=== PATIENT | female | born 1930 | race African-American/Black ===

== ENCOUNTER 2017-01-31 07:54 | Emergency (ER) | payer MEDICARE, MEDICAID ==
--- NOTE | 2017-01-31 08:01 | ER Document Report ---
ED General - General Stated Complaint: FALL,ARM PAIN Mode of Arrival: Medic Information source: Patient Notes: 86-year-old female presents with complaints of right elbow pain after mechanical fall yesterday. Patient notes she tripped over her wheelchair tried to catch herself. She refused EMS transport yesterday however pain continued today and now presents for evaluation - HPI Onset: Yesterday Onset/Duration: Sudden Quality of pain: Achy Severity: Moderate Pain Level: 2 Associated symptoms: Other Exacerbated by: Movement Relieved by: Denies Similar symptoms previously: No Recently seen / treated by doctor: No - Related Data Allergies/Adverse Reactions: lisinopril [Lisinopril] Allergy (Verified 09/14/12 17:51) oxcarbazepine [Oxcarbazepine] Allergy (Verified 09/14/12 17:51) Past Medical History - Social History Smoking Status: Never Smoker Cigarette use (# per day): No Chew tobacco use (# tins/day): No Smoking Education Provided: No Family History: Reviewed & Not Pertinent - Past Medical History Cardiac Medical History: Reports: Hx Atrial Fibrillation, Hx Congestive Heart Failure, Hx Coronary Artery Disease, Hx Hypertension Denies: Hx Heart Attack, Hx Hypercholesterolemia, Hx Peripheral Vascular Disease, Hx Pulmonary Embolism, Hx Heart Murmur Pulmonary Medical History: Reports: Hx Asthma, Hx COPD, Hx Pneumonia Denies: Hx Bronchitis, Hx Respiratory Failure, Hx Sleep Apnea, Hx Tuberculosis Neurological Medical History: Reports: Hx Cerebrovascular Accident. Denies: Hx Seizures Endocrine Medical History: Denies: Hx Graves' Disease, Hx Hyperthyroidism, Hx Hypothyroidism Renal/ Medical History: Denies: Hx End Stage Renal Disease, Hx Kidney Stones, Hx Ovarian Cysts, Hx Peritoneal Dialysis, Hx Pelvic Inflammatory Disease Malignancy Medical History: Denies: Hx Breast Cancer, Hx Cervical Cancer, Hx Leukemia, Hx Lung Cancer, Hx Ovarian Cancer GI Medical History: Denies: Hx Crohn's Disease, Hx Gastroesophageal Reflux Disease, Hx Hiatal Hernia, Hx Irritable Bowel, Hx Liver Failure, Hx Ulcer Musculoskeltal Medical History: Reports Hx Arthritis, Denies Hx Fibromyalgia, Denies Hx Multiple Sclerosis, Denies Hx Muscular Dystrophy Psychiatric Medical History: Reports: Hx Bipolar Disorder, Hx Dementia, Hx Depression, Hx Schizophrenia Traumatic Medical History: Denies: Hx Fractures Infectious Medical History: Denies: Hx HIV Past Surgical History: Reports: Hx Hysterectomy. Denies: Hx Appendectomy, Hx Bowel Surgery, Hx Section, Hx Cholecystectomy, Hx Colostomy, Hx Coronary Artery Bypass Graft, Hx Gastric Bypass Surgery, Hx Herniorrhaphy, Hx Mastectomy, Hx Pacemaker, Hx Tonsillectomy, Hx Tubal Ligation - Immunizations Hx Diphtheria, Pertussis, Tetanus Vaccination: Yes Hx Pneumococcal Vaccination: 11/30/09 Review of Systems - Review of Systems Notes: REVIEW OF SYSTEMS: CONSTITUTIONAL : Denies fever, chills, or sweats. Denies recent illness. EENT: Denies eye, ear, throat, or mouth pain or symptoms. Denies nasal or sinus congestion or discharge. Denies throat, tongue, or mouth swelling or difficulty swallowing. CARDIOVASCULAR: Denies chest pain. Denies palpitations or racing or irregular heart beat. Denies ankle edema. RESPIRATORY: Denies cough, cold, or chest congestion. Denies shortness of breath, difficulty breathing, or wheezing. GASTROINTESTINAL: Denies abdominal pain or distention. Denies nausea, vomiting , or diarrhea. Denies blood in vomitus, stools, or per rectum. Denies black, tarry stools. Denies constipation. GENITOURINARY: Denies difficulty urinating, painful urination, burning, frequency, blood in urine, or discharge. FEMALE GENITOURINARY: Denies vaginal bleeding, heavy or abnormal periods, irregular periods. Denies vaginal discharge or odor. MUSCULOSKELETAL: Right elbow pain SKIN: Denies rash, lesions or sores. HEMATOLOGIC : Denies easy bruising or bleeding. LYMPHATIC: Denies swollen, enlarged glands. NEUROLOGICAL: Denies confusion or altered mental status. Denies passing out or loss of consciousness. Denies dizziness or lightheadedness. Denies headache. Denies weakness or paralysis or loss of use of either side. Denies problems with gait or speech. Denies sensory loss, numbness, or tingling. Denies seizures. PSYCHIATRIC: Denies anxiety or stress. Denies depression, suicidal ideation, or homicidal ideation. ALL OTHER SYSTEMS REVIEWED AND NEGATIVE. Dictation was performed using [employer] recognition software PHYSICAL EXAMINATION: GENERAL: Well-appearing, well-nourished and in no acute distress. HEAD: Atraumatic, normocephalic. EYES: Pupils equal round and reactive to light, extraocular movements intact, conjunctiva are normal. ENT: Nares patent, oropharynx clear without exudates. Moist mucous membranes. NECK: Normal range of motion, supple without lymphadenopathy LUNGS: Breath sounds clear to auscultation bilaterally and equal. No wheezes rales or rhonchi. HEART: Regular rate and rhythm without murmurs ABDOMEN: Soft, nontender, nondistended abdomen. No guarding, no rebound. No masses appreciated. Female : deferred Musculoskeletal: Limited range of motion in antecubital region secondary to pain. Patient is able to grasp has good sensation otherwise. She has no tenderness in the shoulder NEUROLOGICAL: Cranial nerves grossly intact. Normal speech, normal gait. Normal sensory, motor exams PSYCH: Normal mood, normal affect. SKIN: Warm, Dry, normal turgor, no rashes or lesions noted. Physical Exam - Vital signs Vitals: Temp Pulse Resp BP Pulse Ox 98.4 F 52 L 18 108/95 H 96 01/31/17 08:06 01/31/17 08:06 01/31/17 08:06 01/31/17 08:06 01/31/17 08:06 Course - Re-evaluation Re-evalutation: 01/31/17 08:00 X-ray of the elbow is pending at this time, patient has no other injuries or complaints. Patient is on 2 L nasal cannula at baseline 01/31/17 08:57 X-ray noted no significant abnormality, patient will be discharged back home at this time After performing a Medical Screening Examination, I estimate there is LOW risk for INTRACRANIAL HEMORRHAGE, UNSTABLE SPINE FRACTURE, CENTRAL CORD SYNDROME, CAUDA EQUINA, THORACIC AORTIC DISSECTION, PNEUMOTHORAX, PERFORATED BOWEL, RUPTURED ABDOMINAL AORTIC ANEURYSM, ACUTE TENDON RUPTURE, COMPARTMENT SYNDROME, or OPEN FRACTURE, thus I consider the discharge disposition reasonable. Also, there is no evidence or peritonitis, sepsis, or toxicity. The patient and I have discussed the diagnosis and risks, and we agree with discharging home to follow-up with their primary doctor with the understanding that symptoms and presentations can change. We also discussed returning to the Emergency Department immediately if new or worsening symptoms occur. We have discussed the symptoms which are most concerning (e.g., bloody stool, fever, changing or worsening pain, vomiting) that necessitate immediate return. - Vital Signs Vital signs: Temp Pulse Resp BP Pulse Ox 98.4 F 52 L 18 108/95 H 96 01/31/17 08:06 01/31/17 08:06 01/31/17 08:06 01/31/17 08:06 01/31/17 08:06 - Diagnostic Test Radiology reviewed: Image reviewed, Reports reviewed Discharge - Discharge Clinical Impression: Elbow injury Qualifiers: Encounter type: initial encounter Laterality: right Qualified Code(s): S59.901A - Unspecified injury of right elbow, initial encounter Elbow pain Qualifiers: Laterality: right Qualified Code(s): M25.521 - Pain in right elbow Condition: Stable Disposition: HOME, SELF-CARE Instructions: Contusion (OM) Referrals: LILI MCRAE MD [Primary Care Provider] - Follow up as needed JEAN PAUL HERNANDEZ DO [ACTIVE STAFF] - Follow up in 3-5 days
[2017-01-31] MEDS ORDERED: IBUPROFEN 600 MG TABLET PO ONE (08:21)
[2017-01-31 10:51] VITALS: BP 143/66
== END 2017-01-31 10:57 | disposition home or self-care (01) ==
LOC: ER 07:54
DX: S59.901A Unspecified injury of right elbow, initial encounter (principal); M25.521 Pain in right elbow; W01.0XXA Fall on same level from slipping, tripping and stumbling without subsequent striking against object, initial encounter; I25.10 Atherosclerotic heart disease of native coronary artery without angina pectoris; I10 Essential (primary) hypertension; J44.9 Chronic obstructive pulmonary disease, unspecified; J45.909 Unspecified asthma, uncomplicated; Z86.73 Personal history of transient ischemic attack (TIA), and cerebral infarction without residual deficits; Z88.8 Allergy status to other drugs, medicaments and biological substances
CPT/HCPCS: 99284; 73070; A9270

== ENCOUNTER 2017-09-08 15:50 | Emergency (ER) | payer MEDICARE, MEDICAID ==
[2017-09-08] MEDS ORDERED: IPRATROPIUM/ALBUTEROL 0.5-2.5 MG/3 ML AMPUL NEB ONE (16:40)
[2017-09-08] MEDS ORDERED: PREDNISONE 20 MG TABLET PO ONE (16:40)
--- NOTE | 2017-09-08 16:56 | ER Document Report ---
ED Respiratory Problem - General Chief Complaint: Cough Stated Complaint: WEAKNESS Time Seen by Provider: 09/08/17 16:15 Notes: The patient is an 86-year-old female, past medical history COPD, presents with cough and congestion for the past 3 days. She was seen by Dr. Crawford a few days ago and started on an unknown antibiotic, but the patient said that she is feeling a little worse. She has had wheezing and was given two albuterol nebs by EMS prior to arrival. Patient is only having chest pain when she coughs, but denies fevers, hemoptysis, nausea, vomiting, leg swelling, sputum, headache , back pain, abdominal pain or recent travel. Patient does not want to be in the emergency room and says she was forced to come by her family members who called 911. She says she feels fine. Pt is AAOx4 and is competent to make her own decisions. - Related Data Allergies/Adverse Reactions: lisinopril [Lisinopril] Allergy (Verified 09/14/12 17:51) oxcarbazepine [Oxcarbazepine] Allergy (Verified 09/14/12 17:51) Past Medical History - General Information source: Patient - Social History Smoking Status: Former Smoker Chew tobacco use (# tins/day): No Frequency of alcohol use: None Drug Abuse: None Family History: Reviewed & Not Pertinent - Past Medical History Cardiac Medical History: Reports: Hx Atrial Fibrillation, Hx Congestive Heart Failure, Hx Coronary Artery Disease, Hx Hypertension Denies: Hx Heart Attack, Hx Hypercholesterolemia, Hx Peripheral Vascular Disease, Hx Pulmonary Embolism, Hx Heart Murmur Pulmonary Medical History: Reports: Hx Asthma, Hx COPD, Hx Pneumonia Denies: Hx Bronchitis, Hx Respiratory Failure, Hx Sleep Apnea, Hx Tuberculosis Neurological Medical History: Reports: Hx Cerebrovascular Accident. Denies: Hx Seizures Endocrine Medical History: Denies: Hx Graves' Disease, Hx Hyperthyroidism, Hx Hypothyroidism Renal/ Medical History: Denies: Hx End Stage Renal Disease, Hx Kidney Stones, Hx Ovarian Cysts, Hx Peritoneal Dialysis, Hx Pelvic Inflammatory Disease Malignancy Medical History: Denies: Hx Breast Cancer, Hx Cervical Cancer, Hx Leukemia, Hx Lung Cancer, Hx Ovarian Cancer GI Medical History: Denies: Hx Crohn's Disease, Hx Gastroesophageal Reflux Disease, Hx Hiatal Hernia, Hx Irritable Bowel, Hx Liver Failure, Hx Ulcer Musculoskeltal Medical History: Reports Hx Arthritis, Denies Hx Fibromyalgia, Denies Hx Multiple Sclerosis, Denies Hx Muscular Dystrophy Psychiatric Medical History: Reports: Hx Bipolar Disorder, Hx Dementia, Hx Depression, Hx Schizophrenia Traumatic Medical History: Denies: Hx Fractures Infectious Medical History: Denies: Hx HIV Past Surgical History: Reports: Hx Hysterectomy. Denies: Hx Appendectomy, Hx Bowel Surgery, Hx Section, Hx Cholecystectomy, Hx Colostomy, Hx Coronary Artery Bypass Graft, Hx Gastric Bypass Surgery, Hx Herniorrhaphy, Hx Mastectomy, Hx Pacemaker, Hx Tonsillectomy, Hx Tubal Ligation - Immunizations Hx Diphtheria, Pertussis, Tetanus Vaccination: Yes Hx Pneumococcal Vaccination: 11/30/09 Review of Systems - Review of Systems Notes: REVIEW OF SYSTEMS: CONSTITUTIONAL: -fevers, -chills EENT: -eye pain, -difficulty swallowing, -nasal congestion CARDIOVASCULAR: -chest pain, -syncope. RESPIRATORY: +cough, -SOB GASTROINTESTINAL: -abdominal pain, - nausea, -vomiting, -diarrhea GENITOURINARY: -dysuria, -hematuria MUSCULOSKELETAL: -back pain, -neck pain SKIN: -rash or skin lesions. HEMATOLOGIC: -easy bruising or bleeding. LYMPHATIC: -swollen, enlarged glands. NEUROLOGICAL: -altered mental status or loss of consciousness, -headache, - neurologic symptoms PSYCHIATRIC: -anxiety, -depression. ALL OTHER SYSTEMS REVIEWED AND NEGATIVE. Physical Exam - Vital signs Vitals: Temp Pulse Resp BP Pulse Ox 99.0 F 64 20 124/55 L 94 09/08/17 16:05 09/08/17 16:05 09/08/17 16:05 09/08/17 16:05 09/08/17 16:05 - Notes Notes: PHYSICAL EXAMINATION: GENERAL: Well-appearing, well-nourished and in no acute distress. HEAD: Atraumatic, normocephalic. EYES: Pupils equal round and reactive to light, extraocular movements intact, sclera anicteric, conjunctiva are normal. ENT: nares patent, oropharynx clear without exudates. Moist mucous membranes. NECK: Normal range of motion, supple without lymphadenopathy LUNGS: Breath sounds clear to auscultation bilaterally and equal. No wheezes rales or rhonchi. HEART: Regular rate and rhythm without murmurs ABDOMEN: Soft, nontender, normoactive bowel sounds. No guarding, no rebound. No masses appreciated. EXTREMITIES: Normal range of motion, no pitting or edema. No cyanosis. NEUROLOGICAL: Cranial nerves grossly intact. Normal speech, normal gait. Normal sensory and motor exams. PSYCH: Normal mood, normal affect. SKIN: Warm, Dry, normal turgor, no rashes or lesions noted. Course - Re-evaluation Re-evalutation: Patient is in no respiratory distress. Her chest x-ray shows chronic lung changes and a possible left lower lobe pneumonia. She is already on her antibiotics. After steroids and duonebs, she feels much better. She is adamant that she does not want any blood work because she feels fine and wants to go home. She is only here because her family called 911. Patient is of sound mind, AAO 4 and appears competent to make her own decisions. Will discharge patient home with albuterol and steroids with instructions to continue her antibiotics. She will follow-up with Dr. Crawford this week. Given strict return precautions and she understands. - Vital Signs Vital signs: Temp Pulse Resp BP Pulse Ox 99.0 F 64 20 124/55 L 94 09/08/17 16:05 09/08/17 16:05 09/08/17 16:05 09/08/17 16:05 09/08/17 16:05 - Diagnostic Test Radiology reviewed: Image reviewed, Reports reviewed Radiology results interpreted by me: CXR: chronic lung changes, cannot exclude left lower lung infiltrate - EKG Interpretation by Me EKG shows normal: Sinus rhythm, [place], Intervals, QRS Complexes Additional EKG results interpreted by me: No STEMI. Discharge - Discharge Clinical Impression: Cough, Bronchitis Condition: Good Disposition: HOME, SELF-CARE Additional Instructions: BRONCHITIS WITH BRONCHOSPASM (WHEEZING): You have bronchitis with bronchospasm (wheezing). Sometimes people develop wheezing with a chest cold. This occurs either because of an underlying tendency toward asthma or because the virus itself irritates the bronchial tubes. This irritation causes cough, shortness of breath, and wheezing. Emergency treatment of bronchospasm may include adrenaline shots or bronchodilator aerosol. You may feel lightheaded and have a rapid pulse for an hour or two. Rest and get plenty of fluids. At home, we'll treat you with a bronchodilator inhaler. Corticosteroids may be required for some patients. Until you recover, avoid chemical fumes, dusts, pollens, and exercising in very cold or dry air. If you smoke, stop now! Most cases of bronchitis get better without antibiotics. We prescribe antibiotics when we believe bacteria are damaging your airways, or if there's high risk the bronchitis will worsen into pneumonia. Increase your fluid intake. A cool mist humidifier may make your lungs more comfortable. An expectorant (cough medicine that loosens phlegm) can help. Repeated episodes of bronchitis and bronchospasm may result in lung damage -- for example, chronic bronchitis, recurrent pneumonias, or emphysema. If you develop a fever, increased wheezing, chest pain, or severe shortness of breath, you should contact the doctor immediately. INHALED BRONCHODILATORS: You have received a treatment of and/or prescription for an inhaled bronchodilator -- a medication which stimulates the airways in the lung to dilate. This improves the flow of air in asthma, bronchitis, and emphysema. These medicines have some similarity to adrenaline, and can cause similar side effects: shakiness, racing heart, and a sense of nervousness. These side effects decrease with time. Contact your doctor if these side effects are severe. Do not over-use the medicine. Too-frequent use of the inhaler may make it ineffective. Call your doctor if the inhaler is not controlling your symptoms at the prescribed doses. STEROID MEDICATION: You have been given an injection of or oral medicine of the cortisone/ steroid class. This medication is used to control inflammation or allergy. Joseph t is usually only given for a short period of time, until the acute process subsides. There are usually no side effects from short-term use of cortisone-like medications. Some persons feel an increased sense of well-being and are not sleepy at bedtime. Long-term use of cortisone medications is best avoided, unless required for a severe condition. If your condition does not remit, or relapses after the course of corticosteroid medication, you should consult your physician. USE OF ACETAMINOPHEN (Tylenol): Acetaminophen may be taken for pain relief or fever control. It's much safer than aspirin, offering a wider range of "safe" dosages. It is safe during . Some brand names are Tylenol, Panadol, Datril, Anacin 3, Tempra, and Liquiprin. Acetaminophen can be repeated every four hours. The following are maximum recommended dosages: >89 pounds or adults 650 mg to 900 mg Acetaminophen can be repeated every four hours. Maximum dose not to exceed 4000 mg a day. SMOKING: If you smoke, you should stop smoking. The tar and chemicals in cigarette smoke are harmful. Smoking has been shown to cause: emphysema chronic bronchitis lung cancer mouth and throat cancer stomach and pancreas cancer premature aging defects In addition, smoking increases ear and lung infections in children of smokers. FOLLOW-UP CARE: If you have been referred to a physician for follow-up care, call the physician s office for an appointment as you were instructed or within the next two days. If you experience worsening or a significant change in your symptoms, notify the physician immediately or return to the Emergency Department at any time for re-evaluation. Prescriptions: Albuterol Sulfate [Proair HFA Inhalation Aerosol 8.5 gm MDI] 2 puff IH Q4H PRN # 1 mdi PRN Reason: Doxycycline Hyclate 100 mg PO BID #14 capsule Prednisone [Deltasone 20 mg Tablet] 3 tab PO DAILY 4 Days tablet
--- NOTE | 2017-09-08 17:08 | RADIOLOGY REPORT (SQ) ---
EXAM DESCRIPTION: CHEST PA/LAT COMPLETED DATE/TIME: 09/08/2017 4:59 pm REASON FOR STUDY: cough COMPARISON: 09/27/2012 EXAM PARAMETERS: NUMBER OF VIEWS: two views TECHNIQUE: Digital Frontal and Lateral radiographic views of the chest acquired. RADIATION DOSE: NA LIMITATIONS: none FINDINGS: LUNGS AND PLEURA: Chronic interstitial changes are present. Ill-defined opacification in the left lower lung field. On the lateral view there is increased opacification posteriorly. MEDIASTINUM AND HILAR STRUCTURES: No masses or contour abnormalities. HEART AND VASCULAR STRUCTURES: Heart normal size. No evidence for failure. BONES: No acute findings. HARDWARE: None in the chest. OTHER: No other significant finding. IMPRESSION: Chronic lung changes. Cannot exclude a left lower lobe pneumonia. TECHNICAL DOCUMENTATION: JOB ID: [id number]- All Rights Reserved
--- NOTE | 2017-09-08 18:15 | EKG REPORT ---
SEVERITY:- ABNORMAL ECG - SINUS RHYTHM NONSPECIFIC T ABNORMALITIES, LATERAL LEADS : Confirmed by: Salbador Bill MD 08-Sep-2017 18:13:38
[2017-09-08 21:51] VITALS: BP 133/53
== END 2017-09-08 21:51 | disposition home or self-care (01) ==
LOC: ER 15:50
DX: J40 Bronchitis, not specified as acute or chronic (principal); R05 Cough; R53.1 Weakness; J44.9 Chronic obstructive pulmonary disease, unspecified; R09.81 Nasal congestion; Z87.891 Personal history of nicotine dependence
CPT/HCPCS: 93005; 94640; 99283; 71020; 93010; A9270 ×2; J7512; J7620

== ENCOUNTER 2017-11-16 10:32 | Inpatient (IN) | payer MEDICARE, MEDICAID ==
[2017-11-16] MEDS ORDERED: IPRATROPIUM/ALBUTEROL 0.5-2.5 MG/3 ML AMPUL NEB ONE (11:09)
[2017-11-16] MEDS ORDERED: ALBUTEROL SULFATE 0.083% NEB 2.5 MG/3 ML AMPUL NEB ONE (11:09)
--- NOTE | 2017-11-16 11:10 | RADIOLOGY REPORT (SQ) ---
EXAM DESCRIPTION: CHEST SINGLE VIEW COMPLETED DATE/TIME: 11/16/2017 11:01 am REASON FOR STUDY: sob COMPARISON: None. EXAM PARAMETERS: NUMBER OF VIEWS: One view. TECHNIQUE: Single frontal radiographic view of the chest acquired. RADIATION DOSE: NA LIMITATIONS: None. FINDINGS: LUNGS AND PLEURA: There is opacification in each lung base, left more than right. There i s a small left pleural effusion. MEDIASTINUM AND HILAR STRUCTURES: No masses. Contour normal. HEART AND VASCULAR STRUCTURES: Heart normal in size. Normal vasculature. BONES: No acute findings. HARDWARE: None in the chest. OTHER: No other significant finding. IMPRESSION: Cannot exclude multicentric pneumonia. Small left pleural effusion. TECHNICAL DOCUMENTATION: JOB ID: [id number] [employer]- All Rights Reserved
[2017-11-16] MEDS ORDERED: LEVOFLOXACIN 500 MG/D5W RTU 500 MG/100 ML RTUPB IV ONE (11:41)
[2017-11-16 11:58] LABS: ABSOLUTE MONOCYTES (AUTO) 0.8 10^3/uL (0.1-1.4); ABSOLUTE NEUT (AUTO) 5.3 10^3/uL (1.7-8.2); BASOPHILS % (AUTO) 0.5 % (0-2); EOSINOPHILS % (AUTO) 0.3 % (0-6); HEMATOCRIT 36.3 % (36.0-47.0); HEMOGLOBIN 12.4 g/dL (12.0-15.5); HGB HCT DIFFERENCE 0.9; LYMPHOCYTES % (AUTO) 32.8 % (13-45); MEAN CORPUSCULAR HEMOGLOBIN 28.9 pg (27.0-33.4); MEAN CORPUSCULAR HGB CONC 34.3 g/dL (32.0-36.0); MEAN CORPUSCULAR VOLUME 84 fl (80-97); MONOCYTES % (AUTO) 8.4 % (3-13); RED BLOOD COUNT 4.31 10^6/uL (3.72-5.28); RED CELL DISTRIBUTION WIDTH 15.6 % (11.5-14.0); WHITE BLOOD COUNT 9.1 10^3/uL (4.0-10.5)
--- NOTE | 2017-11-16 12:57 | EKG REPORT ---
SEVERITY:- ABNORMAL ECG - SINUS RHYTHM NONSPECIFIC T ABNORMALITIES, LATERAL LEADS : Confirmed by: Salbador Bill MD 16-Nov-2017 12:56:48
[2017-11-16 13:19] LABS: APPEARANCE,URINE CLEAR; BILIRUBIN,URINE NEGATIVE (NEGATIVE); GLUCOSE, URINE NEGATIVE (NEGATIVE); KETONES,URINE NEGATIVE (NEGATIVE); LEUKOCYTE ESTERASE,URINE NEGATIVE (NEGATIVE); NITRITE,URINE NEGATIVE (NEGATIVE); PROTEIN,URINE >=500 mg/dL (NEGATIVE); URINE SPECIFIC GRAVITY 1.011
[2017-11-16 14:12] LABS: VENOUS BLOOD BASE EXCESS -4.6 mmol/L; VENOUS BLOOD HCO3 21.5 mmol/L (20-32); VENOUS BLOOD PCO2 43.5 mmHg (35-63); VENOUS BLOOD PH 7.31 (7.30-7.42)
[2017-11-16 14:29] LABS: ALANINE AMINOTRANSFERASE 26 U/L (9-52); ALKALINE PHOSPHATASE 83 U/L (38-126); ANION GAP 15 (5-19); ASPARTATE AMINO TRANSFERASE 20 U/L (14-36); BILIRUBIN,DIRECT 0.8 mg/dL (0.0-0.4); BILIRUBIN,TOTAL 2.1 mg/dL (0.2-1.3); BLOOD UREA NITROGEN 15 mg/dL (7-20); CALCIUM 8.8 mg/dL (8.4-10.2); CARBON DIOXIDE 22 mmol/L (22-30); CHLORIDE 111 mmol/L (98-107); CREATININE RESULT 1.39 mg/dL (0.52-1.25); GLUCOSE 137 mg/dL (75-110); POTASSIUM 3.1 mmol/L (3.6-5.0); SODIUM 147.9 mmol/L (137-145); TOTAL PROTEIN 8.2 g/dL (6.3-8.2)
[2017-11-16] MEDS ORDERED: NORMAL SALINE 1000 ML 1,000 ML IV ONE (14:43)
[2017-11-16 14:44] LABS: TROPONIN I 0.043 ng/mL
--- NOTE | 2017-11-16 14:56 | ER Document Report ---
ED General - General Chief Complaint: Breathing Difficulty Stated Complaint: DIFFICULTY BREATHING Time Seen by Provider: 11/16/17 10:43 - HPI Patient complains to provider of: Difficulty breathing Notes: Patient coming in for local [place] [facility] for difficulty breathing. Patient has a history of dementia. Apparently patient has had difficulty breathing cough over the last few days patient was sent to the ER for further evaluation. Patient has severe dementia and is unable to participate in the HPI. Patient normally is on room air patient requiring oxygen and was hypoxic upon arrival without oxygen. - Related Data Allergies/Adverse Reactions: lisinopril [Lisinopril] Allergy (Verified 09/14/12 17:51) oxcarbazepine [Oxcarbazepine] Allergy (Verified 09/14/12 17:51) Past Medical History - Social History Smoking Status: Unknown if Ever Smoked Chew tobacco use (# tins/day): No Frequency of alcohol use: None Drug Abuse: None Family History: Reviewed & Not Pertinent Patient has suicidal ideation: No Patient has homicidal ideation: No - Past Medical History Cardiac Medical History: Reports: Hx Atrial Fibrillation, Hx Congestive Heart Failure, Hx Coronary Artery Disease, Hx Hypertension Denies: Hx Heart Attack, Hx Hypercholesterolemia, Hx Peripheral Vascular Disease, Hx Pulmonary Embolism, Hx Heart Murmur Pulmonary Medical History: Reports: Hx Asthma, Hx COPD, Hx Pneumonia Denies: Hx Bronchitis, Hx Respiratory Failure, Hx Sleep Apnea, Hx Tuberculosis Neurological Medical History: Reports: Hx Cerebrovascular Accident. Denies: Hx Seizures Endocrine Medical History: Denies: Hx Graves' Disease, Hx Hyperthyroidism, Hx Hypothyroidism Renal/ Medical History: Denies: Hx End Stage Renal Disease, Hx Kidney Stones, Hx Ovarian Cysts, Hx Peritoneal Dialysis, Hx Pelvic Inflammatory Disease Malignancy Medical History: Denies: Hx Breast Cancer, Hx Cervical Cancer, Hx Leukemia, Hx Lung Cancer, Hx Ovarian Cancer GI Medical History: Denies: Hx Crohn's Disease, Hx Gastroesophageal Reflux Disease, Hx Hiatal Hernia, Hx Irritable Bowel, Hx Liver Failure, Hx Pancreatitis , Hx Ulcer Musculoskeltal Medical History: Reports Hx Arthritis, Denies Hx Fibromyalgia, Denies Hx Multiple Sclerosis, Denies Hx Muscular Dystrophy Psychiatric Medical History: Reports: Hx Bipolar Disorder, Hx Dementia, Hx Depression, Hx Schizophrenia Traumatic Medical History: Denies: Hx Fractures Infectious Medical History: Denies: Hx HIV Past Surgical History: Reports: Hx Hysterectomy. Denies: Hx Appendectomy, Hx Bowel Surgery, Hx Section, Hx Cholecystectomy, Hx Colostomy, Hx Coronary Artery Bypass Graft, Hx Gastric Bypass Surgery, Hx Herniorrhaphy, Hx Mastectomy, Hx Pacemaker, Hx Tonsillectomy, Hx Tubal Ligation - Immunizations Hx Diphtheria, Pertussis, Tetanus Vaccination: Yes Hx Pneumococcal Vaccination: 11/30/09 Review of Systems - Review of Systems Notes: Dementia Physical Exam - Vital signs Vitals: Pulse Ox 94 11/16/17 10:41 Interpretation: Normal - HEENT Head: Normocephalic, Atraumatic Eyes: Normal Pupils: PERRL - Respiratory Respiratory status: Other - Hypoxia Chest status: Nontender Breath sounds: Rhonchi, Wheezing Chest palpation: Normal - Cardiovascular Rhythm: Regular Heart sounds: Normal auscultation Murmur: No - Abdominal Inspection: Normal Distension: No distension Bowel sounds: Normal Tenderness: Nontender Organomegaly: No organomegaly - Extremities General upper extremity: Normal inspection, Nontender, Normal color, Normal temperature General lower extremity: Normal inspection, Nontender, Normal color, Normal temperature - Neurological Neuro grossly intact: Yes Cognition: Confused Motor strength normal: LUE, RUE, LLE, RLE - Skin Skin Temperature: Warm Skin Moisture: Dry Skin Color: Normal Course - Re-evaluation Re-evalutation: 11/16/17 15:00 Chest x-ray shows pneumonia. Will start patient on antibiotics discussed with PCP will admit to the IMCU. - Vital Signs Vital signs: Temp Pulse Resp BP Pulse Ox 98.7 F 18 124/53 L 92 11/16/17 10:45 11/16/17 14:01 11/16/17 14:00 11/16/17 14:01 - Laboratory Result Diagrams: 11/16/17 11:31 11/16/17 13:56 Laboratory results interpreted by me: 11/16/17 11/16/17 11/16/17 11:31 11:31 12:25 RDW 15.6 H Sodium Potassium Chloride Creatinine Est GFR ( Amer) Est GFR (Non-Af Amer) Glucose Lactic Acid 2.8 H Total Bilirubin Direct Bilirubin NT-Pro-B Natriuret Pep Urine Protein >=500 H Urine Urobilinogen 2.0 H 11/16/17 11/16/17 13:56 13:56 RDW Sodium 147.9 H Potassium 3.1 L Chloride 111 H Creatinine 1.39 H Est GFR ( Amer) 44 L Est GFR (Non-Af Amer) 36 L Glucose 137 H Lactic Acid Total Bilirubin 2.1 H Direct Bilirubin 0.8 H NT-Pro-B Natriuret Pep 5930 H Urine Protein Urine Urobilinogen Discharge - Discharge Clinical Impression: Respiratory distress, Hypoxia PNA (pneumonia) Qualifiers: Pneumonia type: due to unspecified organism Laterality: bilateral Lung location : unspecified part of lung Qualified Code(s): J18.9 - Pneumonia, unspecified organism Condition: Good Disposition: ADMITTED INPATIENT Admitting Provider: Ty Unit Admitted: IMCU Referrals: LILI MCRAE MD [Primary Care Provider] - Follow up as needed
[2017-11-16] MEDS: POTASSI CL 20 MEQ/50 ML RIDER 20 MEQ/50 ML RTUPB IV SCH ×2 (15:17→17:13)
[2017-11-16] MEDS ORDERED: NORMAL SALINE 1000 ML 1,000 ML IV PRN (20:41)
--- NOTE | 2017-11-16 20:47 | PDOC H&P ---
History of Present Illness Admission Date/PCP: 11/16/17 15:34 LILI MCRAE MD History of Present Illness: LORI MANZANARES is a 86 year old female, She was history of dementia at baseline , chronic obstructive pulmonary disease, nicotine dependence and abuse, resident of assisted living facility she came to the emergency room for evaluation of respiratory distress, today,she was found to have opacities in lower lobes of both lungs. The arterial blood gas on FiO2 of 4 L, pH 7.34, PO2 52.9 PCO2 [address] chest without contrast showed small right pleural effusion diffuse interstitial edema with thickened interlobular septa and patchy groundglass opacities from alveolar edema. There is dense consolidation throughout the right lower lobe and the media left lower lobe worrisome for pneumonia Past Medical History Cardiac Medical History: Reports: Atrial Fibrillation, Congestive Heart Failure , Coronary Artery Disease, Hypertension Pulmonary Medical History: Reports: Asthma, Chronic Obstructive Pulmonary Disease (COPD), Pneumonia Musculoskeltal Medical History: Reports: Arthritis Psychiatric Medical History: Reports: Bipolar Disorder, Dementia, Depression Hematology: Reports: Anemia Past Surgical History Past Surgical History: Reports: Hysterectomy Social History Smoking Status: Current Every Day Smoker Frequency of Alcohol Use: None Hx Recreational Drug Use: No Drugs: None Hx Prescription Drug Abuse: No Family History Family History: Reviewed & Not Pertinent Parental Family History Reviewed: Yes Children Family History Reviewed: Yes Sibling(s) Family History Reviewed.: Yes Medication/Allergy Home Medications: Acetaminophen [Tylenol 325 mg Tablet] 650 mg PO Q4HP PRN 11/16/17 Albuterol Sulfate [Proair HFA] 2 puff IH Q4HP PRN 11/16/17 Amlodipine Besylate [Norvasc 5 mg Tablet] 5 mg PO DAILY 11/16/17 Aspirin [Aspirin 325 mg Tablet] 325 mg PO DAILY 11/16/17 Benztropine Mesylate 1 mg PO QHS 11/16/17 Calcium Carbonate [Tums Chewable 500 mg Tab.chew] 1,000 mg PO DAILYP PRN Clonidine HCl [Catapres 0.1 mg Tablet] 0.1 mg PO Q12 11/16/17 Cyproheptadine HCl [Periactin 4 Mg Tablet] 4 mg PO DAILY 11/16/17 Donepezil HCl [Aricept 5 mg Tablet] 5 mg PO QHS 11/16/17 Escitalopram Oxalate [Lexapro 10 mg Tablet] 10 mg PO DAILY 11/16/17 Guaifenesin [Robitussin Syrup 200 mg/10 ml Ud Cup] 10 ml PO Q4HP PRN 11/16/17 Loperamide HCl [Imodium A-D] 2 mg PO Q6HP PRN 11/16/17 Lorazepam [Ativan 0.5 mg Tablet] 0.5 mg PO Q6HP PRN 11/16/17 Losartan Potassium [Cozaar 100 mg Tablet] 100 mg PO DAILY 11/16/17 Metoprolol Succinate [Toprol Xl 50 mg Tab.sr] 50 mg PO DAILY 11/16/17 Omeprazole 40 mg PO DAILY 11/16/17 Risperidone [Risperdal 1 mg Tablet] 1 mg PO Q12 11/16/17 Roflumilast [Daliresp 500 mcg Tablet] 500 mcg PO DAILY 11/16/17 Tramadol HCl [Ultram 50 mg Tablet] 50 mg PO Q6HP PRN 11/16/17 Allergies/Adverse Reactions: lisinopril [Lisinopril] Allergy (Verified 09/14/12 17:51) oxcarbazepine [Oxcarbazepine] Allergy (Verified 09/14/12 17:51) Review of Systems Constitutional: PRESENT: anorexia Eyes: ABSENT: visual disturbances Ears: ABSENT: hearing changes Cardiovascular: ABSENT: chest pain, dyspnea on exertion, edema, orthropnea, palpitations Respiratory: PRESENT: cough, dyspnea, sputum Gastrointestinal: ABSENT: abdominal pain, constipation, diarrhea, hematemesis, hematochezia, nausea, vomiting Genitourinary: ABSENT: dysuria, hematuria Musculoskeletal: ABSENT: joint swelling Integumentary: ABSENT: rash, wounds Neurological: ABSENT: abnormal gait, abnormal speech, confusion, dizziness, focal weakness, syncope Psychiatric: ABSENT: anxiety, depression, homidical ideation, suicidal ideation Endocrine: ABSENT: cold intolerance, heat intolerance, menstrual abnormalities, polydipsia, polyuria Hematologic/Lymphatic: ABSENT: easy bleeding, easy bruising, lymphadenopathy Physical Exam Vital Signs: Temp Pulse Resp BP Pulse Ox 98.2 F 64 20 104/66 97 11/16/17 19:22 11/16/17 19:22 11/16/17 19:22 11/16/17 19:22 12/18/17 19:22 Intake & Output 11/15/17 11/16/17 11/17/17 06:59 06:59 06:59 Weight 74.7 kg General appearance: PRESENT: mild distress Head exam: PRESENT: atraumatic, normocephalic Eye exam: PRESENT: conjunctiva pink, EOMI, PERRLA Ear exam: PRESENT: normal external ear exam Mouth exam: PRESENT: moist, tongue midline Neck exam: PRESENT: full ROM Respiratory exam: PRESENT: crackles Cardiovascular exam: PRESENT: RRR, +S1, +S2 Pulses: PRESENT: normal dorsalis pedis pul, +2 pedal pulses bilateral Vascular exam: PRESENT: normal capillary refill GI/Abdominal exam: PRESENT: normal bowel sounds, soft Rectal exam: PRESENT: deferred Neurological exam: PRESENT: alert Skin exam: PRESENT: dry, intact, warm Results Impressions: Chest X-Ray 11/16/17 10:44 IMPRESSION: Cannot exclude multicentric pneumonia. Small left pleural effusion. Assessment & Plan - Diagnosis (1) Acute hypoxemic respiratory failure Is this a current diagnosis for this admission?: Yes Plan: Patient is presently not requiring noninvasive positive pressure ventilation with BiPAP, she is able to maintain adequate oxygen saturation on nasal cannula , she has tandby positive pressure ventilation available if needed to be used because she is very hypoxemic (2) Pneumonia Qualifiers: Pneumonia type: due to unspecified organism Laterality: unspecified laterality Lung location: unspecified part of lung Qualified Code(s): J18.9 - Pneumonia, unspecified organism Is this a current diagnosis for this admission?: Yes (3) Chronic obstructive pulmonary disease with (acute) exacerbation Is this a current diagnosis for this admission?: Yes Plan: She has COPD but she is presently not requiring Solu-Medrol (4) Acute diastolic heart failure Is this a current diagnosis for this admission?: Yes Plan: The BNP is elevated, 2D echo ordered
[2017-11-16] MEDS ORDERED: ALBUTEROL SULFATE HFA (90 MCG/PUFF) 8 GM MDI (1 MDI/ER DISP) IH PRN (20:48)
[2017-11-16] MEDS ORDERED: ACETAMINOPHEN 325 MG TABLET PO PRN (20:48)
[2017-11-16] MEDS ORDERED: (PENDING PHARMACY ID) (Loperamide Hcl [Imodium A-D] 2 MG) PO PRN (20:48)
[2017-11-16] MEDS ORDERED: GUAIFENESIN SYRP 200 MG/10 ML UDC PO PRN (20:48)
[2017-11-16] MEDS ORDERED: CALCIUM CARBONATE 500 MG TAB.CHEW PO PRN (20:48)
[2017-11-16] MEDS ORDERED: (PENDING PHARMACY ID) (Roflumilast [Daliresp 500 Mcg Tablet] 500 MCG) PO SCH (21:00)
[2017-11-16] MEDS ORDERED: LOPERAMIDE HCL 2 MG CAPSULE PO PRN (21:23)
[2017-11-16 21:50] LABS: ARTERIAL BLOOD BASE EXCESS -4.3 mmol/L; ARTERIAL BLOOD O2 SATURATION 85.6 % (94-98)
[2017-11-16] MEDS ORDERED: ENOXAPARIN SODIUM INJ 40 MG/0.4 ML DISP.SYRIN SUBCUT ONE (22:00)
[2017-11-16] MEDS: DONEPEZIL HCL 5 MG TABLET PO SCH (22:12)
[2017-11-16] MEDS: CLONIDINE HCL 0.1 MG TABLET PO SCH (22:13)
[2017-11-16] MEDS: RISPERIDONE 1 MG TABLET PO SCH (22:13)
[2017-11-16] MEDS: BENZTROPINE MESYLATE 1 MG TABLET PO SCH (22:13)
[2017-11-16 22:45] LABS: CREATINE KINASE MB 0.61 ng/mL (<4.55); TROPONIN I 0.029 ng/mL
[2017-11-16] MEDS: CEFEPIME 2 GM/D5W RTU 2 GM/50 ML RTUPB IV SCH (23:10)
[2017-11-17 04:22] LABS: ABSOLUTE EOSINOPHILS # (AUTO) 0.1 10^3/uL (0.0-0.6); ABSOLUTE MONOCYTES (AUTO) 0.8 10^3/uL (0.1-1.4); BASOPHILS % (AUTO) 0.4 % (0-2); EOSINOPHILS % (AUTO) 1.5 % (0-6); HEMATOCRIT 36.5 % (36.0-47.0); HEMOGLOBIN 12.1 g/dL (12.0-15.5); HGB HCT DIFFERENCE -0.2; LYMPHOCYTES % (AUTO) 42.9 % (13-45); MEAN CORPUSCULAR HEMOGLOBIN 28.1 pg (27.0-33.4); MEAN CORPUSCULAR HGB CONC 33.2 g/dL (32.0-36.0); MEAN CORPUSCULAR VOLUME 85 fl (80-97); MONOCYTES % (AUTO) 11.7 % (3-13); RED BLOOD COUNT 4.31 10^6/uL (3.72-5.28); SEGMENTED NEUTROPHILS % (AUTO) 43.5 % (42-78)
[2017-11-17 04:43] LABS: ALANINE AMINOTRANSFERASE 20 U/L (9-52); ALBUMIN 3.7 g/dL (3.5-5.0); ALKALINE PHOSPHATASE 80 U/L (38-126); ANION GAP 11 (5-19); ASPARTATE AMINO TRANSFERASE 20 U/L (14-36); BILIRUBIN,DIRECT 0.6 mg/dL (0.0-0.4); BILIRUBIN,TOTAL 1.8 mg/dL (0.2-1.3); BLOOD UREA NITROGEN 17 mg/dL (7-20); CALCIUM 8.9 mg/dL (8.4-10.2); CARBON DIOXIDE 22 mmol/L (22-30); CHLORIDE 117 mmol/L (98-107); CREATININE RESULT 1.35 mg/dL (0.52-1.25); GLUCOSE 106 mg/dL (75-110); POTASSIUM 3.3 mmol/L (3.6-5.0); SODIUM 149.9 mmol/L (137-145); TOTAL PROTEIN 7.6 g/dL (6.3-8.2)
[2017-11-17] MEDS: LANSOPRAZOLE 30 MG TAB.RAP.DR PO SCH (05:36)
[2017-11-17] MEDS: INFLUENZA ADLT QUAD (36MOS+) 2017-18 VAC 0.5 ML SYR IM PRN (06:41)
--- NOTE | 2017-11-17 08:47 | RADIOLOGY REPORT (SQ) ---
EXAM DESCRIPTION: CT CHEST WITHOUT COMPLETED DATE/TIME: 11/17/2017 7:39 am REASON FOR STUDY: PNEUMONIA COMPARISON: CT chest 09/12/2012 Chest films 11/16/2017, 09/08/2017, 09/27/2012 TECHNIQUE: CT scan performed of the chest without intravenous contrast. Images reviewed with lung, soft tissue and bone windows. Reconstructed coronal and sagittal MPR images reviewed. All images st ored on PACS. All CT scanners at this facility use dose modulation, iterative reconstruction, and/or weight based d osing when appropriate to reduce radiation dose to as low as reasonably achievable (ALARA). [facility]: Dose Right [facility]: CareDose [facility]: Dose Right [facility]: Teradose 4D [facility]: [email or web address] RADIATION DOSE: CT Rad equipment meets quality standard of care and radiation dose reduction techniq ues were employed. CTDIvol: 14.9 mGy. DLP: 551 mGy-cm. mGy. LIMITATIONS: No technical limitations. FINDINGS: LUNGS AND PLEURA: Small right, trace left pleural effusion. Lungs exhibit diffuse interstitial edema with thickened interlobular septa, and patchy ground-glass o pacities from alveolar edema. There is dense consolidation throughout the right lower lobe, and in the medial left lower lobe worri some for pneumonia. No pneumothorax. HILAR AND MEDIASTINAL STRUCTURES: 2.2 x 1.6 cm precarinal lymph node, likely reactive. HEART AND VASCULAR STRUCTURES: No aneurysm. No pericardial effusion. Calcified coronary arteries UPPER ABDOMEN: No significant findings. Limited exam. THYROID AND OTHER SOFT TISSUES: No masses. No adenopathy. BONES: No significant finding. HARDWARE: None in the chest. OTHER: No other significant findings. IMPRESSION: Fluid overload or congestive failure Right lower lobe pneumonia with reactive mediastinal adenopathy TECHNICAL DOCUMENTATION: JOB ID: [id number] Quality ID # [id number]: Final reports with documentation of one or more dose reduction techniques (e.g., Au tomated exposure control, adjustment of the mA and/or kV according to patient size, use of iterative reconstruction technique) 2010 [employer]- All Rights Reserved
[2017-11-17] MEDS ORDERED: ENOXAPARIN SODIUM INJ 40 MG/0.4 ML DISP.SYRIN SUBCUT SCH (10:00)
[2017-11-17] MEDS: CLONIDINE HCL 0.1 MG TABLET PO SCH ×2 (11:17→22:56)
[2017-11-17] MEDS: ASPIRIN 325 MG TABLET PO SCH (11:17)
[2017-11-17] MEDS: AMLODIPINE BESYLATE 5 MG TABLET PO SCH (11:17)
[2017-11-17] MEDS: ESCITALOPRAM OXALATE 10 MG TABLET PO SCH (11:18)
[2017-11-17] MEDS: RISPERIDONE 1 MG TABLET PO SCH ×2 (11:18→22:56)
[2017-11-17] MEDS: METOPROLOL SUCCINATE 50 MG TAB.SR.24H PO SCH (11:18)
[2017-11-17] MEDS: LOSARTAN POTASSIUM 50 MG TABLET PO SCH (11:18)
[2017-11-17] MEDS: ENOXAPARIN SODIUM INJ 40 MG/0.4 ML DISP.SYRIN SUBCUT SCH (11:19)
[2017-11-17] MEDS: ROFLUMILAST 500 MCG TABLET PO SCH (11:19)
[2017-11-17] MEDS ORDERED: POTASSIUM CHLORIDE 10 MEQ TABLET.SA PO ONE (18:30)
[2017-11-17] MEDS ORDERED: FUROSEMIDE INJ/PF 40 MG/4 ML SDV IV ONE (19:30)
--- NOTE | 2017-11-17 20:10 | PDOC PROGRESS REPORT ---
Subjective Progress Note for:: 11/17/17 Subjective:: Patient was admitted yesterday for the management of acute hypoxemic respiratory failure due to pneumonia, 2D echo was done today, it showed preserved ejection fraction of left ventricle, diastolic dysfunction of left ventricle Reason For Visit: PNEUMONIA Physical Exam Vital Signs: Temp Pulse Resp BP Pulse Ox 98.9 F 66 20 134/46 H 93 11/17/17 15:54 11/17/17 15:54 11/17/17 15:54 11/17/17 15:54 11/17/17 15:54 Intake & Output 11/16/17 11/17/17 11/18/17 06:59 06:59 06:59 Intake Total 360 874 Output Total 300 100 Balance 60 774 Weight 76.8 kg General appearance: PRESENT: mild distress Head exam: PRESENT: atraumatic, normocephalic Eye exam: PRESENT: conjunctiva pink, EOMI, PERRLA Ear exam: PRESENT: normal external ear exam Mouth exam: PRESENT: moist, tongue midline Respiratory exam: PRESENT: crackles Cardiovascular exam: PRESENT: RRR, +S1, +S2 Vascular exam: PRESENT: normal capillary refill GI/Abdominal exam: PRESENT: normal bowel sounds, soft Rectal exam: PRESENT: deferred Neurological exam: PRESENT: alert Psychiatric exam: PRESENT: appropriate affect, normal mood Skin exam: PRESENT: dry, intact, warm Results Laboratory Results: 11/17/17 04:01 11/17/17 04:01 11/16/17 11/17/17 11/17/17 21:20 04:01 04:01 WBC 7.0 RBC 4.31 Hgb 12.1 Hct 36.5 MCV 85 MCH 28.1 MCHC 33.2 RDW 16.0 H Plt Count 132 L Seg Neutrophils % 43.5 Lymphocytes % 42.9 Monocytes % 11.7 Eosinophils % 1.5 Basophils % 0.4 Absolute Neutrophils 3.0 Absolute Lymphocytes 3.0 Absolute Monocytes 0.8 Absolute Eosinophils 0.1 Absolute Basophils 0.0 Carbonic Acid 1.20 HCO3/H2CO3 Ratio 17:1 ABG pH 7.34 L ABG pCO2 40.0 ABG pO2 52.9 L ABG HCO3 21.1 ABG O2 Saturation 85.6 L ABG Base Excess -4.3 FiO2 4L Sodium 149.9 H Potassium 3.3 L Chloride 117 H Carbon Dioxide 22 Anion Gap 11 BUN 17 Creatinine 1.35 H Est GFR ( Amer) 45 L Est GFR (Non-Af Amer) 37 L Glucose 106 Calcium 8.9 Total Bilirubin 1.8 H AST 20 ALT 20 Alkaline Phosphatase 80 Total Protein 7.6 Albumin 3.7 11/16/17 11/16/17 11/17/17 22:07 22:07 04:01 Creatine Kinase 54 CK-MB (CK-2) 0.61 Troponin I 0.029 NT-Pro-B Natriuret Pep 4240 H Impressions: Chest CT 11/16/17 00:00 IMPRESSION: Fluid overload or congestive failure Right lower lobe pneumonia with reactive mediastinal adenopathy Chest X-Ray 11/16/17 10:44 IMPRESSION: Cannot exclude multicentric pneumonia. Small left pleural effusion. Assessment & Plan - Diagnosis (1) Acute hypoxemic respiratory failure Is this a current diagnosis for this admission?: Yes (2) Pneumonia Qualifiers: Pneumonia type: due to unspecified organism Laterality: unspecified laterality Lung location: unspecified part of lung Qualified Code(s): J18.9 - Pneumonia, unspecified organism Is this a current diagnosis for this admission?: Yes Plan: Continue IV antibiotic (3) Chronic obstructive pulmonary disease with (acute) exacerbation Is this a current diagnosis for this admission?: Yes (4) Acute diastolic heart failure Is this a current diagnosis for this admission?: Yes Plan: The IV fluid discontinued, a dose of Lasix is given
[2017-11-17] MEDS: IPRATROPIUM/ALBUTEROL 0.5-2.5 MG/3 ML AMPUL NEB SCH ×2 (20:32→23:47)
--- NOTE | 2017-11-17 20:36 | XCELERA REPORT ---
[address] [address] Transthoracic Echocardiogram Report Name: LORI MANZANARES Age: 86 yrs Gender: Female : 1930 Patient Status: Inpatient Patient Location: [facility]^A Study Date: 11/17/2017 02:09 PM Height: 66 in Weight: 169 lb BSA: 1.9 m2 Reason For Study: CHF Ordering Physician: LILI MCRAE Performed By: Brenna Ramsay Interpretation Summary small post pericardial effusion. Mild AV sclerosis with calcified ao root. No , mild AR with no LV enlargement. Mild MAC, with no MS and no MVP and mild MR with boderline LA enlargement No LVH, NOrmal LVEF 65-70 % with no LV diastolic dysfunction. Basal inferior and basal posterior wall hypokinesis. RH poorly seen, mild TR with mild SC and RA enlargement. RVSP is 36 assuming RAP 8 with IVC <50% collapse. MMode/2D Measurements & Calculations RVDd: 2.2 cm LVIDd: 4.3 cm FS: 33.6 % Ao root diam: 2.8 cm IVSd: 0.96 cm LVIDs: 2.9 cm EDV(Teich): 85.1 ml LVPWd: 1.0 cm ESV(Teich): 31.8 ml Ao root area: 6.1 cm2 EF(Teich): 62.6 % LA dimension: 4.1 cm LVOT diam: 2.0 cm LVOT area: 3.2 cm2 Doppler Measurements & Calculations MV E max judith: MV P1/2t max judith: Ao V2 max: AI max judith: 129.4 cm/sec 128.9 cm/sec 162.9 cm/sec 331.2 cm/sec MV A max judith: MV P1/2t: 63.2 msec Ao max PG: AI max P.5 cm/sec MVA(P1/2t): 3.5 cm2 10.6 mmHg 43.9 mmHg MV E/A: 2.8 MV dec slope: TRENT(V,D): 1.9 cm2 AI dec slope: 597.4 cm/sec2 97.1 cm/sec2 AI P1/2t: 998.9 msec LV V1 max PG: PA V2 max: TR max judith: 3.6 mmHg 81.4 cm/sec 263.0 cm/sec LV V1 max: PA max P.7 mmHg TR max P.4 cm/sec 27.7 mmHg Left Ventricle The left ventricle is normal in size, thickness and function. There is normal left ventricular wall thickness. The left ventricular ejection fraction is normal. The Ejection Fraction estimate is 65-70%. Doppler measurements suggest normal left ventricular diastolic function. There is basal posterior wall mild hypokinesis. There is basal inferior wall mild hypokinesis. There is no thrombus. Right Ventricle The right ventricle is not well visualized secondary to technical limitations. Atria The right atrium is mildly dilated. The left atrium is borderline dilated. The interatrial septum is intact with no evidence for an atrial septal defect. Mitral Valve The mitral valve leaflets are sclerotic and show some degree of functional abnormality. There is mild mitral annular calcification. There is no evidence of mitral valve prolapse. There is no mitral valve stenosis. There is a mild amount of mitral regurgitation. Aortic Valve The aortic valve opens well. The aortic valve is sclerotic and shows some degree of functional abnormality. The aortic valve is trileaflet. There is no aortic valvular vegetation. There is no aortic valve stenosis. There is a mild amount of aortic regurgitation. Tricuspid Valve The tricuspid valve is not well visualized secondary to technical limitations. There is a mild to moderate amount of tricuspid regurgitation. Pulmonic Valve There is a mild amount of pulmonic regurgitation. Great Vessels The aortic root is normal size. There is aortic root sclerosis/calcification. Effusions Small pericardial effusion. I WMSI = 1.13 % Normal = 88 Segments Size X - Cannot 2 - 4 - 1-2 small Interpret 1 - Normal Hypokinetic 3 - AkineticDyskinetic 3-5 moderate 5 - 6-14 large Aneurysmal 15-16 diffuse : LILI MCRAE > Salbador Bill
[2017-11-17] MEDS: BENZTROPINE MESYLATE 1 MG TABLET PO SCH (22:56)
[2017-11-17] MEDS: DONEPEZIL HCL 5 MG TABLET PO SCH (22:59)
[2017-11-17] MEDS: CEFEPIME 2 GM/D5W RTU 2 GM/50 ML RTUPB IV SCH (22:59)
[2017-11-18] MEDS: IPRATROPIUM/ALBUTEROL 0.5-2.5 MG/3 ML AMPUL NEB SCH ×5 (02:55→14:14)
[2017-11-18 04:54] LABS: ABSOLUTE BASOPHILS # (AUTO) 0.1 10^3/uL (0.0-0.2); ABSOLUTE EOSINOPHILS # (AUTO) 0.1 10^3/uL (0.0-0.6); ABSOLUTE LYMPHOCYTES (AUTO) 2.2 10^3/uL (0.5-4.7); ABSOLUTE MONOCYTES (AUTO) 0.9 10^3/uL (0.1-1.4); ABSOLUTE NEUT (AUTO) 3.8 10^3/uL (1.7-8.2); EOSINOPHILS % (AUTO) 1.9 % (0-6); HEMATOCRIT 36.1 % (36.0-47.0); HEMOGLOBIN 12.1 g/dL (12.0-15.5); HGB HCT DIFFERENCE 0.2; LYMPHOCYTES % (AUTO) 30.9 % (13-45); MEAN CORPUSCULAR HEMOGLOBIN 28.2 pg (27.0-33.4); MEAN CORPUSCULAR HGB CONC 33.5 g/dL (32.0-36.0); MEAN CORPUSCULAR VOLUME 84 fl (80-97); MONOCYTES % (AUTO) 12.4 % (3-13); RED BLOOD COUNT 4.28 10^6/uL (3.72-5.28); SEGMENTED NEUTROPHILS % (AUTO) 53.8 % (42-78)
[2017-11-18 05:16] LABS: ALANINE AMINOTRANSFERASE 21 U/L (9-52); ALBUMIN 3.9 g/dL (3.5-5.0); ALKALINE PHOSPHATASE 86 U/L (38-126); ANION GAP 12 (5-19); ASPARTATE AMINO TRANSFERASE 22 U/L (14-36); BILIRUBIN,DIRECT 0.6 mg/dL (0.0-0.4); BILIRUBIN,TOTAL 1.8 mg/dL (0.2-1.3); BLOOD UREA NITROGEN 17 mg/dL (7-20); CALCIUM 9.1 mg/dL (8.4-10.2); CARBON DIOXIDE 25 mmol/L (22-30); CHLORIDE 114 mmol/L (98-107); CREATININE RESULT 1.38 mg/dL (0.52-1.25); GLUCOSE 112 mg/dL (75-110); MAGNESIUM 1.8 mg/dL (1.6-2.3); POTASSIUM 3.5 mmol/L (3.6-5.0); SODIUM 151.1 mmol/L (137-145); TOTAL PROTEIN 8.1 g/dL (6.3-8.2)
[2017-11-18] MEDS: LANSOPRAZOLE 30 MG TAB.RAP.DR PO SCH (05:28)
[2017-11-18] MEDS ORDERED: LEVOFLOXACIN 750 MG/D5W RTU 750 MG/150 ML RTUPB IV SCH (10:00)
[2017-11-18] MEDS: ENOXAPARIN SODIUM INJ 40 MG/0.4 ML DISP.SYRIN SUBCUT SCH (11:11)
[2017-11-18] MEDS: ASPIRIN 325 MG TABLET PO SCH (11:12)
[2017-11-18] MEDS: ESCITALOPRAM OXALATE 10 MG TABLET PO SCH (11:13)
[2017-11-18] MEDS: RISPERIDONE 1 MG TABLET PO SCH ×2 (11:13→22:07)
[2017-11-18] MEDS: ROFLUMILAST 500 MCG TABLET PO SCH (11:13)
[2017-11-18] MEDS: AMLODIPINE BESYLATE 5 MG TABLET PO SCH (11:18)
[2017-11-18] MEDS: LOSARTAN POTASSIUM 50 MG TABLET PO SCH (11:19)
[2017-11-18] MEDS: CLONIDINE HCL 0.1 MG TABLET PO SCH ×2 (11:19→22:07)
[2017-11-18] MEDS: METOPROLOL SUCCINATE 50 MG TAB.SR.24H PO SCH (11:19)
[2017-11-18] MEDS ORDERED: POTASSIUM CHLORIDE 20 MEQ/15 ML UDCUP PO ONE (12:27)
--- NOTE | 2017-11-18 13:09 | EKG REPORT ---
SEVERITY:- ABNORMAL ECG - ATRIAL FLUTTER, A-RATE 263 : Confirmed by: Salbador Bill MD 18-Nov-2017 13:08:41
--- NOTE | 2017-11-18 14:08 | PDOC PROGRESS REPORT ---
Subjective Progress Note for:: 11/18/17 Subjective:: She was seen by the bedside, she developed acute narrow complex tachycardia, looks like A. fib, nonsustained, paroxysmal Reason For Visit: PNEUMONIA Physical Exam Vital Signs: Temp Pulse Resp BP Pulse Ox 98.4 F 71 24 H 150/50 H 91 L 11/18/17 10:33 11/18/17 11:04 11/18/17 11:04 11/18/17 10:33 11/18/17 11:04 Intake & Output 11/17/17 11/18/17 11/19/17 06:59 06:59 06:59 Intake Total 360 1481 236 Output Total 300 1850 Balance 60 -369 236 Weight 76.8 kg 73.7 kg General appearance: PRESENT: no acute distress Eye exam: PRESENT: PERRLA Respiratory exam: PRESENT: crackles Cardiovascular exam: PRESENT: +S1, +S2 GI/Abdominal exam: PRESENT: soft Neurological exam: PRESENT: alert Results Laboratory Results: 11/18/17 04:08 11/18/17 04:08 11/18/17 11/18/17 04:08 04:08 WBC 7.0 RBC 4.28 Hgb 12.1 Hct 36.1 MCV 84 MCH 28.2 MCHC 33.5 RDW 16.0 H Plt Count 129 L Seg Neutrophils % 53.8 Lymphocytes % 30.9 Monocytes % 12.4 Eosinophils % 1.9 Basophils % 1.0 Absolute Neutrophils 3.8 Absolute Lymphocytes 2.2 Absolute Monocytes 0.9 Absolute Eosinophils 0.1 Absolute Basophils 0.1 Sodium 151.1 H Potassium 3.5 L Chloride 114 H Carbon Dioxide 25 Anion Gap 12 BUN 17 Creatinine 1.38 H Est GFR ( Amer) 44 L Est GFR (Non-Af Amer) 36 L Glucose 112 H Calcium 9.1 Magnesium 1.8 Total Bilirubin 1.8 H AST 22 ALT 21 Alkaline Phosphatase 86 Total Protein 8.1 Albumin 3.9 11/16/17 11/16/17 11/17/17 22:07 22:07 04:01 Creatine Kinase 54 CK-MB (CK-2) 0.61 Troponin I 0.029 NT-Pro-B Natriuret Pep 4240 H Impressions: Chest CT 11/16/17 00:00 IMPRESSION: Fluid overload or congestive failure Right lower lobe pneumonia with reactive mediastinal adenopathy Chest X-Ray 11/16/17 10:44 IMPRESSION: Cannot exclude multicentric pneumonia. Small left pleural effusion. Assessment & Plan - Diagnosis (1) Acute hypoxemic respiratory failure Is this a current diagnosis for this admission?: Yes (2) Pneumonia Qualifiers: Pneumonia type: due to unspecified organism Laterality: unspecified laterality Lung location: unspecified part of lung Qualified Code(s): J18.9 - Pneumonia, unspecified organism Is this a current diagnosis for this admission?: Yes (3) Chronic obstructive pulmonary disease with (acute) exacerbation Is this a current diagnosis for this admission?: Yes (4) Acute diastolic heart failure Is this a current diagnosis for this admission?: Yes - Plan Summary Plan Summary: Continue treatment, order chest x-ray, replace potassium
[2017-11-18] MEDS ORDERED: IPRATROPIUM/ALBUTEROL 0.5-2.5 MG/3 ML AMPUL NEB PRN (15:11)
--- NOTE | 2017-11-18 15:14 | RADIOLOGY REPORT (SQ) ---
EXAM DESCRIPTION: CHEST SINGLE VIEW COMPLETED DATE/TIME: 11/18/2017 3:01 pm REASON FOR STUDY: pneumonia COMPARISON: CT chest 09/12/2012, 11/17/2017 Chest films 09/08/2017, 11/16/2017 EXAM PARAMETERS: NUMBER OF VIEWS: One view. TECHNIQUE: Single frontal radiographic view of the chest acquired. RADIATION DOSE: NA LIMITATIONS: None. FINDINGS: LUNGS AND PLEURA: Partial clearing of the bibasilar airspace disease compared to CT chest 11/17/2017. There is still minimal airspace disease atelectasis versus pneumonia. Partial tearing of the fluid overload pattern, with decrease in prominence of interstitial edema. Th ere is still trace pleural fluid in the right lateral costophrenic sulcus. No pneumothorax. MEDIASTINUM AND HILAR STRUCTURES: Mediastinal adenopathy seen on CT yesterday is difficult to appreci ate by plain film HEART AND VASCULAR STRUCTURES: No cardiomegaly. Decrease in pulmonary vascular congestion compared t o CT 11/17/2017 and plain films 11/16/2017 BONES: No acute findings. HARDWARE: None in the chest. OTHER: No other significant finding. IMPRESSION: Partial clearing of the congestive failure or fluid overload pattern. Persistent mild bibasilar airspace disease atelectasis versus pneumonia. Trace right pleural effusio n TECHNICAL DOCUMENTATION: JOB ID: [id number] [employer]- All Rights Reserved
[2017-11-18] MEDS: BENZTROPINE MESYLATE 1 MG TABLET PO SCH (22:06)
[2017-11-18] MEDS: CEFEPIME 2 GM/D5W RTU 2 GM/50 ML RTUPB IV SCH (22:07)
[2017-11-18] MEDS: DONEPEZIL HCL 5 MG TABLET PO SCH (22:07)
[2017-11-18] MEDS: TRAMADOL HCL 50 MG TABLET PO PRN (22:19)
[2017-11-18] MEDS: LORAZEPAM 0.5 MG TABLET PO PRN (22:19)
[2017-11-18] MEDS ORDERED: LORAZEPAM INJ 2 MG/1 ML VIAL IV ONE (23:45)
[2017-11-19] MEDS: TRAMADOL HCL 50 MG TABLET PO PRN ×2 (05:00→22:39)
[2017-11-19] MEDS: LORAZEPAM 0.5 MG TABLET PO PRN ×2 (05:00→21:24)
[2017-11-19] MEDS: LANSOPRAZOLE 30 MG TAB.RAP.DR PO SCH (05:00)
[2017-11-19 05:05] LABS: ABSOLUTE BASOPHILS # (AUTO) 0.1 10^3/uL (0.0-0.2); ABSOLUTE EOSINOPHILS # (AUTO) 0.1 10^3/uL (0.0-0.6); ABSOLUTE LYMPHOCYTES (AUTO) 2.1 10^3/uL (0.5-4.7); ABSOLUTE MONOCYTES (AUTO) 0.8 10^3/uL (0.1-1.4); ABSOLUTE NEUT (AUTO) 2.6 10^3/uL (1.7-8.2); BASOPHILS % (AUTO) 1.1 % (0-2); EOSINOPHILS % (AUTO) 2.1 % (0-6); HEMATOCRIT 37.6 % (36.0-47.0); HEMOGLOBIN 12.6 g/dL (12.0-15.5); HGB HCT DIFFERENCE 0.2; LYMPHOCYTES % (AUTO) 37.2 % (13-45); MEAN CORPUSCULAR HEMOGLOBIN 28.3 pg (27.0-33.4); MEAN CORPUSCULAR HGB CONC 33.6 g/dL (32.0-36.0); MEAN CORPUSCULAR VOLUME 84 fl (80-97); MONOCYTES % (AUTO) 14.5 % (3-13); RED BLOOD COUNT 4.46 10^6/uL (3.72-5.28); RED CELL DISTRIBUTION WIDTH 15.8 % (11.5-14.0); SEGMENTED NEUTROPHILS % (AUTO) 45.1 % (42-78); WHITE BLOOD COUNT 5.7 10^3/uL (4.0-10.5)
[2017-11-19 05:28] LABS: ALANINE AMINOTRANSFERASE 17 U/L (9-52); ALBUMIN 4.2 g/dL (3.5-5.0); ALKALINE PHOSPHATASE 87 U/L (38-126); ANION GAP 13 (5-19); ASPARTATE AMINO TRANSFERASE 27 U/L (14-36); BILIRUBIN,DIRECT 0.6 mg/dL (0.0-0.4); BILIRUBIN,TOTAL 1.6 mg/dL (0.2-1.3); BLOOD UREA NITROGEN 15 mg/dL (7-20); CARBON DIOXIDE 23 mmol/L (22-30); CHLORIDE 114 mmol/L (98-107); CREATININE RESULT 1.18 mg/dL (0.52-1.25); GLUCOSE 120 mg/dL (75-110); POTASSIUM 3.8 mmol/L (3.6-5.0); TOTAL PROTEIN 8.6 g/dL (6.3-8.2)
[2017-11-19] MEDS: ENOXAPARIN SODIUM INJ 40 MG/0.4 ML DISP.SYRIN SUBCUT SCH (08:19)
[2017-11-19] MEDS: METOPROLOL SUCCINATE 50 MG TAB.SR.24H PO SCH (11:23)
[2017-11-19] MEDS: ASPIRIN 325 MG TABLET PO SCH (11:23)
[2017-11-19] MEDS: ROFLUMILAST 500 MCG TABLET PO SCH (11:23)
[2017-11-19] MEDS: RISPERIDONE 1 MG TABLET PO SCH ×2 (11:24→21:25)
[2017-11-19] MEDS: ESCITALOPRAM OXALATE 10 MG TABLET PO SCH (11:24)
[2017-11-19] MEDS: AMLODIPINE BESYLATE 5 MG TABLET PO SCH (11:24)
[2017-11-19] MEDS: CLONIDINE HCL 0.1 MG TABLET PO SCH ×2 (11:24→21:24)
[2017-11-19] MEDS: LOSARTAN POTASSIUM 50 MG TABLET PO SCH (11:24)
[2017-11-19] MEDS ORDERED: ALBUTEROL SULFATE HFA (90 MCG/PUFF) 200 PUFF/8.5 GM MDI IH PRN (13:55)
[2017-11-19] MEDS ORDERED: FUROSEMIDE 40 MG TABLET PO ONE (21:04)
--- NOTE | 2017-11-19 21:08 | PDOC PROGRESS REPORT ---
Subjective Progress Note for:: 11/19/17 Subjective:: Patient was seen by the bedside, she pulled the IV access, she was on IV antibiotic. The chest x-ray that was done yesterday suggests interval clearing of the fluid in the lung after she was given a dose of furosemide suggesting a component of fluid in the lung Reason For Visit: PNEUMONIA Physical Exam Vital Signs: Temp Pulse Resp BP Pulse Ox 97.9 F 81 18 144/79 H 92 11/19/17 16:32 11/19/17 16:32 11/19/17 16:32 11/19/17 16:32 11/19/17 16:32 Intake & Output 11/18/17 11/19/17 11/20/17 06:59 06:59 06:59 Intake Total 1481 906 100 Output Total 1850 Balance -369 906 100 Weight 73.7 kg 73.7 kg General appearance: PRESENT: thin Head exam: PRESENT: atraumatic, normocephalic Eye exam: PRESENT: PERRLA. ABSENT: scleral icterus Ear exam: PRESENT: normal external ear exam Mouth exam: PRESENT: moist, tongue midline Neck exam: PRESENT: full ROM Respiratory exam: PRESENT: rhonchi Cardiovascular exam: PRESENT: RRR, +S1, +S2 Vascular exam: PRESENT: normal capillary refill GI/Abdominal exam: PRESENT: normal bowel sounds, soft Rectal exam: PRESENT: deferred Neurological exam: PRESENT: alert Psychiatric exam: PRESENT: appropriate affect, normal mood. ABSENT: homicidal ideation, suicidal ideation Skin exam: PRESENT: dry, intact, warm. ABSENT: cyanosis, rash Results Laboratory Results: 11/19/17 04:20 11/19/17 04:20 11/19/17 11/19/17 04:20 04:20 WBC 5.7 RBC 4.46 Hgb 12.6 Hct 37.6 MCV 84 MCH 28.3 MCHC 33.6 RDW 15.8 H Plt Count 139 L Seg Neutrophils % 45.1 Lymphocytes % 37.2 Monocytes % 14.5 H Eosinophils % 2.1 Basophils % 1.1 Absolute Neutrophils 2.6 Absolute Lymphocytes 2.1 Absolute Monocytes 0.8 Absolute Eosinophils 0.1 Absolute Basophils 0.1 Sodium 150.0 H Potassium 3.8 Chloride 114 H Carbon Dioxide 23 Anion Gap 13 BUN 15 Creatinine 1.18 Est GFR ( Amer) 53 L Est GFR (Non-Af Amer) 44 L Glucose 120 H Calcium 10.0 Total Bilirubin 1.6 H AST 27 ALT 17 Alkaline Phosphatase 87 Total Protein 8.6 H Albumin 4.2 11/16/17 11/16/17 11/17/17 22:07 22:07 04:01 Creatine Kinase 54 CK-MB (CK-2) 0.61 Troponin I 0.029 NT-Pro-B Natriuret Pep 4240 H Impressions: Chest CT 11/16/17 00:00 IMPRESSION: Fluid overload or congestive failure Right lower lobe pneumonia with reactive mediastinal adenopathy Chest X-Ray 11/18/17 00:00 IMPRESSION: Partial clearing of the congestive failure or fluid overload pattern. Persistent mild bibasilar airspace disease atelectasis versus pneumonia. Trace right pleural effusion Assessment & Plan - Diagnosis (1) Acute hypoxemic respiratory failure Is this a current diagnosis for this admission?: Yes (2) Pneumonia Qualifiers: Pneumonia type: due to unspecified organism Laterality: unspecified laterality Lung location: unspecified part of lung Qualified Code(s): J18.9 - Pneumonia, unspecified organism Is this a current diagnosis for this admission?: Yes (3) Chronic obstructive pulmonary disease with (acute) exacerbation Is this a current diagnosis for this admission?: Yes (4) Acute diastolic heart failure Is this a current diagnosis for this admission?: Yes - Plan Summary Plan Summary: Continue present treatment
[2017-11-19] MEDS: BENZTROPINE MESYLATE 1 MG TABLET PO SCH (21:24)
[2017-11-19] MEDS: DONEPEZIL HCL 5 MG TABLET PO SCH (21:25)
[2017-11-20] MEDS: LANSOPRAZOLE 30 MG TAB.RAP.DR PO SCH (06:42)
[2017-11-20] MEDS: ENOXAPARIN SODIUM INJ 40 MG/0.4 ML DISP.SYRIN SUBCUT SCH (07:59)
[2017-11-20] MEDS ORDERED: DEXTROSE 5%-WATER 1000 ML 1,000 ML IV PRN (08:43)
[2017-11-20] MEDS: RISPERIDONE 1 MG TABLET PO SCH ×2 (09:38→21:29)
[2017-11-20] MEDS: ASPIRIN 325 MG TABLET PO SCH (09:38)
[2017-11-20] MEDS: METOPROLOL SUCCINATE 50 MG TAB.SR.24H PO SCH (09:39)
[2017-11-20] MEDS: LOSARTAN POTASSIUM 50 MG TABLET PO SCH (09:39)
[2017-11-20] MEDS: LORAZEPAM 0.5 MG TABLET PO PRN (09:39)
[2017-11-20] MEDS: ESCITALOPRAM OXALATE 10 MG TABLET PO SCH (09:39)
[2017-11-20] MEDS: CLONIDINE HCL 0.1 MG TABLET PO SCH ×2 (09:40→21:28)
[2017-11-20] MEDS: AMLODIPINE BESYLATE 5 MG TABLET PO SCH (09:40)
[2017-11-20] MEDS: ROFLUMILAST 500 MCG TABLET PO SCH (09:41)
[2017-11-20] MEDS ORDERED: LEVOFLOXACIN 750 MG TABLET PO SCH (10:00)
--- NOTE | 2017-11-20 20:17 | PDOC PROGRESS REPORT ---
Subjective Progress Note for:: 11/20/17 Subjective:: Patient continues to refuse IV access, the blood sodium is 150 she needs 5% dextrose but she refused IV access she has baseline dementia and she does not have intact thirst mechanism to compensate for the hypernatremia, this is a bad prognostic sign. Reason For Visit: PNEUMONIA Physical Exam Vital Signs: Temp Pulse Resp BP Pulse Ox 98.4 F 66 18 120/53 L 97 11/20/17 15:05 11/20/17 15:05 11/20/17 15:05 11/20/17 15:05 11/20/17 15:05 Intake & Output 11/19/17 11/20/17 11/21/17 06:59 06:59 06:59 Intake Total 906 100 525 Balance 906 100 525 Weight 73.7 kg General appearance: PRESENT: no acute distress Eye exam: PRESENT: PERRLA Respiratory exam: PRESENT: rales Cardiovascular exam: PRESENT: +S1, +S2 GI/Abdominal exam: PRESENT: soft Neurological exam: PRESENT: alert, CN II-XII grossly intact Results Laboratory Results: 11/19/17 04:20 11/19/17 04:20 11/16/17 11/16/17 11/17/17 22:07 22:07 04:01 Creatine Kinase 54 CK-MB (CK-2) 0.61 Troponin I 0.029 NT-Pro-B Natriuret Pep 4240 H Impressions: Chest CT 11/16/17 00:00 IMPRESSION: Fluid overload or congestive failure Right lower lobe pneumonia with reactive mediastinal adenopathy Chest X-Ray 11/18/17 00:00 IMPRESSION: Partial clearing of the congestive failure or fluid overload pattern. Persistent mild bibasilar airspace disease atelectasis versus pneumonia. Trace right pleural effusion Assessment & Plan - Diagnosis (1) Acute hypoxemic respiratory failure Is this a current diagnosis for this admission?: Yes (2) Pneumonia Qualifiers: Pneumonia type: due to unspecified organism Laterality: unspecified laterality Lung location: unspecified part of lung Qualified Code(s): J18.9 - Pneumonia, unspecified organism Is this a current diagnosis for this admission?: Yes (3) Chronic obstructive pulmonary disease with (acute) exacerbation Is this a current diagnosis for this admission?: Yes (4) Acute diastolic heart failure Is this a current diagnosis for this admission?: Yes - Plan Summary Plan Summary: She will continue present p.o. antibiotic probably discharge to the assisted living facility tomorrow
[2017-11-20] MEDS: DONEPEZIL HCL 5 MG TABLET PO SCH (21:29)
[2017-11-20] MEDS: BENZTROPINE MESYLATE 1 MG TABLET PO SCH (21:29)
[2017-11-21] MEDS: LANSOPRAZOLE 30 MG TAB.RAP.DR PO SCH (05:33)
[2017-11-21] MEDS: ENOXAPARIN SODIUM INJ 40 MG/0.4 ML DISP.SYRIN SUBCUT SCH (10:40)
[2017-11-21] MEDS: ASPIRIN 325 MG TABLET PO SCH (12:20)
[2017-11-21] MEDS: LOSARTAN POTASSIUM 50 MG TABLET PO SCH (12:21)
[2017-11-21] MEDS: CLONIDINE HCL 0.1 MG TABLET PO SCH (12:24)
[2017-11-21] MEDS: METOPROLOL SUCCINATE 50 MG TAB.SR.24H PO SCH (12:24)
[2017-11-21] MEDS: ESCITALOPRAM OXALATE 10 MG TABLET PO SCH (12:25)
[2017-11-21] MEDS: RISPERIDONE 1 MG TABLET PO SCH (12:25)
[2017-11-21] MEDS: AMLODIPINE BESYLATE 5 MG TABLET PO SCH (12:25)
[2017-11-21] MEDS: ROFLUMILAST 500 MCG TABLET PO SCH (12:26)
[2017-11-21 12:46] VITALS: BP 151/58
[2017-11-21] MEDS: INFLUENZA ADLT QUAD (36MOS+) 2017-18 VAC 0.5 ML SYR IM PRN (14:01)
--- NOTE | 2017-11-21 14:22 | PDOC TRANSFER SUMMARY ---
General - Admit/Disc Date/PCP Admission Date/Primary Care Provider: 11/16/17 15:34 LILI MCRAE MD Discharge Date: 11/21/17 - Discharge Diagnosis (1) Acute hypoxemic respiratory failure Is this a current diagnosis for this admission?: Yes (2) Pneumonia Is this a current diagnosis for this admission?: Yes (3) Chronic obstructive pulmonary disease with (acute) exacerbation Is this a current diagnosis for this admission?: Yes (4) Acute diastolic heart failure Is this a current diagnosis for this admission?: Yes (5) Hypernatremia Is this a current diagnosis for this admission?: Yes (6) Metabolic encephalopathy Is this a current diagnosis for this admission?: Yes (7) Dementia Is this a current diagnosis for this admission?: Yes - Additional Information Discharge Diet: As Tolerated Discharge Activity: Activity As Tolerated, Balance Activity w/Rest, Weigh Daily Prescriptions: Levofloxacin [Levaquin 750 mg Tablet] 750 mg PO Q2DAYS #14 tablet Umeclidinium Brm/Vilanterol Tr [Anoro Ellipta 62.5-25 Mcg INH] 1 each IH DAILY # 300 blst.w.dev Home Medications: Acetaminophen [Tylenol 325 mg Tablet] 650 mg PO Q4HP PRN 11/16/17 Albuterol Sulfate [Proair HFA] 2 puff IH Q4HP PRN 11/16/17 Amlodipine Besylate [Norvasc 5 mg Tablet] 5 mg PO DAILY 11/16/17 Aspirin [Aspirin 325 mg Tablet] 325 mg PO DAILY 11/16/17 Benztropine Mesylate 1 mg PO QHS 11/16/17 Calcium Carbonate [Tums Chewable 500 mg Tab.chew] 1,000 mg PO DAILYP PRN Clonidine HCl [Catapres 0.1 mg Tablet] 0.1 mg PO Q12 11/16/17 Donepezil HCl [Aricept 5 mg Tablet] 5 mg PO QHS 11/16/17 Escitalopram Oxalate [Lexapro 10 mg Tablet] 10 mg PO DAILY 11/16/17 Guaifenesin [Robitussin Syrup 200 mg/10 ml Ud Cup] 10 ml PO Q4HP PRN 11/16/17 Loperamide HCl [Imodium A-D] 2 mg PO Q6HP PRN 11/16/17 Losartan Potassium [Cozaar 100 mg Tablet] 100 mg PO DAILY 11/16/17 Metoprolol Succinate [Toprol Xl 50 mg Tab.sr] 50 mg PO DAILY 11/16/17 Omeprazole 40 mg PO DAILY 11/16/17 Roflumilast [Daliresp 500 mcg Tablet] 500 mcg PO DAILY 11/16/17 Levofloxacin [Levaquin 750 mg Tablet] 750 mg PO Q2DAYS #14 tablet 11/21/17 Lorazepam [Ativan 0.5 mg Tablet] 0.5 mg PO Q8HP PRN tablet 11/21/17 Risperidone [Risperdal 1 mg Tablet] 1 mg PO Q12 tablet 11/21/17 Umeclidinium Brm/Vilanterol Tr [Anoro Ellipta 62.5-25 Mcg INH] 1 each IH DAILY # 300 blst.w.dev 11/21/17 History of Present Illness Admission Date/PCP: 11/16/17 15:34 LILI MCRAE MD History of Present Illness: LORI MANZANARES is a 86 year old female, She was history of dementia at baseline , chronic obstructive pulmonary disease, nicotine dependence and abuse, resident of assisted living facility she came to the emergency room for evaluation of respiratory distress, today,she was found to have opacities in lower lobes of both lungs. The arterial blood gas on FiO2 of 4 L, pH 7.34, PO2 52.9 PCO2 [address] chest without contrast showed small right pleural effusion diffuse interstitial edema with thickened interlobular septa and patchy groundglass opacities from alveolar edema. There is dense consolidation throughout the right lower lobe and the media left lower lobe worrisome for pneumonia Hospital Course Hospital Course: Patient was admitted for the management of acute hypoxemic respiratory failure partly due to combination of pneumonia and acute diastolic heart failure. On admission CT chest without contrast was done, it showed diffuse interstitial edema with thickened interlobular septa and patchy ground glass opacities also found was a dense consolidation throughout the right lower lobe and in the media left lower lobe worrisome for pneumonia. She was treated with IV antibiotic, intravenous Levaquin and cefepime, patient have a baseline dementia and she was very disruptive very uncooperative with the nursing staff, she pulled the IV access multiple times and ultimately she was left without any IV access. A 2D echo was done it showed preserved ejection fraction of left ventricle the estimated ejection fraction was 70% the Doppler study did not suggest any diastolic dysfunction. The CT chest that was done showed a combination of pneumonia process and also edema the edema responded quite well to IV furosemide, subsequent chest x-ray was done does suggest improvement in the interstitial edema that was present on the chest x-ray because of these findings diastolic dysfunction of left ventricle was suspected Physical Exam Vital Signs: Temp Pulse Resp BP Pulse Ox 98.0 F 63 17 151/58 H 95 11/21/17 12:18 11/21/17 14:00 11/21/17 12:18 11/21/17 12:18 11/21/17 12:18 Intake & Output 11/20/17 11/21/17 11/22/17 06:59 06:59 06:59 Intake Total 100 1062 0 Balance 100 1062 0 Weight 73.7 kg 67.2 kg General appearance: PRESENT: no acute distress, well-developed, well-nourished Head exam: PRESENT: atraumatic, normocephalic Eye exam: PRESENT: conjunctiva pink, EOMI, PERRLA Ear exam: PRESENT: normal external ear exam Mouth exam: PRESENT: moist, tongue midline Respiratory exam: PRESENT: clear to auscultation lauren Cardiovascular exam: PRESENT: RRR Vascular exam: PRESENT: normal capillary refill GI/Abdominal exam: PRESENT: normal bowel sounds, soft Rectal exam: PRESENT: deferred Extremities exam: PRESENT: full ROM Neurological exam: PRESENT: alert Psychiatric exam: ABSENT: homicidal ideation, suicidal ideation Skin exam: PRESENT: dry, intact, warm. ABSENT: cyanosis, rash Results Laboratory Results: 11/19/17 04:20 11/19/17 04:20 11/16/17 11/16/17 11/17/17 22:07 22:07 04:01 Creatine Kinase 54 CK-MB (CK-2) 0.61 Troponin I 0.029 NT-Pro-B Natriuret Pep 4240 H Impressions: Chest CT 11/16/17 00:00 IMPRESSION: Fluid overload or congestive failure Right lower lobe pneumonia with reactive mediastinal adenopathy Chest X-Ray 11/18/17 00:00 IMPRESSION: Partial clearing of the congestive failure or fluid overload pattern. Persistent mild bibasilar airspace disease atelectasis versus pneumonia. Trace right pleural effusion
[2017-11-21 16:00] LABS: ABSOLUTE EOSINOPHILS # (AUTO) 0.2 10^3/uL (0.0-0.6); ABSOLUTE LYMPHOCYTES (AUTO) 2.4 10^3/uL (0.5-4.7); ABSOLUTE MONOCYTES (AUTO) 0.7 10^3/uL (0.1-1.4); ABSOLUTE NEUT (AUTO) 2.7 10^3/uL (1.7-8.2); BASOPHILS % (AUTO) 0.6 % (0-2); EOSINOPHILS % (AUTO) 2.7 % (0-6); HEMOGLOBIN 11.8 g/dL (12.0-15.5); HGB HCT DIFFERENCE -0.6; LYMPHOCYTES % (AUTO) 40.2 % (13-45); MEAN CORPUSCULAR HEMOGLOBIN 27.8 pg (27.0-33.4); MEAN CORPUSCULAR HGB CONC 32.7 g/dL (32.0-36.0); MEAN CORPUSCULAR VOLUME 85 fl (80-97); MONOCYTES % (AUTO) 11.8 % (3-13); RED BLOOD COUNT 4.24 10^6/uL (3.72-5.28); RED CELL DISTRIBUTION WIDTH 15.6 % (11.5-14.0); SEGMENTED NEUTROPHILS % (AUTO) 44.7 % (42-78); WHITE BLOOD COUNT 6.1 10^3/uL (4.0-10.5)
[2017-11-21 16:23] LABS: ALANINE AMINOTRANSFERASE 21 U/L (9-52); ALBUMIN 3.7 g/dL (3.5-5.0); ALKALINE PHOSPHATASE 79 U/L (38-126); ANION GAP 12 (5-19); ASPARTATE AMINO TRANSFERASE 25 U/L (14-36); BILIRUBIN,DIRECT 0.5 mg/dL (0.0-0.4); BILIRUBIN,TOTAL 0.7 mg/dL (0.2-1.3); BLOOD UREA NITROGEN 19 mg/dL (7-20); CALCIUM 9.1 mg/dL (8.4-10.2); CARBON DIOXIDE 23 mmol/L (22-30); CHLORIDE 113 mmol/L (98-107); CREATININE RESULT 0.95 mg/dL (0.52-1.25); GLUCOSE 109 mg/dL (75-110); POTASSIUM 3.7 mmol/L (3.6-5.0); SODIUM 147.7 mmol/L (137-145); TOTAL PROTEIN 7.2 g/dL (6.3-8.2)
== END 2017-11-21 17:10 | DRG 189 ==
LOC: ER 10:32 → EH 15:34 → 3N 18:06
PROVIDERS: ADMIT Internal Medicine; ATTEND Internal Medicine
DX: J96.01 Acute respiratory failure with hypoxia (principal); J18.9 Pneumonia, unspecified organism; G93.41 Metabolic encephalopathy; I50.31 Acute diastolic (congestive) heart failure; J44.0 Chronic obstructive pulmonary disease with (acute) lower respiratory infection; J44.1 Chronic obstructive pulmonary disease with (acute) exacerbation; E87.0 Hyperosmolality and hypernatremia; F03.90 Unspecified dementia, unspecified severity, without behavioral disturbance, psychotic disturbance, mood disturbance, and anxiety; I11.0 Hypertensive heart disease with heart failure; M19.90 Unspecified osteoarthritis, unspecified site; F31.9 Bipolar disorder, unspecified; Z90.710 Acquired absence of both cervix and uterus; Z79.82 Long term (current) use of aspirin; Z79.899 Other long term (current) drug therapy; F17.200 Nicotine dependence, unspecified, uncomplicated; Z88.8 Allergy status to other drugs, medicaments and biological substances
CPT/HCPCS: 36415; 36600; 51701; 71010; 71250; 80053; 81001; 82550; 82553; 82803; 83036; 83605; 83735; 83880; 84484; 85025; 85610; 87040; 87086; 93005; 93010; 93306; 94640; 96365; 99285; J0692; J1650; J1940; J1956; J3480; J3490; J7030; J7620

== ENCOUNTER 2017-12-29 13:09 | Inpatient (IN) | payer MEDICARE, MEDICAID ==
[2017-12-29 14:46] VITALS: BP 109/47
--- NOTE | 2017-12-29 19:28 | PDOC H&P ---
History of Present Illness Admission Date/PCP: 12/29/17 13:09 LILI MCRAE MD History of Present Illness: LORI MANZANARES is a 87 year old female, she is a resident of assisted living facility, she came to the office for evaluation of altered mental status , confusion she has background dementia, she was sent to the office from the [employer] office, she was supposed to go for eye exams today but she could not stay awake enough to have the exams done she was then referred to my office for evaluation. She was admitted directly from the office into the hospital for evaluation. The nurses stated that she refused blood drawn, she refused any kind of test to be done on and she left AMA. This is not the first time she would behave this way, she was in the office couple of days ago she was supposed to have blood drawn but she refused so basically no evaluation could be done in the hospital because patient left AMA Past Medical History Cardiac Medical History: Reports: Atrial Fibrillation, Congestive Heart Failure , Coronary Artery Disease, Hypertension Pulmonary Medical History: Reports: Asthma, Chronic Obstructive Pulmonary Disease (COPD), Pneumonia Musculoskeltal Medical History: Reports: Arthritis Psychiatric Medical History: Reports: Bipolar Disorder, Dementia, Depression Hematology: Reports: Anemia Past Surgical History Past Surgical History: Reports: Hysterectomy Social History Information Source: Patient Lives with: Group Home Smoking Status: Current Every Day Smoker Frequency of Alcohol Use: None Hx Recreational Drug Use: No Drugs: None Hx Prescription Drug Abuse: No Family History Family History: Reviewed & Not Pertinent Parental Family History Reviewed: Yes Children Family History Reviewed: Yes Sibling(s) Family History Reviewed.: Yes Medication/Allergy Home Medications: Acetaminophen [Tylenol 325 mg Tablet] 650 mg PO Q4HP PRN 11/16/17 Albuterol Sulfate [Proair HFA] 2 puff IH Q4HP PRN 11/16/17 Amlodipine Besylate [Norvasc 5 mg Tablet] 5 mg PO DAILY 11/16/17 Aspirin [Aspirin 325 mg Tablet] 325 mg PO DAILY 11/16/17 Benztropine Mesylate 1 mg PO QHS 11/16/17 Calcium Carbonate [Tums Chewable 500 mg Tab.chew] 1,000 mg PO DAILYP PRN Clonidine HCl [Catapres 0.1 mg Tablet] 0.1 mg PO Q12 11/16/17 Donepezil HCl [Aricept 5 mg Tablet] 5 mg PO QHS 11/16/17 Escitalopram Oxalate [Lexapro 10 mg Tablet] 10 mg PO DAILY 11/16/17 Guaifenesin [Robitussin Syrup 200 mg/10 ml Ud Cup] 10 ml PO Q4HP PRN 11/16/17 Loperamide HCl [Imodium A-D] 2 mg PO Q6HP PRN 11/16/17 Losartan Potassium [Cozaar 100 mg Tablet] 100 mg PO DAILY 11/16/17 Metoprolol Succinate [Toprol Xl 50 mg Tab.sr] 50 mg PO DAILY 11/16/17 Omeprazole 40 mg PO DAILY 11/16/17 Roflumilast [Daliresp 500 mcg Tablet] 500 mcg PO DAILY 11/16/17 Levofloxacin [Levaquin 750 mg Tablet] 750 mg PO Q2DAYS #14 tablet 11/21/17 Lorazepam [Ativan 0.5 mg Tablet] 0.5 mg PO Q8HP PRN tablet 11/21/17 Risperidone [Risperdal 1 mg Tablet] 1 mg PO Q12 tablet 11/21/17 Umeclidinium Brm/Vilanterol Tr [Anoro Ellipta 62.5-25 Mcg INH] 1 each IH DAILY # 300 blst.w.dev 11/21/17 Allergies/Adverse Reactions: lisinopril [Lisinopril] Allergy (Verified 09/14/12 17:51) oxcarbazepine [Oxcarbazepine] Allergy (Verified 09/14/12 17:51) Review of Systems ROS unobtainable: Due to mental status, Other - She said she is fine Physical Exam Vital Signs: Temp Pulse Resp BP Pulse Ox 97.2 F 53 L 16 109/47 L 100 12/29/17 14:45 12/29/17 14:45 12/29/17 14:45 12/29/17 14:45 12/29/17 14:45 General appearance: PRESENT: no acute distress Eye exam: PRESENT: PERRLA Mouth exam: PRESENT: dry mucosa Respiratory exam: PRESENT: clear to auscultation lauren Cardiovascular exam: PRESENT: +S1, +S2 GI/Abdominal exam: PRESENT: soft Neurological exam: PRESENT: alert Assessment & Plan - Diagnosis (1) Confusion Is this a current diagnosis for this admission?: Yes - Plan Summary Plan Summary: Patient could not be evaluated because she left A
== END 2017-12-29 15:00 | disposition left against medical advice (07) | DRG 948 ==
LOC: 4N 13:09
PROVIDERS: ADMIT Internal Medicine; ATTEND Internal Medicine
DX: R41.0 Disorientation, unspecified (principal); Z53.21 Procedure and treatment not carried out due to patient leaving prior to being seen by health care provider; F03.90 Unspecified dementia, unspecified severity, without behavioral disturbance, psychotic disturbance, mood disturbance, and anxiety; I48.91 Unspecified atrial fibrillation; I50.9 Heart failure, unspecified; I11.0 Hypertensive heart disease with heart failure; I25.10 Atherosclerotic heart disease of native coronary artery without angina pectoris; F31.9 Bipolar disorder, unspecified; D64.9 Anemia, unspecified; F17.210 Nicotine dependence, cigarettes, uncomplicated; Z79.82 Long term (current) use of aspirin; Z79.51 Long term (current) use of inhaled steroids; Z79.899 Other long term (current) drug therapy

== ENCOUNTER 2018-04-08 10:48 | Day surgery (SDC) | payer MEDICARE, MEDICAID ==
[~2018-04-08 10:48] MED LIST: CHONDR SU A NA/HYALUR INTRAOC KIT (SURGICARE) ONE; EPINEPHRINE INJ/PF 1 MG/1 ML AMPULE ONE; KETOROLAC TROMETHAMINE 0.45% 4 DROP/0.4 ML DROPERETTE OD PRN; LIDOCAINE 1% INJ-PF (10 MG/ML) 30 ML SDV ONE
[2018-04-08] MEDS: TETRACAINE HCL 0.5% OPH SOLN 2 ML OD PRN ×3 (11:14→11:51)
[2018-04-08] MEDS: BESIFLOXACIN HCL 0.6% OPH SUSP 5 ML BOTTLE OD PRN ×4 (11:14→12:14)
[2018-04-08] MEDS: TROPICAMIDE 1% OPH SOLN 3 ML OD PRN ×3 (11:14→11:34)
[2018-04-08] MEDS: CYCLOPENTOLATE 0.2%/PHENYLEPHRINE 1% OPH SOLN 2 ML OD PRN ×3 (11:14→11:34)
[2018-04-08] MEDS ORDERED: MIDAZOLAM 2 MG/2 ML INJ ONE (11:20)
[2018-04-08] MEDS ORDERED: LIDOCAINE 1%/PHENYLEPHRINE 1.5% 1 ML VIAL ONE ×2 (11:33→12:03)
[2018-04-08] MEDS ORDERED: MIDAZOLAM HCL SYRUP 10 MG/5 ML UDC ONE (11:45)
--- NOTE | 2018-04-08 15:05 | [facility] OPERATIVE REPORT E ---
[facility] Operative Report NAME: LORI MANZANARES AGE: 87Y DATE OF SURGERY: 04/08/2018 ROOM: PREOPERATIVE DIAGNOSIS: CATARACT, RIGHT EYE. POSTOPERATIVE DIAGNOSIS: CATARACT, RIGHT EYE. OPERATION: Cataract extraction with intraocular lens implant of the right eye. SURGEON: SANDY DELGADILLO M.D. ANESTHESIA: Topical. TISSUE REMOVED OR ALTERED: PROCEDURE: After obtaining appropriate consent, the patient's right eye was prepped and draped in sterile fashion as well as the surgeon in a sterile manner and cataract surgery was started. First a paracentesis blade was used to make a small side-port incision. Viscoelastic was used to inflate the anterior chamber. Next a 2.4 mm incision was made with the paracentesis blade. A continuous capsulorrhexis incision was made using a cystotome and Utrata forceps. Following this hydrodissection was carried out to make the lens fully loose and mobile and it was rotated 90 degrees. Following this, a [id number] technique was used to phacoemulsify the lens with a CDE of 14.55. The remaining cortex was removed with irrigation/aspiration. Provisc was instilled into the capsular bag to inflate the bag. A SN60WF, 21.0 diopter lens was placed. The remaining viscoelastic material was removed with irrigation/aspiration. Following this, the incision and it was found to be watertight. Vigamox was instilled in the eye and a protective shield was placed over the eye. The patient returned to the postoperative recovery in stable condition. DICTATING PHYSICIAN: SANDY DELGADILLO M.D. [id number] PHY#: [id number] ID: [id number] JOB#: [id number] ACCT: [id number] cc:SANDY DELGADILLO M.D. > MTDBridget
--- NOTE | 2018-04-08 15:10 | [facility] DISCHARGE SUMMARY E ---
[facility] Discharge Summary NAME: LORI MANZANARES AGE: 87Y ADMITTED: 04/08/2018 DISCHARGED: 04/08/2018 FINAL DIAGNOSIS: Cataract, right eye. HOSPITAL COURSE: This is an 87-year-old female who underwent cataract extraction of the right eye. She underwent surgery because she was having trouble seeing the words on the television. She should be on a regular diet. No bending at her waist, no heavy lifting. She should use her Besivance, Ilevro and Durezol at 3:00 p.m. and 8:00 p.m. Sleep with a rigid shield. I will see her for a 1-day postoperative tomorrow. DICTATING PHYSICIAN: SANDY DELGADILLO M.D. [id number] PHY#: [id number] ID: [id number] JOB#: [id number] ACCT: [id number] cc:SANDY DELGADILLO M.D. >
== END 2018-04-08 14:18 | disposition other institution (70) ==
LOC: SC 10:48
PROVIDERS: ATTEND Internal Medicine
DX: H25.811 Combined forms of age-related cataract, right eye (principal); H57.03 Miosis; Z96.1 Presence of intraocular lens; J44.9 Chronic obstructive pulmonary disease, unspecified; F17.210 Nicotine dependence, cigarettes, uncomplicated; K21.9 Gastro-esophageal reflux disease without esophagitis; Z79.899 Other long term (current) drug therapy; Z79.82 Long term (current) use of aspirin; Z79.51 Long term (current) use of inhaled steroids; Z88.8 Allergy status to other drugs, medicaments and biological substances
CPT/HCPCS: 66984; 82962; V2632; J3490; A9270 ×2; J0171; J2370; 142; J2250

== ENCOUNTER 2018-04-08 14:27 | Emergency (ER) | payer MEDICARE, MEDICAID ==
--- NOTE | 2018-04-08 14:47 | ER Document Report ---
ED General - General Stated Complaint: UNRESPONSIVE Time Seen by Provider: 04/08/18 14:35 TRAVEL OUTSIDE OF THE [place] IN LAST 30 DAYS: No - HPI Patient complains to provider of: Decreased responsiveness after surgery. Notes: Patient coming in for evaluation of decreased responsiveness. Patient was at surgery Center having cataract surgery patient was given p.o. Versed prior to that she was also given Ativan apparently after facility patient was monitored at surgery Center for approximately 2 hours however had decreased response to follow responsible to painful stimuli therefore EMS was called the surgery center had a difficult time establishing an IV cannot give Romazicon for the patient was brought to the ER for further evaluation. Upon my evaluation patient is on the monitor patient opens her eyes to voice and is able to follow commands give me a thumbs up. Patient does quickly back to sleep however she does stay awake long enough to explain the room is cold. Patient looks to be no obvious distress. senior living note surgery Center notes were reviewed. - Related Data Allergies/Adverse Reactions: lisinopril [Lisinopril] Allergy (Verified 04/08/18 11:23) oxcarbazepine [Oxcarbazepine] Allergy (Verified 04/08/18 11:23) Past Medical History - Social History Smoking Status: Former Smoker Family History: Reviewed & Not Pertinent - Past Medical History Cardiac Medical History: Reports: Hx Atrial Fibrillation, Hx Congestive Heart Failure, Hx Coronary Artery Disease, Hx Hypertension Denies: Hx Heart Attack Pulmonary Medical History: Reports: Hx Asthma - ON INHALERS, Hx COPD, Hx Pneumonia Neurological Medical History: Denies: Hx Cerebrovascular Accident, Hx Seizures Endocrine Medical History: Denies: Hx Graves' Disease Renal/ Medical History: Denies: Hx Kidney Stones, Hx Ovarian Cysts, Hx Peritoneal Dialysis, Hx Pelvic Inflammatory Disease GI Medical History: Reports: Hx Hepatitis - HX OF HEP C. Denies: Hx Hiatal Hernia, Hx Irritable Bowel, Hx Liver Failure, Hx Pancreatitis, Hx Ulcer Musculoskeltal Medical History: Reports Hx Arthritis, Denies Hx Multiple Sclerosis, Denies Hx Muscular Dystrophy Psychiatric Medical History: Reports: Hx Bipolar Disorder, Hx Dementia, Hx Depression, Hx Schizophrenia Traumatic Medical History: Denies: Hx Fractures Infectious Medical History: Reports: Hx Hepatitis - HX OF HEP C Past Surgical History: Reports: Hx Hysterectomy. Denies: Hx Bowel Surgery, Hx Mastectomy, Hx Open Heart Surgery, Hx Pacemaker - Immunizations Hx Diphtheria, Pertussis, Tetanus Vaccination: Yes Hx Pneumococcal Vaccination: 11/30/09 Review of Systems - Review of Systems -: Yes ROS unobtainable due to patient's medical condition - History of dementia Physical Exam - Vital signs Vitals: Resp 18 04/08/18 14:34 Interpretation: Normal - General General appearance: Appears well, Alert - HEENT Head: Normocephalic, Atraumatic Eyes: Other - Patient is right eye has a shield on it from surgery - Respiratory Respiratory status: No respiratory distress Chest status: Nontender Breath sounds: Normal Chest palpation: Normal - Cardiovascular Rhythm: Regular Heart sounds: Normal auscultation Murmur: No - Abdominal Inspection: Normal Distension: No distension Bowel sounds: Normal Tenderness: Nontender Organomegaly: No organomegaly - Back Back: Normal, Nontender - Extremities General upper extremity: Normal inspection, Nontender, Normal color, Normal ROM , Normal temperature General lower extremity: Normal inspection, Nontender, Normal color, Normal ROM , Normal temperature, Normal weight bearing. No: Keith's sign - Neurological Neuro grossly intact: Yes Brandie Coma Scale Eye Opening: Spontaneous Brandie Coma Scale Verbal: Confused Brandie Coma Scale Motor: Obeys Commands [place] Coma Scale Total: 14 Speech: Normal Motor strength normal: LUE, RUE, LLE, RLE Sensory: Normal - Psychological Associated symptoms: Normal affect, Normal mood - Skin Skin Temperature: Warm Skin Moisture: Dry Skin Color: Normal Course - Re-evaluation Re-evalutation: 04/08/18 14:46 Patient GCS wax and wane between 13 and 14. Patient is opening her eyes and spontaneously. Patient has stable vital signs on the monitor his able to speak most like she is maintaining her airway. At this time do not see need for IV establishment or need for reversal of Romazicon. We will continue to monitor the patient as long as her airway remains patent more likely patient will be discharged from the ER to her nursing care facility. 04/08/18 22:28 Primary discharge reevaluate patient. I did uncover the patient upon uncovering patient workup looked at me and did recover to herself with a blanket. No signs of any other stress safe for discharge home - Vital Signs Vital signs: Temp Pulse Resp BP Pulse Ox 21 H 161/76 H 90 L 04/08/18 16:23 04/08/18 16:23 04/08/18 16:23 Discharge - Discharge Clinical Impression: History of conscious sedation, Drowsiness due to conscious sedation Condition: Good Disposition: HOME, SELF-CARE Additional Instructions: Patient was seen in the ER due to difficulty in arousal after undergoing conscious sedation at her surgery center. Patient has been monitored here in the ER for over an hour with no signs of hypoxia patient is waking up to voice and able to cover herself back up with a blanket stating that she is cold. Patient otherwise looks safe to be discharged back to her nursing care facility. Would recommend patient follow-up with surgery center and the surgeon has recommended follow-up PCP 1 week. Patient should continue all medications as directed by the surgery center physician. Referrals: LILI MCRAE MD [Primary Care Provider] - Follow up in 1 week
[2018-04-08 17:15] VITALS: BP 161/76
== END 2018-04-08 16:15 | disposition home or self-care (01) ==
LOC: ER 14:27
DX: R40.0 Somnolence (principal); I48.91 Unspecified atrial fibrillation; Z98.890 Other specified postprocedural states; I50.9 Heart failure, unspecified; I25.10 Atherosclerotic heart disease of native coronary artery without angina pectoris; I11.0 Hypertensive heart disease with heart failure; Z90.710 Acquired absence of both cervix and uterus
CPT/HCPCS: 99285

== ENCOUNTER 2018-05-31 16:07 | Inpatient (IN) | payer MEDICARE, MEDICAID ==
[2018-05-31] MEDS ORDERED: ALBUTEROL SULFATE 0.083% NEB 2.5 MG/3 ML AMPUL NEB ONE (16:50)
[2018-05-31] MEDS ORDERED: IPRATROPIUM BROMIDE 0.02% NEB 0.5 MG/2.5 ML AMPUL NEB ONE (16:51)
[2018-05-31] MEDS ORDERED: PREDNISONE 20 MG TABLET PO ONE (17:06)
[2018-05-31] MEDS ORDERED: LEVOFLOXACIN 750 MG TABLET PO ONE (17:06)
--- NOTE | 2018-05-31 18:07 | RADIOLOGY REPORT (SQ) ---
EXAM DESCRIPTION: CHEST SINGLE VIEW COMPLETED DATE/TIME: 05/31/2018 5:04 pm REASON FOR STUDY: wheezing COMPARISON: 11/18/2017 EXAM PARAMETERS: NUMBER OF VIEWS: One view. TECHNIQUE: Single frontal radiographic view of the chest acquired. RADIATION DOSE: NA LIMITATIONS: None. FINDINGS: LUNGS AND PLEURA: Extensive opacity at the right lung base. Left lung is clear. MEDIASTINUM AND HILAR STRUCTURES: No masses. Contour normal. HEART AND VASCULAR STRUCTURES: Heart slightly enlarged. Mild vascular congestion. BONES: No acute findings. HARDWARE: None in the chest. OTHER: No other significant finding. IMPRESSION: Right basilar pneumonia. Vascular congestion. TECHNICAL DOCUMENTATION: JOB ID: [id number] [employer]- All Rights Reserved Reading location - IP/workstation name: [email or web address]
[2018-05-31] MEDS ORDERED: LIDOCAINE 4%/TETRACAINE 0.5%/EPI 0.18% 5 ML TOPICAL SOLN TOP ONE (18:30)
--- NOTE | 2018-05-31 18:30 | ER Document Report ---
ED Respiratory Problem - General Mode of Arrival: Ambulatory Information source: Patient TRAVEL OUTSIDE OF THE [place] IN LAST 30 DAYS: No <KELLEE KELLEY - Last Filed: 05/31/18 19:32> <JENNIFER FUNG - Last Filed: 06/02/18 19:14> - General Chief Complaint: Breathing Difficulty Stated Complaint: DIFFICULTY BREATHING Time Seen by Provider: 05/31/18 16:28 Notes: 87-year-old female presents today with complaints of chest pain, shortness of breath, cough, and nasal congestion. Patient was sent in by her assisted living facility for evaluation. According to the patient, she is not on oxygen there at the facility. Patient is somewhat of a poor historian so history is limited. (KELLEE KELLEY) - Related Data Allergies/Adverse Reactions: lisinopril [Lisinopril] Allergy (Verified 04/08/18 11:23) oxcarbazepine [Oxcarbazepine] Allergy (Verified 04/08/18 11:23) Past Medical History - General Information source: Patient - Social History Smoking Status: Former Smoker Frequency of alcohol use: None Drug Abuse: None Lives with: Family Family History: Reviewed & Not Pertinent Patient has suicidal ideation: No Patient has homicidal ideation: No - Past Medical History Cardiac Medical History: Reports: Hx Atrial Fibrillation, Hx Congestive Heart Failure, Hx Coronary Artery Disease, Hx Hypertension Pulmonary Medical History: Reports: Hx Asthma - ON INHALERS, Hx COPD, Hx Pneumonia GI Medical History: Reports: Hx Hepatitis - HX OF HEP C Musculoskeltal Medical History: Reports Hx Arthritis Psychiatric Medical History: Reports: Hx Bipolar Disorder, Hx Dementia, Hx Depression, Hx Schizophrenia Infectious Medical History: Reports: Hx Hepatitis - HX OF HEP C Past Surgical History: Reports: Hx Hysterectomy - Immunizations Hx Diphtheria, Pertussis, Tetanus Vaccination: Yes Hx Pneumococcal Vaccination: 11/30/09 <KELLEE KELLEY - Last Filed: 05/31/18 19:32> Review of Systems - Review of Systems Constitutional: No symptoms reported EENT: See HPI, Nose congestion Cardiovascular: See HPI, Chest pain Respiratory: See HPI, Cough, Short of breath Gastrointestinal: No symptoms reported Genitourinary: No symptoms reported Female Genitourinary: No symptoms reported Musculoskeletal: No symptoms reported Skin: No symptoms reported Hematologic/Lymphatic: No symptoms reported Neurological/Psychological: No symptoms reported -: Yes All other systems reviewed and negative <KELLEE KELLEY - Last Filed: 05/31/18 19:32> Physical Exam <ALLIEKELLEE - Last Filed: 05/31/18 19:32> <JENNIFER FUNG - Last Filed: 06/02/18 19:14> - Vital signs Vitals: BP 136/61 H 05/31/18 16:28 - Notes Notes: Physical Exam: General: Alert, appears age appropriate. HEENT: Normocephalic. Atraumatic. PERRL. Extraocular movements intact. Oropharynx clear. Neck: Supple. Non-tender. Respiratory: Drops down to 85% when on room air but does not use oxygen at home. Wheezing throughout bilaterally, crackles in the right lower lobe. Cardiovascular: Regular rate and rhythm. Abdominal: Normal Inspection. Non-tender. No distension. Normal Bowel Sounds. Back: Non-tender. No deformity or step off. Extremities: Moves all four extremities. Upper extremities: Normal inspection. Normal ROM. Lower extremities: Normal inspection. No edema. Normal ROM. Neurological: Normal cognition. AAOx4. Normal speech. Psychological: Normal affect. Normal Mood. Skin: Warm. Dry. Normal color. (KELLEE KELLEY) Course <KELLEE KELLEY - Last Filed: 05/31/18 19:32> - Laboratory Result Diagrams: 06/02/18 06:16 06/02/18 06:16 <JENNIFER FUNG - Last Filed: 06/02/18 19:14> - Re-evaluation Re-evalutation: 05/31/18 21:34 Should not have right lower lobe pneumonia patient will be admitted [facility] provide emergency department patient resting comfortably. Of note, patient was given to milligrams per kilogram of IM ketamine due to agitation and not allowing us to put in peripheral IV lines. I felt patient did not have capacity to make decision on not having lines placed. She cannot really verbalize the risks of not having these lines. She tolerated procedure without any complications. (JENNIFER FUNG) - Vital Signs Vital signs: Temp Pulse Resp BP Pulse Ox 98.2 F 52 L 18 105/40 L 96 06/02/18 15:40 06/02/18 15:40 06/02/18 15:40 06/02/18 15:40 06/02/18 15:40 - Laboratory Laboratory results interpreted by me: 05/31/18 05/31/18 05/31/18 20:40 20:40 21:20 RDW 15.8 H Plt Count 101 L Seg Neutrophils % 84.5 H Lymphocytes % 10.4 L Sodium 148.8 H Chloride 119 H Carbon Dioxide 16 L BUN 25 H Creatinine 1.81 H Est GFR ( Amer) 32 L Est GFR (Non-Af Amer) 27 L Glucose 121 H Direct Bilirubin 1.2 H NT-Pro-B Natriuret Pep 2980 H Discharge <KELLEE KELLEY - Last Filed: 05/31/18 19:32> - Discharge Admitting Provider: [facility] Unit Admitted: Telemetry <JENNIFER FUNG - Last Filed: 06/02/18 19:14> - Discharge Clinical Impression: Pneumonia Qualifiers: Pneumonia type: due to unspecified organism Laterality: left Lung location: lower lobe of lung Qualified Code(s): J18.1 - Lobar pneumonia, unspecified organism Condition: Fair Disposition: ADMITTED INPATIENT Scribe Attestation: 06/02/18 19:14 I personally performed the services described documentation, reviewed and edited the documentation which was dictated to describe my presence, and it accurately records my words and actions. (JENNIFER FUNG) Scribe Documentation - Scribe Written by Scribe:: Eloisa Sibley, 05/31/2018 1937 acting as scribe for :: Ike <KELLEE KELLEY - Last Filed: 05/31/18 19:32>
[2018-05-31] MEDS ORDERED: KETAMINE HCL INJ 500 MG/10 ML VIAL ONE (20:07)
[2018-05-31] MEDS ORDERED: KETAMINE HCL INJ 500 MG/10 ML VIAL IM ONE (20:10)
[2018-05-31 20:51] LABS: ABSOLUTE BASOPHILS # (AUTO) 0.1 10^3/uL (0.0-0.2); ABSOLUTE LYMPHOCYTES (AUTO) 0.6 10^3/uL (0.5-4.7); ABSOLUTE MONOCYTES (AUTO) 0.2 10^3/uL (0.1-1.4); ABSOLUTE NEUT (AUTO) 4.5 10^3/uL (1.7-8.2); BASOPHILS % (AUTO) 1.2 % (0-2); EOSINOPHILS % (AUTO) 0.2 % (0-6); HEMATOCRIT 37.7 % (36.0-47.0); HEMOGLOBIN 12.2 g/dL (12.0-15.5); LYMPHOCYTES % (AUTO) 10.4 % (13-45); MEAN CORPUSCULAR HEMOGLOBIN 29.5 pg (27.0-33.4); MEAN CORPUSCULAR HGB CONC 32.4 g/dL (32.0-36.0); MEAN CORPUSCULAR VOLUME 91 fl (80-97); MONOCYTES % (AUTO) 3.7 % (3-13); PLATELET COUNT 101 10^3/uL (150-450); RED BLOOD COUNT 4.14 10^6/uL (3.72-5.28); RED CELL DISTRIBUTION WIDTH 15.8 % (11.5-14.0); SEGMENTED NEUTROPHILS % (AUTO) 84.5 % (42-78); TOTAL CELLS COUNTED % (AUTO) 100 %; WHITE BLOOD COUNT 5.3 10^3/uL (4.0-10.5)
[2018-05-31 21:06] LABS: ALANINE AMINOTRANSFERASE 20 U/L (9-52); ALBUMIN 3.6 g/dL (3.5-5.0); ALKALINE PHOSPHATASE 75 U/L (38-126); ANION GAP 14 (5-19); ASPARTATE AMINO TRANSFERASE 26 U/L (14-36); BILIRUBIN,DIRECT 1.2 mg/dL (0.0-0.4); BILIRUBIN,TOTAL 1.3 mg/dL (0.2-1.3); BLOOD UREA NITROGEN 25 mg/dL (7-20); CALCIUM 8.9 mg/dL (8.4-10.2); CARBON DIOXIDE 16 mmol/L (22-30); CHLORIDE 119 mmol/L (98-107); GLUCOSE 121 mg/dL (75-110); POTASSIUM 3.7 mmol/L (3.6-5.0); SODIUM 148.8 mmol/L (137-145); TOTAL PROTEIN 7.6 g/dL (6.3-8.2)
[2018-05-31 22:08] LABS: TROPONIN I 0.016 ng/mL
[2018-06-01] MEDS ORDERED: IPRATROPIUM/ALBUTEROL 0.5-2.5 MG/3 ML AMPUL NEB PRN (02:09)
[2018-06-01 04:10] LABS: CREATINE KINASE MB 0.67 ng/mL (<4.55); TROPONIN I 0.015 ng/mL
[2018-06-01 04:16] LABS: ARTERIAL BLOOD H2CO3 1.17 mmol/L (1.05-1.35); ARTERIAL BLOOD HCO3 18.8 mmol/L (20-26); ARTERIAL BLOOD O2 SATURATION 93.4 % (94-98); ARTERIAL BLOOD PO2 73.5 mmHg (80-100)
[2018-06-01 04:17] LABS: ARTERIAL BLOOD FIO2 3L
[2018-06-01] MEDS ORDERED: CEFTRIAXONE INJ 1000 MG VIAL ONE (05:43)
[2018-06-01] MEDS ORDERED: CEFTRIAXONE 1 GM/D5W RTU 1 GM/50 ML RTUPB IV SCH (06:00)
--- NOTE | 2018-06-01 06:10 | EKG REPORT ---
SEVERITY:- ABNORMAL ECG - SINUS RHYTHM NONSPECIFIC T ABNORMALITIES, DIFFUSE LEADS : Confirmed by: Salbador Bill MD 01-Jun-2018 06:09:31
[2018-06-01] MEDS: HEPARIN SOD (PORCINE) 5,000 UNIT/ML 1 ML SYRINGE SUBCUT SCH ×3 (06:19→21:35)
[2018-06-01] MEDS ORDERED: LORAZEPAM 0.5 MG TABLET PO PRN (17:19)
[2018-06-01] MEDS ORDERED: (PENDING PHARMACY ID) (Umeclidinium Brm/Vilanterol Tr [Anoro Ellipta 62.5-25 Mcg Inh] 1 PU IH SCH (17:30)
[2018-06-01] MEDS ORDERED: (PENDING PHARMACY ID) (Roflumilast [Daliresp 500 Mcg Tablet] 500 MCG) PO SCH (17:30)
[2018-06-01] MEDS ORDERED: LEVOFLOXACIN 750 MG/D5W RTU 750 MG/150 ML RTUPB IV SCH (18:00)
[2018-06-01] MEDS ORDERED: NICOTINE 21 MG/24 HR PATCH.TD24 TD ONE (18:30)
--- NOTE | 2018-06-01 19:26 | PDOC H&P ---
History of Present Illness Admission Date/PCP: 05/31/18 22:02 LILI MCRAE MD History of Present Illness: LORI MANZANARES is a 87 year old female she has baseline dementia, chronic obstructive pulmonary disease, resident of assisted living facility at [facility] she was transferred from the facility to the emergency room for evaluation of shortness of breath, fever and chest pain. Patient is a poor historian, she was seen in the emergency room evaluated, a chest x-ray was done, showed extensive opacity at the right lung base, the left lung was clear consistent with right basilar pneumonia. ABG on FiO2 3 L was done, pH 7.3, PO2 73 bicarbonate 18.8 consistent with metabolic acidosis with hypoxemia. Patient is a recalcitrant smoker, she continued to smoke cigarettes despite established COPD history taking is a challenge in this patient Past Medical History Cardiac Medical History: Reports: Atrial Fibrillation Pulmonary Medical History: Reports: Asthma - ON INHALERS, Chronic Obstructive Pulmonary Disease (COPD), Pneumonia GI Medical History: Reports: Hepatitis - HX OF HEP C Musculoskeltal Medical History: Reports: Arthritis Psychiatric Medical History: Reports: Bipolar Disorder, Dementia, Depression Past Surgical History Past Surgical History: Reports: Hysterectomy Social History Lives with: Family Smoking Status: Current Every Day Smoker Frequency of Alcohol Use: None Hx Recreational Drug Use: No Drugs: None Hx Prescription Drug Abuse: No Family History Family History: Reviewed & Not Pertinent Parental Family History Reviewed: Yes Children Family History Reviewed: Yes Sibling(s) Family History Reviewed.: Yes Medication/Allergy Home Medications: Amlodipine Besylate [Norvasc 5 mg Tablet] 5 mg PO DAILY 06/01/18 Clonidine HCl [Catapres 0.1 mg Tablet] 0.1 mg PO Q12 06/01/18 Donepezil HCl [Aricept 5 mg Tablet] 5 mg PO DAILY 06/01/18 Escitalopram Oxalate [Lexapro 10 mg Tablet] 10 mg PO DAILY 06/01/18 Lorazepam [Ativan 0.5 mg Tablet] 0.5 mg PO Q8HP PRN 06/01/18 Losartan Potassium [Cozaar 100 mg Tablet] 100 mg PO DAILY 06/01/18 Metoprolol Succinate [Toprol Xl 50 mg Tab.sr] 50 mg PO DAILY 06/01/18 Omeprazole 40 mg PO DAILY 06/01/18 Risperidone [Risperdal 1 mg Tablet] 1 mg PO BID 06/01/18 Roflumilast [Daliresp 500 mcg Tablet] 500 mcg PO DAILY 06/01/18 Umeclidinium Brm/Vilanterol Tr [Anoro Ellipta 62.5-25 Mcg INH] 1 puff IH DAILY 06/01/18 Allergies/Adverse Reactions: lisinopril [Lisinopril] Allergy (Verified 04/08/18 11:23) oxcarbazepine [Oxcarbazepine] Allergy (Verified 04/08/18 11:23) Review of Systems Constitutional: PRESENT: chills, weakness Eyes: ABSENT: visual disturbances Ears: ABSENT: hearing changes Cardiovascular: ABSENT: chest pain, dyspnea on exertion, edema, orthropnea, palpitations Respiratory: PRESENT: cough, dyspnea Gastrointestinal: ABSENT: abdominal pain, constipation, diarrhea, hematemesis, hematochezia, nausea, vomiting Genitourinary: ABSENT: dysuria, hematuria Musculoskeletal: ABSENT: joint swelling Integumentary: ABSENT: rash, wounds Neurological: ABSENT: abnormal gait, abnormal speech, confusion, dizziness, focal weakness, syncope Psychiatric: ABSENT: anxiety, depression, homidical ideation, suicidal ideation Endocrine: ABSENT: cold intolerance, heat intolerance, menstrual abnormalities, polydipsia, polyuria Hematologic/Lymphatic: ABSENT: easy bleeding, easy bruising, lymphadenopathy Physical Exam Vital Signs: Temp Pulse Resp BP Pulse Ox 98.0 F 62 18 131/44 H 94 06/01/18 14:54 06/01/18 14:54 06/01/18 14:54 06/01/18 14:54 06/01/18 14:54 Intake & Output 05/31/18 06/01/18 06/02/18 06:59 06:59 06:59 Intake Total 70 885 Output Total 400 Balance 70 485 Weight 59 kg General appearance: PRESENT: mild distress Head exam: PRESENT: atraumatic, normocephalic Eye exam: PRESENT: PERRLA Neck exam: PRESENT: full ROM Respiratory exam: PRESENT: rhonchi Cardiovascular exam: PRESENT: irregular rhythm, RRR, +S1, +S2 Vascular exam: PRESENT: normal capillary refill GI/Abdominal exam: PRESENT: normal bowel sounds, soft Rectal exam: PRESENT: deferred Neurological exam: PRESENT: alert, CN II-XII grossly intact Psychiatric exam: PRESENT: appropriate affect, normal mood Skin exam: PRESENT: dry, intact, warm Results Laboratory Results: 06/01/18 04:00 Carbonic Acid 1.17 HCO3/H2CO3 Ratio 16:1 ABG pH 7.30 L ABG pCO2 39.0 ABG pO2 73.5 L ABG HCO3 18.8 L ABG O2 Saturation 93.4 L ABG Base Excess -7.0 FiO2 3L 06/01/18 06/01/18 03:33 03:33 Creatine Kinase 56 CK-MB (CK-2) 0.67 Troponin I 0.015 NT-Pro-B Natriuret Pep 3270 H Impressions: Chest X-Ray 05/31/18 16:49 IMPRESSION: Right basilar pneumonia. Vascular congestion. Assessment & Plan - Diagnosis (1) Right lower lobe pneumonia Qualifiers: Pneumonia type: due to unspecified organism Qualified Code(s): J18.1 - Lobar pneumonia, unspecified organism Is this a current diagnosis for this admission?: Yes Plan: She has right lower lobe pneumonia, she will empirically be treated with antibiotic to cover community-acquired pneumonia, though she is from assisted living facility with potential for MRSA and gram-negative bacteria (2) Septicemia due to Staphylococcus Is this a current diagnosis for this admission?: Yes Plan: The blood culture preliminary result is growing gram-positive cocci in clusters suggesting staph species, start vancomycin empirically (3) Acute respiratory failure with hypoxemia Is this a current diagnosis for this admission?: Yes Plan: She has hypoxemia start supplemental oxygen via nasal cannula (4) Metabolic acidosis Is this a current diagnosis for this admission?: Yes Plan: Metabolic acidosis most likely from sepsis, start vigorous hydration with fluid
[2018-06-01] MEDS: RISPERIDONE 1 MG TABLET PO SCH (19:39)
[2018-06-01] MEDS: CLONIDINE HCL 0.1 MG TABLET PO SCH (19:39)
[2018-06-01] MEDS ORDERED: LANSOPRAZOLE 30 MG TAB.RAP.DR PO ONE (20:00)
[2018-06-01] MEDS ORDERED: DONEPEZIL HCL 5 MG TABLET PO ONE (20:00)
[2018-06-01] MEDS ORDERED: ROFLUMILAST 500 MCG TABLET PO ONE (20:00)
[2018-06-01] MEDS ORDERED: AMLODIPINE BESYLATE 5 MG TABLET PO ONE (20:00)
[2018-06-01] MEDS ORDERED: METOPROLOL SUCCINATE 50 MG TAB.SR.24H PO SCH (20:00)
[2018-06-01] MEDS ORDERED: LOSARTAN POTASSIUM 50 MG TABLET PO ONE (20:00)
[2018-06-01] MEDS ORDERED: ESCITALOPRAM OXALATE 10 MG TABLET PO ONE (20:00)
[2018-06-02] MEDS: CEFTRIAXONE SODIUM 1,000 MG in DEXTROSE 5%-WATER 50 ML IV SCH (05:49)
[2018-06-02] MEDS: LANSOPRAZOLE 30 MG TAB.RAP.DR PO SCH (05:50)
[2018-06-02] MEDS: HEPARIN SOD (PORCINE) 5,000 UNIT/ML 1 ML SYRINGE SUBCUT SCH ×3 (05:50→21:04)
[2018-06-02 06:34] LABS: ABSOLUTE LYMPHOCYTES (AUTO) 1.9 10^3/uL (0.5-4.7); ABSOLUTE MONOCYTES (AUTO) 0.8 10^3/uL (0.1-1.4); ABSOLUTE NEUT (AUTO) 3.1 10^3/uL (1.7-8.2); BASOPHILS % (AUTO) 0.8 % (0-2); EOSINOPHILS % (AUTO) 0.5 % (0-6); HEMATOCRIT 35.7 % (36.0-47.0); HEMOGLOBIN 11.7 g/dL (12.0-15.5); LYMPHOCYTES % (AUTO) 32.4 % (13-45); MEAN CORPUSCULAR HEMOGLOBIN 29.5 pg (27.0-33.4); MEAN CORPUSCULAR HGB CONC 32.6 g/dL (32.0-36.0); MEAN CORPUSCULAR VOLUME 91 fl (80-97); MONOCYTES % (AUTO) 14.1 % (3-13); PLATELET COUNT 105 10^3/uL (150-450); RED BLOOD COUNT 3.95 10^6/uL (3.72-5.28); RED CELL DISTRIBUTION WIDTH 15.7 % (11.5-14.0); SEGMENTED NEUTROPHILS % (AUTO) 52.2 % (42-78); TOTAL CELLS COUNTED % (AUTO) 100 %; WHITE BLOOD COUNT 5.8 10^3/uL (4.0-10.5)
[2018-06-02 06:54] LABS: ALANINE AMINOTRANSFERASE 19 U/L (9-52); ALBUMIN 3.4 g/dL (3.5-5.0); ALKALINE PHOSPHATASE 68 U/L (38-126); ANION GAP 12 (5-19); ASPARTATE AMINO TRANSFERASE 30 U/L (14-36); BILIRUBIN,DIRECT 0.8 mg/dL (0.0-0.4); BILIRUBIN,TOTAL 0.8 mg/dL (0.2-1.3); BLOOD UREA NITROGEN 29 mg/dL (7-20); CALCIUM 8.7 mg/dL (8.4-10.2); CARBON DIOXIDE 18 mmol/L (22-30); CHLORIDE 120 mmol/L (98-107); GLUCOSE 138 mg/dL (75-110); POTASSIUM 3.6 mmol/L (3.6-5.0); TOTAL PROTEIN 7.3 g/dL (6.3-8.2)
[2018-06-02] MEDS ORDERED: VANCOMYCIN HCL 0 MG in DEXTROSE 5%-WATER 250 ML IV NR (09:30)
[2018-06-02] MEDS: LOSARTAN POTASSIUM 50 MG TABLET PO SCH (09:43)
[2018-06-02] MEDS: CLONIDINE HCL 0.1 MG TABLET PO SCH ×2 (09:44→20:18)
[2018-06-02] MEDS: DONEPEZIL HCL 5 MG TABLET PO SCH (09:44)
[2018-06-02] MEDS: METOPROLOL SUCCINATE 50 MG TAB.SR.24H PO SCH (09:44)
[2018-06-02] MEDS: ROFLUMILAST 500 MCG TABLET PO SCH (09:44)
[2018-06-02] MEDS: RISPERIDONE 1 MG TABLET PO SCH ×2 (09:45→20:18)
[2018-06-02] MEDS: AMLODIPINE BESYLATE 5 MG TABLET PO SCH (09:45)
[2018-06-02] MEDS: ESCITALOPRAM OXALATE 10 MG TABLET PO SCH (09:45)
[2018-06-02] MEDS: NICOTINE 21 MG/24 HR PATCH.TD24 TD SCH (09:48)
--- NOTE | 2018-06-02 11:07 | PDOC PROGRESS REPORT ---
Subjective Progress Note for:: 06/02/18 Subjective:: Patient is seen by the bedside, she has hypernatremia. EKG showed A. fib with episode of sinus pause suggesting sick sinus, she also on beta-leobardo metoprolol, she has baseline dementia Reason For Visit: PNEUMONIA,COPD, DEMENTIA Physical Exam Vital Signs: Temp Pulse Resp BP Pulse Ox 98.3 F 95 14 119/46 L 96 06/02/18 07:39 06/02/18 09:38 06/02/18 09:38 06/02/18 07:39 06/02/18 09:38 Intake & Output 06/01/18 06/02/18 06/03/18 06:59 06:59 06:59 Intake Total 70 1366 Output Total 400 Balance 70 966 Weight 59 kg 70.5 kg General appearance: PRESENT: no acute distress Eye exam: PRESENT: PERRLA Respiratory exam: PRESENT: rhonchi Cardiovascular exam: PRESENT: +S1, +S2 GI/Abdominal exam: PRESENT: soft Neurological exam: PRESENT: alert Results Laboratory Results: 06/02/18 06:16 06/02/18 06:16 06/02/18 06/02/18 06:16 06:16 WBC 5.8 RBC 3.95 Hgb 11.7 L Hct 35.7 L MCV 91 MCH 29.5 MCHC 32.6 RDW 15.7 H Plt Count 105 L Seg Neutrophils % 52.2 Lymphocytes % 32.4 Monocytes % 14.1 H Eosinophils % 0.5 Basophils % 0.8 Absolute Neutrophils 3.1 Absolute Lymphocytes 1.9 Absolute Monocytes 0.8 Absolute Eosinophils 0.0 Absolute Basophils 0.0 Sodium 150.0 H Potassium 3.6 Chloride 120 H Carbon Dioxide 18 L Anion Gap 12 BUN 29 H Creatinine 1.72 H Est GFR ( Amer) 34 L Est GFR (Non-Af Amer) 28 L Glucose 138 H Calcium 8.7 Total Bilirubin 0.8 AST 30 ALT 19 Alkaline Phosphatase 68 Total Protein 7.3 Albumin 3.4 L 06/01/18 06/01/18 03:33 03:33 Creatine Kinase 56 CK-MB (CK-2) 0.67 Troponin I 0.015 NT-Pro-B Natriuret Pep 3270 H Impressions: Chest X-Ray 05/31/18 16:49 IMPRESSION: Right basilar pneumonia. Vascular congestion. Assessment & Plan - Diagnosis (1) Right lower lobe pneumonia Qualifiers: Pneumonia type: due to unspecified organism Qualified Code(s): J18.1 - Lobar pneumonia, unspecified organism Is this a current diagnosis for this admission?: Yes Plan: Continue IV antibiotic empirically (2) Septicemia due to Staphylococcus Is this a current diagnosis for this admission?: Yes (3) Acute respiratory failure with hypoxemia Is this a current diagnosis for this admission?: Yes (4) Metabolic acidosis Is this a current diagnosis for this admission?: Yes (5) Hypernatremia Is this a current diagnosis for this admission?: Yes Plan: DC normal saline start 5% dextrose
[2018-06-02 11:52] LABS: FREE T4 (FREE THYROXINE) 1.55 ng/dL (0.78-2.19)
[2018-06-02 12:06] LABS: THYROID STIMULATING HORMONE 3.61 uIU/mL (0.47-4.68)
[2018-06-02] MEDS: VANCOMYCIN HCL 750 MG in DEXTROSE 5%-WATER 250 ML IV SCH (12:21)
[2018-06-02] MEDS: DEXTROSE 5%-WATER 1000 ML 1,000 ML IV PRN (15:21)
[2018-06-03] MEDS: DEXTROSE 5%-WATER 1000 ML 1,000 ML IV PRN ×2 (02:10→18:10)
[2018-06-03] MEDS: HEPARIN SOD (PORCINE) 5,000 UNIT/ML 1 ML SYRINGE SUBCUT SCH ×3 (05:18→21:17)
[2018-06-03] MEDS: CEFTRIAXONE SODIUM 1,000 MG in DEXTROSE 5%-WATER 50 ML IV SCH (05:40)
[2018-06-03] MEDS: LANSOPRAZOLE 30 MG TAB.RAP.DR PO SCH (05:40)
[2018-06-03] MEDS: ESCITALOPRAM OXALATE 10 MG TABLET PO SCH (10:51)
[2018-06-03] MEDS: RISPERIDONE 1 MG TABLET PO SCH ×2 (10:51→20:04)
[2018-06-03] MEDS: CLONIDINE HCL 0.1 MG TABLET PO SCH ×2 (10:51→20:04)
[2018-06-03] MEDS: AMLODIPINE BESYLATE 5 MG TABLET PO SCH (10:52)
[2018-06-03] MEDS: LOSARTAN POTASSIUM 50 MG TABLET PO SCH (10:52)
[2018-06-03] MEDS: DONEPEZIL HCL 5 MG TABLET PO SCH (10:52)
[2018-06-03] MEDS: ROFLUMILAST 500 MCG TABLET PO SCH (10:52)
[2018-06-03] MEDS: METOPROLOL SUCCINATE 50 MG TAB.SR.24H PO SCH (11:11)
[2018-06-03] MEDS: NICOTINE 21 MG/24 HR PATCH.TD24 TD SCH (11:11)
[2018-06-03] MEDS: VANCOMYCIN HCL 750 MG in DEXTROSE 5%-WATER 250 ML IV SCH (12:53)
[2018-06-03] MEDS ORDERED: LEVOFLOXACIN 750 MG/D5W RTU 750 MG/150 ML RTUPB IV SCH (18:00)
[2018-06-03 19:15] LABS: ABSOLUTE EOSINOPHILS # (AUTO) 0.1 10^3/uL (0.0-0.6); ABSOLUTE LYMPHOCYTES (AUTO) 1.9 10^3/uL (0.5-4.7); ABSOLUTE MONOCYTES (AUTO) 0.7 10^3/uL (0.1-1.4); ABSOLUTE NEUT (AUTO) 2.2 10^3/uL (1.7-8.2); BASOPHILS % (AUTO) 0.8 % (0-2); EOSINOPHILS % (AUTO) 1.3 % (0-6); HEMATOCRIT 34.7 % (36.0-47.0); HEMOGLOBIN 11.6 g/dL (12.0-15.5); LYMPHOCYTES % (AUTO) 38.8 % (13-45); MEAN CORPUSCULAR HEMOGLOBIN 29.9 pg (27.0-33.4); MEAN CORPUSCULAR HGB CONC 33.3 g/dL (32.0-36.0); MEAN CORPUSCULAR VOLUME 90 fl (80-97); MONOCYTES % (AUTO) 14.8 % (3-13); RED BLOOD COUNT 3.87 10^6/uL (3.72-5.28); RED CELL DISTRIBUTION WIDTH 15.2 % (11.5-14.0); SEGMENTED NEUTROPHILS % (AUTO) 44.3 % (42-78); TOTAL CELLS COUNTED % (AUTO) 100 %; WHITE BLOOD COUNT 4.9 10^3/uL (4.0-10.5)
[2018-06-03 19:29] LABS: ALANINE AMINOTRANSFERASE 23 U/L (9-52); ALBUMIN 3.3 g/dL (3.5-5.0); ALKALINE PHOSPHATASE 68 U/L (38-126); ANION GAP 10 (5-19); ASPARTATE AMINO TRANSFERASE 25 U/L (14-36); BILIRUBIN,DIRECT 0.7 mg/dL (0.0-0.4); BILIRUBIN,TOTAL 0.7 mg/dL (0.2-1.3); BLOOD UREA NITROGEN 22 mg/dL (7-20); CALCIUM 8.5 mg/dL (8.4-10.2); CARBON DIOXIDE 22 mmol/L (22-30); CHLORIDE 115 mmol/L (98-107); GLUCOSE 103 mg/dL (75-110); POTASSIUM 3.5 mmol/L (3.6-5.0); SODIUM 147.2 mmol/L (137-145); TOTAL PROTEIN 7.1 g/dL (6.3-8.2)
[2018-06-03 19:35] LABS: PLATELET COUNT 96 10^3/uL (150-450)
--- NOTE | 2018-06-03 20:31 | PDOC PROGRESS REPORT ---
Subjective Progress Note for:: 06/03/18 Subjective:: Patient is seen by the bedside, She has no new complaints, she seems to be responding to treatment Reason For Visit: PNEUMONIA,COPD, DEMENTIA Physical Exam Vital Signs: Temp Pulse Resp BP Pulse Ox 98.6 F 63 24 H 138/51 H 96 06/03/18 19:25 06/03/18 19:25 06/03/18 19:25 06/03/18 19:25 06/03/18 19:25 Intake & Output 06/02/18 06/03/18 06/04/18 06:59 06:59 06:59 Intake Total 1366 2647 1238 Output Total 400 1400 1100 Balance 966 1247 138 Weight 70.5 kg 75 kg General appearance: PRESENT: no acute distress Eye exam: PRESENT: PERRLA Respiratory exam: PRESENT: clear to auscultation lauren Cardiovascular exam: PRESENT: +S1, +S2 GI/Abdominal exam: PRESENT: soft Neurological exam: PRESENT: alert Results Laboratory Results: 06/03/18 19:00 06/03/18 19:00 06/03/18 06/03/18 19:00 19:00 WBC 4.9 RBC 3.87 Hgb 11.6 L Hct 34.7 L MCV 90 MCH 29.9 MCHC 33.3 RDW 15.2 H Plt Count 96 L Seg Neutrophils % 44.3 Lymphocytes % 38.8 Monocytes % 14.8 H Eosinophils % 1.3 Basophils % 0.8 Absolute Neutrophils 2.2 Absolute Lymphocytes 1.9 Absolute Monocytes 0.7 Absolute Eosinophils 0.1 Absolute Basophils 0.0 Sodium 147.2 H Potassium 3.5 L Chloride 115 H Carbon Dioxide 22 Anion Gap 10 BUN 22 H Creatinine 1.53 H Est GFR ( Amer) 39 L Est GFR (Non-Af Amer) 32 L Glucose 103 Calcium 8.5 Total Bilirubin 0.7 AST 25 ALT 23 Alkaline Phosphatase 68 Total Protein 7.1 Albumin 3.3 L 06/01/18 06/01/18 03:33 03:33 Creatine Kinase 56 CK-MB (CK-2) 0.67 Troponin I 0.015 NT-Pro-B Natriuret Pep 3270 H Impressions: Chest X-Ray 05/31/18 16:49 IMPRESSION: Right basilar pneumonia. Vascular congestion. Assessment & Plan - Diagnosis (1) Right lower lobe pneumonia Qualifiers: Pneumonia type: due to unspecified organism Qualified Code(s): J18.1 - Lobar pneumonia, unspecified organism Is this a current diagnosis for this admission?: Yes (2) Septicemia due to Staphylococcus Is this a current diagnosis for this admission?: Yes (3) Acute respiratory failure with hypoxemia Is this a current diagnosis for this admission?: Yes (4) Metabolic acidosis Is this a current diagnosis for this admission?: Yes (5) Hypernatremia Is this a current diagnosis for this admission?: Yes - Plan Summary Plan Summary: She will continue IV antibiotic and other treatment
[2018-06-04] MEDS: HEPARIN SOD (PORCINE) 5,000 UNIT/ML 1 ML SYRINGE SUBCUT SCH ×3 (05:06→21:23)
[2018-06-04] MEDS: CEFTRIAXONE SODIUM 1,000 MG in DEXTROSE 5%-WATER 50 ML IV SCH (05:09)
[2018-06-04] MEDS: LANSOPRAZOLE 30 MG TAB.RAP.DR PO SCH (05:10)
[2018-06-04 05:11] LABS: ABSOLUTE EOSINOPHILS # (AUTO) 0.1 10^3/uL (0.0-0.6); ABSOLUTE LYMPHOCYTES (AUTO) 1.9 10^3/uL (0.5-4.7); ABSOLUTE MONOCYTES (AUTO) 0.7 10^3/uL (0.1-1.4); BASOPHILS % (AUTO) 0.5 % (0-2); EOSINOPHILS % (AUTO) 1.6 % (0-6); HEMATOCRIT 36.7 % (36.0-47.0); HEMOGLOBIN 12.2 g/dL (12.0-15.5); LYMPHOCYTES % (AUTO) 40.1 % (13-45); MEAN CORPUSCULAR HEMOGLOBIN 29.6 pg (27.0-33.4); MEAN CORPUSCULAR HGB CONC 33.1 g/dL (32.0-36.0); MEAN CORPUSCULAR VOLUME 89 fl (80-97); MONOCYTES % (AUTO) 15.2 % (3-13); RED BLOOD COUNT 4.11 10^6/uL (3.72-5.28); RED CELL DISTRIBUTION WIDTH 15.4 % (11.5-14.0); SEGMENTED NEUTROPHILS % (AUTO) 42.6 % (42-78); TOTAL CELLS COUNTED % (AUTO) 100 %; WHITE BLOOD COUNT 4.7 10^3/uL (4.0-10.5)
[2018-06-04] MEDS: DEXTROSE 5%-WATER 1000 ML 1,000 ML IV PRN ×2 (05:12→17:56)
[2018-06-04 05:31] LABS: ALANINE AMINOTRANSFERASE 19 U/L (9-52); ALBUMIN 3.3 g/dL (3.5-5.0); ALKALINE PHOSPHATASE 64 U/L (38-126); ANION GAP 12 (5-19); ASPARTATE AMINO TRANSFERASE 26 U/L (14-36); BILIRUBIN,DIRECT 0.8 mg/dL (0.0-0.4); BLOOD UREA NITROGEN 21 mg/dL (7-20); CALCIUM 8.7 mg/dL (8.4-10.2); CARBON DIOXIDE 19 mmol/L (22-30); CHLORIDE 117 mmol/L (98-107); GLUCOSE 118 mg/dL (75-110); POTASSIUM 3.6 mmol/L (3.6-5.0); SODIUM 148.2 mmol/L (137-145); TOTAL PROTEIN 7.3 g/dL (6.3-8.2)
[2018-06-04 05:41] LABS: PLATELET COUNT 94 10^3/uL (150-450)
[2018-06-04] MEDS: RISPERIDONE 1 MG TABLET PO SCH ×2 (07:50→19:54)
[2018-06-04] MEDS: CLONIDINE HCL 0.1 MG TABLET PO SCH ×2 (07:51→19:53)
[2018-06-04] MEDS: ROFLUMILAST 500 MCG TABLET PO SCH (10:47)
[2018-06-04] MEDS: METOPROLOL SUCCINATE 50 MG TAB.SR.24H PO SCH (10:47)
[2018-06-04] MEDS: DONEPEZIL HCL 5 MG TABLET PO SCH (10:47)
[2018-06-04] MEDS: ESCITALOPRAM OXALATE 10 MG TABLET PO SCH (10:47)
[2018-06-04] MEDS: AMLODIPINE BESYLATE 5 MG TABLET PO SCH (10:48)
[2018-06-04] MEDS: LOSARTAN POTASSIUM 50 MG TABLET PO SCH (10:48)
[2018-06-04] MEDS: NICOTINE 21 MG/24 HR PATCH.TD24 TD SCH (10:51)
[2018-06-04] MEDS: VANCOMYCIN HCL 750 MG in DEXTROSE 5%-WATER 250 ML IV SCH (12:38)
[2018-06-04] MEDS ORDERED: LEVOFLOXACIN 750 MG TABLET PO SCH (18:00)
--- NOTE | 2018-06-04 18:29 | PDOC TRANSFER SUMMARY ---
General - Admit/Disc Date/PCP Admission Date/Primary Care Provider: 05/31/18 22:02 LILI MCRAE MD Discharge Date: 06/05/18 - Discharge Diagnosis (1) Right lower lobe pneumonia Is this a current diagnosis for this admission?: Yes (2) Acute respiratory failure with hypoxemia Is this a current diagnosis for this admission?: Yes (3) Metabolic acidosis Is this a current diagnosis for this admission?: Yes (4) Hypernatremia Is this a current diagnosis for this admission?: Yes (5) Chronic obstructive pulmonary disease Is this a current diagnosis for this admission?: Yes - Additional Information Prescriptions: Levofloxacin [Levaquin 750 mg Tablet] 750 mg PO DAILY #10 tab Home Medications: Amlodipine Besylate [Norvasc 5 mg Tablet] 5 mg PO DAILY 06/01/18 Clonidine HCl [Catapres 0.1 mg Tablet] 0.1 mg PO Q12 06/01/18 Donepezil HCl [Aricept 5 mg Tablet] 5 mg PO DAILY 06/01/18 Escitalopram Oxalate [Lexapro 10 mg Tablet] 10 mg PO DAILY 06/01/18 Lorazepam [Ativan 0.5 mg Tablet] 0.5 mg PO Q8HP PRN 06/01/18 Losartan Potassium [Cozaar 100 mg Tablet] 100 mg PO DAILY 06/01/18 Omeprazole 40 mg PO DAILY 06/01/18 Risperidone [Risperdal 1 mg Tablet] 1 mg PO BID 06/01/18 Umeclidinium Brm/Vilanterol Tr [Anoro Ellipta 62.5-25 Mcg INH] 1 puff IH DAILY 06/01/18 Heparin Sodium,Porcine [Heparin Inj 5,000 Units/ml 1 ml Syringe] 5,000 unit SUBCUT Q8 syringe 06/04/18 Ipratropium/Albuterol Sulfate [Duoneb 3 ml Ampul] 3 ml NEB RTQ3HP PRN vial.neb 06/04/18 Levofloxacin [Levaquin 750 mg Tablet] 750 mg PO DAILY #10 tab 06/04/18 Metoprolol Succinate [Toprol Xl 50 mg Tab.sr] 50 mg PO DAILY tab.sr.24h Roflumilast [Daliresp 500 Mcg Tablet] 500 mcg PO DAILY tablet 06/04/18 History of Present Illness Admission Date/PCP: 05/31/18 22:02 LILI MCRAE MD History of Present Illness: LORI MANZANARES is a 87 year old female she has baseline dementia, chronic obstructive pulmonary disease, resident of assisted living facility [facility] she was transferred from the facility to the emergency room for evaluation of shortness of breath, fever and chest pain. Patient is a poor historian, she was seen in the emergency room evaluated, a chest x-ray was done, showed extensive opacity at the right lung base, the left lung was clear consistent with right basilar pneumonia. ABG on FiO2 3 L was done, pH 7.3, PO2 73 bicarbonate 18.8 consistent with metabolic acidosis with hypoxemia. Patient is a recalcitrant smoker, she continued to smoke cigarettes despite established COPD history taking is a challenge in this patient Hospital Course Hospital Course: Patient was admitted for the management of pneumonia with associated hypoxemia, she was treated empirically with IV antibiotic, cefepime and Levaquin, the initial blood culture grew cocci in clusters consistent with staph, she was empirically treated with vancomycin,, the final blood culture was staph epidermidis suggestive of contamination. Patient improved with treatment regimen, she is a resident of assisted living facility, she wants to be transferred back to the facility today Physical Exam Vital Signs: Temp Pulse Resp BP Pulse Ox 97.7 F 86 18 116/53 L 97 06/04/18 15:45 06/04/18 15:45 06/04/18 15:45 06/04/18 15:45 06/04/18 15:45 Intake & Output 06/03/18 06/04/18 06/05/18 06:59 06:59 06:59 Intake Total 2647 2418 200 Output Total 1400 1400 Balance 1247 1018 200 Weight 75 kg 77.5 kg General appearance: PRESENT: no acute distress Head exam: PRESENT: atraumatic, normocephalic Eye exam: PRESENT: conjunctiva pink, EOMI, PERRLA Ear exam: PRESENT: normal external ear exam Mouth exam: PRESENT: moist, tongue midline Respiratory exam: PRESENT: clear to auscultation lauren Cardiovascular exam: PRESENT: RRR, +S1, +S2 Pulses: PRESENT: normal dorsalis pedis pul Vascular exam: PRESENT: normal capillary refill GI/Abdominal exam: PRESENT: normal bowel sounds, soft Rectal exam: PRESENT: deferred Extremities exam: PRESENT: full ROM Neurological exam: PRESENT: alert Psychiatric exam: PRESENT: appropriate affect, normal mood Skin exam: PRESENT: dry, intact, warm Results Laboratory Results: 06/04/18 04:43 06/04/18 04:43 06/03/18 06/03/18 06/04/18 19:00 19:00 04:43 WBC 4.9 4.7 RBC 3.87 4.11 Hgb 11.6 L 12.2 Hct 34.7 L 36.7 MCV 90 89 MCH 29.9 29.6 MCHC 33.3 33.1 RDW 15.2 H 15.4 H Plt Count 96 L 94 L Seg Neutrophils % 44.3 42.6 Lymphocytes % 38.8 40.1 Monocytes % 14.8 H 15.2 H Eosinophils % 1.3 1.6 Basophils % 0.8 0.5 Absolute Neutrophils 2.2 2.0 Absolute Lymphocytes 1.9 1.9 Absolute Monocytes 0.7 0.7 Absolute Eosinophils 0.1 0.1 Absolute Basophils 0.0 0.0 Sodium 147.2 H Potassium 3.5 L Chloride 115 H Carbon Dioxide 22 Anion Gap 10 BUN 22 H Creatinine 1.53 H Est GFR ( Amer) 39 L Est GFR (Non-Af Amer) 32 L Glucose 103 Calcium 8.5 Total Bilirubin 0.7 AST 25 ALT 23 Alkaline Phosphatase 68 Total Protein 7.1 Albumin 3.3 L 06/04/18 04:43 WBC RBC Hgb Hct MCV MCH MCHC RDW Plt Count Seg Neutrophils % Lymphocytes % Monocytes % Eosinophils % Basophils % Absolute Neutrophils Absolute Lymphocytes Absolute Monocytes Absolute Eosinophils Absolute Basophils Sodium 148.2 H Potassium 3.6 Chloride 117 H Carbon Dioxide 19 L Anion Gap 12 BUN 21 H Creatinine 1.44 H Est GFR ( Amer) 42 L Est GFR (Non-Af Amer) 35 L Glucose 118 H Calcium 8.7 Total Bilirubin 1.0 AST 26 ALT 19 Alkaline Phosphatase 64 Total Protein 7.3 Albumin 3.3 L 06/01/18 05:59 Blood Blood Culture - Final Staphylococcus Epidermidis 06/01/18 06/01/18 03:33 03:33 Creatine Kinase 56 CK-MB (CK-2) 0.67 Troponin I 0.015 NT-Pro-B Natriuret Pep 3270 H Impressions: Chest X-Ray 05/31/18 16:49 IMPRESSION: Right basilar pneumonia. Vascular congestion. Qualifiers - * PATIENT BEING DISCHARGED WITH ANY OF THE FOLLOWING DIAGNOSIS: No
--- NOTE | 2018-06-04 19:40 | XCELERA REPORT ---
[address] [address] Transthoracic Echocardiogram Report Name: LORI MANZANARES Age: 87 yrs Gender: Female : 1930 Patient Status: Inpatient Patient Location: [address] [place], [place] [id number] Study Date: 06/03/2018 09:14 AM Procedure: A two-dimensional transthoracic echocardiogram with color flow and Doppler was performed. Study Quality: Fair. Reason For Study: CHF History: CHF. Ordering Physician: LILI MCRAE Performed By: Libby Tsai Interpretation Summary The left ventricle is normal in size. There is normal left ventricular wall thickness. LV EF is 60% Left ventricular systolic function is normal. Doppler measurements suggest normal left ventricular diastolic function The left ventricular wall motion is normal. There is no thrombus. The right ventricle is moderately dilated. There is mild right ventricular hypertrophy. The right ventricular systolic function is mildly reduced. The right atrium is mild to moderately dilated. The left atrial size is normal. There is no evidence of mitral valve prolapse. There is no mitral valve stenosis. There is a mild amount of mitral regurgitation There is no aortic valve stenosis There is no LVOT obstruction. There is a mild amount of aortic regurgitation There is no tricuspid stenosis. There is a severe amount of tricuspid regurgitation There is servere pulmonary hypertension by echo RVSP is 72 to 77 mm of Hg , with RA mean of 15 to 20. The inferior vena cava appeared dilated and decreased < 50% with respiration (RAP 15-20 mmHg) There is no pericardial effusion. MMode/2D Measurements & Calculations RVDd: 3.2 cm LVIDd: 5.2 cm FS: 27.6 % Ao root diam: 2.7 cm IVSd: 0.90 cm LVIDs: 3.8 cm EDV(Teich): 131.9 mlAo root area: 5.8 cm2 LVPWd: 0.90 cmESV(Teich): 61.7 ml EF(Teich): 53.2 % LVOT diam: 1.5 cm LVOT area: 1.7 cm2 Doppler Measurements & Calculations MV E max judith: MV dec slope: Ao V2 max: AI max judith: 146.7 cm/sec 154.4 cm/sec 235.9 cm/sec MV A max judith: 710.1 cm/sec2 Ao max P.5 mmHgAI max P.4 cm/sec MV dec time: 22.3 mmHg MV E/A: 4.7 0.21 sec TRENT(V,D): 1.4 cm2 AI dec slope: 100.0 cm/sec2 AI P1/2t: 690.7 msec LV V1 max PG: PA V2 max: PI max judith: TR max judith: 6.7 mmHg 86.9 cm/sec 151.3 cm/sec 378.1 cm/sec LV V1 max: PA max P.0 mmHgPI max P.2 mmHgTR max P.9 cm/sec PI dec slope: 57.2 mmHg 136.5 cm/sec2 Left Ventricle The left ventricle is normal in size. There is normal left ventricular wall thickness. LV EF is 60%. Left ventricular systolic function is normal. Doppler measurements suggest normal left ventricular diastolic function. The left ventricular wall motion is normal. There is no thrombus. Right Ventricle The right ventricle is moderately dilated. There is mild right ventricular hypertrophy. The right ventricular systolic function is mildly reduced. Atria The right atrium is mild to moderately dilated. The left atrial size is normal. Mitral Valve There is mild mitral annular calcification. There is no evidence of mitral valve prolapse. There is no vegetation seen on the mitral valve. There is no mitral valve stenosis. There is a mild amount of mitral regurgitation. Aortic Valve The aortic valve is trileaflet. The aortic valve opens well. There is no aortic valvular vegetation. There is no aortic valve stenosis. There is no LVOT obstruction. There is a mild amount of aortic regurgitation. Tricuspid Valve There is no tricuspid stenosis. There is a severe amount of tricuspid regurgitation. There is servere pulmonary hypertension by echo. RVSP is 72 to 77 mm of Hg , with RA mean of 15 to 20. Pulmonic Valve There is no pulmonic valvular stenosis. There is a trace amount of pulmonic regurgitation. Great Vessels The aortic root is normal size. The inferior vena cava appeared dilated and decreased < 50% with respiration (RAP 15-20 mmHg). Effusions There is no pericardial effusion. : LILI MCRAE > Mecca Humphreys
[2018-06-05] MEDS: LANSOPRAZOLE 30 MG TAB.RAP.DR PO SCH (05:14)
[2018-06-05] MEDS: CEFTRIAXONE SODIUM 1,000 MG in DEXTROSE 5%-WATER 50 ML IV SCH (05:15)
[2018-06-05] MEDS: HEPARIN SOD (PORCINE) 5,000 UNIT/ML 1 ML SYRINGE SUBCUT SCH (05:15)
[2018-06-05] MEDS: CLONIDINE HCL 0.1 MG TABLET PO SCH (08:03)
[2018-06-05] MEDS: RISPERIDONE 1 MG TABLET PO SCH (08:03)
[2018-06-05] MEDS: LOSARTAN POTASSIUM 50 MG TABLET PO SCH (09:54)
[2018-06-05] MEDS: ROFLUMILAST 500 MCG TABLET PO SCH (09:54)
[2018-06-05] MEDS: AMLODIPINE BESYLATE 5 MG TABLET PO SCH (09:54)
[2018-06-05] MEDS: ESCITALOPRAM OXALATE 10 MG TABLET PO SCH (09:54)
[2018-06-05] MEDS: DONEPEZIL HCL 5 MG TABLET PO SCH (09:54)
[2018-06-05] MEDS: METOPROLOL SUCCINATE 50 MG TAB.SR.24H PO SCH (09:54)
[2018-06-05] MEDS: NICOTINE 21 MG/24 HR PATCH.TD24 TD SCH (09:55)
[2018-06-05 13:27] VITALS: BP 138/65
== END 2018-06-05 13:41 | DRG 193 ==
LOC: ER 16:07 → EH 22:02 → 3W 06-01 03:23
PROVIDERS: ADMIT Internal Medicine; ATTEND Internal Medicine
DX: J18.1 Lobar pneumonia, unspecified organism (principal); J96.01 Acute respiratory failure with hypoxia; E87.2 Acidosis; E87.0 Hyperosmolality and hypernatremia; I48.91 Unspecified atrial fibrillation; I50.9 Heart failure, unspecified; J44.9 Chronic obstructive pulmonary disease, unspecified; I11.0 Hypertensive heart disease with heart failure; I25.10 Atherosclerotic heart disease of native coronary artery without angina pectoris; B19.20 Unspecified viral hepatitis C without hepatic coma; F31.9 Bipolar disorder, unspecified; F20.9 Schizophrenia, unspecified; F17.210 Nicotine dependence, cigarettes, uncomplicated
CPT/HCPCS: 36415; 36600; 71045; 80053; 82550; 82553; 82803; 83036; 83735; 83880; 84439; 84443; 84484; 85025; 87040; 87077; 87186; 93005; 93010; 93306; 94640; 96372; 99285; J0696; J1956; J3370; J3490; J7060; J7512

== ENCOUNTER → 2018-07-16 | Outpatient (CLI) | payer MEDICARE, MEDICAID ==
[2018-07-16 16:05] LABS: APPEARANCE,URINE CLEAR; BILIRUBIN,URINE NEGATIVE (NEGATIVE); COLOR,URINE YELLOW; GLUCOSE, URINE NEGATIVE (NEGATIVE); KETONES,URINE NEGATIVE (NEGATIVE); LEUKOCYTE ESTERASE,URINE NEGATIVE (NEGATIVE); NITRITE,URINE NEGATIVE (NEGATIVE); PROTEIN,URINE 30 mg/dL (NEGATIVE); URINE SPECIFIC GRAVITY 1.009; UROBILINOGEN,URINE NEGATIVE mg/dL (<2.0)
[2018-07-16 18:58] LABS: UR PRO/CREAT RATIO RESULT 0.6 mg/mg (0.0-0.2); URINE CREATININE 58.4 mg/dL (15-278); URINE PROTEIN 36.9 mg/dL (<12)
== END ==
LOC: OD 13:45
PROVIDERS: ATTEND Internal Medicine
DX: R60.1 Generalized edema (principal)
CPT/HCPCS: 81001; 82570; 84156

== ENCOUNTER 2018-08-08 16:06 | Inpatient (IN) | payer MEDICARE, MEDICAID ==
[2018-08-08] MEDS ORDERED: IPRATROPIUM/ALBUTEROL 0.5-2.5 MG/3 ML AMPUL NEB ONE ×2 (16:22→20:15)
[2018-08-08] MEDS ORDERED: MAGNESIUM SULFATE/D5W 1 GM/100 ML RTUPB IV ONE ×3 (16:38→18:12)
--- NOTE | 2018-08-08 16:40 | ER Document Report ---
ED General - General Chief Complaint: dyspnea Stated Complaint: DIFFICULTY BREATHING Time Seen by Provider: 08/08/18 16:36 TRAVEL OUTSIDE OF THE [place] IN LAST 30 DAYS: No - HPI Notes: Patient is an 87-year-old female with a history of COPD, CKD, hypertension, dementia, A. fib, CAD who presents to the ED from her retirement via EMS complaining of feeling short of breath, wheezing, and cough over the last 3 days. Patient states that she has been eating and drinking without any difficulties otherwise. She is still urinating and having normal bowel movements. Patient states that the last time she had pneumonia. Patient is otherwise a poor historian. Denies any headache, fever, sore throat, chest pain , palpitations, syncope, abdominal pain, nausea/vomiting/diarrhea, urinary retention, dysuria, hematuria, or rash. - Related Data Allergies/Adverse Reactions: lisinopril [Lisinopril] Allergy (Verified 04/08/18 11:23) oxcarbazepine [Oxcarbazepine] Allergy (Verified 04/08/18 11:23) Past Medical History - Social History Smoking Status: Current Every Day Smoker Family History: Reviewed & Not Pertinent - Past Medical History Cardiac Medical History: Reports: Hx Atrial Fibrillation, Hx Congestive Heart Failure, Hx Coronary Artery Disease, Hx Hypertension Denies: Hx Heart Attack Pulmonary Medical History: Reports: Hx Asthma - ON INHALERS, Hx COPD, Hx Pneumonia Neurological Medical History: Denies: Hx Cerebrovascular Accident, Hx Seizures Endocrine Medical History: Denies: Hx Graves' Disease Renal/ Medical History: Denies: Hx Kidney Stones, Hx Ovarian Cysts, Hx Peritoneal Dialysis, Hx Pelvic Inflammatory Disease GI Medical History: Reports: Hx Hepatitis - HX OF HEP C. Denies: Hx Hiatal Hernia, Hx Irritable Bowel, Hx Liver Failure, Hx Pancreatitis, Hx Ulcer Musculoskeletal Medical History: Reports Hx Arthritis, Denies Hx Multiple Sclerosis, Denies Hx Muscular Dystrophy Psychiatric Medical History: Reports: Hx Bipolar Disorder, Hx Dementia, Hx Depression, Hx Schizophrenia Traumatic Medical History: Denies: Hx Fractures Infectious Medical History: Reports: Hx Hepatitis - HX OF HEP C Past Surgical History: Reports: Hx Hysterectomy. Denies: Hx Bowel Surgery, Hx Mastectomy, Hx Open Heart Surgery, Hx Pacemaker - Immunizations Hx Diphtheria, Pertussis, Tetanus Vaccination: Yes Hx Pneumococcal Vaccination: 11/30/09 Review of Systems - Review of Systems -: Yes All other systems reviewed and negative - limited with the dementia, MH disorders. Physical Exam - Vital signs Vitals: Resp Pulse Ox 22 H 94 08/08/18 16:19 08/08/18 16:19 - Notes Notes: PHYSICAL EXAMINATION: GENERAL: appears in mild resp distress until O2 placed. HEAD: Atraumatic, normocephalic. EYES: Pupils equal round and reactive to light, extraocular movements intact, sclera anicteric, conjunctiva are normal. ENT: Nares patent and without discharge. oropharynx clear without exudates. No tonsilar hypertrophy or erythema. Moist mucous membranes. NECK: Normal range of motion, supple without lymphadenopathy LUNGS: diminished b/l and throughout. HEART: Regular rate and rhythm without murmurs, rubs, gallops. ABDOMEN: Soft, nontender, nondistended abdomen. No guarding, no rebound. No masses appreciated. Normal bowel sounds present. Extremities: 1-2+ pitting edema b/l LE's. Peripheral pulses 2+. Capillary refill less than 3 seconds. PSYCH: flat SKIN: Warm, Dry, normal turgor, no rashes or lesions noted. Course - Re-evaluation Re-evalutation: 08/08/18 18:57 Patient is an afebrile, well-hydrated, 87-year-old female who presents to the ED with acute exacerbation of her CHF and acute on chronic respiratory failure with hypoxemia. Patient has been mildly tachypneic and came in hypoxic in the 70s-80s% on room air. Patient was given a breathing treatment and placed on 4 L nasal cannula which improved her O2 to 94%. CBC and CMP were acceptable at this time. Blood gas showed pH of 7.19. Cardiac enzymes negative. BNP was greater than 8000 which is well above her normal. Chest x-ray shows cardiomegaly with vascular congestion and pleural effusion. I did consult with Dr. Reza who is in agreement with admission/plan. Patient was given IV Lasix, Gilliam placed, and BiPAP ordered. I did review this with Dr. Mcrae accepted to [facility]. - Vital Signs Vital signs: Temp Pulse Resp BP Pulse Ox 97.8 F 93 16 163/65 H 94 08/08/18 16:40 08/08/18 17:05 08/08/18 18:00 08/08/18 17:05 08/08/18 18:00 - Laboratory Result Diagrams: 08/08/18 17:00 08/08/18 17:00 Laboratory results interpreted by me: 08/08/18 08/08/18 08/08/18 17:00 17:00 17:00 Hgb 11.4 L MCH 25.5 L MCHC 31.0 L RDW 17.1 H Plt Count 85 L Monocytes % 16.1 H VBG pH 7.19 L* Sodium 147.0 H Chloride 117 H Carbon Dioxide 19 L Creatinine 2.04 H Est GFR ( Amer) 28 L Est GFR (Non-Af Amer) 23 L Glucose 139 H Direct Bilirubin 0.9 H NT-Pro-B Natriuret Pep Total Protein 8.5 H 08/08/18 17:00 Hgb MCH MCHC RDW Plt Count Monocytes % VBG pH Sodium Chloride Carbon Dioxide Creatinine Est GFR ( Amer) Est GFR (Non-Af Amer) Glucose Direct Bilirubin NT-Pro-B Natriuret Pep 8610 H Total Protein Discharge - Discharge Clinical Impression: Respiratory distress, Acute respiratory failure with hypoxemia Acute congestive heart failure Qualifiers: Heart failure type: unspecified Qualified Code(s): I50.9 - Heart failure, unspecified Condition: Fair Disposition: ADMITTED INPATIENT Admitting Provider: Ty Unit Admitted: IMCU Referrals: LILI MCRAE MD [Primary Care Provider] - Follow up as needed
[2018-08-08 17:25] LABS: VENOUS BLOOD BASE EXCESS -7.8 mmol/L; VENOUS BLOOD HCO3 20.6 mmol/L (20-32); VENOUS BLOOD PCO2 54.9 mmHg (35-63)
[2018-08-08 17:27] LABS: VENOUS BLOOD PH 7.19 (7.30-7.42)
[2018-08-08 17:33] LABS: INTERNATIONAL RATION (INR) 1.14; PROTHROMBIN TIME 15.2 SEC (11.4-15.4)
[2018-08-08 17:34] LABS: PARTIAL THROMBOPLASTIN TIME 32.9 SEC (23.5-35.8)
[2018-08-08 17:38] LABS: ABSOLUTE BASOPHILS # (AUTO) 0.1 10^3/uL (0.0-0.2); ABSOLUTE LYMPHOCYTES (AUTO) 1.5 10^3/uL (0.5-4.7); ABSOLUTE NEUT (AUTO) 3.7 10^3/uL (1.7-8.2); EOSINOPHILS % (AUTO) 0.6 % (0-6); HEMATOCRIT 36.8 % (36.0-47.0); HEMOGLOBIN 11.4 g/dL (12.0-15.5); LYMPHOCYTES % (AUTO) 23.5 % (13-45); MEAN CORPUSCULAR HEMOGLOBIN 25.5 pg (27.0-33.4); MEAN CORPUSCULAR VOLUME 82 fl (80-97); MONOCYTES % (AUTO) 16.1 % (3-13); RED BLOOD COUNT 4.47 10^6/uL (3.72-5.28); RED CELL DISTRIBUTION WIDTH 17.1 % (11.5-14.0); SEGMENTED NEUTROPHILS % (AUTO) 58.8 % (42-78); TOTAL CELLS COUNTED % (AUTO) 100 %; WHITE BLOOD COUNT 6.3 10^3/uL (4.0-10.5)
[2018-08-08 17:45] LABS: ALANINE AMINOTRANSFERASE 16 U/L (9-52); ALKALINE PHOSPHATASE 64 U/L (38-126); ANION GAP 11 (5-19); ASPARTATE AMINO TRANSFERASE 27 U/L (14-36); BILIRUBIN,DIRECT 0.9 mg/dL (0.0-0.4); BILIRUBIN,TOTAL 1.1 mg/dL (0.2-1.3); BLOOD UREA NITROGEN 19 mg/dL (7-20); CALCIUM 9.2 mg/dL (8.4-10.2); CARBON DIOXIDE 19 mmol/L (22-30); CHLORIDE 117 mmol/L (98-107); GLUCOSE 139 mg/dL (75-110); POTASSIUM 4.1 mmol/L (3.6-5.0); TOTAL PROTEIN 8.5 g/dL (6.3-8.2)
[2018-08-08 17:55] LABS: TROPONIN I 0.022 ng/mL
[2018-08-08 18:04] LABS: PLATELET COUNT 85 10^3/uL (150-450)
[2018-08-08] MEDS ORDERED: FUROSEMIDE INJ/PF 20 MG/2 ML SDV IV ONE (18:14)
--- NOTE | 2018-08-08 18:24 | RADIOLOGY REPORT (SQ) ---
EXAM DESCRIPTION: CHEST SINGLE VIEW COMPLETED DATE/TIME: 08/08/2018 6:04 pm REASON FOR STUDY: dyspnea COMPARISON: 05/31/2018. NUMBER OF VIEWS: One view. TECHNIQUE: Single frontal radiographic view of the chest acquired. LIMITATIONS: None. FINDINGS: LUNGS AND PLEURA: No opacities, masses or pneumothorax. Possible small right pleural effu rodri. MEDIASTINUM AND HILAR STRUCTURES: No masses or contour abnormality. HEART AND VASCULATURE: Cardiac enlargement. Vascular congestion. BONES: No acute findings. HARDWARE: None in the chest. OTHER: No other significant finding. IMPRESSION: CARDIAC ENLARGEMENT. VASCULAR CONGESTION. POSSIBLE SMALL RIGHT PLEURAL EFFUSION. TECHNICAL DOCUMENTATION: JOB ID: [id number] [employer] [facility]- All Rights Reserved Reading location - IP/workstation name: [email or web address]
[2018-08-08 19:31] LABS: APPEARANCE,URINE CLEAR; BILIRUBIN,URINE NEGATIVE (NEGATIVE); COLOR,URINE YELLOW; GLUCOSE, URINE NEGATIVE (NEGATIVE); KETONES,URINE NEGATIVE (NEGATIVE); LEUKOCYTE ESTERASE,URINE NEGATIVE (NEGATIVE); NITRITE,URINE NEGATIVE (NEGATIVE); PROTEIN,URINE 100 mg/dL (NEGATIVE); URINE SPECIFIC GRAVITY 1.013
[2018-08-08 20:41] LABS: LIPASE 248.7 U/L (23-300); PHOSPHORUS 4.2 mg/dL (2.5-4.5)
[2018-08-08 21:02] LABS: FREE T4 (FREE THYROXINE) 1.38 ng/dL (0.78-2.19)
[2018-08-08 21:16] LABS: THYROID STIMULATING HORMONE 4.36 uIU/mL (0.47-4.68)
[2018-08-08 22:08] LABS: INTERNATIONAL RATION (INR) 1.15; PROTHROMBIN TIME 15.3 SEC (11.4-15.4)
[2018-08-08] MEDS: LEVOFLOXACIN 750 MG/D5W RTU 750 MG/150 ML RTUPB IV SCH (22:25)
[2018-08-08] MEDS: METHYLPREDNISOLONE INJ 125 MG/2 ML SDV IV SCH (22:25)
[2018-08-08] MEDS: IPRATROPIUM/ALBUTEROL 0.5-2.5 MG/3 ML AMPUL NEB SCH (22:32)
[2018-08-08 22:45] LABS: CREATINE KINASE MB 1.43 ng/mL (<4.55)
[2018-08-08 22:48] LABS: TROPONIN I 0.028 ng/mL
--- NOTE | 2018-08-08 22:50 | EKG REPORT ---
SEVERITY:- BORDERLINE ECG - SINUS RHYTHM ATRIAL PREMATURE COMPLEX BORDERLINE T WAVE ABNORMALITIES : Confirmed by: Salbador Bill MD 08-Aug-2018 22:48:43
[2018-08-08] MEDS ORDERED: ACETAMINOPHEN 325 MG TABLET PO PRN (23:56)
[2018-08-08] MEDS ORDERED: CALCIUM CARBONATE 500 MG TAB.CHEW PO PRN (23:56)
[2018-08-08] MEDS ORDERED: LORAZEPAM 0.5 MG TABLET PO PRN (23:56)
[2018-08-09] MEDS: RINGERS SOLUTION,LACTATED 1,000 ML IV PRN ×2 (00:15→10:03)
[2018-08-09] MEDS ORDERED: GUAIFENESIN/D-METHORPHAN (200-20 MG) SYRUP 10 ML PO PRN (00:15)
[2018-08-09] MEDS: IPRATROPIUM/ALBUTEROL 0.5-2.5 MG/3 ML AMPUL NEB SCH ×8 (01:08→23:01)
[2018-08-09 02:00] LABS: URINE AMPHETAMINES SCREEN NEGATIVE; URINE BARBITURATES SCREEN NEGATIVE; URINE BENZODIAZEPINES SCREEN NEGATIVE; URINE MARIJUANA (THC) SCREEN NEGATIVE; URINE METHADONE SCREEN NEGATIVE; URINE PHENCYCLIDINE SCREEN NEGATIVE
[2018-08-09 02:04] LABS: URINE COCAINE SCREEN UNCONFIRMED POSITIVE
[2018-08-09] MEDS: LANSOPRAZOLE 30 MG TAB.RAP.DR PO SCH (05:13)
[2018-08-09] MEDS: METHYLPREDNISOLONE INJ 125 MG/2 ML SDV IV SCH ×3 (05:13→21:56)
[2018-08-09 06:00] LABS: ALANINE AMINOTRANSFERASE 15 U/L (9-52); ALBUMIN 3.7 g/dL (3.5-5.0); ALKALINE PHOSPHATASE 58 U/L (38-126); ANION GAP 8 (5-19); ASPARTATE AMINO TRANSFERASE 27 U/L (14-36); BILIRUBIN,TOTAL 1.2 mg/dL (0.2-1.3); BLOOD UREA NITROGEN 19 mg/dL (7-20); CALCIUM 8.9 mg/dL (8.4-10.2); CARBON DIOXIDE 21 mmol/L (22-30); CHLORIDE 117 mmol/L (98-107); CHOLESTEROL 113.24 mg/dL (0-200); GLUCOSE 146 mg/dL (75-110); POTASSIUM 4.1 mmol/L (3.6-5.0); SODIUM 146.2 mmol/L (137-145); TOTAL PROTEIN 7.9 g/dL (6.3-8.2); TRIGLYCERIDES 69 mg/dL (<150)
[2018-08-09 06:11] LABS: CREATINE KINASE MB 1.52 ng/mL (<4.55); TROPONIN I 0.025 ng/mL
[2018-08-09 06:12] LABS: DIRECT LDL 54 mg/dL (<100)
[2018-08-09] MEDS ORDERED: OXYCODONE-ACETAMINOPHEN 5-325 MG TABLET PO PRN (08:14)
[2018-08-09] MEDS ORDERED: IBUPROFEN 800 MG TABLET PO PRN (08:14)
[2018-08-09] MEDS ORDERED: (PENDING PHARMACY ID) (Umeclidinium Brm/Vilanterol Tr [Anoro Ellipta 62.5-25 Mcg Inh] 1 EA IH SCH (10:00)
[2018-08-09] MEDS ORDERED: ENOXAPARIN SODIUM INJ 40 MG/0.4 ML DISP.SYRIN SUBCUT SCH (10:00)
[2018-08-09] MEDS ORDERED: CEFTRIAXONE SODIUM 2,000 MG in NORMAL SALINE 100 ML IV SCH (10:00)
[2018-08-09] MEDS: CEFTRIAXONE SODIUM 2,000 MG in NORMAL SALINE 100 ML IV SCH (10:03)
[2018-08-09] MEDS: CLONIDINE HCL 0.1 MG TABLET PO SCH ×3 (10:20→21:56)
[2018-08-09] MEDS: FUROSEMIDE 40 MG TABLET PO SCH ×2 (10:20→15:32)
[2018-08-09] MEDS: ASPIRIN 325 MG TABLET PO SCH ×2 (10:20→15:34)
[2018-08-09] MEDS: LOSARTAN POTASSIUM 50 MG TABLET PO SCH ×2 (10:20→15:32)
[2018-08-09] MEDS: CYPROHEPTADINE HCL 4 MG TABLET PO SCH ×2 (10:21→15:33)
[2018-08-09] MEDS: AMLODIPINE BESYLATE 5 MG TABLET PO SCH ×2 (10:21→15:33)
[2018-08-09] MEDS: ESCITALOPRAM OXALATE 10 MG TABLET PO SCH ×2 (10:21→15:33)
[2018-08-09] MEDS: POTASSIUM CHLORIDE 10 MEQ CAPSULE.ER PO SCH ×2 (10:21→15:40)
[2018-08-09] MEDS: ROFLUMILAST 500 MCG TABLET PO SCH ×2 (10:21→15:33)
[2018-08-09] MEDS: RISPERIDONE 1 MG TABLET PO SCH ×2 (10:21→15:32)
[2018-08-09] MEDS: METOPROLOL SUCCINATE 50 MG TAB.SR.24H PO SCH ×2 (10:22→15:20)
[2018-08-09 12:19] LABS: CREATINE KINASE MB 1.51 ng/mL (<4.55); TROPONIN I 0.02 ng/mL
[2018-08-09 13:13] LABS: HEMATOCRIT 36.3 % (36.0-47.0); HEMOGLOBIN 11.4 g/dL (12.0-15.5); MEAN CORPUSCULAR HEMOGLOBIN 25.4 pg (27.0-33.4); MEAN CORPUSCULAR HGB CONC 31.3 g/dL (32.0-36.0); MEAN CORPUSCULAR VOLUME 81 fl (80-97); RED BLOOD COUNT 4.48 10^6/uL (3.72-5.28); WHITE BLOOD COUNT 4.2 10^3/uL (4.0-10.5)
[2018-08-09 14:03] LABS: ABSOLUTE LYMPHOCYTES# (MANUAL) 0.3 10^3/uL (0.5-4.7); ABSOLUTE MONOCYTES # (MANUAL) 0.1 10^3/uL (0.1-1.4); ABSOLUTE NEUTROPHILS# (MANUAL) 3.8 10^3/uL (1.7-8.2); BASOPHILS % (MANUAL) 0 % (0-2); EOSINOPHILS % (MANUAL) 0 % (0-6); LYMPHOCYTES % (MANUAL) 8 % (13-45); MONOCYTES % (MANUAL) 2 % (3-13); SEGMENTED NEUTROPHILS % (MAN) 90 % (42-78); TOTAL CELLS COUNTED 100
[2018-08-09 14:05] LABS: ROULEAUX SLIGHT
[2018-08-09 14:07] LABS: PLATELET COMMENT DECREASED; PLATELET LARGE PRESENT; POIKILOCYTOSIS SLIGHT; POLYCHROMASIA SLIGHT; TARGET CELLS SLIGHT
[2018-08-09 14:22] LABS: PLATELET COUNT 85 10^3/uL (150-450)
[2018-08-09] MEDS: DILTIAZEM HCL/D5W 125 MG/125 ML RTUINJ IV PRN ×2 (16:15→23:28)
--- NOTE | 2018-08-09 20:36 | PDOC H&P ---
History of Present Illness Admission Date/PCP: 08/08/18 19:11 LILI MCRAE MD History of Present Illness: LORI MANZANARES is a 87 year old female, She has history of chronic obstructive pulmonary disease, paroxysmal atrial fibrillation, resident of the [facility] at [facility] , she was transferred to the emergency room for evaluation of respiratory distress. In the emergency room she was evaluated, if venous blood gas was done, it demonstrated pH 7.19 PCO2 54.9 does suggest hypercapnic respiratory acidosis/respiratory failure the breathing was supported with a noninvasive positive pressure ventilation BiPAP subsequently admission was advised.The chest x-ray that was done demonstrated no focal infiltrates, small right pleural effusion, cardiomegaly with pulmonary vascular congestion, CT chest is ordered yet to be done. She has a history of polysubstance abuse the urine drug screen came back positive for cocaine, She is a very poor historian difficult to obtain any reasonable history from the patient Past Medical History Cardiac Medical History: Reports: Atrial Fibrillation, Congestive Heart Failure , Coronary Artery Disease, Hypertension Pulmonary Medical History: Reports: Asthma - ON INHALERS, Chronic Obstructive Pulmonary Disease (COPD), Pneumonia GI Medical History: Reports: Hepatitis - HX OF HEP C Musculoskeltal Medical History: Reports: Arthritis Psychiatric Medical History: Reports: Bipolar Disorder, Dementia, Depression Hematology: Denies: Anemia, Sickle Cell Disease Past Surgical History Past Surgical History: Reports: Hysterectomy Social History Smoking Status: Current Every Day Smoker Frequency of Alcohol Use: None Hx Recreational Drug Use: No Drugs: Cocaine Hx Prescription Drug Abuse: No Family History Family History: Reviewed & Not Pertinent Parental Family History Reviewed: Yes Children Family History Reviewed: Yes Sibling(s) Family History Reviewed.: Yes Medication/Allergy Home Medications: Amlodipine Besylate [Norvasc 5 mg Tablet] 5 mg PO DAILY 06/01/18 Clonidine HCl [Catapres 0.1 mg Tablet] 0.1 mg PO Q12 06/01/18 Donepezil HCl [Aricept 5 mg Tablet] 5 mg PO QHS 06/01/18 Escitalopram Oxalate [Lexapro 10 mg Tablet] 10 mg PO DAILY 06/01/18 Lorazepam [Ativan 0.5 mg Tablet] 0.5 mg PO Q8HP PRN 06/01/18 Losartan Potassium [Cozaar 100 mg Tablet] 100 mg PO DAILY 06/01/18 Omeprazole 40 mg PO DAILY 06/01/18 Risperidone [Risperdal 1 mg Tablet] 1 mg PO BID 06/01/18 Metoprolol Succinate [Toprol Xl 50 mg Tab.sr] 50 mg PO DAILY tab.sr.24h Roflumilast [Daliresp 500 Mcg Tablet] 500 mcg PO DAILY tablet 06/04/18 Acetaminophen 650 mg PO Q4HP PRN MDD 4 08/08/18 Aspirin [Aspirin 325 mg Tablet] 325 mg PO DAILY 08/08/18 Benztropine Mesylate [Cogentin 1 mg Tablet] 1 mg PO QHS 08/08/18 Calcium Carbonate [Tums] 200 mg PO Q1 PRN MDD 15 tabs in 24 hour period Cyproheptadine HCl [Periactin 4 Mg Tablet] 4 mg PO DAILY 08/08/18 Furosemide [Lasix 40 mg Tablet] 40 mg PO QAM 08/08/18 Guaifenesin/D-Methorphan Hb [Robitussin Cough-Alo Syrup] 5 ml PO Q4 PRN Potassium Chloride 40 meq PO DAILY 08/08/18 Umeclidinium Brm/Vilanterol Tr [Anoro Ellipta 62.5-25 Mcg INH] 1 each IH DAILY 08/08/18 Allergies/Adverse Reactions: lisinopril [Lisinopril] Allergy (Verified 04/08/18 11:23) oxcarbazepine [Oxcarbazepine] Allergy (Verified 04/08/18 11:23) Review of Systems ROS unobtainable: Other - She has underlying dementia Physical Exam Vital Signs: Temp Pulse Resp BP Pulse Ox 99.0 F 110 H 22 H 141/70 H 97 08/09/18 19:41 08/09/18 20:10 08/09/18 20:10 08/09/18 19:41 08/09/18 20:10 Intake & Output 08/08/18 08/09/18 08/10/18 06:59 06:59 06:59 Intake Total 150 1743 Output Total 750 400 Balance -600 1343 Weight 82.7 kg General appearance: PRESENT: severe distress Eye exam: PRESENT: PERRLA Respiratory exam: PRESENT: wheezes Cardiovascular exam: PRESENT: +S1, +S2 GI/Abdominal exam: PRESENT: soft Neurological exam: PRESENT: alert Results Laboratory Results: 08/09/18 11:42 08/09/18 04:58 08/08/18 08/09/18 08/09/18 21:55 04:58 04:58 WBC Cancelled RBC Cancelled Hgb Cancelled Hct Cancelled MCV Cancelled MCH Cancelled MCHC Cancelled RDW Cancelled Plt Count Cancelled Seg Neutrophils % Cancelled Lymphocytes % Cancelled Monocytes % Cancelled Eosinophils % Cancelled Basophils % Cancelled Absolute Neutrophils Cancelled Absolute Lymphocytes Cancelled Absolute Monocytes Cancelled Absolute Eosinophils Cancelled Absolute Basophils Cancelled Sodium 146.2 H Potassium 4.1 Chloride 117 H Carbon Dioxide 21 L Anion Gap 8 BUN 19 Creatinine 1.78 H Est GFR ( Amer) 33 L Est GFR (Non-Af Amer) 27 L Glucose 146 H Calcium 8.9 Total Bilirubin 1.2 AST 27 ALT 15 Alkaline Phosphatase 58 Ammonia < 8.7 L Total Protein 7.9 Albumin 3.7 Triglycerides 69 Cholesterol 113.24 LDL Cholesterol Direct 54 VLDL Cholesterol 14.0 HDL Cholesterol 25 L 08/09/18 11:42 WBC 4.2 RBC 4.48 Hgb 11.4 L Hct 36.3 MCV 81 MCH 25.4 L MCHC 31.3 L RDW 17.0 H Plt Count 85 L Seg Neutrophils % Not Reportable Lymphocytes % Not Reportable Monocytes % Not Reportable Eosinophils % Not Reportable Basophils % Not Reportable Absolute Neutrophils Not Reportable Absolute Lymphocytes Not Reportable Absolute Monocytes Not Reportable Absolute Eosinophils Not Reportable Absolute Basophils Not Reportable Sodium Potassium Chloride Carbon Dioxide Anion Gap BUN Creatinine Est GFR ( Amer) Est GFR (Non-Af Amer) Glucose Calcium Total Bilirubin AST ALT Alkaline Phosphatase Ammonia Total Protein Albumin Triglycerides Cholesterol LDL Cholesterol Direct VLDL Cholesterol HDL Cholesterol 08/08/18 08/08/18 08/08/18 21:55 21:55 21:55 Creatine Kinase 84 CK-MB (CK-2) 1.43 Troponin I 0.028 NT-Pro-B Natriuret Pep 8600 H 08/09/18 08/09/18 08/09/18 04:58 04:58 11:42 Creatine Kinase 69 81 CK-MB (CK-2) 1.52 Troponin I 0.025 NT-Pro-B Natriuret Pep 08/09/18 11:42 Creatine Kinase CK-MB (CK-2) 1.51 Troponin I 0.020 NT-Pro-B Natriuret Pep Impressions: Chest X-Ray 08/08/18 00:00 IMPRESSION: CARDIAC ENLARGEMENT. VASCULAR CONGESTION. POSSIBLE SMALL RIGHT PLEURAL EFFUSION. Assessment & Plan - Diagnosis (1) Acute hypercapnic respiratory failure Is this a current diagnosis for this admission?: Yes Plan: Continue noninvasive positive pressure ventilation with BiPAP (2) COPD exacerbation Is this a current diagnosis for this admission?: Yes Plan: Start Solu-Medrol, bronchodilators, antibiotic (3) Atrial fibrillation with rapid ventricular response Is this a current diagnosis for this admission?: Yes Plan: Start Cardizem drip (4) Polysubstance abuse Is this a current diagnosis for this admission?: Yes (5) Dementia Qualifiers: Dementia type: Alzheimer's disease Alzheimer's disease onset: late-onset Dementia behavioral disturbance: with behavioral disturbance Qualified Code(s) : G30.1 - Alzheimer's disease with late onset; F02.81 - Dementia in other diseases classified elsewhere with behavioral disturbance; F02.81 - Dementia in other diseases classified elsewhere with behavioral disturbance; F02.81 - Dementia in other diseases classified elsewhere with behavioral disturbance Is this a current diagnosis for this admission?: Yes (6) Acute kidney injury Is this a current diagnosis for this admission?: Yes Plan: This could be prerenal, intrinsic kidney disease or post renal, obtain kidney ultrasound urinalysis
--- NOTE | 2018-08-09 20:41 | PDOC PROGRESS REPORT ---
Subjective Progress Note for:: 08/09/18 Subjective:: Patient was seen by the bedside, she was admitted yesterday, she was admitted for the management of acute COPD, she is somewhat difficult she does not seem to cooperate with care Reason For Visit: ACUTE HYPERCAPNIC RESPIRATORY FAILURE, COPD, Physical Exam Vital Signs: Temp Pulse Resp BP Pulse Ox 99.0 F 110 H 22 H 141/70 H 97 08/09/18 19:41 08/09/18 20:10 08/09/18 20:10 08/09/18 19:41 08/09/18 20:10 Intake & Output 08/08/18 08/09/18 08/10/18 06:59 06:59 06:59 Intake Total 150 1743 Output Total 750 400 Balance -600 1343 Weight 82.7 kg General appearance: PRESENT: no acute distress Eye exam: PRESENT: PERRLA Respiratory exam: PRESENT: rhonchi Cardiovascular exam: PRESENT: +S1, +S2 Neurological exam: PRESENT: alert Results Laboratory Results: 08/09/18 11:42 08/09/18 04:58 08/08/18 08/09/18 08/09/18 21:55 04:58 04:58 WBC Cancelled RBC Cancelled Hgb Cancelled Hct Cancelled MCV Cancelled MCH Cancelled MCHC Cancelled RDW Cancelled Plt Count Cancelled Seg Neutrophils % Cancelled Lymphocytes % Cancelled Monocytes % Cancelled Eosinophils % Cancelled Basophils % Cancelled Absolute Neutrophils Cancelled Absolute Lymphocytes Cancelled Absolute Monocytes Cancelled Absolute Eosinophils Cancelled Absolute Basophils Cancelled Sodium 146.2 H Potassium 4.1 Chloride 117 H Carbon Dioxide 21 L Anion Gap 8 BUN 19 Creatinine 1.78 H Est GFR ( Amer) 33 L Est GFR (Non-Af Amer) 27 L Glucose 146 H Calcium 8.9 Total Bilirubin 1.2 AST 27 ALT 15 Alkaline Phosphatase 58 Ammonia < 8.7 L Total Protein 7.9 Albumin 3.7 Triglycerides 69 Cholesterol 113.24 LDL Cholesterol Direct 54 VLDL Cholesterol 14.0 HDL Cholesterol 25 L 08/09/18 11:42 WBC 4.2 RBC 4.48 Hgb 11.4 L Hct 36.3 MCV 81 MCH 25.4 L MCHC 31.3 L RDW 17.0 H Plt Count 85 L Seg Neutrophils % Not Reportable Lymphocytes % Not Reportable Monocytes % Not Reportable Eosinophils % Not Reportable Basophils % Not Reportable Absolute Neutrophils Not Reportable Absolute Lymphocytes Not Reportable Absolute Monocytes Not Reportable Absolute Eosinophils Not Reportable Absolute Basophils Not Reportable Sodium Potassium Chloride Carbon Dioxide Anion Gap BUN Creatinine Est GFR ( Amer) Est GFR (Non-Af Amer) Glucose Calcium Total Bilirubin AST ALT Alkaline Phosphatase Ammonia Total Protein Albumin Triglycerides Cholesterol LDL Cholesterol Direct VLDL Cholesterol HDL Cholesterol 08/08/18 08/08/18 08/08/18 21:55 21:55 21:55 Creatine Kinase 84 CK-MB (CK-2) 1.43 Troponin I 0.028 NT-Pro-B Natriuret Pep 8600 H 08/09/18 08/09/18 08/09/18 04:58 04:58 11:42 Creatine Kinase 69 81 CK-MB (CK-2) 1.52 Troponin I 0.025 NT-Pro-B Natriuret Pep 08/09/18 11:42 Creatine Kinase CK-MB (CK-2) 1.51 Troponin I 0.020 NT-Pro-B Natriuret Pep Impressions: Chest X-Ray 08/08/18 00:00 IMPRESSION: CARDIAC ENLARGEMENT. VASCULAR CONGESTION. POSSIBLE SMALL RIGHT PLEURAL EFFUSION. Assessment & Plan - Diagnosis (1) Acute hypercapnic respiratory failure Is this a current diagnosis for this admission?: Yes (2) COPD exacerbation Is this a current diagnosis for this admission?: Yes (3) Atrial fibrillation with rapid ventricular response Is this a current diagnosis for this admission?: Yes (4) Polysubstance abuse Is this a current diagnosis for this admission?: Yes (5) Dementia Qualifiers: Dementia type: Alzheimer's disease Alzheimer's disease onset: late-onset Dementia behavioral disturbance: with behavioral disturbance Qualified Code(s) : G30.1 - Alzheimer's disease with late onset; F02.81 - Dementia in other diseases classified elsewhere with behavioral disturbance; F02.81 - Dementia in other diseases classified elsewhere with behavioral disturbance; F02.81 - Dementia in other diseases classified elsewhere with behavioral disturbance Is this a current diagnosis for this admission?: Yes (6) Acute kidney injury Is this a current diagnosis for this admission?: Yes
[2018-08-09] MEDS ORDERED: CEFTRIAXONE 2 GM/D5W RTU 2 GM/50 ML RTUPB IV SCH (21:00)
[2018-08-09] MEDS: LEVOFLOXACIN 750 MG/D5W RTU 750 MG/150 ML RTUPB IV SCH (21:55)
[2018-08-09] MEDS: BENZTROPINE MESYLATE 1 MG TABLET PO SCH (21:56)
[2018-08-09] MEDS: DONEPEZIL HCL 5 MG TABLET PO SCH (21:57)
--- NOTE | 2018-08-09 22:58 | EKG REPORT ---
SEVERITY:- ABNORMAL ECG - ATRIAL FIBRILLATION WITH RAPID V-RATE NONSPECIFIC T ABNORMALITIES, LATERAL LEADS : Confirmed by: Stephanie Watt 09-Aug-2018 22:57:02
[2018-08-10] MEDS: IPRATROPIUM/ALBUTEROL 0.5-2.5 MG/3 ML AMPUL NEB SCH ×8 (02:30→23:31)
[2018-08-10 03:29] LABS: APPEARANCE,URINE SLIGHTLY-CLOUDY; BILIRUBIN,URINE NEGATIVE (NEGATIVE); COLOR,URINE AMBER; GLUCOSE, URINE NEGATIVE (NEGATIVE); KETONES,URINE NEGATIVE (NEGATIVE); LEUKOCYTE ESTERASE,URINE TRACE (NEGATIVE); NITRITE,URINE NEGATIVE (NEGATIVE); PROTEIN,URINE 100 mg/dL (NEGATIVE); URINE SPECIFIC GRAVITY 1.016
[2018-08-10 04:09] LABS: UR PRO/CREAT RATIO RESULT 0.7 mg/mg (0.0-0.2); URINE CREATININE 222.7 mg/dL (15-278); URINE PROTEIN 162.1 mg/dL (<12)
[2018-08-10] MEDS: RISPERIDONE 1 MG TABLET PO SCH ×2 (05:25→17:27)
[2018-08-10] MEDS: LANSOPRAZOLE 30 MG TAB.RAP.DR PO SCH (05:25)
[2018-08-10] MEDS: METHYLPREDNISOLONE INJ 125 MG/2 ML SDV IV SCH ×2 (05:25→13:49)
[2018-08-10] MEDS ORDERED: DILTIAZEM HCL 30 MG TABLET PO ONE (06:10)
[2018-08-10 06:35] LABS: ABSOLUTE LYMPHOCYTES (AUTO) 0.4 10^3/uL (0.5-4.7); ABSOLUTE MONOCYTES (AUTO) 0.3 10^3/uL (0.1-1.4); BASOPHILS % (AUTO) 0.2 % (0-2); HEMATOCRIT 34.4 % (36.0-47.0); HEMOGLOBIN 10.8 g/dL (12.0-15.5); LYMPHOCYTES % (AUTO) 11.7 % (13-45); MEAN CORPUSCULAR HEMOGLOBIN 25.5 pg (27.0-33.4); MEAN CORPUSCULAR HGB CONC 31.3 g/dL (32.0-36.0); MEAN CORPUSCULAR VOLUME 82 fl (80-97); MONOCYTES % (AUTO) 7.7 % (3-13); RED BLOOD COUNT 4.22 10^6/uL (3.72-5.28); RED CELL DISTRIBUTION WIDTH 17.3 % (11.5-14.0); SEGMENTED NEUTROPHILS % (AUTO) 80.4 % (42-78); TOTAL CELLS COUNTED % (AUTO) 100 %; WHITE BLOOD COUNT 3.8 10^3/uL (4.0-10.5)
[2018-08-10 06:41] LABS: ALANINE AMINOTRANSFERASE 18 U/L (9-52); ALBUMIN 3.3 g/dL (3.5-5.0); ALKALINE PHOSPHATASE 52 U/L (38-126); ANION GAP 8 (5-19); ASPARTATE AMINO TRANSFERASE 25 U/L (14-36); BILIRUBIN,DIRECT 0.8 mg/dL (0.0-0.4); BILIRUBIN,TOTAL 0.9 mg/dL (0.2-1.3); BLOOD UREA NITROGEN 23 mg/dL (7-20); CALCIUM 8.9 mg/dL (8.4-10.2); CARBON DIOXIDE 19 mmol/L (22-30); CHLORIDE 116 mmol/L (98-107); GLUCOSE 181 mg/dL (75-110); POTASSIUM 4.1 mmol/L (3.6-5.0); SODIUM 143.1 mmol/L (137-145); TOTAL PROTEIN 7.3 g/dL (6.3-8.2)
[2018-08-10 06:49] LABS: PLATELET COUNT 72 10^3/uL (150-450)
--- NOTE | 2018-08-10 06:52 | RADIOLOGY REPORT (SQ) ---
EXAM DESCRIPTION: US RETROPERITONEUM COMPLETED DATE/TME: 08/10/2018 00:00 CLINICAL HISTORY: 87 years Female, acute kidney injury Comparison: None. LIMITATIONS: None. FINDINGS: 10-cm right kidney, 10-cm left kidney, Gilliam catheter, and decompressed urinary bladder with demonstrated bilateral ureteral jet flow appear otherwise of normal size, shape, echotexture, and vascularity. IMPRESSION: Normal renal sonogram.
[2018-08-10] MEDS: CLONIDINE HCL 0.1 MG TABLET PO SCH ×2 (09:15→21:11)
[2018-08-10] MEDS: CEFTRIAXONE SODIUM 2,000 MG in NORMAL SALINE 100 ML IV SCH (09:15)
[2018-08-10] MEDS: ASPIRIN 325 MG TABLET PO SCH (09:16)
[2018-08-10] MEDS: LOSARTAN POTASSIUM 50 MG TABLET PO SCH (09:16)
[2018-08-10] MEDS: FUROSEMIDE 40 MG TABLET PO SCH (09:16)
[2018-08-10] MEDS: ESCITALOPRAM OXALATE 10 MG TABLET PO SCH (09:16)
[2018-08-10] MEDS: METOPROLOL SUCCINATE 50 MG TAB.SR.24H PO SCH (09:16)
[2018-08-10] MEDS: AMLODIPINE BESYLATE 5 MG TABLET PO SCH (09:16)
[2018-08-10] MEDS: CYPROHEPTADINE HCL 4 MG TABLET PO SCH (09:18)
[2018-08-10] MEDS: ROFLUMILAST 500 MCG TABLET PO SCH (09:18)
--- NOTE | 2018-08-10 09:42 | XCELERA REPORT ---
[address] [address] Transthoracic Echocardiogram Report Name: LORI MANZANARES Age: 87 yrs Gender: Female : 1930 Patient Status: Inpatient Patient Location: [address] [place], [place] [address] Study Date: 08/09/2018 09:18 PM Height: 66 in Weight: 182 lb BSA: 1.9 m2 Procedure: A complete two-dimensional transthoracic echocardiogram was performed (2D, M-mode, spectral and color flow Doppler). The study was technically adequate with some images being suboptimal in quality. Reason For Study: CHF Ordering Physician: LILI MCRAE Performed By: Irina Gonzalez Interpretation Summary The left ventricular ejection fraction is normal. There is mild concentric left ventricular hypertrophy. The left ventricle is grossly normal size. Doppler measurements suggest pseudonormalized left ventricular relaxation, which is associated with grade II/IV or mild to moderate diastolic dysfunction Wall motion cannot be accurately commented on, but no definite regional wall motion abnormalities noted. The right ventricle is mild to moderately dilated. The right ventricle appears to be hypertrophied The right atrium is mildly dilated. The left atrium is mildly dilated. There is a trace to mild amount of mitral regurgitation There is no mitral valve stenosis. There is a trace to mild amount of aortic regurgitation There is no aortic valve stenosis There is a moderate amount of tricuspid regurgitation Right ventricular systolic pressure is estimated to be elevated at 40-50mmHg. There is mild to moderate pulmonary hypertension by echo The aortic root is not well visualized. The inferior vena cava appeared normal and decreased < 50% with respiration (RAP 10-15 mmHg) Minimal pericardial effusion. MMode/2D Measurements & Calculations RVDd: 2.5 cm LVIDd: 4.1 cm FS: 27.1 % Ao root diam: 2.4 cm IVSd: 1.1 cm LVIDs: 3.0 cm EDV(Teich): 75.6 ml Ao root area: 4.5 cm2 LVPWd: 1.0 cm ESV(Teich): 35.4 ml LA dimension: 3.7 cm EF(Teich): 53.2 % Doppler Measurements & Calculations MV E max judith: MV P1/2t max judith: Ao V2 max: AI max judith: 128.3 cm/sec 161.4 cm/sec 176.5 cm/sec 204.1 cm/sec MV P1/2t: 50.4 msec Ao max PG: AI max PG: MVA(P1/2t): 4.4 cm2 12.5 mmHg 16.7 mmHg MV dec slope: AI dec slope: 132.0 cm/sec2 938.7 cm/sec2 AI P1/2t: MV dec time: 0.19 sec 452.8 msec LV V1 max PG: PA V2 max: PI end-d judith: TR max judith: 5.7 mmHg 107.1 cm/sec 57.3 cm/sec 307.7 cm/sec LV V1 max: PA max P.6 mmHg TR max P.0 cm/sec 37.9 mmHg AV P1/2t-pr_phl: MV P1/2t-pr_phl: 466.5 msec 50.4 msec Left Ventricle The left ventricle is grossly normal size. There is mild concentric left ventricular hypertrophy. The left ventricular ejection fraction is normal. Doppler measurements suggest pseudonormalized left ventricular relaxation, which is associated with grade II/IV or mild to moderate diastolic dysfunction. Wall motion cannot be accurately commented on, but no definite regional wall motion abnormalities noted. Right Ventricle The right ventricle is mild to moderately dilated. The right ventricle appears to be hypertrophied. The right ventricular systolic function is normal. Atria The right atrium is mildly dilated. The left atrium is mildly dilated. Interarterial septum not well visualized and not well dopplered. Cannot comment on ASD/PFO presence. Mitral Valve There is mild to moderate mitral annular calcification. The mitral valve leaflets are sclerotic, but show no functional abnormalities. There is no mitral valve stenosis. There is a trace to mild amount of mitral regurgitation. Aortic Valve The aortic valve is mildly calcified. There is no aortic valve stenosis. There is a trace to mild amount of aortic regurgitation. Tricuspid Valve The tricuspid valve is not well visualized, but is grossly normal. There is no tricuspid stenosis. There is a moderate amount of tricuspid regurgitation. Right ventricular systolic pressure is estimated to be elevated at 40-50mmHg. There is mild to moderate pulmonary hypertension by echo. Pulmonic Valve The pulmonic valve is not well visualized. Great Vessels The aortic root is not well visualized. The inferior vena cava appeared normal and decreased < 50% with respiration (RAP 10-15 mmHg). Effusions Minimal pericardial effusion. : LILI MCRAE > Stephanie Watt
[2018-08-10] MEDS ORDERED: ENOXAPARIN SODIUM INJ 30 MG/0.3 ML DISP.SYRIN SUBCUT SCH (10:00)
[2018-08-10] MEDS ORDERED: POTASSIUM CHLORIDE 20 MEQ/15 ML UDCUP PO SCH (10:00)
[2018-08-10] MEDS: DILTIAZEM HCL 30 MG TABLET PO SCH ×2 (13:31→17:27)
[2018-08-10] MEDS ORDERED: PREDNISONE 20 MG TABLET PO SCH (14:15)
--- NOTE | 2018-08-10 15:23 | PDOC DISCHARGE SUMMARY ---
General - Admit/Disc Date/PCP Admission Date/Primary Care Provider: 08/08/18 19:11 LILI MCRAE MD Discharge Date: 08/10/18 - Discharge Diagnosis (1) Acute hypercapnic respiratory failure Is this a current diagnosis for this admission?: Yes (2) COPD exacerbation Is this a current diagnosis for this admission?: Yes (3) Atrial fibrillation with rapid ventricular response Is this a current diagnosis for this admission?: Yes (4) Polysubstance abuse Is this a current diagnosis for this admission?: Yes (5) Dementia Is this a current diagnosis for this admission?: Yes (6) Acute kidney injury Is this a current diagnosis for this admission?: Yes - Additional Information Home Medications: Amlodipine Besylate [Norvasc 5 mg Tablet] 5 mg PO DAILY 06/01/18 Clonidine HCl [Catapres 0.1 mg Tablet] 0.1 mg PO Q12 06/01/18 Donepezil HCl [Aricept 5 mg Tablet] 5 mg PO QHS 06/01/18 Escitalopram Oxalate [Lexapro 10 mg Tablet] 10 mg PO DAILY 06/01/18 Lorazepam [Ativan 0.5 mg Tablet] 0.5 mg PO Q8HP PRN 06/01/18 Losartan Potassium [Cozaar 100 mg Tablet] 100 mg PO DAILY 06/01/18 Omeprazole 40 mg PO DAILY 06/01/18 Risperidone [Risperdal 1 mg Tablet] 1 mg PO BID 06/01/18 Metoprolol Succinate [Toprol Xl 50 mg Tab.sr] 50 mg PO DAILY tab.sr.24h Roflumilast [Daliresp 500 Mcg Tablet] 500 mcg PO DAILY tablet 06/04/18 Acetaminophen 650 mg PO Q4HP PRN MDD 4 08/08/18 Aspirin [Aspirin 325 mg Tablet] 325 mg PO DAILY 08/08/18 Benztropine Mesylate [Cogentin 1 mg Tablet] 1 mg PO QHS 08/08/18 Calcium Carbonate [Tums] 200 mg PO Q1 PRN MDD 15 tabs in 24 hour period Cyproheptadine HCl [Periactin 4 Mg Tablet] 4 mg PO DAILY 08/08/18 Furosemide [Lasix 40 mg Tablet] 40 mg PO QAM 08/08/18 Guaifenesin/D-Methorphan Hb [Robitussin Cough-Alo Syrup] 5 ml PO Q4 PRN Potassium Chloride 40 meq PO DAILY 08/08/18 Umeclidinium Brm/Vilanterol Tr [Anoro Ellipta 62.5-25 Mcg INH] 1 each IH DAILY 08/08/18 History of Present Illness History of Present Illness: LORI MANZANARES is a 87 year old female, She has history of chronic obstructive pulmonary disease, paroxysmal atrial fibrillation, resident of the senior care at [facility] , she was transferred to the emergency room for evaluation of respiratory distress. In the emergency room she was evaluated, if venous blood gas was done, it demonstrated pH 7.19 PCO2 54.9 does suggest hypercapnic respiratory acidosis/respiratory failure the breathing was supported with a noninvasive positive pressure ventilation BiPAP subsequently admission was advised.The chest x-ray that was done demonstrated no focal infiltrates, small right pleural effusion, cardiomegaly with pulmonary vascular congestion, CT chest is ordered yet to be done. She has a history of polysubstance abuse the urine drug screen came back positive for cocaine, She is a very poor historian difficult to obtain any reasonable history from the patient Hospital Course Hospital Course: Patient is no longer requiring noninvasive positive pressure ventilation, she was admitted for the management of COPD exacerbation, the IV Solu-Medrol is transitioned to p.o. prednisone. She has acute kidney injury that respond to IV fluid therapy suggesting prerenal azotemia with a background of CKD. She also had atrial fibrillation with RVR, was treated with Cardizem infusion, transitioned to p.o. Cardizem. The urine drug screen was also positive for cocaine does suggest patient was actively doing cocaine in the restroom. She is not a good candidate for anticoagulation because of underlying dementia Physical Exam Vital Signs: Temp Pulse Resp BP Pulse Ox 98.1 F 73 18 137/99 H 97 08/10/18 08:40 08/10/18 14:00 08/10/18 13:52 08/10/18 08:40 08/10/18 13:52 Intake & Output 08/09/18 08/10/18 08/11/18 06:59 06:59 06:59 Intake Total 150 3022 100 Output Total 750 900 Balance -600 2122 100 Weight 82.7 kg General appearance: PRESENT: no acute distress Eye exam: PRESENT: PERRLA Respiratory exam: PRESENT: rhonchi Cardiovascular exam: PRESENT: +S1, +S2 GI/Abdominal exam: PRESENT: soft Neurological exam: PRESENT: alert Results Laboratory Results: 08/10/18 06:04 08/10/18 06:04 08/10/18 08/10/18 08/10/18 02:55 06:04 06:04 WBC 3.8 L RBC 4.22 Hgb 10.8 L Hct 34.4 L MCV 82 MCH 25.5 L MCHC 31.3 L RDW 17.3 H Plt Count 72 L Seg Neutrophils % 80.4 H Lymphocytes % 11.7 L Monocytes % 7.7 Eosinophils % 0.0 Basophils % 0.2 Absolute Neutrophils 3.0 Absolute Lymphocytes 0.4 L Absolute Monocytes 0.3 Absolute Eosinophils 0.0 Absolute Basophils 0.0 Sodium 143.1 Potassium 4.1 Chloride 116 H Carbon Dioxide 19 L Anion Gap 8 BUN 23 H Creatinine 2.11 H Est GFR ( Amer) 27 L Est GFR (Non-Af Amer) 22 L Glucose 181 H Calcium 8.9 Total Bilirubin 0.9 AST 25 ALT 18 Alkaline Phosphatase 52 Total Protein 7.3 Albumin 3.3 L Urine Color CHRISTIE Urine Appearance SLIGHTLY-CLOUDY Urine pH 5.0 Ur Specific [place] 1.016 Urine Protein 100 H Urine Glucose (UA) NEGATIVE Urine Ketones NEGATIVE Urine Blood MODERATE H Urine Nitrite NEGATIVE Ur Leukocyte Esterase TRACE H Urine WBC (Auto) 9 Urine RBC (Auto) 26 08/08/18 08/08/18 08/08/18 21:55 21:55 21:55 Creatine Kinase 84 CK-MB (CK-2) 1.43 Troponin I 0.028 NT-Pro-B Natriuret Pep 8600 H 08/09/18 08/09/18 08/09/18 04:58 04:58 11:42 Creatine Kinase 69 81 CK-MB (CK-2) 1.52 Troponin I 0.025 NT-Pro-B Natriuret Pep 08/09/18 11:42 Creatine Kinase CK-MB (CK-2) 1.51 Troponin I 0.020 NT-Pro-B Natriuret Pep Impressions: Chest X-Ray 08/08/18 00:00 IMPRESSION: CARDIAC ENLARGEMENT. VASCULAR CONGESTION. POSSIBLE SMALL RIGHT PLEURAL EFFUSION. Renal Ultrasound 08/10/18 00:00 IMPRESSION: Normal renal sonogram. Qualifiers - * PATIENT BEING DISCHARGED WITH ANY OF THE FOLLOWING DIAGNOSIS: No
[2018-08-10] MEDS: DONEPEZIL HCL 5 MG TABLET PO SCH (21:11)
[2018-08-10] MEDS: BENZTROPINE MESYLATE 1 MG TABLET PO SCH (21:11)
[2018-08-10] MEDS: LEVOFLOXACIN 750 MG/D5W RTU 750 MG/150 ML RTUPB IV SCH (21:43)
[2018-08-11 00:23] VITALS: BP 123/55
== END 2018-08-11 02:00 | disposition short-term general hospital (02) | DRG 190 ==
LOC: ER 16:06 → EH 19:11 → 3W 22:42
PROVIDERS: ADMIT Internal Medicine; ATTEND Internal Medicine
PROC: 5A09457 Assistance with Respiratory Ventilation, 24-96 Consecutive Hours, Continuous Positive Airway Pressure (ICD-10-PCS; principal; 2018-08-08)
PROC: 3E0F73Z Introduction of Anti-inflammatory into Respiratory Tract, Via Natural or Artificial Opening (ICD-10-PCS; 2018-08-08)
DX: J44.1 Chronic obstructive pulmonary disease with (acute) exacerbation (principal); J18.9 Pneumonia, unspecified organism; J96.02 Acute respiratory failure with hypercapnia; J96.21 Acute and chronic respiratory failure with hypoxia; N17.9 Acute kidney failure, unspecified; F02.81 Dementia in other diseases classified elsewhere, unspecified severity, with behavioral disturbance; I13.0 Hypertensive heart and chronic kidney disease with heart failure and stage 1 through stage 4 chronic kidney disease, or unspecified chronic kidney disease; J44.0 Chronic obstructive pulmonary disease with (acute) lower respiratory infection; I48.0 Paroxysmal atrial fibrillation; F19.10 Other psychoactive substance abuse, uncomplicated; I50.9 Heart failure, unspecified; I25.10 Atherosclerotic heart disease of native coronary artery without angina pectoris; J45.909 Unspecified asthma, uncomplicated; M19.90 Unspecified osteoarthritis, unspecified site; F31.9 Bipolar disorder, unspecified; F17.210 Nicotine dependence, cigarettes, uncomplicated; G30.1 Alzheimer's disease with late onset; N18.9 Chronic kidney disease, unspecified; Z78.1 Physical restraint status; Z79.899 Other long term (current) drug therapy; Z86.19 Personal history of other infectious and parasitic diseases; Z90.710 Acquired absence of both cervix and uterus; Z88.8 Allergy status to other drugs, medicaments and biological substances
CPT/HCPCS: 36415; 51702; 71045; 76770; 80048; 80053; 80061; 80076; 80307; 80353; 81001; 82140; 82150; 82550; 82553; 82570; 82803; 83036; 83605; 83690; 83735; 83880; 84100; 84156; 84439; 84443; 84484; 85025; 85610; 85730; 87040; 87086; 93005; 93010; 93306; 94640; 94660; 96365; 99285; G0480; J0696; J1940; J1956; J2930; J3475; J3490; J7120; J7512; J7620

== ENCOUNTER 2018-08-29 11:47 | Emergency (ER) | payer MEDICARE, MEDICAID ==
[2018-08-29] MEDS ORDERED: FAMOTIDINE INJ/PF 20 MG/2 ML SDV IV ONE (12:50)
[2018-08-29] MEDS ORDERED: METHYLPREDNISOLONE INJ 125 MG/2 ML SDV IV ONE (12:50)
--- NOTE | 2018-08-29 17:51 | ER Document Report ---
ED General - General Chief Complaint: Allergic Reaction Stated Complaint: POSSIBLE ALLERGIC REACTION Time Seen by Provider: 08/29/18 12:40 Notes: Patient Is a Resident at [facility]. She is sent here today because the staff noted the patient's face to be swollen yesterday afternoon after she had been outside smoking a cigarette. She apparently was not out there for long enough to cause any sun damage to her skin. Patient says that her face feels swollen and tight, but she is not having any trouble swallowing or any trouble breathing. Patient says that she was given a bath and her hair was washed yesterday. Patient does not know if any new or different cleansers were used, but it does not appear that she had any dye applied to her scalp. Patient says her face does not itch. Has never had anything like this before. TRAVEL OUTSIDE OF THE [place] IN LAST 30 DAYS: No - Related Data Allergies/Adverse Reactions: lisinopril [Lisinopril] Allergy (Verified 04/08/18 11:23) oxcarbazepine [Oxcarbazepine] Allergy (Verified 04/08/18 11:23) Past Medical History - Social History Smoking Status: Current Every Day Smoker Chew tobacco use (# tins/day): No Frequency of alcohol use: None Drug Abuse: None Family History: Reviewed & Not Pertinent Patient has suicidal ideation: No Patient has homicidal ideation: No - Past Medical History Cardiac Medical History: Reports: Hx Atrial Fibrillation, Hx Congestive Heart Failure, Hx Coronary Artery Disease, Hx Hypertension Pulmonary Medical History: Reports: Hx Asthma - ON INHALERS, Hx COPD, Hx Pneumonia GI Medical History: Reports: Hx Hepatitis - HX OF HEP C Musculoskeletal Medical History: Reports Hx Arthritis Psychiatric Medical History: Reports: Hx Bipolar Disorder, Hx Dementia, Hx Depression, Hx Schizophrenia Infectious Medical History: Reports: Hx Hepatitis - HX OF HEP C Past Surgical History: Reports: Hx Hysterectomy - Immunizations Hx Diphtheria, Pertussis, Tetanus Vaccination: Yes Hx Pneumococcal Vaccination: 11/30/09 Review of Systems - Review of Systems Notes: REVIEW OF SYSTEMS: CONSTITUTIONAL : Denies fever. EENT: Denies eye, ear, nose or mouth or throat pain or other symptoms. Facial swelling, see HPI. CARDIOVASCULAR: Denies chest pain. RESPIRATORY: Denies cough, chest congestion, or shortness of breath. GASTROINTESTINAL: Denies abdominal pain or nausea, vomiting, or diarrhea. GENITOURINARY: Denies difficulty or painful urinating, urinary frequency, blood in urine. MUSCULOSKELETAL: Denies back or neck pain. Denies joint pain or swelling. SKIN: Denies rash or skin lesions. NEUROLOGICAL: Denies LOC or altered mental status. Denies headache. Denies sensory loss or motor deficits. ALL OTHER SYSTEMS REVIEWED AND NEGATIVE. Physical Exam - Vital signs Vitals: Resp Pulse Ox 13 100 08/29/18 11:54 08/29/18 11:54 Interpretation: Normal - Notes Notes: PHYSICAL EXAMINATION: GENERAL: Well-appearing, in no acute distress. HEAD: Atraumatic, normocephalic. Entire face is very puffy diffusely. Not tense. Soft. Does not itch, according to the patient. EYES: Pupils equal round and reactive to light, extraocular movements intact. ENT: oropharynx clear without exudates. Moist mucous membranes. No oral mucous membrane swelling. Airway intact. NECK: Normal range of motion, supple. LUNGS: Breath sounds clear and equal bilaterally. No wheezes heard. HEART: Regular rate and rhythm without murmurs. ABDOMEN: Soft, nontender. No guarding or rebound. No masses. BACK: No tenderness throughout entire back. EXTREMITIES: Normal range of motion without pain. NEUROLOGICAL: Normal speech, normal gait. Normal sensory, motor, and reflex exams. Awake, alert, and oriented x3. Cranial nerves normal. PSYCH: Normal mood, normal affect. SKIN: Warm, dry, no rashes. Course - Re-evaluation Re-evalutation: 08/29/18 18:52 Patient was observed in the emergency department for several hours. She received 125 mg be in 10 mg of Pepcid IV. She had received Benadryl IV and epinephrine IM by EMS while in transit here. Patient had no change in her condition of the swelling of the face. No change in her airway. I think this is some sort of allergic phenomenon, but not sure what to do unless there was something new in her shampoo or cleanser that was used for her to base yesterday. Alternatively, it is possible that something could have been activated by sun exposure while she was out smoking her cigarette yesterday. She is stable without any progression of symptoms and I feel she is safe to be discharged back to her residence. - Vital Signs Vital signs: Temp Pulse Resp BP Pulse Ox 98 F 20 139/52 H 100 08/29/18 18:06 08/29/18 18:06 08/29/18 18:06 08/29/18 18:06 Discharge - Discharge Clinical Impression: Allergic reaction Condition: Stable Disposition: HOME, SELF-CARE Additional Instructions: Allergic Contact Dermatitis You have a local allergic reaction, called contact dermatitis. This an allergy to something in contact with your skin. Poison gerri, jewelry, soaps, perfumes, and chemicals are common causes. Typically, an itchy rash develops a few days after the exposure. If the reaction is severe, blisters may develop. Two to three weeks may be required for healing. Generally, treatment consists of: (1) a thorough washing with soap to remove the offending substance, (2) application of a cortisone cream, and (3) antihistamines for itching. If the reaction is particularly severe, further measures may be required. These can include soaking in epsom salts or Rancho's solution, and oral cortisone medications. Call the doctor if the rash worsens despite treatment, or if signs of infection occur such as spreading redness, red streaks, swollen glands, swelling , or fever. EPINEPHRINE: An injection of epinephrine (also called adrenalin) is used to treat allergic reactions, asthma, and some other medical conditions. It is a stimulant medication that consticts blood vessels, relaxes smooth muscles such as in the bronchioles of the lung, elevates blood pressure, and increases heart rate. It can temporarily make you feel very nervous and shakey, but it's affects last only a short time, about 15 to 30 minutes at most. STEROID MEDICATION INJECTION: You have been given an injection of medicine of the cortisone/steroid class. This medication is used to control inflammation or allergy. It is often continued as a pill for a short period of time, until the acute process subsides. There are usually no side effects from short-term use of cortisone-like medications. Some persons feel an increased sense of well-being and are not sleepy at bedtime. Long-term use of cortisone medications is best avoided, unless required for a severe condition. If your condition does not remit, or relapses after the course of corticosteroid medication, you should consult your physician. STEROID MEDICATION: You have been given a medicine of the cortisone/steroid class. This medication is used to control inflammation or allergy. It is usually only given for a short period of time, until the acute process subsides. There are usually no side effects from short-term use of cortisone-like medications. Some persons feel an increased sense of well-being and are not sleepy at bedtime. Long-term use of cortisone medications is best avoided, unless required for a severe condition. If your condition does not remit, or relapses after the course of corticosteroid medication, you should consult your physician. ANTIHISTAMINES: An antihistamine has been given and/or prescribed to control your symptoms. Antihistamines are used for many reasons, including itching, watering eyes, runny nose, allergic swelling, hives, and insect stings. Antihistamines may cause drowsiness, especially with the first dose. Do not operate machinery or drive while under the effects of the medication. Other common side effects include dry mouth and eyes. In older persons, antihistamines can occasionally cause urinary retention, constipation, and trouble focusing the eyes. Do not combine the medication with alcohol, or with any other medication without talking to your doctor. USE OF DIPHENHYDRAMINE: The use of diphenhydramine (Benadryl) has been recommended to control allergic symptoms. The 25 mg strength is available over- the-counter, as well as the elixir. This antihistamine is used for many symptoms. It's useful for itching, watering eyes and nose, allergic swelling, hives, and insect stings. The medication can be repeated four times daily. Age Elixir (12.5 mg/tsp) 25 mg pill adult 2 tabs Antihistamines may cause drowsiness, especially with the first dose. Do not operate machinery or drive while under the effects of the medication. Do not combine the medication with alcohol, or with any other medication without talking to your doctor. Apply the prescribed cream to your face twice a day. Avoid sun exposure to your face and head. FOLLOW-UP CARE: If you have been referred to a physician for follow-up care, call the physician s office for an appointment as you were instructed or within the next two days. If you experience worsening or a significant change in your symptoms, notify the physician immediately or return to the Emergency Department at any time for re-evaluation. Referrals: LILI MCRAE MD [Primary Care Provider] - Follow up as needed
[2018-08-29] MEDS ORDERED: TRIAMCINOLONE ACETONIDE 0.1% CREAM 15 GM TOP SCH (18:00)
[2018-08-29 18:18] VITALS: BP 139/52
== END 2018-08-29 18:18 | disposition home or self-care (01) ==
LOC: ER 11:47
DX: T78.40XA Allergy, unspecified, initial encounter (principal); R22.0 Localized swelling, mass and lump, head; X58.XXXA Exposure to other specified factors, initial encounter; F17.210 Nicotine dependence, cigarettes, uncomplicated; I25.10 Atherosclerotic heart disease of native coronary artery without angina pectoris; I10 Essential (primary) hypertension; J44.9 Chronic obstructive pulmonary disease, unspecified; Z88.8 Allergy status to other drugs, medicaments and biological substances
CPT/HCPCS: 99283; 96374; 96375; J2930; J3490; S0028

== ENCOUNTER 2018-09-22 12:02 | Inpatient (IN) | payer MEDICARE, MEDICAID ==
[~2018-09-22 12:02] MED LIST changes: -CHONDR SU A NA/HYALUR INTRAOC KIT (SURGICARE) ONE; -EPINEPHRINE INJ/PF 1 MG/1 ML AMPULE ONE; -KETOROLAC TROMETHAMINE 0.45% 4 DROP/0.4 ML DROPERETTE OD PRN; -LIDOCAINE 1% INJ-PF (10 MG/ML) 30 ML SDV ONE; +SUCCINYLCHOLINE CHLORIDE INJ 200 MG/10 ML VIAL ONE
[2018-09-22] MEDS ORDERED: NORMAL SALINE 1000 ML 1,000 ML IV ONE (12:43)
[2018-09-22 14:07] LABS: ALANINE AMINOTRANSFERASE 17 U/L (9-52); ALBUMIN 3.4 g/dL (3.5-5.0); ALKALINE PHOSPHATASE 69 U/L (38-126); ANION GAP 16 (5-19); ASPARTATE AMINO TRANSFERASE 24 U/L (14-36); BILIRUBIN,DIRECT 3.5 mg/dL (0.0-0.4); BILIRUBIN,TOTAL 4.2 mg/dL (0.2-1.3); BLOOD UREA NITROGEN 45 mg/dL (7-20); CALCIUM 8.9 mg/dL (8.4-10.2); CARBON DIOXIDE 20 mmol/L (22-30); CHLORIDE 107 mmol/L (98-107); GLUCOSE 141 mg/dL (75-110); LIPASE 128.3 U/L (23-300); SODIUM 142.6 mmol/L (137-145)
--- NOTE | 2018-09-22 14:09 | RADIOLOGY REPORT (SQ) ---
EXAM DESCRIPTION: KUB/ABDOMEN (SINGLE VIEW) COMPLETED DATE/TIME: 09/22/2018 2:00 pm REASON FOR STUDY: Diarrhea, epigastric mass? COMPARISON: None. NUMBER OF VIEWS: One view. TECHNIQUE: Supine radiographic image of the abdomen acquired. LIMITATIONS: Motion. Positioning. FINDINGS: BOWEL GAS PATTERN: Normal bowel gas pattern. No dilated loops. CALCIFICATIONS: No suspicious calcifications. SOFT TISSUES: No gross mass or suggestion of organomegaly. HARDWARE: None in the abdomen. BONES: No acute fracture. No worrisome bone lesions. OTHER: Gilliam catheter urinary bladder. IMPRESSION: NO RADIOGRAPHIC EVIDENCE FOR ACUTE ABDOMINAL DISEASE. TECHNICAL DOCUMENTATION: JOB ID: [id number] [employer]- All Rights Reserved Reading location - IP/workstation name: [email or web address]
[2018-09-22 14:10] LABS: POTASSIUM 2.1 mmol/L (3.6-5.0)
--- NOTE | 2018-09-22 14:17 | RADIOLOGY REPORT (SQ) ---
EXAM DESCRIPTION: CHEST SINGLE VIEW COMPLETED DATE/TIME: 09/22/2018 2:00 pm REASON FOR STUDY: Diarrhea, weakness, epigastric mass? COMPARISON: Abdominal films 09/22/2018 AP chest 09/27/2012, 08/08/2018 EXAM PARAMETERS: NUMBER OF VIEWS: One view. TECHNIQUE: Single frontal radiographic view of the chest acquired. RADIATION DOSE: NA LIMITATIONS: None. FINDINGS: LUNGS AND PLEURA: Diffuse alveolar and interstitial edema is present increase compared to chest film 08/08/2018. There is more focal dense consolidation in the left retrocardiac region atelectasis versus pneumonia. Trace right pleural effusion. No pneumothorax. MEDIASTINUM AND HILAR STRUCTURES: No masses. Contour normal. HEART AND VASCULAR STRUCTURES: Mild cardiomegaly BONES: No acute findings. HARDWARE: None in the chest. OTHER: Report called to Dr. Curry IMPRESSION: Diffuse alveolar and interstitial edema Left retrocardiac consolidation atelectasis versus pneumonia Trace right pleural effusion TECHNICAL DOCUMENTATION: JOB ID: [id number] [employer]- All Rights Reserved Reading location - IP/workstation name: [email or web address]
[2018-09-22 14:40] LABS: VENOUS BLOOD BASE EXCESS -8.8 mmol/L; VENOUS BLOOD HCO3 20.4 mmol/L (20-32); VENOUS BLOOD PCO2 60.6 mmHg (35-63)
[2018-09-22 14:42] LABS: VENOUS BLOOD PH 7.15 (7.30-7.42)
[2018-09-22 14:44] LABS: HEMATOCRIT 34.2 % (36.0-47.0); HEMOGLOBIN 10.6 g/dL (12.0-15.5); MEAN CORPUSCULAR HEMOGLOBIN 22.8 pg (27.0-33.4); MEAN CORPUSCULAR HGB CONC 30.9 g/dL (32.0-36.0); MEAN CORPUSCULAR VOLUME 74 fl (80-97); RED BLOOD COUNT 4.63 10^6/uL (3.72-5.28); WHITE BLOOD COUNT 12.2 10^3/uL (4.0-10.5)
[2018-09-22 14:49] LABS: APPEARANCE,URINE SLIGHTLY-CLOUDY; BILIRUBIN,URINE NEGATIVE (NEGATIVE); GLUCOSE, URINE NEGATIVE (NEGATIVE); KETONES,URINE NEGATIVE (NEGATIVE); LEUKOCYTE ESTERASE,URINE NEGATIVE (NEGATIVE); NITRITE,URINE NEGATIVE (NEGATIVE); PROTEIN,URINE 100 mg/dL (NEGATIVE); URINE SPECIFIC GRAVITY 1.014
[2018-09-22 14:51] LABS: COLOR,URINE DARK YELLOW
[2018-09-22] MEDS ORDERED: SODIUM BICARBONATE 8.4% INJ 50 MEQ/50 ML DISP.SYRIN IV ONE (14:55)
[2018-09-22] MEDS ORDERED: POTASSI CL 40 MEQ/NS 1L 1,000 ML IV ONE (14:58)
[2018-09-22] MEDS ORDERED: POTASSIUM CHLORIDE 10 MEQ CAPSULE.ER PO ONE (15:00)
[2018-09-22] MEDS ORDERED: CEFTRIAXONE INJ 1000 MG VIAL IV ONE (15:00)
[2018-09-22 15:17] LABS: PLATELET COUNT 74 10^3/uL (150-450)
--- NOTE | 2018-09-22 15:19 | ER Document Report ---
ED General - General Chief Complaint: Altered Mental Status Stated Complaint: ALTERED MENTAL STATUS Time Seen by Provider: 09/22/18 12:36 Notes: Patient is a resident at [facility] and EMS was called to transport her here today for green diarrhea. They found her to have altered mental status. She supposedly is having diarrhea for a long time, but no specific more information provided. She has not had any vomiting. She has had some notable swelling of her face around her eyes. Patient does not answer questions and does not provide any information to help in determining what is going on. We are reviewing old records and information that came with the patient. We do not even know whether the patient has been eating and drinking fluids appropriately. History of dementia, COPD, chronic renal failure, hypertension, atrial fibrillation, with rapid RVR in the past, CHF. Also has a history of hepatitis C. History of bipolar disorder and depression. TRAVEL OUTSIDE OF THE [place] IN LAST 30 DAYS: No - Related Data Allergies/Adverse Reactions: lisinopril [Lisinopril] Allergy (Verified 04/08/18 11:23) oxcarbazepine [Oxcarbazepine] Allergy (Verified 04/08/18 11:23) Past Medical History - Social History Smoking Status: Smoker,Current Status Unk Family History: Reviewed & Not Pertinent Patient has suicidal ideation: No Patient has homicidal ideation: No - Past Medical History Cardiac Medical History: Reports: Hx Atrial Fibrillation, Hx Congestive Heart Failure, Hx Coronary Artery Disease, Hx Hypertension Denies: Hx Heart Attack Pulmonary Medical History: Reports: Hx Asthma - ON INHALERS, Hx COPD, Hx Pneumonia Neurological Medical History: Denies: Hx Cerebrovascular Accident, Hx Seizures Endocrine Medical History: Denies: Hx Graves' Disease GI Medical History: Reports: Hx Hepatitis - HX OF HEP C Musculoskeletal Medical History: Reports Hx Arthritis Psychiatric Medical History: Reports: Hx Bipolar Disorder, Hx Dementia, Hx Depression, Hx Schizophrenia Traumatic Medical History: Denies: Hx Fractures Infectious Medical History: Reports: Hx Hepatitis - HX OF HEP C Past Surgical History: Reports: Hx Hysterectomy - Immunizations Hx Diphtheria, Pertussis, Tetanus Vaccination: Yes Hx Pneumococcal Vaccination: 11/30/09 Review of Systems - Review of Systems -: Yes ROS unobtainable due to patient's medical condition - Patient is poorly responsive to questions and does not follow commands. Physical Exam - Vital signs Vitals: Resp Pulse Ox 0 L 92 09/22/18 12:08 09/22/18 12:08 Interpretation: Other - Irregular rhythm. On monitor its atrial fibrillation with PVCs. No: Hypotensive, Hypoxic - Notes Notes: PHYSICAL EXAMINATION: GENERAL: No acute distress. Vital signs are all normal except she has an irregular pulse as her rhythm on the monitor is underlying atrial fibrillation with frequent PVCs and bigeminy. HEAD: Atraumatic, normocephalic. Face has puffy edema throughout, especially in the periorbital regions. I understand these areas of been like this for some time. They do not appear to be infectious or cellulitis. EYES: Patient will not cooperate sufficiently for me to see her eyes and pupillary response. ENT: oropharynx clear without exudates. Moist mucous membranes. NECK: Normal range of motion, supple. LUNGS: Scattered rhonchi and few wheezes bilaterally. HEART: Irregularly regular rate and rhythm without murmurs. ABDOMEN: No guarding or rebound. There is a fullness and prominence of the epigastrium, but does not appear to be significantly tender. There is no pulsations. No bruit heard. Green diarrhea stool present. BACK: No tenderness throughout entire back. EXTREMITIES: Normal range of motion without pain. NEUROLOGICAL: Does not speak very much. Cannot stand or walk. Grossly moves all 4 extremities. Otherwise no neurologic deficits. . PSYCH: Unable to assess SKIN: Warm, dry, no rashes. Course - Re-evaluation Re-evalutation: 09/22/18 16:30 Patient's potassium was 2.1. PH is 7.15. Chest x-ray findings noted. Chest x-ray findings noted. Patient has been started on potassium and some bicarb and antibiotic, Rocephin. Spoke with Dr. Crawford who is going to admit the patient to [facility]. - Vital Signs Vital signs: Temp Pulse Resp BP Pulse Ox 97.5 F 79 20 112/47 L 91 L 09/24/18 08:00 09/24/18 10:00 09/24/18 10:00 09/24/18 10:00 09/24/18 10:00 - Laboratory Result Diagrams: 09/24/18 05:23 09/24/18 05:23 Laboratory results interpreted by me: 09/22/18 09/22/18 09/22/18 13:18 13:18 14:20 WBC 12.2 H Hgb 10.6 L Hct 34.2 L MCV 74 L MCH 22.8 L MCHC 30.9 L RDW 20.0 H Plt Count 74 L Seg Neuts % (Manual) 83 H Band Neutrophils % 6 H Lymphocytes % (Manual) 3 L Metamyelocytes % 1 H Abs Neuts (Manual) 11.0 H VBG pH Potassium 2.1 L* Carbon Dioxide 20 L BUN 45 H Creatinine 2.93 H Est GFR ( Amer) 18 L Est GFR (Non-Af Amer) 15 L Glucose 141 H Lactic Acid Total Bilirubin 4.2 H Direct Bilirubin 3.5 H NT-Pro-B Natriuret Pep 85514 H Albumin 3.4 L Urine Protein Urine Blood Urine Urobilinogen 09/22/18 09/22/18 09/22/18 14:20 14:20 14:35 WBC Hgb Hct MCV MCH MCHC RDW Plt Count Seg Neuts % (Manual) Band Neutrophils % Lymphocytes % (Manual) Metamyelocytes % Abs Neuts (Manual) VBG pH 7.15 L* Potassium Carbon Dioxide BUN Creatinine Est GFR ( Amer) Est GFR (Non-Af Amer) Glucose Lactic Acid 3.0 H Total Bilirubin Direct Bilirubin NT-Pro-B Natriuret Pep Albumin Urine Protein 100 H Urine Blood SMALL H Urine Urobilinogen 2.0 H - Diagnostic Test Radiology reviewed: Image reviewed, Reports reviewed - Chest x-ray read as pulmonary edema with some likely pneumonia infiltrates. - EKG Interpretation by Pr Rhythm: A.Fib, PVC's Critical Care Note - Critical Care Note Total time excluding time spent on procedures (mins): 45 Discharge - Discharge Clinical Impression: Altered mental status, Hypokalemia, Acidosis, Diarrhea Pneumonia Qualifiers: Pneumonia type: due to unspecified organism Laterality: unspecified laterality Lung location: unspecified part of lung Qualified Code(s): J18.9 - Pneumonia, unspecified organism Condition: Serious Disposition: ADMITTED INPATIENT Admitting Provider: [facility] Unit Admitted: [facility]
[2018-09-22 15:20] LABS: ABSOLUTE LYMPHOCYTES# (MANUAL) 0.5 10^3/uL (0.5-4.7); ABSOLUTE MONOCYTES # (MANUAL) 0.7 10^3/uL (0.1-1.4); ANISOCYTOSIS 2+; BAND NEUTROPHILS % (MANUAL) 6 % (3-5); BASOPHILS % (MANUAL) 0 % (0-2); BURR CELLS SLIGHT; EOSINOPHILS % (MANUAL) 0 % (0-6); HYPOCHROMASIA 2+; LYMPHOCYTES % (MANUAL) 3 % (13-45); METAMYELOCYTES % (MANUAL) 1 % (0); MONOCYTES % (MANUAL) 6 % (3-13); NUCLEATED RED BLOOD CELLS 1 /100 WBC (0); OVALOCYTES SLIGHT; PLATELET COMMENT DECREASED; PLATELET LARGE PRESENT; POIKILOCYTOSIS 2+; SCHISTOCYTES SLIGHT; SEGMENTED NEUTROPHILS % (MAN) 83 % (42-78); TARGET CELLS 1+; TOTAL CELLS COUNTED 100; TOXIC GRANULATION SLIGHT; TOXIC VACUOLATION PRESENT
[2018-09-22] MEDS ORDERED: IPRATROPIUM/ALBUTEROL 0.5-2.5 MG/3 ML AMPUL NEB ONE (15:24)
[2018-09-22 15:49] LABS: URINE AMPHETAMINES SCREEN NEGATIVE; URINE BARBITURATES SCREEN NEGATIVE; URINE BENZODIAZEPINES SCREEN NEGATIVE; URINE COCAINE SCREEN NEGATIVE; URINE MARIJUANA (THC) SCREEN NEGATIVE; URINE METHADONE SCREEN NEGATIVE; URINE PHENCYCLIDINE SCREEN NEGATIVE
[2018-09-22] MEDS ORDERED: LIDOCAINE 1% INJ-PF (10 MG/ML) 30 ML SDV ONE (16:02)
[2018-09-22] MEDS ORDERED: LORAZEPAM INJ 2 MG/1 ML VIAL IV ONE ×2 (16:05→16:52)
[2018-09-22] MEDS: POTASSI CL 20 MEQ/50 ML RIDER 20 MEQ/50 ML RTUPB IV SCH ×2 (16:23→18:40)
[2018-09-22] MEDS ORDERED: FUROSEMIDE INJ/PF 20 MG/2 ML SDV IV ONE (16:49)
--- NOTE | 2018-09-22 17:42 | PDOC CONSULTATION ---
Consultation Consult Date: 09/22/18 Consult reason:: need of IV access History of Present Illness Admission Date/PCP: 09/22/18 15:29 LILI MCRAE MD History of Present Illness: LORI MANZANARES is a 87 year old female who presented to the ER with confusion, possible septic status in need of IV access for fluids and medications. Past Medical History Cardiac Medical History: Reports: Atrial Fibrillation, Congestive Heart Failure , Coronary Artery Disease, Hypertension Denies: Myocardial Infarction Pulmonary Medical History: Reports: Asthma - ON INHALERS, Chronic Obstructive Pulmonary Disease (COPD), Pneumonia Neurological Medical History: Denies: Seizures GI Medical History: Reports: Hepatitis - HX OF HEP C Denies: Hiatal Hernia Musculoskeltal Medical History: Reports: Arthritis Psychiatric Medical History: Reports: Bipolar Disorder, Dementia, Depression Hematology: Denies: Anemia, Sickle Cell Disease Past Surgical History Past Surgical History: Reports: Hysterectomy Denies: Amputation, Mastectomy, Pacemaker Social History Smoking Status: Smoker,Current Status Unk Frequency of Alcohol Use: None Hx Recreational Drug Use: No Drugs: Cocaine Hx Prescription Drug Abuse: No Family History Family History: Reviewed & Not Pertinent Parental Family History Reviewed: No Children Family History Reviewed: No Sibling(s) Family History Reviewed.: No Medication/Allergy Allergies/Adverse Reactions: lisinopril [Lisinopril] Allergy (Verified 04/08/18 11:23) oxcarbazepine [Oxcarbazepine] Allergy (Verified 04/08/18 11:23) Physical Exam Vital Signs: Temp Pulse Resp BP Pulse Ox 78 20 169/87 H 90 L 09/22/18 12:23 09/22/18 14:01 09/22/18 14:01 09/22/18 14:01 Intake & Output 09/21/18 09/22/18 09/23/18 06:59 06:59 06:59 Intake Total 833 Balance 833 General appearance: PRESENT: mild distress, other - uncooperative, agitated Head exam: PRESENT: atraumatic Mouth exam: PRESENT: neck supple Teeth exam: PRESENT: poor dentation Neck exam: PRESENT: full ROM Respiratory exam: PRESENT: clear to auscultation lauren Cardiovascular exam: PRESENT: RRR GI/Abdominal exam: PRESENT: soft Results Impressions: KUB X-Ray 09/22/18 12:40 IMPRESSION: NO RADIOGRAPHIC EVIDENCE FOR ACUTE ABDOMINAL DISEASE. Assessment & Plan - Diagnosis (1) Need for intravenous access Is this a current diagnosis for this admission?: Yes - Plan Summary Plan Summary: A/ Need of IV access P/ placement of triple lumen CVL C-Xray to confirm placement of the CVL
[2018-09-22 17:49] LABS: ARTERIAL BLOOD BASE EXCESS -8.2 mmol/L; ARTERIAL BLOOD H2CO3 1.64 mmol/L (1.05-1.35); ARTERIAL BLOOD HCO3 20.1 mmol/L (20-24); ARTERIAL BLOOD O2 SATURATION 89.3 % (94-98); ARTERIAL BLOOD PCO2 54.4 mmHg (35-45); ARTERIAL BLOOD PO2 69.4 mmHg (80-100); ARTERIAL BLOOD TOTAL CO2 21.8 mmol/L (21-25)
[2018-09-22 17:53] LABS: ARTERIAL BLOOD FIO2 15L
[2018-09-22 17:54] LABS: ARTERIAL BLOOD PH 7.19 (7.35-7.45)
--- NOTE | 2018-09-22 17:55 | RADIOLOGY REPORT (SQ) ---
EXAM DESCRIPTION: CHEST SINGLE VIEW COMPLETED DATE/TIME: 09/22/2018 5:38 pm REASON FOR STUDY: central line placement COMPARISON: 09/22/2018 EXAM PARAMETERS: NUMBER OF VIEWS: One view. TECHNIQUE: Single frontal radiographic view of the chest acquired. RADIATION DOSE: NA LIMITATIONS: None. FINDINGS: LUNGS AND PLEURA: Pulmonary edema. Greater opacification in the right upper lobe and left lower lobe. MEDIASTINUM AND HILAR STRUCTURES: No masses. Contour normal. HEART AND VASCULAR STRUCTURES: Cardiomegaly. BONES: No acute findings. HARDWARE: A right subclavian catheter is present. The tip of the catheter appears to be in the super ior vena cava. OTHER: No other significant finding. IMPRESSION: Pulmonary edema. Cannot exclude left lower lobe pneumonia. Right subclavian catheter a s described. TECHNICAL DOCUMENTATION: JOB ID: [id number] [employer]- All Rights Reserved Reading location - IP/workstation name: [email or web address]
[2018-09-22] MEDS ORDERED: PHARMACY COMMUNICATION ORDER MC NR (18:30)
[2018-09-22 18:49] LABS: CREATINE KINASE MB 2.26 ng/mL (<4.55)
[2018-09-22 18:53] LABS: TROPONIN I 0.063 ng/mL
[2018-09-22] MEDS ORDERED: PROPOFOL INJ 200 MG/20 ML VIAL IV ONE (18:59)
[2018-09-22] MEDS: NORMAL SALINE 1000 ML 1,000 ML IV PRN (19:00)
[2018-09-22] MEDS ORDERED: LEVOFLOXACIN 750 MG/D5W RTU 750 MG/150 ML RTUPB IV ONE (19:00)
[2018-09-22] MEDS: PROPOFOL 1,000 MG/100 ML INFUS..BTL IV PRN (19:05)
--- NOTE | 2018-09-22 19:25 | RADIOLOGY REPORT (SQ) ---
EXAM DESCRIPTION: CHEST SINGLE VIEW COMPLETED DATE/TIME: 09/22/2018 7:07 pm REASON FOR STUDY: POST INTUBATION COMPARISON: None. EXAM PARAMETERS: NUMBER OF VIEWS: One view. TECHNIQUE: Single frontal radiographic view of the chest acquired. RADIATION DOSE: NA LIMITATIONS: None. FINDINGS: LUNGS AND PLEURA: No change in the airspace disease in both lungs. MEDIASTINUM AND HILAR STRUCTURES: No masses. Contour normal. HEART AND VASCULAR STRUCTURES: Cardiomegaly. BONES: No acute findings. HARDWARE: Endotracheal tube has its tip 6 cm above the binu. Right subclavian line and NG tube rem ain in place. OTHER: No other significant finding. IMPRESSION: Endotracheal tube placement as described. No change in the appearance of the lungs. TECHNICAL DOCUMENTATION: JOB ID: [id number] [facility]- All Rights Reserved Reading location - IP/workstation name: [email or web address]
[2018-09-22 19:51] LABS: ALANINE AMINOTRANSFERASE 13 U/L (9-52); ALBUMIN 2.8 g/dL (3.5-5.0); ALKALINE PHOSPHATASE 50 U/L (38-126); ANION GAP 18 (5-19); ASPARTATE AMINO TRANSFERASE 18 U/L (14-36); BILIRUBIN,DIRECT 3.2 mg/dL (0.0-0.4); BILIRUBIN,TOTAL 3.7 mg/dL (0.2-1.3); BLOOD UREA NITROGEN 40 mg/dL (7-20); CALCIUM 7.7 mg/dL (8.4-10.2); CARBON DIOXIDE 18 mmol/L (22-30); CHLORIDE 110 mmol/L (98-107); GLUCOSE 123 mg/dL (75-110); SODIUM 146.2 mmol/L (137-145); TOTAL PROTEIN 5.8 g/dL (6.3-8.2)
[2018-09-22 20:03] LABS: CREATINE KINASE MB 1.66 ng/mL (<4.55); TROPONIN I 0.062 ng/mL
--- NOTE | 2018-09-22 20:33 | RADIOLOGY REPORT (SQ) ---
EXAM DESCRIPTION: CHEST SINGLE VIEW COMPLETED DATE/TIME: 09/22/2018 8:11 pm REASON FOR STUDY: Chest xray to confirm ETT NG Placement COMPARISON: None. EXAM PARAMETERS: NUMBER OF VIEWS: One view. TECHNIQUE: Single frontal radiographic view of the chest acquired. RADIATION DOSE: NA LIMITATIONS: None. FINDINGS: LUNGS AND PLEURA: Pulmonary edema and opacification is unchanged. MEDIASTINUM AND HILAR STRUCTURES: No masses. Contour normal. HEART AND VASCULAR STRUCTURES: Heart normal in size. Normal vasculature. BONES: No acute findings. HARDWARE: Endotracheal tube remains in position about 6 cm above the binu. Right subclavian line i s in place. An NG tube extends to the stomach. The tip of the NG tube appears to be near the antrum of the stomach. OTHER: No other significant finding. IMPRESSION: Tube placement as described. Pulmonary opacification is unchanged. TECHNICAL DOCUMENTATION: JOB ID: [id number] [employer]- All Rights Reserved Reading location - IP/workstation name: [email or web address]
[2018-09-22 20:34] LABS: POTASSIUM 1.8 mmol/L (3.6-5.0)
--- NOTE | 2018-09-22 21:26 | OPERATIVE REPORT E ---
Operative Report NAME: LORI MANZANARES : 1930 AGE: 87Y DATE OF SURGERY: 09/22/2018 ROOM: 601 PREOPERATIVE DIAGNOSIS: NEED FOR IV ACCESS. POSTOPERATIVE DIAGNOSIS: NEED FOR IV ACCESS. OPERATION: Placement of right subclavian vein central venous line. SURGEON: MOISES WRIGHT M.D. SNOWBOARDER: None. BLOOD LOSS: None. COMPLICATIONS: None. INDICATION AND FINDINGS: This is an 87-year-old female who presents to the emergency room with confusion, sepsis status, in need of IV access for medication and drugs. DESCRIPTION OF PROCEDURE: Procedure was done in the emergency room. The patient was placed in supine position. The right side of her chest and neck were prepped and draped in the usual fashion. The midportion of the clavicle and below it was infiltrated with 10 mL of 1% lidocaine without epinephrine. A 16-gauge needle was then used to easily cannulate the right subclavian vein. The guidewire was inserted through the needle into the subclavian vein and superior vena cava. The needle was removed. The insertion point of the guidewire was enlarged with a knife and tissue dilator. The triple- lumen catheter was then inserted over the guidewire into the subclavian vein and superior vena cava. The guidewire was removed. Each port of the triple-lumen catheter was aspirated and flushed with normal saline without difficulty. The catheter was secured to the skin with silk sutures. Sterile dressings applied. The patient tolerated the procedure well. Chest x-ray was obtained to confirm position of the line. DICTATING PHYSICIAN: MOISES WRIGHT M.D. [id number] PHY#: [id number] ID: [id number] JOB#: [id number] ACCT: [id number] cc:MOISES WRIGHT M.D. > MTDD
[2018-09-22] MEDS ORDERED: CEFEPIME 1 GM/D5W RTU 1 GM/50 ML RTUPB IV SCH (22:00)
[2018-09-22] MEDS ORDERED: CEFEPIME 2 GM/D5W RTU 2 GM/50 ML RTUPB IV SCH (22:00)
[2018-09-22] MEDS ORDERED: POTASSI CL 20 MEQ/50 ML RIDER 20 MEQ/50 ML RTUPB IV ONE (22:05)
--- NOTE | 2018-09-22 22:39 | EKG REPORT ---
SEVERITY:- ABNORMAL ECG - SINUS RHYTHM VENTRICULAR BIGEMINY RIGHT AXIS DEVIATION CONSIDER ANTEROSEPTAL INFARCT NONSPECIFIC T ABNORMALITIES, ANT-LAT LEADS PROLONGED QT INTERVAL : Confirmed by: Stephanie Watt 22-Sep-2018 22:38:09
[2018-09-22] MEDS: POTASSIUM CHLORIDE 20 MEQ/50 ML RTU IV SCH (22:48)
[2018-09-22] MEDS ORDERED: CEFEPIME 1 GM/D5W RTU 1 GM/50 ML RTUPB IV ONE (23:00)
[2018-09-23] MEDS: POTASSIUM CHLORIDE 20 MEQ/50 ML RTU IV SCH ×12 (00:17→20:27)
[2018-09-23] MEDS: NORMAL SALINE 1000 ML 1,000 ML IV PRN ×4 (00:35→17:42)
[2018-09-23] MEDS ORDERED: POTASSI CL 20 MEQ/50 ML RIDER 20 MEQ/50 ML RTUPB IV ONE ×4 (00:59→05:04)
[2018-09-23 01:45] LABS: CREATINE KINASE < 20 U/L (30-135)
[2018-09-23 01:47] LABS: POTASSIUM 2.6 mmol/L (3.6-5.0)
[2018-09-23 01:59] LABS: CREATINE KINASE MB 1.54 ng/mL (<4.55); TROPONIN I 0.077 ng/mL
[2018-09-23] MEDS ORDERED: FUROSEMIDE INJ/PF 40 MG/4 ML SDV IV ONE (02:45)
[2018-09-23] MEDS: PROPOFOL 1,000 MG/100 ML INFUS..BTL IV PRN ×3 (03:03→20:32)
[2018-09-23 05:42] LABS: ARTERIAL BLOOD BASE EXCESS -5.9 mmol/L; ARTERIAL BLOOD H2CO3 1.31 mmol/L (1.05-1.35); ARTERIAL BLOOD HCO3 20.4 mmol/L (20-24); ARTERIAL BLOOD O2 SATURATION 92.8 % (94-98); ARTERIAL BLOOD PCO2 43.5 mmHg (35-45); ARTERIAL BLOOD PH 7.29 (7.35-7.45); ARTERIAL BLOOD PO2 72.4 mmHg (80-100); ARTERIAL BLOOD TOTAL CO2 21.7 mmol/L (21-25)
[2018-09-23 05:43] LABS: ARTERIAL BLOOD FIO2 100%; HEMATOCRIT 28.9 % (36.0-47.0); MEAN CORPUSCULAR HEMOGLOBIN 22.8 pg (27.0-33.4); MEAN CORPUSCULAR HGB CONC 31.2 g/dL (32.0-36.0); MEAN CORPUSCULAR VOLUME 73 fl (80-97); RED BLOOD COUNT 3.96 10^6/uL (3.72-5.28); RED CELL DISTRIBUTION WIDTH 19.6 % (11.5-14.0); WHITE BLOOD COUNT 13.8 10^3/uL (4.0-10.5)
[2018-09-23 05:57] LABS: PLATELET COUNT 61 10^3/uL (150-450)
[2018-09-23 05:59] LABS: ALANINE AMINOTRANSFERASE 15 U/L (9-52); ALBUMIN 2.6 g/dL (3.5-5.0); ALKALINE PHOSPHATASE 45 U/L (38-126); ANION GAP 12 (5-19); ASPARTATE AMINO TRANSFERASE 16 U/L (14-36); BILIRUBIN,DIRECT 3.6 mg/dL (0.0-0.4); BILIRUBIN,TOTAL 4.1 mg/dL (0.2-1.3); BLOOD UREA NITROGEN 45 mg/dL (7-20); CARBON DIOXIDE 22 mmol/L (22-30); CHLORIDE 111 mmol/L (98-107); GLUCOSE 115 mg/dL (75-110); SODIUM 144.9 mmol/L (137-145); TOTAL PROTEIN 5.7 g/dL (6.3-8.2); TRIGLYCERIDES 134 mg/dL (<150)
[2018-09-23 06:00] LABS: ABSOLUTE LYMPHOCYTES# (MANUAL) 0.3 10^3/uL (0.5-4.7); ABSOLUTE MONOCYTES # (MANUAL) 1.4 10^3/uL (0.1-1.4); ABSOLUTE NEUTROPHILS# (MANUAL) 12.1 10^3/uL (1.7-8.2); BAND NEUTROPHILS % (MANUAL) 6 % (3-5); BASOPHILS % (MANUAL) 0 % (0-2); EOSINOPHILS % (MANUAL) 0 % (0-6); LYMPHOCYTES % (MANUAL) 0 % (13-45); MONOCYTES % (MANUAL) 10 % (3-13); NUCLEATED RED BLOOD CELLS 2 /100 WBC (0); SEGMENTED NEUTROPHILS % (MAN) 82 % (42-78); TOTAL CELLS COUNTED 100
[2018-09-23] MEDS ORDERED: LANSOPRAZOLE 30 MG TAB.RAP.DR PO SCH (06:00)
[2018-09-23 06:02] LABS: POTASSIUM 2.9 mmol/L (3.6-5.0)
[2018-09-23 06:04] LABS: ANISOCYTOSIS 2+; BURR CELLS SLIGHT; OVALOCYTES SLIGHT; PLATELET COMMENT DECREASED; POIKILOCYTOSIS 1+; POLYCHROMASIA SLIGHT; TARGET CELLS 1+; TEAR DROP CELLS 1+; TOXIC GRANULATION SLIGHT; TOXIC VACUOLATION PRESENT
[2018-09-23 06:10] LABS: CREATINE KINASE MB 1.15 ng/mL (<4.55); TROPONIN I 0.075 ng/mL
--- NOTE | 2018-09-23 06:23 | RADIOLOGY REPORT (SQ) ---
CLINICAL HISTORY: pneumonia COMPARISON: September 22, 2018. TECHNIQUE: XR CHEST 1 VIEW 09/23/2018 7:00 AM CDT FINDINGS: Cardiac silhouette is enlarged. Multiple moderate areas of airspace disease throughout both lungs are again noted and are slightly improved. There are small pleural effusions. There is no pneumothorax. There are no acute osseous findings. Endotracheal tube, NG tube and right central line are unchanged. IMPRESSION: Slightly improved bilateral pneumonia.
[2018-09-23] MEDS ORDERED: FUROSEMIDE INJ/PF 40 MG/4 ML SDV ONE (08:02)
[2018-09-23 10:41] LABS: ARTERIAL BLOOD H2CO3 1.16 mmol/L (1.05-1.35); ARTERIAL BLOOD HCO3 18.8 mmol/L (20-24); ARTERIAL BLOOD PCO2 38.7 mmHg (35-45); ARTERIAL BLOOD PO2 61.1 mmHg (80-100)
[2018-09-23 10:43] LABS: ARTERIAL BLOOD FIO2 90%
[2018-09-23 10:44] LABS: ARTERIAL BLOOD O2 SATURATION 89.3 % (94-98)
[2018-09-23 15:46] LABS: PHOSPHORUS 3.7 mg/dL (2.5-4.5)
[2018-09-23 15:54] LABS: POTASSIUM 2.9 mmol/L (3.6-5.0)
[2018-09-23] MEDS: LANSOPRAZOLE 30 MG TAB.RAP.DR NG SCH (16:23)
[2018-09-23 17:13] LABS: ARTERIAL BLOOD BASE EXCESS -7.6 mmol/L; ARTERIAL BLOOD H2CO3 1.07 mmol/L (1.05-1.35); ARTERIAL BLOOD HCO3 17.8 mmol/L (20-24); ARTERIAL BLOOD O2 SATURATION 87.2 % (94-98); ARTERIAL BLOOD PCO2 35.5 mmHg (35-45); ARTERIAL BLOOD PH 7.32 (7.35-7.45); ARTERIAL BLOOD PO2 56.3 mmHg (80-100); ARTERIAL BLOOD TOTAL CO2 18.8 mmol/L (21-25)
[2018-09-23 17:28] LABS: ARTERIAL BLOOD FIO2 100%
--- NOTE | 2018-09-23 17:30 | PDOC CONSULTATION ---
Consultation Consult Date: 09/23/18 Consult reason:: KATE in sepsis. History of Present Illness Admission Date/PCP: 09/22/18 15:29 LILI MCRAE MD History of Present Illness: LORI MANZANARES is a 87 year old female resident at [facility] with multiple co morbidities that included Bipolar, Dementia, Afib, CHF, Hepatitis C, CKD 4 with base creatinine of 1.5 - 2.0 Hypertension was admitted with altered mental status. She is currently intubated and so the charts were reviewed and discussions done with her treating RN. Apparently she has been having diarrhea for sometime at the nursing facility. Since admission here she has been diagnosed to have Pneumonia and sepsis and went into respiratory failure that required intubation and admission to the ICU.She has remained normotensive after a brief period of hypotension and initiation of fluid resuscitation without the need for pressors. However she has become oligo - anuric with rising renal nos.Labs and medications were reviewed with her treating RN. Past Medical History Cardiac Medical History: Reports: Atrial Fibrillation, Coronary Artery Disease, Hypertension-primary Denies: Myocardial Infarction Pulmonary Medical History: Reports: Asthma - ON INHALERS, Chronic Obstructive Pulmonary Disease (COPD), Pneumonia Neurological Medical History: Denies: Seizures Renal/ Medical History: Reports: Chronic Kidney Disease Stage IV GI Medical History: Reports: Hepatitis - HX OF HEP C Denies: Hiatal Hernia Musculoskeltal Medical History: Reports: Arthritis Denies: Rheumatoid Arthritis, Systemic Lupus Erythematosus Psychiatric Medical History: Reports: Bipolar Disorder, Dementia, Depression Past Surgical History Past Surgical History: Reports: Hysterectomy Denies: Mastectomy, Pacemaker Social History Smoking Status: Smoker,Current Status Unk Frequency of Alcohol Use: None Hx Recreational Drug Use: - unknown Drugs: Cocaine Hx Prescription Drug Abuse: - unknown Family History Parental Family History Reviewed: No - intubated Children Family History Reviewed: No Sibling(s) Family History Reviewed.: No Medication/Allergy Home Medications: Amiodarone HCl [Cordarone 200 mg Tablet] 200 mg PO Q12 09/22/18 Clonidine HCl [Catapres 0.1 mg Tablet] 0.1 mg PO Q12 09/22/18 Diltiazem HCl [Diltiazem ER] 240 mg PO DAILY 09/22/18 Donepezil HCl [Aricept 5 mg Tablet] 5 mg PO DAILY 09/22/18 Escitalopram Oxalate [Lexapro 10 mg Tablet] 10 mg PO DAILY 09/22/18 Famotidine [Pepcid 20 mg Tablet] 20 mg PO DAILY 09/22/18 Furosemide [Lasix 40 mg Tablet] 40 mg PO DAILY 09/22/18 Risperidone [Risperdal 0.25 mg Tablet] 0.25 mg PO QHS 09/22/18 Risperidone [Risperdal] 0.25 mg PO DAILYP PRN 09/22/18 Roflumilast [Daliresp 500 mcg Tablet] 500 mcg PO DAILY 09/22/18 Allergies/Adverse Reactions: lisinopril [Lisinopril] Allergy (Verified 04/08/18 11:23) oxcarbazepine [Oxcarbazepine] Allergy (Verified 04/08/18 11:23) Review of Systems ROS unobtainable: Due to endotracheal tube - and intubated and sedated Physical Exam Vital Signs: Temp Pulse Resp BP Pulse Ox 97.9 F 72 22 H 124/46 L 92 09/23/18 16:00 09/23/18 07:35 09/23/18 14:08 09/23/18 14:08 09/23/18 14:08 Intake & Output 09/22/18 09/23/18 09/24/18 06:59 06:59 06:59 Intake Total 3121 1243 Output Total 140 185 Balance 2981 1058 Weight 76.9 kg 76.9 kg Eye exam: PRESENT: PERRLA Ear exam: PRESENT: normal external ear exam Mouth exam: PRESENT: neck supple. ABSENT: moist Neck exam: ABSENT: lymphadenopathy, meningismus, tenderness, thyromegaly, tracheal deviation Respiratory exam: PRESENT: clear to auscultation lauren, crackles, symmetrical Cardiovascular exam: PRESENT: +S1, +S2, systolic murmur GI/Abdominal exam: PRESENT: normal bowel sounds, soft. ABSENT: organomegaly, tenderness Extremities exam: PRESENT: +1 edema Neurological exam: PRESENT: altered Skin exam: PRESENT: dry. ABSENT: erythema Results Laboratory Results: 09/23/18 05:30 09/23/18 15:00 09/22/18 09/22/18 09/22/18 17:36 19:21 19:21 WBC RBC Hgb Hct MCV MCH MCHC RDW Plt Count Seg Neutrophils % Lymphocytes % Monocytes % Eosinophils % Basophils % Absolute Neutrophils Absolute Lymphocytes Absolute Monocytes Absolute Eosinophils Absolute Basophils Carbonic Acid 1.64 H HCO3/H2CO3 Ratio 12:1 ABG pH 7.19 L* ABG pCO2 54.4 H ABG pO2 69.4 L ABG HCO3 20.1 ABG O2 Saturation 89.3 L ABG Base Excess -8.2 FiO2 15L Sodium 146.2 H Potassium 1.8 L* Chloride 110 H Carbon Dioxide 18 L Anion Gap 18 BUN 40 H Creatinine 2.67 H Est GFR ( Amer) 21 L Est GFR (Non-Af Amer) 17 L Glucose 123 H Lactic Acid 1.5 Calcium 7.7 L Phosphorus Magnesium Total Bilirubin 3.7 H AST 18 ALT 13 Alkaline Phosphatase 50 Total Protein 5.8 L Albumin 2.8 L Triglycerides 09/22/18 09/23/18 09/23/18 19:21 01:22 05:30 WBC RBC Hgb Hct MCV MCH MCHC RDW Plt Count Seg Neutrophils % Lymphocytes % Monocytes % Eosinophils % Basophils % Absolute Neutrophils Absolute Lymphocytes Absolute Monocytes Absolute Eosinophils Absolute Basophils Carbonic Acid 1.31 HCO3/H2CO3 Ratio 15:1 ABG pH 7.29 L ABG pCO2 43.5 ABG pO2 72.4 L ABG HCO3 20.4 ABG O2 Saturation 92.8 L ABG Base Excess -5.9 FiO2 100% Sodium Potassium 2.6 L* Chloride Carbon Dioxide Anion Gap BUN Creatinine Est GFR ( Amer) Est GFR (Non-Af Amer) Glucose Lactic Acid Calcium Phosphorus Magnesium 1.9 Total Bilirubin AST ALT Alkaline Phosphatase Total Protein Albumin Triglycerides 09/23/18 09/23/18 09/23/18 05:30 05:30 08:06 WBC 13.8 H RBC 3.96 Hgb 9.0 L Hct 28.9 L MCV 73 L MCH 22.8 L MCHC 31.2 L RDW 19.6 H Plt Count 61 L Seg Neutrophils % Not Reportable Lymphocytes % Not Reportable Monocytes % Not Reportable Eosinophils % Not Reportable Basophils % Not Reportable Absolute Neutrophils Not Reportable Absolute Lymphocytes Not Reportable Absolute Monocytes Not Reportable Absolute Eosinophils Not Reportable Absolute Basophils Not Reportable Carbonic Acid HCO3/H2CO3 Ratio ABG pH ABG pCO2 ABG pO2 ABG HCO3 ABG O2 Saturation ABG Base Excess FiO2 Sodium 144.9 Potassium 2.9 L* 2.7 L* Chloride 111 H Carbon Dioxide 22 Anion Gap 12 BUN 45 H Creatinine 3.10 H Est GFR ( Amer) 17 L Est GFR (Non-Af Amer) 14 L Glucose 115 H Lactic Acid Calcium 8.0 L Phosphorus Magnesium 2.0 Total Bilirubin 4.1 H AST 16 ALT 15 Alkaline Phosphatase 45 Total Protein 5.7 L Albumin 2.6 L Triglycerides 134 09/23/18 09/23/18 10:26 15:00 WBC RBC Hgb Hct MCV MCH MCHC RDW Plt Count Seg Neutrophils % Lymphocytes % Monocytes % Eosinophils % Basophils % Absolute Neutrophils Absolute Lymphocytes Absolute Monocytes Absolute Eosinophils Absolute Basophils Carbonic Acid 1.16 HCO3/H2CO3 Ratio 16:1 ABG pH 7.30 L ABG pCO2 38.7 ABG pO2 61.1 L ABG HCO3 18.8 L ABG O2 Saturation 89.3 L ABG Base Excess -7.0 FiO2 90% Sodium Potassium 2.9 L* Chloride Carbon Dioxide Anion Gap BUN Creatinine Est GFR ( Amer) Est GFR (Non-Af Amer) Glucose Lactic Acid Calcium Phosphorus 3.7 Magnesium Total Bilirubin AST ALT Alkaline Phosphatase Total Protein Albumin Triglycerides 09/22/18 09/22/18 09/23/18 19:21 19:21 01:22 Creatine Kinase 26 L < 20 L CK-MB (CK-2) 1.66 Troponin I 0.062 09/23/18 09/23/18 01:22 05:30 Creatine Kinase CK-MB (CK-2) 1.54 1.15 Troponin I 0.077 0.075 Impressions: KUB X-Ray 09/22/18 12:40 IMPRESSION: NO RADIOGRAPHIC EVIDENCE FOR ACUTE ABDOMINAL DISEASE. Chest X-Ray 09/23/18 07:00 IMPRESSION: Slightly improved bilateral pneumonia. Assessment & Plan - Diagnosis (1) Acute kidney injury Plan: From ATN/sepsis. Had underlying CKD 4 with base creatinine of 1.5 - 2.0. R/O obstructive uropathy.No acute indications for CANOPY STRINGER but given her co morbidities she is not a candidate for CANOPY STRINGER.Need to have family / POA conference to discuss this matter. (2) Diarrhea Plan: C.diff negative. (3) Hypokalemia Plan: Multifactorial. diarrhea, Contraction etc . Severe and being replaced.Monitor closely. (4) Pneumonia Qualifiers: Plan: On antibiotics. severe. Overall poor prognosis. (5) Acute hypoxemic respiratory failure Plan: Now intubated. (6) Atrial fibrillation with rapid ventricular response Plan: As per Dr Phan (7) Dementia Qualifiers: Dementia type: Alzheimer's disease Alzheimer's disease onset: late-onset Dementia behavioral disturbance: with behavioral disturbance Qualified Code(s) : G30.1 - Alzheimer's disease with late onset; F02.81 - Dementia in other diseases classified elsewhere with behavioral disturbance; F02.81 - Dementia in other diseases classified elsewhere with behavioral disturbance; F02.81 - Dementia in other diseases classified elsewhere with behavioral disturbance Plan: status quo. (8) CKD (chronic kidney disease) Plan: Underlying CKD with current acute insult.
[2018-09-23 17:42] LABS: HEMATOCRIT 28.7 % (36.0-47.0); HEMOGLOBIN 8.9 g/dL (12.0-15.5); MEAN CORPUSCULAR HEMOGLOBIN 22.7 pg (27.0-33.4); MEAN CORPUSCULAR HGB CONC 30.9 g/dL (32.0-36.0); MEAN CORPUSCULAR VOLUME 74 fl (80-97); RED CELL DISTRIBUTION WIDTH 19.7 % (11.5-14.0)
[2018-09-23] MEDS: VANCOMYCIN HCL 1,000 MG in DEXTROSE 5%-WATER 250 ML IV SCH (17:43)
[2018-09-23] MEDS: PIPERACILLIN SODIUM/TAZOBACTAM 3.375 GM in NORMAL SALINE 100 ML IV SCH (17:43)
[2018-09-23 18:31] LABS: PLATELET COUNT 61 10^3/uL (150-450)
[2018-09-23 18:34] LABS: ABSOLUTE LYMPHOCYTES# (MANUAL) 3.6 10^3/uL (0.5-4.7); ABSOLUTE MONOCYTES # (MANUAL) 1.1 10^3/uL (0.1-1.4); ABSOLUTE NEUTROPHILS# (MANUAL) 9.2 10^3/uL (1.7-8.2); BAND NEUTROPHILS % (MANUAL) 4 % (3-5); BASOPHILS % (MANUAL) 0 % (0-2); EOSINOPHILS % (MANUAL) 0 % (0-6); LYMPHOCYTES % (MANUAL) 24 % (13-45); MONOCYTES % (MANUAL) 8 % (3-13); SEGMENTED NEUTROPHILS % (MAN) 62 % (42-78); TOTAL CELLS COUNTED 100
[2018-09-23 18:35] LABS: ANISOCYTOSIS 2+; HYPOCHROMASIA 1+; OVALOCYTES SLIGHT; POIKILOCYTOSIS SLIGHT; TARGET CELLS SLIGHT; TOXIC GRANULATION SLIGHT
[2018-09-23 18:36] LABS: PLATELET COMMENT DECREASED
[2018-09-23] MEDS ORDERED: NORMAL SALINE 1000 ML 1,000 ML with POTASSIUM CHLORIDE 40 MEQ IV PRN ×2 (20:03)
--- NOTE | 2018-09-23 20:09 | PDOC H&P ---
History of Present Illness Admission Date/PCP: 09/22/18 15:29 LILI MCRAE MD History of Present Illness: LORI MANZANARES is a 87 year old female, She has a history of chronic obstructive pulmonary disease, dementia, hypertension, chronic atrial fibrillation. She was transferred from assisted living facility where she resides to the emergency room for evaluation of altered mental status. She supposedly was having diarrhea for a very long time, there is no vomiting. The initial blood work that was done revealed hypokalemia, potassium 2.1, serum creatinine 2.93, BUN 45, the venous pH was 7.1. Chest x-ray suggests pneumonia. She was given IV antibiotic in the emergency room and also potassium. History taking was a challenge for this patient, she was stuporous , subsequent arterial blood gas that was done demonstrated on FiO2 15 L, pH 7.1, PCO2 54.4 PO2 69.4 bicarbonate 20.1, because she was stupurous in the setting of acute hypercapnic respiratory failure she was intubated and the respiration was supported with mechanical ventilation. Past Medical History Cardiac Medical History: Reports: Atrial Fibrillation, Coronary Artery Disease, Hypertension Pulmonary Medical History: Reports: Asthma - ON INHALERS, Chronic Obstructive Pulmonary Disease (COPD), Pneumonia GI Medical History: Reports: Hepatitis - HX OF HEP C Musculoskeltal Medical History: Reports: Arthritis Psychiatric Medical History: Reports: Bipolar Disorder, Dementia, Depression Past Surgical History Past Surgical History: Reports: Hysterectomy Social History Smoking Status: Current Every Day Smoker Frequency of Alcohol Use: None Hx Recreational Drug Use: - unknown Drugs: Cocaine Hx Prescription Drug Abuse: - unknown Family History Family History: Reviewed & Not Pertinent Parental Family History Reviewed: Yes Children Family History Reviewed: Yes Sibling(s) Family History Reviewed.: Yes Medication/Allergy Home Medications: Amiodarone HCl [Cordarone 200 mg Tablet] 200 mg PO Q12 09/22/18 Clonidine HCl [Catapres 0.1 mg Tablet] 0.1 mg PO Q12 09/22/18 Diltiazem HCl [Diltiazem ER] 240 mg PO DAILY 09/22/18 Donepezil HCl [Aricept 5 mg Tablet] 5 mg PO DAILY 09/22/18 Escitalopram Oxalate [Lexapro 10 mg Tablet] 10 mg PO DAILY 09/22/18 Famotidine [Pepcid 20 mg Tablet] 20 mg PO DAILY 09/22/18 Furosemide [Lasix 40 mg Tablet] 40 mg PO DAILY 09/22/18 Risperidone [Risperdal 0.25 mg Tablet] 0.25 mg PO QHS 09/22/18 Risperidone [Risperdal] 0.25 mg PO DAILYP PRN 09/22/18 Roflumilast [Daliresp 500 mcg Tablet] 500 mcg PO DAILY 09/22/18 Allergies/Adverse Reactions: lisinopril [Lisinopril] Allergy (Verified 04/08/18 11:23) oxcarbazepine [Oxcarbazepine] Allergy (Verified 04/08/18 11:23) Review of Systems ROS unobtainable: Due to mental status Physical Exam Vital Signs: Temp Pulse Resp BP Pulse Ox 98.8 F 72 25 H 126/44 H 91 L 09/23/18 18:00 09/23/18 07:35 09/23/18 18:38 09/23/18 18:38 09/23/18 18:38 Intake & Output 09/22/18 09/23/18 09/24/18 06:59 06:59 06:59 Intake Total 3121 2379 Output Total 140 200 Balance 2981 2179 Weight 76.9 kg 76.9 kg General appearance: PRESENT: other - Patient is stuporous Eye exam: PRESENT: PERRLA Respiratory exam: PRESENT: clear to auscultation lauren Cardiovascular exam: PRESENT: +S1, +S2 GI/Abdominal exam: PRESENT: soft Neurological exam: PRESENT: alert, CN II-XII grossly intact Results Laboratory Results: 09/23/18 17:00 09/23/18 15:00 09/22/18 09/22/18 09/22/18 19:21 19:21 19:21 WBC RBC Hgb Hct MCV MCH MCHC RDW Plt Count Seg Neutrophils % Lymphocytes % Monocytes % Eosinophils % Basophils % Absolute Neutrophils Absolute Lymphocytes Absolute Monocytes Absolute Eosinophils Absolute Basophils Carbonic Acid HCO3/H2CO3 Ratio ABG pH ABG pCO2 ABG pO2 ABG HCO3 ABG O2 Saturation ABG Base Excess FiO2 Sodium 146.2 H Potassium 1.8 L* Chloride 110 H Carbon Dioxide 18 L Anion Gap 18 BUN 40 H Creatinine 2.67 H Est GFR ( Amer) 21 L Est GFR (Non-Af Amer) 17 L Glucose 123 H Lactic Acid 1.5 Calcium 7.7 L Phosphorus Magnesium 1.9 Total Bilirubin 3.7 H AST 18 ALT 13 Alkaline Phosphatase 50 Total Protein 5.8 L Albumin 2.8 L Triglycerides 09/23/18 09/23/18 09/23/18 01:22 05:30 05:30 WBC 13.8 H RBC 3.96 Hgb 9.0 L Hct 28.9 L MCV 73 L MCH 22.8 L MCHC 31.2 L RDW 19.6 H Plt Count 61 L Seg Neutrophils % Not Reportable Lymphocytes % Not Reportable Monocytes % Not Reportable Eosinophils % Not Reportable Basophils % Not Reportable Absolute Neutrophils Not Reportable Absolute Lymphocytes Not Reportable Absolute Monocytes Not Reportable Absolute Eosinophils Not Reportable Absolute Basophils Not Reportable Carbonic Acid 1.31 HCO3/H2CO3 Ratio 15:1 ABG pH 7.29 L ABG pCO2 43.5 ABG pO2 72.4 L ABG HCO3 20.4 ABG O2 Saturation 92.8 L ABG Base Excess -5.9 FiO2 100% Sodium Potassium 2.6 L* Chloride Carbon Dioxide Anion Gap BUN Creatinine Est GFR ( Amer) Est GFR (Non-Af Amer) Glucose Lactic Acid Calcium Phosphorus Magnesium Total Bilirubin AST ALT Alkaline Phosphatase Total Protein Albumin Triglycerides 09/23/18 09/23/18 09/23/18 05:30 08:06 10:26 WBC RBC Hgb Hct MCV MCH MCHC RDW Plt Count Seg Neutrophils % Lymphocytes % Monocytes % Eosinophils % Basophils % Absolute Neutrophils Absolute Lymphocytes Absolute Monocytes Absolute Eosinophils Absolute Basophils Carbonic Acid 1.16 HCO3/H2CO3 Ratio 16:1 ABG pH 7.30 L ABG pCO2 38.7 ABG pO2 61.1 L ABG HCO3 18.8 L ABG O2 Saturation 89.3 L ABG Base Excess -7.0 FiO2 90% Sodium 144.9 Potassium 2.9 L* 2.7 L* Chloride 111 H Carbon Dioxide 22 Anion Gap 12 BUN 45 H Creatinine 3.10 H Est GFR ( Amer) 17 L Est GFR (Non-Af Amer) 14 L Glucose 115 H Lactic Acid Calcium 8.0 L Phosphorus Magnesium 2.0 Total Bilirubin 4.1 H AST 16 ALT 15 Alkaline Phosphatase 45 Total Protein 5.7 L Albumin 2.6 L Triglycerides 134 09/23/18 09/23/18 09/23/18 15:00 17:00 17:00 WBC 14.0 H RBC 3.90 Hgb 8.9 L Hct 28.7 L MCV 74 L MCH 22.7 L MCHC 30.9 L RDW 19.7 H Plt Count 61 L Seg Neutrophils % Not Reportable Lymphocytes % Not Reportable Monocytes % Not Reportable Eosinophils % Not Reportable Basophils % Not Reportable Absolute Neutrophils Not Reportable Absolute Lymphocytes Not Reportable Absolute Monocytes Not Reportable Absolute Eosinophils Not Reportable Absolute Basophils Not Reportable Carbonic Acid 1.07 HCO3/H2CO3 Ratio 16:1 ABG pH 7.32 L ABG pCO2 35.5 ABG pO2 56.3 L ABG HCO3 17.8 L ABG O2 Saturation 87.2 L ABG Base Excess -7.6 FiO2 100% Sodium Potassium 2.9 L* Chloride Carbon Dioxide Anion Gap BUN Creatinine Est GFR ( Amer) Est GFR (Non-Af Amer) Glucose Lactic Acid Calcium Phosphorus 3.7 Magnesium Total Bilirubin AST ALT Alkaline Phosphatase Total Protein Albumin Triglycerides 09/22/18 09/22/18 09/23/18 19:21 19:21 01:22 Creatine Kinase 26 L < 20 L CK-MB (CK-2) 1.66 Troponin I 0.062 09/23/18 09/23/18 01:22 05:30 Creatine Kinase CK-MB (CK-2) 1.54 1.15 Troponin I 0.077 0.075 Impressions: KUB X-Ray 09/22/18 12:40 IMPRESSION: NO RADIOGRAPHIC EVIDENCE FOR ACUTE ABDOMINAL DISEASE. Chest X-Ray 09/23/18 07:00 IMPRESSION: Slightly improved bilateral pneumonia. Assessment & Plan - Diagnosis (1) Acute hypercapnic respiratory failure Is this a current diagnosis for this admission?: Yes Plan: Patient on mechanical ventilation initial vent setting ordered in the chart (2) Hypokalemia Is this a current diagnosis for this admission?: Yes Plan: She has profuse diarrhea, replace potassium loss (3) Acute kidney injury Is this a current diagnosis for this admission?: Yes (4) Pneumonia Qualifiers: Pneumonia type: due to unspecified organism Laterality: unspecified laterality Lung location: unspecified part of lung Qualified Code(s): J18.9 - Pneumonia, unspecified organism Is this a current diagnosis for this admission?: Yes Plan: She is a resident of assisted living facility, antibiotic coverage to cover healthcare associated pathogens including gram-negative rods, MRSA (5) Acute respiratory acidosis Is this a current diagnosis for this admission?: Yes (6) Thrombocytopenia Is this a current diagnosis for this admission?: Yes Plan: She has a history of hepatitis C,? liver cirrhosis (7) Sepsis Qualifiers: Sepsis type: sepsis due to unspecified organism Qualified Code(s): A41.9 - Sepsis, unspecified organism Is this a current diagnosis for this admission?: Yes Plan: Patient's condition is critical, there is evidence of multiple end organ dysfunction including encephalopathy, acute kidney injury - Plan Summary Plan Summary: Patient condition is very critical
--- NOTE | 2018-09-23 20:16 | PDOC PROGRESS REPORT ---
Subjective Progress Note for:: 09/23/18 Subjective:: Patient was seen by the bedside, still requiring mechanical ventilation Reason For Visit: PNEUMONIA,ACUTE HYPERCAPNIC AND HYPOXEMIC Physical Exam Vital Signs: Temp Pulse Resp BP Pulse Ox 98.8 F 76 25 H 126/44 H 91 L 09/23/18 18:00 09/23/18 19:00 09/23/18 18:38 09/23/18 18:38 09/23/18 18:38 Intake & Output 09/22/18 09/23/18 09/24/18 06:59 06:59 06:59 Intake Total 3121 2379 Output Total 140 200 Balance 2981 2179 Weight 76.9 kg 76.9 kg General appearance: PRESENT: other - Patient on mechanical ventilation Respiratory exam: PRESENT: clear to auscultation lauren Cardiovascular exam: PRESENT: +S1, +S2 GI/Abdominal exam: PRESENT: soft Neurological exam: PRESENT: other - Intubated Results Laboratory Results: 09/23/18 17:00 09/23/18 15:00 09/22/18 09/22/18 09/23/18 19:21 19:21 01:22 WBC RBC Hgb Hct MCV MCH MCHC RDW Plt Count Seg Neutrophils % Lymphocytes % Monocytes % Eosinophils % Basophils % Absolute Neutrophils Absolute Lymphocytes Absolute Monocytes Absolute Eosinophils Absolute Basophils Carbonic Acid HCO3/H2CO3 Ratio ABG pH ABG pCO2 ABG pO2 ABG HCO3 ABG O2 Saturation ABG Base Excess FiO2 Sodium 146.2 H Potassium 1.8 L* 2.6 L* Chloride 110 H Carbon Dioxide 18 L Anion Gap 18 BUN 40 H Creatinine 2.67 H Est GFR ( Amer) 21 L Est GFR (Non-Af Amer) 17 L Glucose 123 H Calcium 7.7 L Phosphorus Magnesium 1.9 Total Bilirubin 3.7 H AST 18 ALT 13 Alkaline Phosphatase 50 Total Protein 5.8 L Albumin 2.8 L Triglycerides 09/23/18 09/23/18 09/23/18 05:30 05:30 05:30 WBC 13.8 H RBC 3.96 Hgb 9.0 L Hct 28.9 L MCV 73 L MCH 22.8 L MCHC 31.2 L RDW 19.6 H Plt Count 61 L Seg Neutrophils % Not Reportable Lymphocytes % Not Reportable Monocytes % Not Reportable Eosinophils % Not Reportable Basophils % Not Reportable Absolute Neutrophils Not Reportable Absolute Lymphocytes Not Reportable Absolute Monocytes Not Reportable Absolute Eosinophils Not Reportable Absolute Basophils Not Reportable Carbonic Acid 1.31 HCO3/H2CO3 Ratio 15:1 ABG pH 7.29 L ABG pCO2 43.5 ABG pO2 72.4 L ABG HCO3 20.4 ABG O2 Saturation 92.8 L ABG Base Excess -5.9 FiO2 100% Sodium 144.9 Potassium 2.9 L* Chloride 111 H Carbon Dioxide 22 Anion Gap 12 BUN 45 H Creatinine 3.10 H Est GFR ( Amer) 17 L Est GFR (Non-Af Amer) 14 L Glucose 115 H Calcium 8.0 L Phosphorus Magnesium 2.0 Total Bilirubin 4.1 H AST 16 ALT 15 Alkaline Phosphatase 45 Total Protein 5.7 L Albumin 2.6 L Triglycerides 134 09/23/18 09/23/18 09/23/18 08:06 10:26 15:00 WBC RBC Hgb Hct MCV MCH MCHC RDW Plt Count Seg Neutrophils % Lymphocytes % Monocytes % Eosinophils % Basophils % Absolute Neutrophils Absolute Lymphocytes Absolute Monocytes Absolute Eosinophils Absolute Basophils Carbonic Acid 1.16 HCO3/H2CO3 Ratio 16:1 ABG pH 7.30 L ABG pCO2 38.7 ABG pO2 61.1 L ABG HCO3 18.8 L ABG O2 Saturation 89.3 L ABG Base Excess -7.0 FiO2 90% Sodium Potassium 2.7 L* 2.9 L* Chloride Carbon Dioxide Anion Gap BUN Creatinine Est GFR ( Amer) Est GFR (Non-Af Amer) Glucose Calcium Phosphorus 3.7 Magnesium Total Bilirubin AST ALT Alkaline Phosphatase Total Protein Albumin Triglycerides 09/23/18 09/23/18 17:00 17:00 WBC 14.0 H RBC 3.90 Hgb 8.9 L Hct 28.7 L MCV 74 L MCH 22.7 L MCHC 30.9 L RDW 19.7 H Plt Count 61 L Seg Neutrophils % Not Reportable Lymphocytes % Not Reportable Monocytes % Not Reportable Eosinophils % Not Reportable Basophils % Not Reportable Absolute Neutrophils Not Reportable Absolute Lymphocytes Not Reportable Absolute Monocytes Not Reportable Absolute Eosinophils Not Reportable Absolute Basophils Not Reportable Carbonic Acid 1.07 HCO3/H2CO3 Ratio 16:1 ABG pH 7.32 L ABG pCO2 35.5 ABG pO2 56.3 L ABG HCO3 17.8 L ABG O2 Saturation 87.2 L ABG Base Excess -7.6 FiO2 100% Sodium Potassium Chloride Carbon Dioxide Anion Gap BUN Creatinine Est GFR ( Amer) Est GFR (Non-Af Amer) Glucose Calcium Phosphorus Magnesium Total Bilirubin AST ALT Alkaline Phosphatase Total Protein Albumin Triglycerides 09/22/18 09/22/18 09/23/18 19:21 19:21 01:22 Creatine Kinase 26 L < 20 L CK-MB (CK-2) 1.66 Troponin I 0.062 09/23/18 09/23/18 01:22 05:30 Creatine Kinase CK-MB (CK-2) 1.54 1.15 Troponin I 0.077 0.075 Impressions: KUB X-Ray 09/22/18 12:40 IMPRESSION: NO RADIOGRAPHIC EVIDENCE FOR ACUTE ABDOMINAL DISEASE. Chest X-Ray 09/23/18 07:00 IMPRESSION: Slightly improved bilateral pneumonia. Assessment & Plan - Diagnosis (1) Acute hypercapnic respiratory failure Is this a current diagnosis for this admission?: Yes Plan: Continue mechanical ventilation (2) Hypokalemia Is this a current diagnosis for this admission?: Yes (3) Acute kidney injury Is this a current diagnosis for this admission?: Yes Plan: Patient developed oliguric kidney failure, increase infusion to normal saline 200 cc/hr, obtain consultation from nephrology (4) Pneumonia Qualifiers: Pneumonia type: due to unspecified organism Laterality: unspecified laterality Lung location: unspecified part of lung Qualified Code(s): J18.9 - Pneumonia, unspecified organism Is this a current diagnosis for this admission?: Yes (5) Acute respiratory acidosis Is this a current diagnosis for this admission?: Yes (6) Thrombocytopenia Is this a current diagnosis for this admission?: Yes (7) Sepsis Qualifiers: Sepsis type: sepsis due to unspecified organism Qualified Code(s): A41.9 - Sepsis, unspecified organism Is this a current diagnosis for this admission?: Yes Plan: Continue IV antibiotic
[2018-09-23] MEDS: IPRATROPIUM/ALBUTEROL 0.5-2.5 MG/3 ML AMPUL NEB SCH (20:49)
[2018-09-24] MEDS ORDERED: IPRATROPIUM/ALBUTEROL 0.5-2.5 MG/3 ML AMPUL NEB ONE (00:01)
[2018-09-24] MEDS: IPRATROPIUM/ALBUTEROL 0.5-2.5 MG/3 ML AMPUL NEB SCH ×3 (00:02→16:28)
--- NOTE | 2018-09-24 00:21 | CONSULTATION REPORT E ---
Consultation Report NAME: LORI MANZANARES : 1930 AGE: 87Y DATE: 09/23/2018 ROOM: 601 A TO: BENJAMIN POWELL M.D. FROM: LILI MCRAE M.D. Requesting Physician HISTORY OF PRESENT ILLNESS: The patient is an 87-year-old female who came in with acute respiratory failure requiring invasive mechanical ventilation yesterday. The patient was noted to be unresponsive, however, a few episodes of diarrhea. Thus eventually the patient was brought to the emergency room. PAST MEDICAL HISTORY: 1. Dementia. 2. COPD. 3. Chronic renal failure. 4. Hypertension. 5. Atrial fibrillation with rapid ventricular response. 6. Hepatitis C. 7. History of bipolar disorder. 8. Depression. 9. History of asthma. SOCIAL HISTORY: The patient was a smoker but current smoking status unknown. ALLERGIES: 1. LISINOPRIL. 2. OXCARBAZEPINE. FAMILY HISTORY: Not pertinent when reviewed. REVIEW OF SYSTEMS: CONSTITUTIONAL: Altered mental status noted prior to this admission. No fever or chills. Eyes; no jaundice or pallor. The rest of the review of systems is unknown. The patient is sedated and mechanically ventilated. PHYSICAL EXAMINATION: GENERAL: The patient appeared to be sedated, afebrile, not in apparent respiratory distress. VITAL SIGNS: Temperature of 99.9 with a T-max of 99.9, heart rate was 77 beats per minute, blood pressure is 136/44, respiratory is 35, saturation is 91% on 100% FiO2, PEEP of 7, SIMV rate of 18, tidal volume of 400, pressure support 10. EYES: No jaundice or pallor. EARS, NOSE, AND THROAT: No ear drainage. No nasal discharge. HEAD AND NECK: No scalp swelling, no neck tenderness. CHEST AND LUNGS: No wheezing, no rhonchi, no coarse crackles. CARDIOVASCULAR: S1, S2 distinct. Normal rate and regular rhythm. ABDOMEN: Flabby, positive bowel sounds, soft, nondistended. EXTREMITIES: No joint swelling, no cellulitis. LABORATORY DATA: CBC done yesterday showed a white count of 12.2, up to 14,000 today. Hemoglobin is 10, down to 8.9. Hematocrit is 34.2, down to 28.7 today 2 p.m. Platelet count is 74, down to 41. Chemistry done today showed sodium 144.9, potassium is 2.9 from 2.7 earlier, chloride is 111, carbon dioxide is 22, BUN is 45, creatinine is 3.10, calcium is 8, glucose is 112, magnesium is 2. IMAGING STUDIES: Chest x-ray done today showed diffuse bilateral infiltrates, pulmonary infiltrates suggestive of multilobar pneumonia. ASSESSMENT: 1. Acute respiratory failure requiring invasive mechanical ventilation. 2. Severe thrombocytopenia. 3. Pneumonia bilateral. 4. History of chronic obstructive pulmonary disease/asthma. 5. Diarrhea PLAN/RECOMMENDATIONS: 1. We will increase the PEEP to 8 and continue to trend FiO2 to keep saturation 91-94%. 2. We will start nebulizer treatment, DuoNeb, every 6 hours. 3. We will discontinue the cefepime IV and change to Zosyn 3.375 grams every 6 hours. We will add IV vancomycin 1 dose, pharmacy consulted to follow vancomycin levels and adjust dose. 4. Recommend continue NG tube feeding. 5. Resend the sputum culture done today. DICTATING PHYSICIAN: BENJAMIN POWELL MD,VIRA,MPH [id number] PHY#: [id number] 2021 ID: [id number] JOB#: [id number] ACCT: [id number] cc:BENJAMIN POWELL M.D. > MTDBridget
[2018-09-24] MEDS ORDERED: POTASSI CL 40 MEQ/NS 1L 1,000 ML IV ONE (00:44)
[2018-09-24] MEDS: POTASSI CL 40 MEQ/NS 1L 1,000 ML IV PRN ×2 (01:04→06:45)
[2018-09-24] MEDS: PROPOFOL 1,000 MG/100 ML INFUS..BTL IV PRN ×4 (01:04→23:03)
[2018-09-24] MEDS: PIPERACILLIN SODIUM/TAZOBACTAM 3.375 GM in NORMAL SALINE 100 ML IV SCH ×3 (01:04→17:46)
[2018-09-24] MEDS ORDERED: POTASSI CL 20 MEQ/50 ML RIDER 20 MEQ/50 ML RTUPB IV ONE (01:51)
[2018-09-24] MEDS: POTASSIUM CHLORIDE 20 MEQ/50 ML RTU IV SCH ×3 (01:55→05:59)
[2018-09-24 05:32] LABS: ARTERIAL BLOOD BASE EXCESS -12.6 mmol/L; ARTERIAL BLOOD H2CO3 1.26 mmol/L (1.05-1.35); ARTERIAL BLOOD HCO3 15.1 mmol/L (20-24); ARTERIAL BLOOD PCO2 41.8 mmHg (35-45); ARTERIAL BLOOD TOTAL CO2 16.4 mmol/L (21-25)
[2018-09-24 05:34] LABS: ARTERIAL BLOOD FIO2 100%
[2018-09-24 05:35] LABS: ARTERIAL BLOOD PH 7.18 (7.35-7.45)
[2018-09-24 05:36] LABS: HEMATOCRIT 29.1 % (36.0-47.0); MEAN CORPUSCULAR HEMOGLOBIN 22.9 pg (27.0-33.4); MEAN CORPUSCULAR HGB CONC 30.8 g/dL (32.0-36.0); MEAN CORPUSCULAR VOLUME 74 fl (80-97); RED BLOOD COUNT 3.91 10^6/uL (3.72-5.28); RED CELL DISTRIBUTION WIDTH 19.8 % (11.5-14.0)
[2018-09-24 05:40] LABS: PLATELET COUNT 61 10^3/uL (150-450)
[2018-09-24 05:41] LABS: HEPATITIS A AB IGM Negative (Negative); HEPATITIS B CORE AB IGM Negative (Negative); HEPATITS B SURFACE ANTIGEN Negative (Negative)
[2018-09-24 05:46] LABS: ALANINE AMINOTRANSFERASE 14 U/L (9-52); ALBUMIN 2.5 g/dL (3.5-5.0); ALKALINE PHOSPHATASE 55 U/L (38-126); ANION GAP 15 (5-19); ASPARTATE AMINO TRANSFERASE 24 U/L (14-36); BILIRUBIN,DIRECT 4.4 mg/dL (0.0-0.4); BILIRUBIN,TOTAL 4.9 mg/dL (0.2-1.3); BLOOD UREA NITROGEN 46 mg/dL (7-20); CARBON DIOXIDE 15 mmol/L (22-30); CHLORIDE 119 mmol/L (98-107); GLUCOSE 186 mg/dL (75-110); SODIUM 148.5 mmol/L (137-145); TOTAL PROTEIN 5.7 g/dL (6.3-8.2)
[2018-09-24 05:51] LABS: POTASSIUM 4.1 mmol/L (3.6-5.0)
[2018-09-24 05:58] LABS: ABSOLUTE LYMPHOCYTES# (MANUAL) 1.8 10^3/uL (0.5-4.7); ABSOLUTE MONOCYTES # (MANUAL) 0.5 10^3/uL (0.1-1.4); ABSOLUTE NEUTROPHILS# (MANUAL) 10.7 10^3/uL (1.7-8.2); BAND NEUTROPHILS % (MANUAL) 4 % (3-5); BASOPHILS % (MANUAL) 0 % (0-2); EOSINOPHILS % (MANUAL) 0 % (0-6); LYMPHOCYTES % (MANUAL) 13 % (13-45); MONOCYTES % (MANUAL) 4 % (3-13); NUCLEATED RED BLOOD CELLS 2 /100 WBC (0); SEGMENTED NEUTROPHILS % (MAN) 78 % (42-78); TOTAL CELLS COUNTED 100
[2018-09-24] MEDS: LANSOPRAZOLE 30 MG TAB.RAP.DR NG SCH ×2 (05:58→17:46)
[2018-09-24 06:00] LABS: ANISOCYTOSIS 2+; BURR CELLS 1+; HYPOCHROMASIA 1+; OVALOCYTES SLIGHT; PLATELET COMMENT DECREASED; POIKILOCYTOSIS 1+; TARGET CELLS 1+
[2018-09-24] MEDS ORDERED: SODIUM BICARBONATE 8.4% INJ 50 MEQ/50 ML DISP.SYRIN ONE (07:07)
[2018-09-24] MEDS ORDERED: DEXTROSE 5%-WATER 1000 ML 1,000 ML with SODIUM BICARBONATE 150 MEQ IV PRN ×2 (07:24)
--- NOTE | 2018-09-24 07:57 | RADIOLOGY REPORT (SQ) ---
CLINICAL HISTORY: on ventilator COMPARISON: September 23, 2018. TECHNIQUE: XR CHEST 1 VIEW 09/24/2018 5:00 AM CDT FINDINGS: Cardiac silhouette is normal in size. Extensive bilateral consolidations. There are small pleural effusions. There is no pneumothorax. There are no acute osseous findings. Endotracheal tube, nasogastric tube and right central line are unchanged. IMPRESSION: Worsening bilateral pneumonia.
[2018-09-24 08:38] LABS: HEPATITIS C VIRUS ANTIBODY >11.0 s/co ratio (0.0-0.9)
[2018-09-24] MEDS ORDERED: GENTAMICIN SULFATE INJ 80 MG/2 ML VIAL IV ONE (09:00)
[2018-09-24] MEDS: WATER FOR INJECTION,STERILE 1,000 ML with SODIUM BICARBONATE 150 MEQ IV PRN ×4 (09:29→23:03)
[2018-09-24] MEDS ORDERED: DEXTROSE 5%-WATER 250 ML with NOREPINEPHRINE BITARTRATE 4 MG IV PRN ×2 (10:06)
--- NOTE | 2018-09-24 10:58 | RADIOLOGY REPORT (SQ) ---
EXAM DESCRIPTION: U/S ABDOMEN COMPLETE W/O DOP COMPLETED DATE/TIME: 09/24/2018 10:36 am REASON FOR STUDY: intraabdominal sepsis. liver, GB, CBD kidney Exa COMPARISON: None. TECHNIQUE: Dynamic and static grayscale images acquired of the abdomen and recorded on PACS. Additio nal selected color Doppler and spectral images recorded. LIMITATIONS: None. FINDINGS: PANCREAS: No masses. Visualized pancreatic duct normal caliber. LIVER: No masses. The liver demonstrates a somewhat nodular contour. Perihepatic fluid is identifie d. LIVER VASCULATURE: Pulsatile flow of the main portal vein. GALLBLADDER: There is increased echogenicity in the gallbladder lumen consistent with biliary sludge. No definite gallstones are identified. There is some thickening of the gallbladder jordan and assoc iated pericholecystic fluid and the possibility of cholecystitis should be considered. ULTRASOUND-DETECTED ADAM'S SIGN: Patient is nonresponsive. INTRAHEPATIC DUCTS AND COMMON DUCT: CBD and intrahepatic ducts normal caliber. No filling defects. INFERIOR VENA CAVA: Normal flow. AORTA: No aneurysm. RIGHT KIDNEY: 9.9 cm in length. Normal echogenicity. No solid or suspicious masses. No hydrone phrosis. No calcifications. LEFT KIDNEY: 9.1 cm in length. Normal echogenicity. No solid or suspicious masses. No hydronep hrosis. No calcifications. SPLEEN: Normal size. No solid masses. Perisplenic ascitic fluid is identified. PERITONEAL AND PLEURAL SPACES: Perihepatic and perisplenic ascitic fluid is identified. OTHER: No other significant finding. IMPRESSION: Findings consistent with biliary sludge. There is thickening of the gallbladder jordan a nd pericholecystic fluid. The possibility of cholecystitis should be considered. Perihepatic and pe risplenic ascitic fluid is identified. The liver demonstrates a somewhat nodular contour. Other fin dings as noted above TECHNICAL DOCUMENTATION: JOB ID: [id number] [employer]- All Rights Reserved Reading location - IP/workstation name: [email or web address]
[2018-09-24 11:27] LABS: ARTERIAL BLOOD BASE EXCESS -12.9 mmol/L; ARTERIAL BLOOD H2CO3 1.28 mmol/L (1.05-1.35); ARTERIAL BLOOD O2 SATURATION 90.2 % (94-98); ARTERIAL BLOOD PCO2 42.4 mmHg (35-45); ARTERIAL BLOOD PO2 72.4 mmHg (80-100); ARTERIAL BLOOD TOTAL CO2 16.3 mmol/L (21-25)
[2018-09-24 11:28] LABS: ARTERIAL BLOOD FIO2 100%
[2018-09-24 11:29] LABS: ARTERIAL BLOOD PH 7.17 (7.35-7.45)
[2018-09-24] MEDS ORDERED: SODIUM BICARBONATE 8.4% INJ 50 MEQ/50 ML DISP.SYRIN IV ONE (12:45)
--- NOTE | 2018-09-24 14:22 | PDOC PROGRESS REPORT ---
Subjective Progress Note for:: 09/24/18 Reason For Visit: Pt seen in the ICU today. She remains intubated and sedated. Discussion were carried out with her treating nurse Marixa. She has deteriorated since I last saw her. Her BP is dropping, as is her urine output that has become anuric. Note that her antibiotics have been widened to become more broad spectrum. She still continues ot have intermittent diarrhea. C Diff negative. GI referral has been placed but there is no one instrument mechanic weapons system. No family has been in yet to see her. Labs and medications were reviewed with the RN. Physical Exam Vital Signs: Temp Pulse Resp BP Pulse Ox 97.5 F 80 21 H 115/49 L 90 L 09/24/18 12:00 09/24/18 12:00 09/24/18 12:00 09/24/18 12:00 09/24/18 12:00 Intake & Output 09/23/18 09/24/18 09/25/18 06:59 06:59 06:59 Intake Total 3121 5192 Output Total 140 490 45 Balance 2981 4702 -45 Weight 76.9 kg 82.2 kg Exam: She remains intubated and sedated Respiratory exam: PRESENT: clear to auscultation lauren, crackles. ABSENT: rhonchi Cardiovascular exam: PRESENT: +S1, +S2, systolic murmur GI/Abdominal exam: PRESENT: normal bowel sounds, soft. ABSENT: organomegaly, tenderness Skin exam: PRESENT: intact. ABSENT: erythema, rash Results Laboratory Results: 09/24/18 05:23 09/24/18 05:23 09/23/18 09/23/18 09/23/18 15:00 17:00 17:00 WBC 14.0 H RBC 3.90 Hgb 8.9 L Hct 28.7 L MCV 74 L MCH 22.7 L MCHC 30.9 L RDW 19.7 H Plt Count 61 L Seg Neutrophils % Not Reportable Lymphocytes % Not Reportable Monocytes % Not Reportable Eosinophils % Not Reportable Basophils % Not Reportable Absolute Neutrophils Not Reportable Absolute Lymphocytes Not Reportable Absolute Monocytes Not Reportable Absolute Eosinophils Not Reportable Absolute Basophils Not Reportable Carbonic Acid 1.07 HCO3/H2CO3 Ratio 16:1 ABG pH 7.32 L ABG pCO2 35.5 ABG pO2 56.3 L ABG HCO3 17.8 L ABG O2 Saturation 87.2 L ABG Base Excess -7.6 FiO2 100% Sodium Potassium 2.9 L* Chloride Carbon Dioxide Anion Gap BUN Creatinine Est GFR ( Amer) Est GFR (Non-Af Amer) Glucose Lactic Acid Calcium Phosphorus 3.7 Total Bilirubin AST ALT Alkaline Phosphatase Total Protein Albumin 09/24/18 09/24/18 09/24/18 00:59 05:23 05:23 WBC RBC Hgb Hct MCV MCH MCHC RDW Plt Count Seg Neutrophils % Lymphocytes % Monocytes % Eosinophils % Basophils % Absolute Neutrophils Absolute Lymphocytes Absolute Monocytes Absolute Eosinophils Absolute Basophils Carbonic Acid 1.26 HCO3/H2CO3 Ratio 11:1 ABG pH 7.18 L* ABG pCO2 41.8 ABG pO2 61.0 L ABG HCO3 15.1 L ABG O2 Saturation 85.0 L ABG Base Excess -12.6 FiO2 100% Sodium 148.5 H Potassium 2.8 L* 4.1 D Chloride 119 H Carbon Dioxide 15 L Anion Gap 15 BUN 46 H Creatinine 3.18 H Est GFR ( Amer) 17 L Est GFR (Non-Af Amer) 14 L Glucose 186 H Lactic Acid Calcium 8.0 L Phosphorus Total Bilirubin 4.9 H AST 24 ALT 14 Alkaline Phosphatase 55 Total Protein 5.7 L Albumin 2.5 L 09/24/18 09/24/18 09/24/18 05:23 06:50 11:00 WBC 13.0 H RBC 3.91 Hgb 9.0 L Hct 29.1 L MCV 74 L MCH 22.9 L MCHC 30.8 L RDW 19.8 H Plt Count 61 L Seg Neutrophils % Not Reportable Lymphocytes % Not Reportable Monocytes % Not Reportable Eosinophils % Not Reportable Basophils % Not Reportable Absolute Neutrophils Not Reportable Absolute Lymphocytes Not Reportable Absolute Monocytes Not Reportable Absolute Eosinophils Not Reportable Absolute Basophils Not Reportable Carbonic Acid HCO3/H2CO3 Ratio ABG pH ABG pCO2 ABG pO2 ABG HCO3 ABG O2 Saturation ABG Base Excess FiO2 Sodium Potassium Chloride Carbon Dioxide Anion Gap BUN Creatinine Est GFR ( Amer) Est GFR (Non-Af Amer) Glucose Lactic Acid 2.8 H 3.4 H Calcium Phosphorus Total Bilirubin AST ALT Alkaline Phosphatase Total Protein Albumin 09/24/18 11:00 WBC RBC Hgb Hct MCV MCH MCHC RDW Plt Count Seg Neutrophils % Lymphocytes % Monocytes % Eosinophils % Basophils % Absolute Neutrophils Absolute Lymphocytes Absolute Monocytes Absolute Eosinophils Absolute Basophils Carbonic Acid 1.28 HCO3/H2CO3 Ratio 11:1 ABG pH 7.17 L* ABG pCO2 42.4 ABG pO2 72.4 L ABG HCO3 15.0 L ABG O2 Saturation 90.2 L ABG Base Excess -12.9 FiO2 100% Sodium Potassium Chloride Carbon Dioxide Anion Gap BUN Creatinine Est GFR ( Amer) Est GFR (Non-Af Amer) Glucose Lactic Acid Calcium Phosphorus Total Bilirubin AST ALT Alkaline Phosphatase Total Protein Albumin 09/22/18 09/22/18 09/23/18 19:21 19:21 01:22 Creatine Kinase 26 L < 20 L CK-MB (CK-2) 1.66 Troponin I 0.062 09/23/18 09/23/18 01:22 05:30 Creatine Kinase CK-MB (CK-2) 1.54 1.15 Troponin I 0.077 0.075 Impressions: KUB X-Ray 09/22/18 12:40 IMPRESSION: NO RADIOGRAPHIC EVIDENCE FOR ACUTE ABDOMINAL DISEASE. Chest X-Ray 09/24/18 05:00 IMPRESSION: Worsening bilateral pneumonia. Abdomen Ultrasound 09/24/18 10:00 IMPRESSION: Findings consistent with biliary sludge. There is thickening of the gallbladder jordan and pericholecystic fluid. The possibility of cholecystitis should be considered. Perihepatic and perisplenic ascitic fluid is identified. The liver demonstrates a somewhat nodular contour. Other findings as noted above Assessment & Plan - Diagnosis (1) Acute kidney injury Plan: Worsening and she has now become anuric and is going into septic shock. Will start her on Levophed. Overall very poor prognosis. With her overall comorbitites she is not a candidate for renal replacements. She is reaching a point where she will need to be on CRRT. Discuss with her treating nurse Marixa that we should place an order with social work to contact her next of kin for immediate decision. On the other hand if they want everything to be done she needs to be moved to tertiary care center which has the capabilities of CRRT. Discuss with treating nurse and Dr. Blake (2) Diarrhea Plan: Active of unknown etiology. Defer to GI consult when available. Consider antidiarrheal if feeding tube can be placed. (3) Hypokalemia Plan: Improving and relatively stable now (4) Pneumonia Qualifiers: Plan: On antibiotics (5) Acute hypoxemic respiratory failure Plan: Intubated and sedated (6) Atrial fibrillation with rapid ventricular response Plan: rate controlled (7) Dementia Qualifiers: Dementia type: Alzheimer's disease Alzheimer's disease onset: late-onset Dementia behavioral disturbance: with behavioral disturbance Qualified Code(s) : G30.1 - Alzheimer's disease with late onset; F02.81 - Dementia in other diseases classified elsewhere with behavioral disturbance; F02.81 - Dementia in other diseases classified elsewhere with behavioral disturbance; F02.81 - Dementia in other diseases classified elsewhere with behavioral disturbance (8) CKD (chronic kidney disease) Plan: 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 Will start on bicarb infusions and titrate. Will ultimately need help of renal replacement therapies.
[2018-09-24] MEDS: GENTAMICIN SULFATE 140 MG in DEXTROSE 5%-WATER 100 ML IV SCH (15:05)
[2018-09-24 15:23] LABS: ANION GAP 15 (5-19); BLOOD UREA NITROGEN 49 mg/dL (7-20); CALCIUM 8.2 mg/dL (8.4-10.2); CARBON DIOXIDE 17 mmol/L (22-30); CHLORIDE 118 mmol/L (98-107); GLUCOSE 193 mg/dL (75-110); POTASSIUM 3.6 mmol/L (3.6-5.0); SODIUM 149.6 mmol/L (137-145)
[2018-09-24] MEDS ORDERED: LEVOFLOXACIN 500 MG/D5W RTU 500 MG/100 ML RTUPB IV SCH (18:00)
[2018-09-24] MEDS ORDERED: METRONIDAZOLE 500 MG/NS RTU 500 MG/100 ML RTUPB IV SCH (19:30)
[2018-09-24] MEDS ORDERED: NORMAL SALINE 1000 ML 1,000 ML IV PRN (20:00)
--- NOTE | 2018-09-24 20:47 | PDOC PROGRESS REPORT ---
Subjective Progress Note for:: 09/24/18 Subjective:: Patient's condition is very critical, she has hepatitis C liver cirrhosis, ultrasound of the abdomen demonstrated nodular liver, sepsis complicated with acute kidney injury, oliguric, respiratory failure from combination of severe COPD and pneumonia, polysubstance abuse, dementia. Discussed with family about patient's condition, how aggressive they want to pursue arterial, she may require CRRT according to the nail specialist Reason For Visit: PNEUMONIA,ACUTE HYPERCAPNIC AND HYPOXEMIC Physical Exam Vital Signs: Temp Pulse Resp BP Pulse Ox 97.3 F 90 19 115/45 L 94 09/24/18 16:00 09/24/18 17:58 09/24/18 20:29 09/24/18 20:29 09/24/18 20:29 Intake & Output 09/23/18 09/24/18 09/25/18 06:59 06:59 06:59 Intake Total 3121 5192 390 Output Total 140 490 185 Balance 2981 4702 205 Weight 76.9 kg 82.2 kg Respiratory exam: PRESENT: crackles, rhonchi Cardiovascular exam: PRESENT: irregular rhythm, +S1, +S2 GI/Abdominal exam: PRESENT: soft Results Laboratory Results: 09/24/18 05:23 09/24/18 14:40 09/24/18 09/24/18 09/24/18 00:59 05:23 05:23 WBC RBC Hgb Hct MCV MCH MCHC RDW Plt Count Seg Neutrophils % Lymphocytes % Monocytes % Eosinophils % Basophils % Absolute Neutrophils Absolute Lymphocytes Absolute Monocytes Absolute Eosinophils Absolute Basophils Carbonic Acid 1.26 HCO3/H2CO3 Ratio 11:1 ABG pH 7.18 L* ABG pCO2 41.8 ABG pO2 61.0 L ABG HCO3 15.1 L ABG O2 Saturation 85.0 L ABG Base Excess -12.6 FiO2 100% Sodium 148.5 H Potassium 2.8 L* 4.1 D Chloride 119 H Carbon Dioxide 15 L Anion Gap 15 BUN 46 H Creatinine 3.18 H Est GFR ( Amer) 17 L Est GFR (Non-Af Amer) 14 L Glucose 186 H Lactic Acid Calcium 8.0 L Total Bilirubin 4.9 H AST 24 ALT 14 Alkaline Phosphatase 55 Total Protein 5.7 L Albumin 2.5 L 09/24/18 09/24/18 09/24/18 05:23 06:50 11:00 WBC 13.0 H RBC 3.91 Hgb 9.0 L Hct 29.1 L MCV 74 L MCH 22.9 L MCHC 30.8 L RDW 19.8 H Plt Count 61 L Seg Neutrophils % Not Reportable Lymphocytes % Not Reportable Monocytes % Not Reportable Eosinophils % Not Reportable Basophils % Not Reportable Absolute Neutrophils Not Reportable Absolute Lymphocytes Not Reportable Absolute Monocytes Not Reportable Absolute Eosinophils Not Reportable Absolute Basophils Not Reportable Carbonic Acid HCO3/H2CO3 Ratio ABG pH ABG pCO2 ABG pO2 ABG HCO3 ABG O2 Saturation ABG Base Excess FiO2 Sodium Potassium Chloride Carbon Dioxide Anion Gap BUN Creatinine Est GFR ( Amer) Est GFR (Non-Af Amer) Glucose Lactic Acid 2.8 H 3.4 H Calcium Total Bilirubin AST ALT Alkaline Phosphatase Total Protein Albumin 09/24/18 09/24/18 11:00 14:40 WBC RBC Hgb Hct MCV MCH MCHC RDW Plt Count Seg Neutrophils % Lymphocytes % Monocytes % Eosinophils % Basophils % Absolute Neutrophils Absolute Lymphocytes Absolute Monocytes Absolute Eosinophils Absolute Basophils Carbonic Acid 1.28 HCO3/H2CO3 Ratio 11:1 ABG pH 7.17 L* ABG pCO2 42.4 ABG pO2 72.4 L ABG HCO3 15.0 L ABG O2 Saturation 90.2 L ABG Base Excess -12.9 FiO2 100% Sodium 149.6 H Potassium 3.6 Chloride 118 H Carbon Dioxide 17 L Anion Gap 15 BUN 49 H Creatinine 3.15 H Est GFR ( Amer) 17 L Est GFR (Non-Af Amer) 14 L Glucose 193 H Lactic Acid Calcium 8.2 L Total Bilirubin AST ALT Alkaline Phosphatase Total Protein Albumin 09/22/18 09/22/18 09/23/18 19:21 19:21 01:22 Creatine Kinase 26 L < 20 L CK-MB (CK-2) 1.66 Troponin I 0.062 09/23/18 09/23/18 01:22 05:30 Creatine Kinase CK-MB (CK-2) 1.54 1.15 Troponin I 0.077 0.075 Impressions: KUB X-Ray 09/22/18 12:40 IMPRESSION: NO RADIOGRAPHIC EVIDENCE FOR ACUTE ABDOMINAL DISEASE. Chest X-Ray 09/24/18 05:00 IMPRESSION: Worsening bilateral pneumonia. Abdomen Ultrasound 09/24/18 10:00 IMPRESSION: Findings consistent with biliary sludge. There is thickening of the gallbladder jordan and pericholecystic fluid. The possibility of cholecystitis should be considered. Perihepatic and perisplenic ascitic fluid is identified. The liver demonstrates a somewhat nodular contour. Other findings as noted above Assessment & Plan - Diagnosis (1) Acute hypercapnic respiratory failure Is this a current diagnosis for this admission?: Yes Plan: Continue mechanical ventilation (2) Hypokalemia Is this a current diagnosis for this admission?: Yes (3) Acute kidney injury Is this a current diagnosis for this admission?: Yes (4) Pneumonia Qualifiers: Pneumonia type: due to unspecified organism Laterality: unspecified laterality Lung location: unspecified part of lung Qualified Code(s): J18.9 - Pneumonia, unspecified organism Is this a current diagnosis for this admission?: Yes (5) Acute respiratory acidosis Is this a current diagnosis for this admission?: Yes (6) Thrombocytopenia Is this a current diagnosis for this admission?: Yes (7) Sepsis Qualifiers: Sepsis type: sepsis due to unspecified organism Qualified Code(s): A41.9 - Sepsis, unspecified organism Is this a current diagnosis for this admission?: Yes (8) Liver cirrhosis Qualifiers: Hepatic cirrhosis type: other cirrhosis Qualified Code(s): K74.69 - Other cirrhosis of liver Is this a current diagnosis for this admission?: Yes (9) Septic shock Is this a current diagnosis for this admission?: Yes (10) Metabolic encephalopathy Is this a current diagnosis for this admission?: Yes
[2018-09-24 20:55] LABS: ARTERIAL BLOOD BASE EXCESS -9.8 mmol/L; ARTERIAL BLOOD H2CO3 1.25 mmol/L (1.05-1.35); ARTERIAL BLOOD HCO3 17.1 mmol/L (20-24); ARTERIAL BLOOD O2 SATURATION 91.7 % (94-98); ARTERIAL BLOOD PCO2 41.6 mmHg (35-45); ARTERIAL BLOOD PH 7.23 (7.35-7.45); ARTERIAL BLOOD PO2 72.1 mmHg (80-100); ARTERIAL BLOOD TOTAL CO2 18.4 mmol/L (21-25)
[2018-09-24 20:57] LABS: ABSOLUTE LYMPHOCYTES (AUTO) 1.3 10^3/uL (0.5-4.7); ABSOLUTE MONOCYTES (AUTO) 1.1 10^3/uL (0.1-1.4); ABSOLUTE NEUT (AUTO) 10.8 10^3/uL (1.7-8.2); ARTERIAL BLOOD FIO2 100%; BASOPHILS % (AUTO) 0.2 % (0-2); EOSINOPHILS % (AUTO) 0.1 % (0-6); HEMATOCRIT 28.4 % (36.0-47.0); HEMOGLOBIN 8.7 g/dL (12.0-15.5); LYMPHOCYTES % (AUTO) 9.9 % (13-45); MEAN CORPUSCULAR HEMOGLOBIN 22.6 pg (27.0-33.4); MEAN CORPUSCULAR HGB CONC 30.7 g/dL (32.0-36.0); MEAN CORPUSCULAR VOLUME 74 fl (80-97); MONOCYTES % (AUTO) 8.3 % (3-13); RED BLOOD COUNT 3.87 10^6/uL (3.72-5.28); SEGMENTED NEUTROPHILS % (AUTO) 81.5 % (42-78); TOTAL CELLS COUNTED % (AUTO) 100 %; WHITE BLOOD COUNT 13.2 10^3/uL (4.0-10.5)
[2018-09-24 21:06] LABS: ANION GAP 12 (5-19); BLOOD UREA NITROGEN 48 mg/dL (7-20); CALCIUM 8.1 mg/dL (8.4-10.2); CARBON DIOXIDE 19 mmol/L (22-30); CHLORIDE 117 mmol/L (98-107); GLUCOSE 167 mg/dL (75-110); POTASSIUM 3.2 mmol/L (3.6-5.0); SODIUM 148.4 mmol/L (137-145)
[2018-09-24 21:19] LABS: ANISOCYTOSIS 2+; PLATELET COUNT 60 10^3/uL (150-450); POLYCHROMASIA SLIGHT
[2018-09-24 21:20] LABS: HYPOCHROMASIA 2+; OVALOCYTES SLIGHT; PLATELET COMMENT DECREASED; TARGET CELLS 2+
[2018-09-24] MEDS: METRONIDAZOLE 500 MG/NS RTU 500 MG/100 ML RTUPB IV SCH (23:03)
[2018-09-25] MEDS: IPRATROPIUM/ALBUTEROL 0.5-2.5 MG/3 ML AMPUL NEB SCH ×4 (00:32→23:44)
[2018-09-25] MEDS ORDERED: FUROSEMIDE INJ/PF 40 MG/4 ML SDV IV ONE (01:30)
[2018-09-25] MEDS ORDERED: AMIODARONE HCL 200 MG TABLET NG ONE (02:15)
[2018-09-25] MEDS ORDERED: AMIODARONE HCL 200 MG TABLET PO ONE (02:15)
[2018-09-25] MEDS: PIPERACILLIN SODIUM/TAZOBACTAM 3.375 GM in NORMAL SALINE 100 ML IV SCH ×3 (02:27→17:20)
[2018-09-25 06:21] LABS: ABSOLUTE LYMPHOCYTES (AUTO) 2.5 10^3/uL (0.5-4.7); ABSOLUTE MONOCYTES (AUTO) 1.1 10^3/uL (0.1-1.4); ABSOLUTE NEUT (AUTO) 10.7 10^3/uL (1.7-8.2); BASOPHILS % (AUTO) 0.2 % (0-2); EOSINOPHILS % (AUTO) 0.2 % (0-6); HEMATOCRIT 29.5 % (36.0-47.0); HEMOGLOBIN 9.1 g/dL (12.0-15.5); LYMPHOCYTES % (AUTO) 17.3 % (13-45); MEAN CORPUSCULAR HEMOGLOBIN 22.6 pg (27.0-33.4); MEAN CORPUSCULAR HGB CONC 30.9 g/dL (32.0-36.0); MEAN CORPUSCULAR VOLUME 73 fl (80-97); MONOCYTES % (AUTO) 7.7 % (3-13); RED BLOOD COUNT 4.04 10^6/uL (3.72-5.28); RED CELL DISTRIBUTION WIDTH 19.8 % (11.5-14.0); SEGMENTED NEUTROPHILS % (AUTO) 74.6 % (42-78); TOTAL CELLS COUNTED % (AUTO) 100 %; WHITE BLOOD COUNT 14.4 10^3/uL (4.0-10.5)
[2018-09-25] MEDS: LANSOPRAZOLE 30 MG TAB.RAP.DR NG SCH ×2 (06:24→17:20)
[2018-09-25] MEDS: METRONIDAZOLE 500 MG/NS RTU 500 MG/100 ML RTUPB IV SCH ×3 (06:25→21:43)
[2018-09-25 06:26] LABS: ARTERIAL BLOOD BASE EXCESS -8.2 mmol/L; ARTERIAL BLOOD H2CO3 1.34 mmol/L (1.05-1.35); ARTERIAL BLOOD HCO3 18.7 mmol/L (20-24); ARTERIAL BLOOD O2 SATURATION 88.4 % (94-98); ARTERIAL BLOOD PCO2 44.5 mmHg (35-45); ARTERIAL BLOOD PH 7.24 (7.35-7.45); ARTERIAL BLOOD PO2 63.3 mmHg (80-100); ARTERIAL BLOOD TOTAL CO2 20.1 mmol/L (21-25)
[2018-09-25 06:30] LABS: ARTERIAL BLOOD FIO2 100%
[2018-09-25 06:40] LABS: ALANINE AMINOTRANSFERASE 19 U/L (9-52); ALBUMIN 2.4 g/dL (3.5-5.0); ALKALINE PHOSPHATASE 53 U/L (38-126); ANION GAP 15 (5-19); ASPARTATE AMINO TRANSFERASE 22 U/L (14-36); BILIRUBIN,DIRECT 3.6 mg/dL (0.0-0.4); BLOOD UREA NITROGEN 47 mg/dL (7-20); CALCIUM 8.1 mg/dL (8.4-10.2); CARBON DIOXIDE 20 mmol/L (22-30); CHLORIDE 116 mmol/L (98-107); GLUCOSE 138 mg/dL (75-110); SODIUM 150.9 mmol/L (137-145); TOTAL PROTEIN 5.6 g/dL (6.3-8.2)
[2018-09-25 06:42] LABS: PLATELET COUNT 60 10^3/uL (150-450)
[2018-09-25 06:45] LABS: POTASSIUM 2.9 mmol/L (3.6-5.0)
--- NOTE | 2018-09-25 07:20 | RADIOLOGY REPORT (SQ) ---
CLINICAL HISTORY: ventilator COMPARISON: September 24, 2018. TECHNIQUE: XR CHEST 1 VIEW 09/25/2018 5:00 AM CDT FINDINGS: Cardiac silhouette is normal in size. There is extensive airspace disease throughout both lungs with relative sparing of the left upper lobe. There is a right pleural effusion. There is no pneumothorax. There are no acute osseous findings. Endotracheal tube and nasogastric tubes are unchanged. Right central line is unchanged. IMPRESSION: Relatively no change.
[2018-09-25] MEDS: POTASSIUM CHLORIDE 20 MEQ/50 ML RTU IV SCH ×5 (08:06→21:43)
[2018-09-25] MEDS: AMIODARONE HCL 200 MG TABLET NG SCH (09:51)
[2018-09-25] MEDS: WATER FOR INJECTION,STERILE 1,000 ML with SODIUM BICARBONATE 150 MEQ IV PRN ×4 (09:51→21:46)
[2018-09-25] MEDS: PROPOFOL 1,000 MG/100 ML INFUS..BTL IV PRN ×2 (10:05→20:08)
--- NOTE | 2018-09-25 14:59 | PDOC PROGRESS REPORT ---
Subjective Progress Note for:: 09/25/18 Subjective:: Patient remains sedated, very oliguric, spoke to the POA regarding patient's condition, POA in agreement with DNR status. She is not a candidate for continuous renal replacement therapy, CRRT, urine output is very minimal, multiple organ failure in the setting of sepsis. Reason For Visit: PNEUMONIA,ACUTE HYPERCAPNIC AND HYPOXEMIC Physical Exam Vital Signs: Temp Pulse Resp BP Pulse Ox 97.4 F 94 21 H 108/58 L 91 L 09/25/18 10:00 09/25/18 08:41 09/25/18 10:00 09/25/18 09:58 09/25/18 12:06 Intake & Output 09/24/18 09/25/18 09/26/18 06:59 06:59 06:59 Intake Total 5242 2982.5 1400 Output Total 490 560 125 Balance 4752 2422.5 1275 Weight 82.2 kg 85.4 kg Eye exam: PRESENT: PERRLA Respiratory exam: PRESENT: rhonchi Cardiovascular exam: PRESENT: +S1, +S2 GI/Abdominal exam: PRESENT: soft Results Laboratory Results: 09/25/18 06:00 09/25/18 06:00 09/24/18 09/24/18 09/24/18 14:40 20:35 20:35 WBC RBC Hgb Hct MCV MCH MCHC RDW Plt Count Seg Neutrophils % Lymphocytes % Monocytes % Eosinophils % Basophils % Absolute Neutrophils Absolute Lymphocytes Absolute Monocytes Absolute Eosinophils Absolute Basophils Carbonic Acid 1.25 HCO3/H2CO3 Ratio 13:1 ABG pH 7.23 L ABG pCO2 41.6 ABG pO2 72.1 L ABG HCO3 17.1 L ABG O2 Saturation 91.7 L ABG Base Excess -9.8 FiO2 100% Sodium 149.6 H 148.4 H Potassium 3.6 3.2 L Chloride 118 H 117 H Carbon Dioxide 17 L 19 L Anion Gap 15 12 BUN 49 H 48 H Creatinine 3.15 H 2.81 H Est GFR ( Amer) 17 L 19 L Est GFR (Non-Af Amer) 14 L 16 L Glucose 193 H 167 H Calcium 8.2 L 8.1 L Magnesium Total Bilirubin AST ALT Alkaline Phosphatase Total Protein Albumin 09/24/18 09/25/18 09/25/18 20:35 06:00 06:00 WBC 13.2 H 14.4 H RBC 3.87 4.04 Hgb 8.7 L 9.1 L Hct 28.4 L 29.5 L MCV 74 L 73 L MCH 22.6 L 22.6 L MCHC 30.7 L 30.9 L RDW 20.0 H 19.8 H Plt Count 60 L 60 L Seg Neutrophils % 81.5 H 74.6 Lymphocytes % 9.9 L 17.3 Monocytes % 8.3 7.7 Eosinophils % 0.1 0.2 Basophils % 0.2 0.2 Absolute Neutrophils 10.8 H 10.7 H Absolute Lymphocytes 1.3 2.5 Absolute Monocytes 1.1 1.1 Absolute Eosinophils 0.0 0.0 Absolute Basophils 0.0 0.0 Carbonic Acid HCO3/H2CO3 Ratio ABG pH ABG pCO2 ABG pO2 ABG HCO3 ABG O2 Saturation ABG Base Excess FiO2 Sodium 150.9 H Potassium 2.9 L* Chloride 116 H Carbon Dioxide 20 L Anion Gap 15 BUN 47 H Creatinine 3.13 H Est GFR ( Amer) 17 L Est GFR (Non-Af Amer) 14 L Glucose 138 H Calcium 8.1 L Magnesium 2.0 Total Bilirubin 4.0 H AST 22 ALT 19 Alkaline Phosphatase 53 Total Protein 5.6 L Albumin 2.4 L 09/25/18 06:00 WBC RBC Hgb Hct MCV MCH MCHC RDW Plt Count Seg Neutrophils % Lymphocytes % Monocytes % Eosinophils % Basophils % Absolute Neutrophils Absolute Lymphocytes Absolute Monocytes Absolute Eosinophils Absolute Basophils Carbonic Acid 1.34 HCO3/H2CO3 Ratio 13:1 ABG pH 7.24 L ABG pCO2 44.5 ABG pO2 63.3 L ABG HCO3 18.7 L ABG O2 Saturation 88.4 L ABG Base Excess -8.2 FiO2 100% Sodium Potassium Chloride Carbon Dioxide Anion Gap BUN Creatinine Est GFR ( Amer) Est GFR (Non-Af Amer) Glucose Calcium Magnesium Total Bilirubin AST ALT Alkaline Phosphatase Total Protein Albumin 09/22/18 09/22/18 09/23/18 19:21 19:21 01:22 Creatine Kinase 26 L < 20 L CK-MB (CK-2) 1.66 Troponin I 0.062 09/23/18 09/23/18 01:22 05:30 Creatine Kinase CK-MB (CK-2) 1.54 1.15 Troponin I 0.077 0.075 Impressions: KUB X-Ray 09/22/18 12:40 IMPRESSION: NO RADIOGRAPHIC EVIDENCE FOR ACUTE ABDOMINAL DISEASE. Abdomen Ultrasound 09/24/18 10:00 IMPRESSION: Findings consistent with biliary sludge. There is thickening of the gallbladder jordan and pericholecystic fluid. The possibility of cholecystitis should be considered. Perihepatic and perisplenic ascitic fluid is identified. The liver demonstrates a somewhat nodular contour. Other findings as noted above Chest X-Ray 09/25/18 05:00 IMPRESSION: Relatively no change. Assessment & Plan - Diagnosis (1) Acute hypercapnic respiratory failure Is this a current diagnosis for this admission?: Yes (2) Hypokalemia Is this a current diagnosis for this admission?: Yes (3) Acute kidney injury Is this a current diagnosis for this admission?: Yes (4) Pneumonia Qualifiers: Pneumonia type: due to unspecified organism Laterality: unspecified laterality Lung location: unspecified part of lung Qualified Code(s): J18.9 - Pneumonia, unspecified organism Is this a current diagnosis for this admission?: Yes (5) Acute respiratory acidosis Is this a current diagnosis for this admission?: Yes (6) Thrombocytopenia Is this a current diagnosis for this admission?: Yes (7) Sepsis Qualifiers: Sepsis type: sepsis due to unspecified organism Qualified Code(s): A41.9 - Sepsis, unspecified organism Is this a current diagnosis for this admission?: Yes (8) Liver cirrhosis Qualifiers: Hepatic cirrhosis type: other cirrhosis Qualified Code(s): K74.69 - Other cirrhosis of liver Is this a current diagnosis for this admission?: Yes (9) Septic shock Is this a current diagnosis for this admission?: Yes (10) Metabolic encephalopathy Is this a current diagnosis for this admission?: Yes (11) Atrial fibrillation Qualifiers: Atrial fibrillation type: paroxysmal Qualified Code(s): I48.0 - Paroxysmal atrial fibrillation Is this a current diagnosis for this admission?: Yes - Plan Summary Plan Summary: Patient DNR status, continue vent support, continue IV antibiotic, prognosis is poor
[2018-09-25] MEDS ORDERED: 1/2 NORMAL SALINE 1,000 ML IV PRN ×2 (15:02→15:11)
[2018-09-25] MEDS: VANCOMYCIN HCL 1,000 MG in DEXTROSE 5%-WATER 250 ML IV SCH (17:18)
[2018-09-25 17:45] LABS: ARTERIAL BLOOD BASE EXCESS -5.5 mmol/L; ARTERIAL BLOOD H2CO3 1.35 mmol/L (1.05-1.35); ARTERIAL BLOOD HCO3 20.9 mmol/L (20-24); ARTERIAL BLOOD O2 SATURATION 83.7 % (94-98); ARTERIAL BLOOD PCO2 44.8 mmHg (35-45); ARTERIAL BLOOD PH 7.29 (7.35-7.45); ARTERIAL BLOOD PO2 53.3 mmHg (80-100); ARTERIAL BLOOD TOTAL CO2 22.3 mmol/L (21-25)
[2018-09-25 17:47] LABS: ARTERIAL BLOOD FIO2 80%
--- NOTE | 2018-09-25 20:31 | PROGRESS NOTE E ---
Progress Note NAME: LORI MANZANARES : 1930 AGE: 87Y DATE: 09/25/2018 ROOM: 601 SUBJECTIVE: Patient is an 87-year-old female who came in with acute respiratory failure requiring invasive mechanical ventilation. Patient was treated for pneumonia, bilateral; acute renal failure with severe metabolic acidosis requiring hemodialysis, possible CRRT or SLED (slow hemodialysis). Patient had increased gastric residual earlier today from the NG tube feeding. The NG tube feeding was held temporarily. Had 3 episodes of watery stool yesterday, but no watery stools today. No vomiting noted. Thick yellow tannish endotracheal tube secretions were suctioned today. Urine output was low in the last 8 hours. Patient had a positive water balance of 2422 yesterday, 4752 the day before, and 3148 two days before. The patient's niece, her healthcare decision-maker, will be coming later today to make the final determination whether to pursue aggressive intervention or put patient on comfort measures. OBJECTIVE: GENERAL: Patient appears sedated, afebrile, not in acute respiratory distress, with a blood pressure of 108/58, temperature 97.4 with a T-max of 99.9, respiratory rate is 20, saturation is 91% to 93% on 80% FiO2. SIMV PRVC rate of 20, tidal volume of 400, on pressure support of 10 above PEEP, and PEEP of 10. EYES: No jaundice or pallor. EARS, NOSE AND THROAT: No ear drainage. No nasal discharge. HEAD AND NECK: No scalp swelling. No neck tenderness. CHEST AND LUNGS: No wheezing, no rhonchi, no coarse crackles. CARDIOVASCULAR: S1, S2 distant. Normal rate, regular rhythm. ABDOMEN: Flabby. Hypoactive bowel sounds. Soft, slightly distended. EXTREMITIES: Swelling of both hands and ankles. No cellulitis, no joint swelling. LABORATORY DATA: CBC done today showed white count of 14.4, hemoglobin of 9.1, hematocrit is 29.5, platelet count is 60,000. Chemistries done today show sodium 150.9, potassium is 2.9. Currently is receiving potassium chloride rider. Chloride 116, CO2 is 20, anion gap is 15, BUN is 47, creatinine is 3.13, glucose is 128. Calcium is 8.1. Total bilirubin is 4. Direct bilirubin is 3.6. Total protein is 5.6 and albumin is 2.4. ABGs done today showed a pH of 7.28, pCO2 is 44.5, pO2 is 53, bicarb is 18.7. ASSESSMENT: 1. ACUTE RESPIRATORY FAILURE REQUIRING INVASIVE MECHANICAL VENTILATION, CURRENTLY REQUIRING HIGH PEEP AND HIGH FIO2. 2. SEVERE SEPSIS, CURRENTLY HEMODYNAMICALLY STABLE. IV vasopressor off. 3. PNEUMONIA, MULTILOBAR, BILATERAL, CURRENTLY APPEARS TO BE STABLE. 4. INTRAABDOMINAL SEPSIS, POSSIBLY ACUTE CHOLECYSTITIS. Patient's condition and symptoms improved following first dose of IV gentamicin given yesterday. Ultrasound of the abdomen done yesterday showed thickening of the gallbladder wall and sludge formation, interpreted as possible acute cholecystitis. 5. ACUTE CHOLECYSTITIS ON ULTRASOUND. Patient was started on IV Flagyl 5 mg q.8 in addition to IV gentamicin and IV Zosyn. Appeared to be clinically improving. Consulted Surgery for evaluation and recommendations. 6. SEVERE METABOLIC ACIDOSIS. Seems to be steadily improving. Currently receiving sodium bicarbonate. Patient is scheduled to be transferred to a tertiary care center for possible CRRT or slow hemodialysis( or SLED). Those procedures are not available here; however, patient's family may make plans to put the patient on comfort measures later today or tomorrow. 7. SEVERE HYPERNATREMIA. Currently on normal saline drip at 100 mL/hr and sodium bicarb drip at 100 mg/hr. Will change the IV fluid normal saline to half saline solution at 100 mL/hr. PLAN/RECOMMENDATION: 1. Will continue to optimize ventilatory, nutritional and hemodynamic support. 2. Awaiting family decision about future care. Possible transfer to tertiary care, as patient may require hemodialysis or CRRT. 3. Awaiting surgical consult. 4. Will change IV fluid from normal saline solution to half saline solution at 50 mL/hr from 100 mL/hr. 5. Continue IV antibiotics, Zosyn, gentamicin, Flagyl and IV vancomycin for now. DICTATING PHYSICIAN: BENJAMIN POWELL MD,VIRA,MPH [id number] PHY#: [id number] ID: [id number] JOB#: [id number] ACCT: [id number] cc: > MTDD
[2018-09-26] MEDS ORDERED: AMIODARONE HCL 200 MG TABLET NG ONE (01:00)
[2018-09-26] MEDS: PIPERACILLIN SODIUM/TAZOBACTAM 3.375 GM in NORMAL SALINE 100 ML IV SCH ×3 (01:07→18:01)
[2018-09-26 04:47] LABS: ABSOLUTE LYMPHOCYTES (AUTO) 0.8 10^3/uL (0.5-4.7); ABSOLUTE MONOCYTES (AUTO) 1.2 10^3/uL (0.1-1.4); ABSOLUTE NEUT (AUTO) 10.4 10^3/uL (1.7-8.2); BASOPHILS % (AUTO) 0.1 % (0-2); EOSINOPHILS % (AUTO) 0.2 % (0-6); HEMATOCRIT 29.2 % (36.0-47.0); HEMOGLOBIN 9.1 g/dL (12.0-15.5); LYMPHOCYTES % (AUTO) 6.4 % (13-45); MEAN CORPUSCULAR HEMOGLOBIN 22.5 pg (27.0-33.4); MEAN CORPUSCULAR HGB CONC 31.2 g/dL (32.0-36.0); MEAN CORPUSCULAR VOLUME 72 fl (80-97); MONOCYTES % (AUTO) 9.6 % (3-13); RED BLOOD COUNT 4.04 10^6/uL (3.72-5.28); RED CELL DISTRIBUTION WIDTH 19.7 % (11.5-14.0); SEGMENTED NEUTROPHILS % (AUTO) 83.7 % (42-78); TOTAL CELLS COUNTED % (AUTO) 100 %; WHITE BLOOD COUNT 12.5 10^3/uL (4.0-10.5)
[2018-09-26 04:49] LABS: ARTERIAL BLOOD BASE EXCESS -4.2 mmol/L; ARTERIAL BLOOD H2CO3 1.34 mmol/L (1.05-1.35); ARTERIAL BLOOD HCO3 21.9 mmol/L (20-24); ARTERIAL BLOOD O2 SATURATION 89.1 % (94-98); ARTERIAL BLOOD PCO2 44.6 mmHg (35-45); ARTERIAL BLOOD PH 7.31 (7.35-7.45); ARTERIAL BLOOD TOTAL CO2 23.3 mmol/L (21-25)
[2018-09-26 05:09] LABS: PLATELET COUNT 49 10^3/uL (150-450)
[2018-09-26 05:14] LABS: ARTERIAL BLOOD FIO2 100%
[2018-09-26 05:33] LABS: ANION GAP 14 (5-19); BLOOD UREA NITROGEN 47 mg/dL (7-20); CALCIUM 8.1 mg/dL (8.4-10.2); CARBON DIOXIDE 22 mmol/L (22-30); CHLORIDE 112 mmol/L (98-107); GLUCOSE 127 mg/dL (75-110); POTASSIUM 3.2 mmol/L (3.6-5.0); SODIUM 147.9 mmol/L (137-145); TRIGLYCERIDES 113 mg/dL (<150)
[2018-09-26] MEDS: LANSOPRAZOLE 30 MG TAB.RAP.DR NG SCH ×2 (05:48→16:56)
[2018-09-26] MEDS: PROPOFOL 1,000 MG/100 ML INFUS..BTL IV PRN (05:48)
[2018-09-26] MEDS: METRONIDAZOLE 500 MG/NS RTU 500 MG/100 ML RTUPB IV SCH ×3 (05:48→22:03)
[2018-09-26] MEDS: POTASSIUM CHLORIDE 20 MEQ/50 ML RTU IV SCH ×4 (06:34→19:57)
--- NOTE | 2018-09-26 07:38 | RADIOLOGY REPORT (SQ) ---
CLINICAL HISTORY: on ventilator COMPARISON: September 25, 2018. TECHNIQUE: XR CHEST 1 VIEW 09/26/2018 5:00 AM CDT FINDINGS: Cardiac silhouette is normal in size. There is moderate bilateral interstitial opacities. There are trace pleural effusions. There is no pneumothorax. There are no acute osseous findings. Endotracheal tube, nasogastric tube and right central line are unchanged. IMPRESSION: Improving aeration of both lungs.
[2018-09-26] MEDS: IPRATROPIUM/ALBUTEROL 0.5-2.5 MG/3 ML AMPUL NEB SCH ×2 (08:33→16:09)
[2018-09-26] MEDS: AMIODARONE HCL 200 MG TABLET NG SCH (09:20)
[2018-09-26] MEDS: WATER FOR INJECTION,STERILE 1,000 ML with SODIUM BICARBONATE 150 MEQ IV PRN ×4 (09:20→22:02)
[2018-09-26] MEDS ORDERED: 1/2 NORMAL SALINE 1,000 ML IV PRN (12:39)
--- NOTE | 2018-09-26 15:25 | PDOC PROGRESS REPORT ---
Subjective Progress Note for:: 09/26/18 Subjective:: Patient still on mechanical ventilation condition about the same from yesterday Reason For Visit: PNEUMONIA,ACUTE HYPERCAPNIC AND HYPOXEMIC Physical Exam Vital Signs: Temp Pulse Resp BP Pulse Ox 97.5 F 91 20 103/57 L 94 09/26/18 10:00 09/26/18 08:33 09/26/18 14:00 09/26/18 13:41 09/26/18 14:00 Intake & Output 09/25/18 09/26/18 09/27/18 06:59 06:59 06:59 Intake Total 2982.5 4456 1050 Output Total 560 490 145 Balance 2422.5 3966 905 Weight 85.4 kg 89.2 kg Respiratory exam: PRESENT: decreased breath sounds Cardiovascular exam: PRESENT: +S1, +S2 GI/Abdominal exam: PRESENT: soft Results Laboratory Results: 09/26/18 04:30 09/26/18 04:30 09/25/18 09/25/18 09/25/18 17:30 17:30 17:30 WBC RBC Hgb Hct MCV MCH MCHC RDW Plt Count Seg Neutrophils % Lymphocytes % Monocytes % Eosinophils % Basophils % Absolute Neutrophils Absolute Lymphocytes Absolute Monocytes Absolute Eosinophils Absolute Basophils Carbonic Acid 1.35 HCO3/H2CO3 Ratio 15:1 ABG pH 7.29 L ABG pCO2 44.8 ABG pO2 53.3 L ABG HCO3 20.9 ABG O2 Saturation 83.7 L ABG Base Excess -5.5 FiO2 80% Sodium Potassium 3.1 L Chloride Carbon Dioxide Anion Gap BUN Creatinine Est GFR ( Amer) Est GFR (Non-Af Amer) Glucose Calcium Magnesium 2.0 Triglycerides 09/26/18 09/26/18 09/26/18 04:30 04:30 04:30 WBC 12.5 H RBC 4.04 Hgb 9.1 L Hct 29.2 L MCV 72 L MCH 22.5 L MCHC 31.2 L RDW 19.7 H Plt Count 49 L Seg Neutrophils % 83.7 H Lymphocytes % 6.4 L Monocytes % 9.6 Eosinophils % 0.2 Basophils % 0.1 Absolute Neutrophils 10.4 H Absolute Lymphocytes 0.8 Absolute Monocytes 1.2 Absolute Eosinophils 0.0 Absolute Basophils 0.0 Carbonic Acid 1.34 HCO3/H2CO3 Ratio 16:1 ABG pH 7.31 L ABG pCO2 44.6 ABG pO2 61.0 L ABG HCO3 21.9 ABG O2 Saturation 89.1 L ABG Base Excess -4.2 FiO2 100% Sodium 147.9 H Potassium 3.2 L Chloride 112 H Carbon Dioxide 22 Anion Gap 14 BUN 47 H Creatinine 3.08 H Est GFR ( Amer) 17 L Est GFR (Non-Af Amer) 14 L Glucose 127 H Calcium 8.1 L Magnesium 1.9 Triglycerides 113 09/23/18 17:35 Tracheal Aspirate Gram Stain - Final 09/23/18 17:35 Tracheal Aspirate Sputum Culture - Final NO GROWTH 3 DAYS 09/22/18 22:25 Tracheal Aspirate Gram Stain - Final 09/22/18 22:25 Tracheal Aspirate Sputum Culture - Final Haemophilus Influenzae Normal Caroline 09/22/18 09/22/18 09/23/18 19:21 19:21 01:22 Creatine Kinase 26 L < 20 L CK-MB (CK-2) 1.66 Troponin I 0.062 NT-Pro-B Natriuret Pep 09/23/18 09/23/18 09/26/18 01:22 05:30 04:30 Creatine Kinase CK-MB (CK-2) 1.54 1.15 Troponin I 0.077 0.075 NT-Pro-B Natriuret Pep [id number] H Impressions: KUB X-Ray 09/22/18 12:40 IMPRESSION: NO RADIOGRAPHIC EVIDENCE FOR ACUTE ABDOMINAL DISEASE. Abdomen Ultrasound 09/24/18 10:00 IMPRESSION: Findings consistent with biliary sludge. There is thickening of the gallbladder jordan and pericholecystic fluid. The possibility of cholecystitis should be considered. Perihepatic and perisplenic ascitic fluid is identified. The liver demonstrates a somewhat nodular contour. Other findings as noted above Chest X-Ray 09/26/18 05:00 IMPRESSION: Improving aeration of both lungs. Assessment & Plan - Diagnosis (1) Acute hypercapnic respiratory failure Is this a current diagnosis for this admission?: Yes (2) Hypokalemia Is this a current diagnosis for this admission?: Yes (3) Acute kidney injury Is this a current diagnosis for this admission?: Yes (4) Pneumonia Qualifiers: Pneumonia type: due to unspecified organism Laterality: unspecified laterality Lung location: unspecified part of lung Qualified Code(s): J18.9 - Pneumonia, unspecified organism Is this a current diagnosis for this admission?: Yes (5) Acute respiratory acidosis Is this a current diagnosis for this admission?: Yes (6) Thrombocytopenia Is this a current diagnosis for this admission?: Yes (7) Sepsis Qualifiers: Sepsis type: sepsis due to unspecified organism Qualified Code(s): A41.9 - Sepsis, unspecified organism Is this a current diagnosis for this admission?: Yes (8) Liver cirrhosis Qualifiers: Hepatic cirrhosis type: other cirrhosis Qualified Code(s): K74.69 - Other cirrhosis of liver Is this a current diagnosis for this admission?: Yes (9) Septic shock Is this a current diagnosis for this admission?: Yes (10) Metabolic encephalopathy Is this a current diagnosis for this admission?: Yes (11) Atrial fibrillation Qualifiers: Atrial fibrillation type: paroxysmal Qualified Code(s): I48.0 - Paroxysmal atrial fibrillation Is this a current diagnosis for this admission?: Yes - Plan Summary Plan Summary: Patient DNR, urinary output still low, difficult to adequately oxygenate the patient, pulmonary following, nephrology following prognosis is guarded to poor
[2018-09-26 15:57] LABS: ANION GAP 15 (5-19); BLOOD UREA NITROGEN 48 mg/dL (7-20); CALCIUM 8.1 mg/dL (8.4-10.2); CARBON DIOXIDE 22 mmol/L (22-30); CHLORIDE 110 mmol/L (98-107); GLUCOSE 127 mg/dL (75-110); POTASSIUM 3.3 mmol/L (3.6-5.0); SODIUM 146.5 mmol/L (137-145)
[2018-09-27] MEDS: IPRATROPIUM/ALBUTEROL 0.5-2.5 MG/3 ML AMPUL NEB SCH ×3 (00:07→15:48)
[2018-09-27] MEDS: PIPERACILLIN SODIUM/TAZOBACTAM 3.375 GM in NORMAL SALINE 100 ML IV SCH ×3 (03:33→17:25)
[2018-09-27] MEDS: PROPOFOL 1,000 MG/100 ML INFUS..BTL IV PRN ×3 (03:33→23:39)
[2018-09-27] MEDS: METRONIDAZOLE 500 MG/NS RTU 500 MG/100 ML RTUPB IV SCH ×3 (05:35→21:06)
[2018-09-27] MEDS: LANSOPRAZOLE 30 MG TAB.RAP.DR NG SCH ×2 (05:35→16:32)
[2018-09-27 05:39] LABS: ARTERIAL BLOOD BASE EXCESS -2.4 mmol/L; ARTERIAL BLOOD H2CO3 1.31 mmol/L (1.05-1.35); ARTERIAL BLOOD HCO3 23.2 mmol/L (20-24); ARTERIAL BLOOD O2 SATURATION 91.3 % (94-98); ARTERIAL BLOOD PCO2 43.5 mmHg (35-45); ARTERIAL BLOOD PH 7.35 (7.35-7.45); ARTERIAL BLOOD PO2 63.9 mmHg (80-100); ARTERIAL BLOOD TOTAL CO2 24.5 mmol/L (21-25)
[2018-09-27 05:41] LABS: ARTERIAL BLOOD FIO2 100%; HEMATOCRIT 29.1 % (36.0-47.0); HEMOGLOBIN 9.2 g/dL (12.0-15.5); MEAN CORPUSCULAR HEMOGLOBIN 22.4 pg (27.0-33.4); MEAN CORPUSCULAR HGB CONC 31.7 g/dL (32.0-36.0); MEAN CORPUSCULAR VOLUME 71 fl (80-97); RED BLOOD COUNT 4.13 10^6/uL (3.72-5.28); WHITE BLOOD COUNT 11.6 10^3/uL (4.0-10.5)
[2018-09-27 05:56] LABS: ANION GAP 13 (5-19); BLOOD UREA NITROGEN 49 mg/dL (7-20); CALCIUM 8.3 mg/dL (8.4-10.2); CARBON DIOXIDE 24 mmol/L (22-30); CHLORIDE 108 mmol/L (98-107); GLUCOSE 127 mg/dL (75-110); POTASSIUM 3.4 mmol/L (3.6-5.0); SODIUM 145.2 mmol/L (137-145)
[2018-09-27 06:17] LABS: PLATELET COUNT 53 10^3/uL (150-450)
[2018-09-27 06:19] LABS: ABSOLUTE LYMPHOCYTES# (MANUAL) 0.7 10^3/uL (0.5-4.7); ABSOLUTE MONOCYTES # (MANUAL) 1.2 10^3/uL (0.1-1.4); ABSOLUTE NEUTROPHILS# (MANUAL) 9.7 10^3/uL (1.7-8.2); BAND NEUTROPHILS % (MANUAL) 4 % (3-5); BASOPHILS % (MANUAL) 0 % (0-2); EOSINOPHILS % (MANUAL) 0 % (0-6); LYMPHOCYTES % (MANUAL) 6 % (13-45); MONOCYTES % (MANUAL) 10 % (3-13); NUCLEATED RED BLOOD CELLS 1 /100 WBC (0); SEGMENTED NEUTROPHILS % (MAN) 80 % (42-78); TOTAL CELLS COUNTED 100
[2018-09-27 06:22] LABS: ANISOCYTOSIS 2+; BURR CELLS 1+; HYPOCHROMASIA SLIGHT; OVALOCYTES SLIGHT; PLATELET COMMENT DECREASED; POIKILOCYTOSIS 3+; POLYCHROMASIA SLIGHT; TARGET CELLS 2+
[2018-09-27] MEDS: POTASSIUM CHLORIDE 20 MEQ/50 ML RTU IV SCH ×2 (07:44→10:06)
[2018-09-27] MEDS: AMIODARONE HCL 200 MG TABLET NG SCH (10:06)
[2018-09-27] MEDS: WATER FOR INJECTION,STERILE 1,000 ML with SODIUM BICARBONATE 150 MEQ IV PRN ×2 (10:06)
[2018-09-27] MEDS: LOPERAMIDE HCL ORAL SOLN 1 MG/5 ML UDC PO SCH ×3 (10:20→17:25)
--- NOTE | 2018-09-27 11:43 | RADIOLOGY REPORT (SQ) ---
EXAM DESCRIPTION: CHEST SINGLE VIEW COMPLETED DATE/TIME: 09/27/2018 6:37 am REASON FOR STUDY: pneumonia COMPARISON: 09/26/2018. EXAM PARAMETERS: NUMBER OF VIEWS: One view. TECHNIQUE: Single frontal radiographic view of the chest acquired. RADIATION DOSE: NA LIMITATIONS: None. FINDINGS: LUNGS AND PLEURA: Diffuse airspace disease and pleural effusions, overall unchanged. MEDIASTINUM AND HILAR STRUCTURES: No masses. Contour normal. HEART AND VASCULAR STRUCTURES: No change. BONES: No acute findings. HARDWARE: Stable endotracheal tube, central line, and nasogastric tube. OTHER: No other significant finding. IMPRESSION: NO CHANGE IN APPEARANCE OF THE CHEST. TECHNICAL DOCUMENTATION: JOB ID: [id number] [employer]- All Rights Reserved Reading location - IP/workstation name: [facility]-[email or web address]
[2018-09-27] MEDS: FUROSEMIDE INJ/PF 20 MG/2 ML SDV IV SCH ×2 (12:20→21:06)
--- NOTE | 2018-09-27 14:31 | PDOC PROGRESS REPORT ---
Subjective Progress Note for:: 09/27/18 Reason For Visit: Seen in the ICU today.She is doing poorly. Still intubated. Still has copious diarrhea on going. However urine OP is some better overall relatively. She is off the levophed and BP is tenous. Labs and medications were reviewed with treating RN. Physical Exam Vital Signs: Temp Pulse Resp BP Pulse Ox 97.4 F 95 25 H 112/54 L 94 09/27/18 10:00 09/27/18 12:00 09/27/18 14:01 09/27/18 14:01 09/27/18 14:01 Intake & Output 09/26/18 09/27/18 09/28/18 06:59 06:59 06:59 Intake Total 4556 4277 1137 Output Total 490 385 90 Balance 4066 3892 1047 Weight 89.2 kg 91.6 kg Exam: remains intubated and sedated.Swollen with anasarca. Eye exam: PRESENT: PERRLA. ABSENT: scleral icterus Mouth exam: PRESENT: neck supple Neck exam: ABSENT: lymphadenopathy, meningismus, tenderness Respiratory exam: PRESENT: clear to auscultation lauren, crackles, rhonchi - scattered Cardiovascular exam: PRESENT: +S1, +S2, systolic murmur GI/Abdominal exam: PRESENT: normal bowel sounds, soft. ABSENT: organomegaly, tenderness Extremities exam: PRESENT: +1 edema Skin exam: ABSENT: erythema, rash Results Laboratory Results: 09/27/18 05:15 09/27/18 05:15 09/26/18 09/27/18 09/27/18 15:30 05:15 05:15 WBC RBC Hgb Hct MCV MCH MCHC RDW Plt Count Seg Neutrophils % Lymphocytes % Monocytes % Eosinophils % Basophils % Absolute Neutrophils Absolute Lymphocytes Absolute Monocytes Absolute Eosinophils Absolute Basophils Carbonic Acid 1.31 HCO3/H2CO3 Ratio 17:1 ABG pH 7.35 ABG pCO2 43.5 ABG pO2 63.9 L ABG HCO3 23.2 ABG O2 Saturation 91.3 L ABG Base Excess -2.4 FiO2 100% Sodium 146.5 H 145.2 H Potassium 3.3 L 3.4 L Chloride 110 H 108 H Carbon Dioxide 22 24 Anion Gap 15 13 BUN 48 H 49 H Creatinine 2.97 H 2.90 H Est GFR ( Amer) 18 L 19 L Est GFR (Non-Af Amer) 15 L 15 L Glucose 127 H 127 H Calcium 8.1 L 8.3 L Magnesium 2.0 09/27/18 05:15 WBC 11.6 H RBC 4.13 Hgb 9.2 L Hct 29.1 L MCV 71 L MCH 22.4 L MCHC 31.7 L RDW 20.0 H Plt Count 53 L Seg Neutrophils % Not Reportable Lymphocytes % Not Reportable Monocytes % Not Reportable Eosinophils % Not Reportable Basophils % Not Reportable Absolute Neutrophils Not Reportable Absolute Lymphocytes Not Reportable Absolute Monocytes Not Reportable Absolute Eosinophils Not Reportable Absolute Basophils Not Reportable Carbonic Acid HCO3/H2CO3 Ratio ABG pH ABG pCO2 ABG pO2 ABG HCO3 ABG O2 Saturation ABG Base Excess FiO2 Sodium Potassium Chloride Carbon Dioxide Anion Gap BUN Creatinine Est GFR ( Amer) Est GFR (Non-Af Amer) Glucose Calcium Magnesium 09/22/18 09/22/18 09/23/18 19:21 19:21 01:22 Creatine Kinase 26 L < 20 L CK-MB (CK-2) 1.66 Troponin I 0.062 NT-Pro-B Natriuret Pep 09/23/18 09/23/18 09/26/18 01:22 05:30 04:30 Creatine Kinase CK-MB (CK-2) 1.54 1.15 Troponin I 0.077 0.075 NT-Pro-B Natriuret Pep [id number] H Impressions: KUB X-Ray 09/22/18 12:40 IMPRESSION: NO RADIOGRAPHIC EVIDENCE FOR ACUTE ABDOMINAL DISEASE. Abdomen Ultrasound 09/24/18 10:00 IMPRESSION: Findings consistent with biliary sludge. There is thickening of the gallbladder jordan and pericholecystic fluid. The possibility of cholecystitis should be considered. Perihepatic and perisplenic ascitic fluid is identified. The liver demonstrates a somewhat nodular contour. Other findings as noted above Chest X-Ray 09/27/18 07:00 IMPRESSION: NO CHANGE IN APPEARANCE OF THE CHEST. Assessment & Plan - Diagnosis (1) Acute kidney injury Plan: Renal OP is some better .Acidosis is corrected and we will dose down the bicarb drip. Overall very poor prognosis. With her overall comorbitites she is not a candidate for renal replacements. She is reaching a point where she will need to be on CRRT. However she is now DNR and she is being considered for comfort care soon by her family. (2) Diarrhea Plan: On going. She now has a feeding tube. Start Immodium and monitor. (3) Hypokalemia Plan: Improving and relatively stable now (4) Pneumonia Qualifiers: Plan: On antibiotics (5) Acute hypoxemic respiratory failure Plan: Intubated and sedated (6) Atrial fibrillation with rapid ventricular response Plan: rate controlled (7) Dementia Qualifiers: Dementia type: Alzheimer's disease Alzheimer's disease onset: late-onset Dementia behavioral disturbance: with behavioral disturbance Qualified Code(s) : G30.1 - Alzheimer's disease with late onset; F02.81 - Dementia in other diseases classified elsewhere with behavioral disturbance; F02.81 - Dementia in other diseases classified elsewhere with behavioral disturbance; F02.81 - Dementia in other diseases classified elsewhere with behavioral disturbance (8) CKD (chronic kidney disease) Plan: 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 (10) Septic shock Plan: stable.Off pressors.
[2018-09-27 15:02] LABS: ANION GAP 11 (5-19); BLOOD UREA NITROGEN 52 mg/dL (7-20); CALCIUM 8.3 mg/dL (8.4-10.2); CARBON DIOXIDE 27 mmol/L (22-30); CHLORIDE 106 mmol/L (98-107); GLUCOSE 130 mg/dL (75-110); POTASSIUM 3.7 mmol/L (3.6-5.0); SODIUM 144.4 mmol/L (137-145)
[2018-09-27 15:05] LABS: GENTAMICIN-TROUGH 0.8 ug/mL (<2.0)
[2018-09-27] MEDS: GENTAMICIN SULFATE 140 MG in DEXTROSE 5%-WATER 100 ML IV SCH (15:29)
--- NOTE | 2018-09-27 21:23 | PDOC PROGRESS REPORT ---
Subjective Progress Note for:: 09/27/18 Subjective:: Patient still intubated on mechanical ventilation Reason For Visit: PNEUMONIA,ACUTE HYPERCAPNIC AND HYPOXEMIC Physical Exam Vital Signs: Temp Pulse Resp BP Pulse Ox 96.3 F L 102 H 33 H 124/79 93 09/27/18 18:00 09/27/18 19:57 09/27/18 18:01 09/27/18 18:01 09/27/18 20:45 Intake & Output 09/26/18 09/27/18 09/28/18 06:59 06:59 06:59 Intake Total 4556 4277 1757 Output Total 490 385 255 Balance 4066 3892 1502 Weight 89.2 kg 91.6 kg Eye exam: PRESENT: PERRLA Respiratory exam: PRESENT: rhonchi Cardiovascular exam: PRESENT: +S1, +S2 GI/Abdominal exam: PRESENT: soft Results Laboratory Results: 09/27/18 05:15 09/27/18 14:10 09/27/18 09/27/18 09/27/18 05:15 05:15 05:15 WBC 11.6 H RBC 4.13 Hgb 9.2 L Hct 29.1 L MCV 71 L MCH 22.4 L MCHC 31.7 L RDW 20.0 H Plt Count 53 L Seg Neutrophils % Not Reportable Lymphocytes % Not Reportable Monocytes % Not Reportable Eosinophils % Not Reportable Basophils % Not Reportable Absolute Neutrophils Not Reportable Absolute Lymphocytes Not Reportable Absolute Monocytes Not Reportable Absolute Eosinophils Not Reportable Absolute Basophils Not Reportable Carbonic Acid 1.31 HCO3/H2CO3 Ratio 17:1 ABG pH 7.35 ABG pCO2 43.5 ABG pO2 63.9 L ABG HCO3 23.2 ABG O2 Saturation 91.3 L ABG Base Excess -2.4 FiO2 100% Sodium 145.2 H Potassium 3.4 L Chloride 108 H Carbon Dioxide 24 Anion Gap 13 BUN 49 H Creatinine 2.90 H Est GFR ( Amer) 19 L Est GFR (Non-Af Amer) 15 L Glucose 127 H Calcium 8.3 L Magnesium 2.0 09/27/18 14:10 WBC RBC Hgb Hct MCV MCH MCHC RDW Plt Count Seg Neutrophils % Lymphocytes % Monocytes % Eosinophils % Basophils % Absolute Neutrophils Absolute Lymphocytes Absolute Monocytes Absolute Eosinophils Absolute Basophils Carbonic Acid HCO3/H2CO3 Ratio ABG pH ABG pCO2 ABG pO2 ABG HCO3 ABG O2 Saturation ABG Base Excess FiO2 Sodium 144.4 Potassium 3.7 Chloride 106 Carbon Dioxide 27 Anion Gap 11 BUN 52 H Creatinine 2.79 H Est GFR ( Amer) 20 L Est GFR (Non-Af Amer) 16 L Glucose 130 H Calcium 8.3 L Magnesium 09/22/18 09/22/18 09/23/18 19:21 19:21 01:22 Creatine Kinase 26 L < 20 L CK-MB (CK-2) 1.66 Troponin I 0.062 NT-Pro-B Natriuret Pep 09/23/18 09/23/18 09/26/18 01:22 05:30 04:30 Creatine Kinase CK-MB (CK-2) 1.54 1.15 Troponin I 0.077 0.075 NT-Pro-B Natriuret Pep [id number] H Impressions: KUB X-Ray 09/22/18 12:40 IMPRESSION: NO RADIOGRAPHIC EVIDENCE FOR ACUTE ABDOMINAL DISEASE. Abdomen Ultrasound 09/24/18 10:00 IMPRESSION: Findings consistent with biliary sludge. There is thickening of the gallbladder jordan and pericholecystic fluid. The possibility of cholecystitis should be considered. Perihepatic and perisplenic ascitic fluid is identified. The liver demonstrates a somewhat nodular contour. Other findings as noted above Chest X-Ray 09/27/18 07:00 IMPRESSION: NO CHANGE IN APPEARANCE OF THE CHEST. Assessment & Plan - Diagnosis (1) Acute hypercapnic respiratory failure Is this a current diagnosis for this admission?: Yes (2) Hypokalemia Is this a current diagnosis for this admission?: Yes (3) Acute kidney injury Is this a current diagnosis for this admission?: Yes (4) Pneumonia Qualifiers: Pneumonia type: due to unspecified organism Laterality: unspecified laterality Lung location: unspecified part of lung Qualified Code(s): J18.9 - Pneumonia, unspecified organism Is this a current diagnosis for this admission?: Yes (5) Acute respiratory acidosis Is this a current diagnosis for this admission?: Yes (6) Thrombocytopenia Is this a current diagnosis for this admission?: Yes (7) Sepsis Qualifiers: Sepsis type: sepsis due to unspecified organism Qualified Code(s): A41.9 - Sepsis, unspecified organism Is this a current diagnosis for this admission?: Yes (8) Liver cirrhosis Qualifiers: Hepatic cirrhosis type: other cirrhosis Qualified Code(s): K74.69 - Other cirrhosis of liver Is this a current diagnosis for this admission?: Yes (9) Septic shock Is this a current diagnosis for this admission?: Yes (10) Metabolic encephalopathy Is this a current diagnosis for this admission?: Yes (11) Atrial fibrillation Qualifiers: Atrial fibrillation type: paroxysmal Qualified Code(s): I48.0 - Paroxysmal atrial fibrillation Is this a current diagnosis for this admission?: Yes (12) Acute cholecystitis Is this a current diagnosis for this admission?: Yes - Plan Summary Plan Summary: Multiple organ failure patient on mechanical ventilation slight improvement urinary output prognosis is very poor
[2018-09-28] MEDS: IPRATROPIUM/ALBUTEROL 0.5-2.5 MG/3 ML AMPUL NEB SCH ×4 (00:16→23:54)
[2018-09-28] MEDS: PIPERACILLIN SODIUM/TAZOBACTAM 3.375 GM in NORMAL SALINE 100 ML IV SCH ×3 (01:19→18:02)
--- NOTE | 2018-09-28 01:31 | PROGRESS NOTE E ---
Progress Note NAME: LORI MANZANARES : 1930 AGE: 87Y DATE: 09/27/2018 ROOM: 601 SUBJECTIVE: The patient is an 87-year-old -[place] female who came in with past medical history of dementia, coronary artery disease, COPD; admitted for acute respiratory failure requiring invasive mechanical ventilation. The patient has no fever spike over the last 24-48 hours. Blood pressure has been stable. The patient was never hypotensive since last week, was started on Levophed at 1 mcg/min but discontinued a day later because of tachyarrhythmias. The patient was started on amiodarone. Metabolic acidosis appeared to be improving over the last 24-48 hours, pH improving to normal. The patient tolerated the NG tube feeding at 20 mL per hour. No vomiting noted. Had 1 bowel movement since yesterday. Diarrhea appeared to be improving. Endotracheal tube secretions are mild to moderate, becoming less purulent. OBJECTIVE: GENERAL: The patient is sedated, afebrile, not in apparent respiratory distress. VITAL SIGNS: Temperature 96.3 with a T-max of 97.5, blood pressure is 124/79, heart rate is 108, respiratory rate is 22, saturation is 95% on 60% FiO2, pressure support 10 above PEEP, PEEP of 5, tidal volume is 400 mL, peak airway pressure is 25-27, minute ventilation is 7-8, total volume is 350-380 mL spontaneous. EYES: No jaundice or pallor. EARS, NOSE, AND THROAT: No ear drainage. No nasal discharge. HEAD AND NECK: No scalp swelling, no erythema. CHEST AND LUNGS: No wheezing, no rhonchi, no coarse crackles. CARDIOVASCULAR: S1, S2 distinct. Normal rate and regular rhythm. ABDOMEN: Flabby, positive bowel sounds, soft, nondistended. EXTREMITIES: No joint swelling, no cellulitis. LABORATORY DATA: CBC done today showed a white count of 11.6, today from yesterday's 12.5, hemoglobin is 9.2, hematocrit is 29.1, platelet count is 53. Blood gas today showed a pH of 7.35, pCO2 is 23.5, pO2 is 93.9. ABG bicarb is 23.2 and ABG saturation is 91.3. Chemistry done today showed sodium 144, potassium 3.7, chloride 106, CO2 is 27, BUN is 52 and creatinine is 2.79 down from 2.9, glucose is 130, calcium is 8.3. IMAGING STUDIES: Chest x-ray done today showed stable pulmonary infiltrate, endotracheal tube is in place and lines are in place. ASSESSMENT: 1. ACUTE RESPIRATORY FAILURE REQUIRING INVASIVE MECHANICAL VENTILATION. Currently still requiring a PEEP of 10 saturated water pressure, able to reduce FiO2 to 60% today maintaining the oxygen saturation above 95%. The patient is not ready to be extubated yet. 2. PNEUMONIA BILATERAL. This seems to be improving, white count is normal. 3. PULMONARY EDEMA/PULMONARY CONGESTION. Seems to be improving, better oxygen saturation with a lower FiO2. 4. INTRAABDOMINAL INFECTION, MOST LIKELY ACUTE CHOLECYSTITIS. Appeared to be improving. White count is also improving. 5. ACUTE GASTROENTERITIS/ACUTE DIARRHEA. Appeared to be improving as well. 6. METABOLIC ACIDOSIS. Appeared to be improving. 7. ACUTE RENAL FAILURE ASSOCIATED WITH THE REDUCTION OF CREATININE TO 2.79 THIS AFTERNOON COMPARED TO 2.97 YESTERDAY. 8. THROMBOCYTOPENIA - appeared stable in the last few days. PLAN/RECOMMENDATION: 1. The patient still needs CCRT or slow dialysis. 2. The patient's family may decide to put patient on cpmfprt measures or withdraw care, but they would like to have 2 weeks before they will make a decision. 3. We will continue IV antibiotics for now; Flagyl, gentamicin, and Zosyn. 4. We will continue to optimize nutrition support and ventilator support. DICTATING PHYSICIAN: BENJAMIN POWELL MD,VIRA,MPH [id number] PHY#: [id number] 1940 ID: [id number] JOB#: [id number] ACCT: [id number] cc: > [facility]
[2018-09-28] MEDS: WATER FOR INJECTION,STERILE 1,000 ML with SODIUM BICARBONATE 150 MEQ IV PRN ×2 (05:41)
[2018-09-28] MEDS: METRONIDAZOLE 500 MG/NS RTU 500 MG/100 ML RTUPB IV SCH ×3 (05:46→21:42)
[2018-09-28] MEDS: LANSOPRAZOLE 30 MG TAB.RAP.DR NG SCH ×2 (05:47→18:01)
--- NOTE | 2018-09-28 06:22 | RADIOLOGY REPORT (SQ) ---
EXAM DESCRIPTION: X-ray single view chest. CLINICAL HISTORY: 87 years Female, pneumonia COMPARISON: Portable chest performed on 09/27/2018 and 09/26/2018 TECHNIQUE: Single portable view of the chest performed on 09/28/2018 at 5:34 AM FINDINGS: The lungs are relatively well expanded. There is diffuse opacification of the lungs with persistent airspace disease bilaterally greatest in the inferior hemithoraces particularly on the left. These findings may be due to underlying edema and atelectasis. Underlying pneumonia is not excluded. There is no evidence of a pneumothorax. The cardiac silhouette is normal in size and configuration. The mediastinal contours are normal. No acute osseous abnormality is identified. No focal soft tissue abnormalities are seen. Lines and tubes: The endotracheal tube tip terminates just below the clavicular heads. The feeding tube extends below the diaphragm. The right subclavian central venous catheter tip overlies the region of the superior vena cava. IMPRESSION: 1. Overall, no significant interval change when compared to the prior studies. There is ongoing bilateral airspace disease greatest in the left inferior hemithorax. 2. Grossly stable life support lines and tubes.
[2018-09-28 06:28] LABS: ANION GAP 14 (5-19); BLOOD UREA NITROGEN 50 mg/dL (7-20); CALCIUM 8.4 mg/dL (8.4-10.2); CARBON DIOXIDE 25 mmol/L (22-30); CHLORIDE 107 mmol/L (98-107); GLUCOSE 108 mg/dL (75-110); POTASSIUM 3.6 mmol/L (3.6-5.0)
[2018-09-28 08:15] LABS: ARTERIAL BLOOD BASE EXCESS 0.8 mmol/L; ARTERIAL BLOOD H2CO3 1.21 mmol/L (1.05-1.35); ARTERIAL BLOOD HCO3 25.4 mmol/L (20-24); ARTERIAL BLOOD O2 SATURATION 85.1 % (94-98); ARTERIAL BLOOD PCO2 40.3 mmHg (35-45); ARTERIAL BLOOD PH 7.42 (7.35-7.45); ARTERIAL BLOOD PO2 48.8 mmHg (80-100); ARTERIAL BLOOD TOTAL CO2 26.6 mmol/L (21-25)
[2018-09-28 08:16] LABS: ARTERIAL BLOOD FIO2 60%
--- NOTE | 2018-09-28 09:35 | PROGRESS NOTE E ---
Progress Note NAME: LORI MANZANARES : 1930 AGE: 87Y DATE: 09/24/2018 ROOM: 601 SUBJECTIVE: Patient is an 87-year-old -[place]i female with a past medical history of dementia, bipolar disorder, depression, asthma, atrial fibrillation and COPD, admitted for altered mental status. Went into respiratory failure, requiring invasive mechanical ventilation. Patient has been having diarrhea since the patient was admitted. Severe hypokalemia, requiring multiple doses of potassium chloride infusion replacement. This morning, patient had massive diarrhea. The pH went down to 7.18 from 7.32 yesterday, due to worsening metabolic acidosis. Serum lactate level was elevated. Patient was on IV Levaquin and Zosyn and Bactrim. Patient received normal saline solution overnight with a positive fluid balance on 4 liters. Was started on sodium bicarb this morning. I spoke to Nephrology, Dr. Perrin about patient's severe metabolic acidosis and more than 4 Liters positive fluid balance. He recommended that the patient is to be transferred for dialysis or CRRT to a tertiary care center, because of nonavailability of CRRT or SLED at this hospital. Nurse spoke to patient's family, and patient's family members are leaning towards comfort measures. Patient was started on G-tube feeding yesterday. Had 200 mL gastric residual this afternoon. Bowels are hypoactive. Had thick tannish purulent endotracheal tube secretions noted. Sputum culture was sent yesterday. Waiting for results. OBJECTIVE: VITAL SIGNS: Patient appeared sedated, not in acute respiratory distress, afebrile with a temperature of 97.3, with a T-max of 99.9. Blood pressure is 143/49 and respiratory rate is 21. Saturations 93% to 95% on FiO2 of 100%, PEEP of 10, pressure support of 10 above PEEP and tidal volume of 400, rate of 20 breaths per minute, with a peak airway pressure of 20, tidal volume of 150. EYES: No jaundice or pallor. EARS, NOSE AND THROAT: No ear drainage. No nasal discharge. CHEST AND LUNGS: No wheezing, no rhonchi, no coarse crackles. CARDIOVASCULAR: S1, S2 distant. No murmur. Regular rhythm. ABDOMEN: Flabby. Hypoactive bowel sounds. Soft, nondistended. EXTREMITIES: No joint swelling or cellulitis. Stool was noted to be liquid but not bloody. LABORATORY DATA: CBC done today showed white count of 13, down from 14 yesterday. Hemoglobin is 9, hematocrit is 39.1, platelet count is 61,000, bands are 4. ABG done at 11:00 this morning showed pH of 7.17, pCO2 of 42.4, pO2 of 72.4. Chemistries showed sodium is 149, potassium is 3.6, chloride 118, CO2 is 17. BUN 49, creatinine is 3.15, glucose 193. Lactate is 3.4. Calcium is 8.2. Total protein is 5.7, albumin is 2.5. Chest x-ray showed diffuse pulmonary infiltrates bilaterally; appeared to be worse than it was yesterday. ASSESSMENT: 1. Acute respiratory failure requiring invasive mechanical ventilation, requiring high PEEP of 10 and high FiO2 of 100%. 2. Pneumonia bilaterally, multilobar. 3. Pulmonary edema, also bilaterally, probably due to fluid overload. 4. Severe metabolic acidosis, probably due to acute renal failure. Patient may need hemodialysis. Awaiting family members' decision whether to proceed to transfer the patient to a tertiary care hospital or CCRT or to make patient comfort care and comfort measures. Decided to discontinue the IV Levaquin, considering the patient appeared not to be improving when evaluated this morning. Started IV gentamicin for increased antibiotic coverage and for synergisms to the Zosyn and to the empiric use of IV vancomycin. IV gentamicin was calculated and given, based on the patient's renal dose. 5. Diarrhea/enterocolitis. Negative stool sample for Clostridium difficile. PLAN AND RECOMMENDATIONS: 1. Will continue the IV vancomycin, IV Zosyn and IV gentamicin. 2. Again, recommend patient's transfer to a tertiary care center for hemodialysis, either through CCRT or slow hemodialysis or SLED. 3. Will continue enteral nutrition and will continue ventilatory support. DICTATING PHYSICIAN: BENJAMIN POWELL MD,VIRA,MPH [id number] PHY#: [id number] 1911 ID: [id number] JOB#: [id number] ACCT: [id number] cc: > [facility]
[2018-09-28] MEDS ORDERED: NORMAL SALINE 1000 ML 1,000 ML IV PRN (09:58)
[2018-09-28] MEDS: AMIODARONE HCL 200 MG TABLET NG SCH (09:59)
[2018-09-28] MEDS: LOPERAMIDE HCL ORAL SOLN 1 MG/5 ML UDC PO SCH ×3 (09:59→18:09)
--- NOTE | 2018-09-28 10:56 | PROGRESS NOTE E ---
Progress Note NAME: LORI MANZANARES : 1930 AGE: 87Y DATE: 09/26/2018 ROOM: 601 SUBJECTIVE: Patient is an 87-year-old lady with a past medical history of dementia, depression, bipolar disorder, atrial fibrillation, coronary artery disease, and COPD, admitted for acute respiratory failure requiring invasive mechanical ventilation, pneumonia, fever, sepsis, acute renal failure, metabolic acidosis, hypokalemia and thrombocytopenia. Patient has had no fever over last 24 hours. Continued to have watery stools over the last 24 hours. Has very diminished urine output of about 500 mL over the last 24 hours. Patient has hypokalemia requiring potassium chloride rider. No vomiting noted. Patient tolerated G-tube feeding with no vomiting noted. Has mild to moderate endotracheal secretions. OBJECTIVE: VITAL SIGNS: Patient appeared sedated, afebrile, not in acute respiratory distress, with a temperature of 97.5, with a T-max of 97.9. Blood pressure is 104/55, heart rate of 92, respiratory rate 22. Saturations 93% on 90% FiO2, PEEP of 10, pressure support of 10 above PEEP, rate of 20, tidal volume of 400, peak airway pressures is 21 and 22. EYES: No jaundice or pallor. EARS, NOSE AND THROAT: No ear drainage. No nasal discharge. CHEST AND LUNGS: No wheezing, no rhonchi, no coarse crackles. CARDIOVASCULAR: S1, S2 distant. No murmur. Regular rate and regular rhythm. ABDOMEN: Flabby. Hypoactive bowel sounds. Soft, nondistended, nontender. EXTREMITIES: No joint swelling or cellulitis. Stool was noted to be liquid but not bloody. LABORATORY DATA: CBC done today showed white count of 12.5, down from 14.4. Hemoglobin is 9.1, hematocrit is 29.2, platelet count down to 49,000 from 60,000 yesterday. Chemistry done today showed sodium is 147.9 from 150.9 yesterday, potassium is 3.2 from 2.9 yesterday morning. CO2 is 32, BUN is 47, creatinine is 3.08 down from 3.13 yesterday, glucose 137 and calcium is 8.1. Magnesium is 1.9. NT-proBNP is 14,500. ABG done this morning showed pH of 7.31 from 7.29 yesterday. PCO2 is 44.6, PO2 is 61, and bicarb is 31.7. September 25, 2018, intake was 4453 mL, output is 490 mL. Total volume is 3963 mL. Chest x-ray showed some improvement in the aeration of both lungs. Endotracheal tube was well-fixed, above the binu and mid-clavicle. Radiology stated there is no change in the positions of the endotracheal tube or other lines. ASSESSMENT: 1. Acute respiratory failure requiring invasive mechanical ventilation, currently requiring still high PEEP and high FiO2 requirement. 2. Pulmonary edema, probably secondary to oliguria and acute renal failure. 3. Pneumonia. 4. Diarrhea. Clostridium difficile exam negative for C. diff a few days ago. 5. Intraabdominal infection, POSSIBLY ACUTE CHOLECYSTITIS. Appears to be improving on IV Zosyn and IV Flagyl. 6. Severe metabolic acidosis. Appears to also be clinically improving. 7. Acute renal failure. Seems to be stable and corrected at 3. 8. Pulmonary edema/fluid overload. Probably because of the decreased renal output. PLAN AND RECOMMENDATIONS: 1. Will discontinue the IV vancomycin. All of the cultures were negative for MRSA. 2. Will continue Zosyn, Flagyl, and IV gentamicin for now, adjusted to renal dose. 3. Patient may still require dialysis to remove some of the fluids and correct metabolic acidosis. 4. We will continue to optimize nutritional support and ventilator support. DICTATING PHYSICIAN: BENJAMIN POWELL MD,VIRA,MPH [id number] PHY#: [id number] ID: [id number] JOB#: [id number] ACCT: [id number] cc: > MTDD
[2018-09-28] MEDS: PROPOFOL 1,000 MG/100 ML INFUS..BTL IV PRN ×2 (11:54→21:42)
[2018-09-28] MEDS: ALBUMIN HUMAN 12.5 GM/50 ML RTUINJ IV SCH ×2 (13:53→18:02)
[2018-09-28] MEDS: FUROSEMIDE INJ/PF 40 MG/4 ML SDV IV SCH ×2 (14:03→18:01)
--- NOTE | 2018-09-28 20:30 | PDOC PROGRESS REPORT ---
Subjective Progress Note for:: 09/28/18 Subjective:: Patient was seen this morning. Currently she is intubated and sedated. Urine production remains low at 450mL yesterday. According to the nurse taking care of her yesterday, the family has decided to keep the care going until they arrive after this weekend. Reason For Visit: PNEUMONIA,ACUTE HYPERCAPNIC AND HYPOXEMIC Physical Exam Vital Signs: Temp Pulse Resp BP Pulse Ox 99.0 F 80 22 H 122/49 L 94 09/28/18 19:14 09/28/18 18:00 09/28/18 18:33 09/28/18 18:33 09/28/18 18:33 Intake & Output 09/27/18 09/28/18 09/29/18 06:59 06:59 06:59 Intake Total 4277 3356 624 Output Total 385 445 120 Balance 3892 2911 504 Weight 91.6 kg 92.7 kg General appearance: PRESENT: no acute distress, obese, well-nourished Mouth exam: PRESENT: moist, neck supple Neck exam: PRESENT: full ROM. ABSENT: JVD Respiratory exam: PRESENT: crackles, rales. ABSENT: accessory muscle use, clear to auscultation lauren, wheezes Cardiovascular exam: PRESENT: +S1, +S2, systolic murmur GI/Abdominal exam: PRESENT: normal bowel sounds, soft. ABSENT: organomegaly, tenderness Extremities exam: PRESENT: pedal edema, +1 edema. ABSENT: tenderness Musculoskeletal exam: ABSENT: normal inspection, tenderness Neurological exam: PRESENT: other - -sedated. ABSENT: alert, awake, oriented to person, oriented to place, oriented to time, oriented to situation Skin exam: PRESENT: intact, warm, other. ABSENT: dry Results Laboratory Results: 09/27/18 05:15 09/28/18 06:00 09/28/18 09/28/18 06:00 08:00 Carbonic Acid 1.21 HCO3/H2CO3 Ratio 20:1 ABG pH 7.42 ABG pCO2 40.3 ABG pO2 48.8 L ABG HCO3 25.4 H ABG O2 Saturation 85.1 L ABG Base Excess 0.8 FiO2 60% Sodium 146.0 H Potassium 3.6 Chloride 107 Carbon Dioxide 25 Anion Gap 14 BUN 50 H Creatinine 2.67 H Est GFR ( Amer) 21 L Est GFR (Non-Af Amer) 17 L Glucose 108 Calcium 8.4 Magnesium 2.1 09/22/18 09/22/18 09/23/18 19:21 19:21 01:22 Creatine Kinase 26 L < 20 L CK-MB (CK-2) 1.66 Troponin I 0.062 NT-Pro-B Natriuret Pep 09/23/18 09/23/18 09/26/18 01:22 05:30 04:30 Creatine Kinase CK-MB (CK-2) 1.54 1.15 Troponin I 0.077 0.075 NT-Pro-B Natriuret Pep [id number] H Impressions: KUB X-Ray 09/22/18 12:40 IMPRESSION: NO RADIOGRAPHIC EVIDENCE FOR ACUTE ABDOMINAL DISEASE. Abdomen Ultrasound 09/24/18 10:00 IMPRESSION: Findings consistent with biliary sludge. There is thickening of the gallbladder jordan and pericholecystic fluid. The possibility of cholecystitis should be considered. Perihepatic and perisplenic ascitic fluid is identified. The liver demonstrates a somewhat nodular contour. Other findings as noted above Chest X-Ray 09/28/18 07:00 IMPRESSION: 1. Overall, no significant interval change when compared to the prior studies. There is ongoing bilateral airspace disease greatest in the left inferior hemithorax. 2. Grossly stable life support lines and tubes. Assessment & Plan - Diagnosis (1) Acute kidney injury Is this a current diagnosis for this admission?: Yes Plan: remains oliguric, increasing furosemide to 40 q8 and starting albumin 12.5g q8. Will reassess tomorrow (2) Acidosis Plan: will look to stop the bicarb drip (3) Acute hypercapnic respiratory failure Is this a current diagnosis for this admission?: Yes Plan: currently intubated and stable (4) Acute cholecystitis Is this a current diagnosis for this admission?: Yes Plan: per primary (5) Hypokalemia Plan: currently stable (6) Pneumonia Qualifiers: Plan: on piptazo (7) Diarrhea Plan: per primary (8) Sepsis Qualifiers: Sepsis type: sepsis due to unspecified organism Qualified Code(s): A41.9 - Sepsis, unspecified organism Is this a current diagnosis for this admission?: Yes Plan: currently hypotension is stable, maintaining on normal saline at 50mL an hour. Will reassess sodium tomorrow.
--- NOTE | 2018-09-28 22:00 | PDOC PROGRESS REPORT ---
Subjective Progress Note for:: 09/28/18 Subjective:: Patient condition is declining very rapidly, she is very oliguric Reason For Visit: PNEUMONIA,ACUTE HYPERCAPNIC AND HYPOXEMIC Physical Exam Vital Signs: Temp Pulse Resp BP Pulse Ox 98.6 F 70 22 H 122/49 L 94 09/28/18 21:44 09/28/18 20:00 09/28/18 18:33 09/28/18 18:33 09/28/18 18:33 Intake & Output 09/27/18 09/28/18 09/29/18 06:59 06:59 06:59 Intake Total 4277 3356 804 Output Total 385 445 150 Balance 3892 2911 654 Weight 91.6 kg 92.7 kg Respiratory exam: PRESENT: rhonchi Cardiovascular exam: PRESENT: +S1, +S2 GI/Abdominal exam: PRESENT: soft Results Laboratory Results: 09/27/18 05:15 09/28/18 06:00 09/28/18 09/28/18 06:00 08:00 Carbonic Acid 1.21 HCO3/H2CO3 Ratio 20:1 ABG pH 7.42 ABG pCO2 40.3 ABG pO2 48.8 L ABG HCO3 25.4 H ABG O2 Saturation 85.1 L ABG Base Excess 0.8 FiO2 60% Sodium 146.0 H Potassium 3.6 Chloride 107 Carbon Dioxide 25 Anion Gap 14 BUN 50 H Creatinine 2.67 H Est GFR ( Amer) 21 L Est GFR (Non-Af Amer) 17 L Glucose 108 Calcium 8.4 Magnesium 2.1 09/22/18 09/22/18 09/23/18 19:21 19:21 01:22 Creatine Kinase 26 L < 20 L CK-MB (CK-2) 1.66 Troponin I 0.062 NT-Pro-B Natriuret Pep 09/23/18 09/23/18 09/26/18 01:22 05:30 04:30 Creatine Kinase CK-MB (CK-2) 1.54 1.15 Troponin I 0.077 0.075 NT-Pro-B Natriuret Pep [id number] H Impressions: KUB X-Ray 09/22/18 12:40 IMPRESSION: NO RADIOGRAPHIC EVIDENCE FOR ACUTE ABDOMINAL DISEASE. Abdomen Ultrasound 09/24/18 10:00 IMPRESSION: Findings consistent with biliary sludge. There is thickening of the gallbladder jordan and pericholecystic fluid. The possibility of cholecystitis should be considered. Perihepatic and perisplenic ascitic fluid is identified. The liver demonstrates a somewhat nodular contour. Other findings as noted above Chest X-Ray 09/28/18 07:00 IMPRESSION: 1. Overall, no significant interval change when compared to the prior studies. There is ongoing bilateral airspace disease greatest in the left inferior hemithorax. 2. Grossly stable life support lines and tubes. Assessment & Plan - Diagnosis (1) Acute hypercapnic respiratory failure Is this a current diagnosis for this admission?: Yes (2) Hypokalemia Is this a current diagnosis for this admission?: Yes (3) Acute kidney injury Is this a current diagnosis for this admission?: Yes (4) Pneumonia Qualifiers: Pneumonia type: due to unspecified organism Laterality: unspecified laterality Lung location: unspecified part of lung Qualified Code(s): J18.9 - Pneumonia, unspecified organism Is this a current diagnosis for this admission?: Yes (5) Acute respiratory acidosis Is this a current diagnosis for this admission?: Yes (6) Thrombocytopenia Is this a current diagnosis for this admission?: Yes (7) Sepsis Qualifiers: Sepsis type: sepsis due to unspecified organism Qualified Code(s): A41.9 - Sepsis, unspecified organism Is this a current diagnosis for this admission?: Yes (8) Liver cirrhosis Qualifiers: Hepatic cirrhosis type: other cirrhosis Qualified Code(s): K74.69 - Other cirrhosis of liver Is this a current diagnosis for this admission?: Yes (9) Septic shock Is this a current diagnosis for this admission?: Yes (10) Metabolic encephalopathy Is this a current diagnosis for this admission?: Yes (11) Atrial fibrillation Qualifiers: Atrial fibrillation type: paroxysmal Qualified Code(s): I48.0 - Paroxysmal atrial fibrillation Is this a current diagnosis for this admission?: Yes (12) Acute cholecystitis Is this a current diagnosis for this admission?: Yes
--- NOTE | 2018-09-28 22:16 | PROGRESS NOTE E ---
Progress Note NAME: LORI MANZANARES : 1930 AGE: 87Y DATE: 09/28/2018 ROOM: 601 SUBJECTIVE: The patient is an 87-year-old -[place] female who came in with acute respiratory failure requiring invasive mechanical ventilation. Had pneumonia bilaterally, pulmonary edema bilaterally, and acute renal failure with severe metabolic acidosis. The patient has no fever for the last 24 hours. Has still thick multiple endotracheal tube secretions which are brownish in color. The patient tolerated the OG tube feeding at 20 mL per hour. No vomiting noted. No watery stool. However, the patient was started on Imodium p.o. three times a day yesterday. The patient's bicarb drip was discontinued and replaced with normal saline solution. Urine output is still low at 445 mL per the last 24 hours. The patient was determined to need CRRT, however, the patient's family refused, however, family members refused and patient is awaiting other family members in the next few days from [facility] and the patient's family plan will be to probably place the patient on comfort care. OBJECTIVE: GENERAL: The patient is sedated, afebrile, not in apparent respiratory distress. VITAL SIGNS: With a temperature of 99 degrees Fahrenheit with a T-max of 90 degrees Fahrenheit. Heart rate is 80, blood pressure is 123/47, respiratory 22, saturation is 94% on 60% FiO2, PEEP of 10, pressure support of 10 above PEEP, tidal volume of 400 mL, and rate of 22. EYES: No jaundice or pallor. EARS, NOSE, AND THROAT: No ear drainage. No nasal discharge. CHEST AND LUNGS: No wheezing, no rhonchi, no coarse crackles. CARDIOVASCULAR: S1, S2 distinct. Normal rate and regular rhythm. ABDOMEN: Flabby, hypoactive bowel sounds, soft, nondistended, nontender. EXTREMITIES: No joint swelling, no cellulitis. LABORATORY DATA: CBC done today showed white count 11.6, hemoglobin is 9.2, hematocrit is 29.1, platelet count is 53. Blood gas is 7.42, pCO2 of 40.3, pO2 is 48.8, bicarb is 11.4. Chemistry done today showed sodium is 146, potassium 3.6, chloride 107, CO2 is 25, BUN is 50, creatinine is 2.67 down from 2.79 yesterday, glucose 108, and calcium is 8.4, magnesium is 2.1. ASSESSMENT: 1. ACUTE RESPIRATORY FAILURE REQUIRING INVASIVE MECHANICAL VENTILATION. The patient is not ready to be extubated. The patient requires high PEEP and high FiO2 yet. The patient continues to retain a positive fluid balance. The patient probably requires dialysis but family refused hemodialysis or CRRT. 2. PULMONARY EDEMA. 3. PNEUMONIA CONCOMITANT BILATERAL. 4. INTRAABDOMINAL INFECTION, MOSTLY ACUTE CHOLECYSTITIS. Appeared to be improved on additional gentamicin and Flagyl in addition to the Zosyn. 5. ACUTE RENAL FAILURE WITH SEVERE METABOLIC ACIDOSIS. Metabolic acidosis appeared to improve and serum creatinine appeared to improve as well in the last few days, down to 2.67 today. 6. DEMENTIA. 7. THROMBOCYTOPENIA, which seems to be stable. PLAN/RECOMMENDATION: 1. We will decrease the PEEP to 8 and continue to titrate FiO2 to keep saturation 91-94%. 2. Continue IV antibiotics. 3. Recommend discontinuing the loperamide. 4. Recommend family discussion about end-of-life care. DICTATING PHYSICIAN: BENJAMIN POWELL MD,VIRA,MPH [id number] PHY#: [id number] ID: [id number] JOB#: [id number] ACCT: [id number] cc: > ROSANGELA
[2018-09-29] MEDS: FUROSEMIDE INJ/PF 40 MG/4 ML SDV IV SCH (01:33)
[2018-09-29] MEDS: PIPERACILLIN SODIUM/TAZOBACTAM 3.375 GM in NORMAL SALINE 100 ML IV SCH ×3 (01:33→17:28)
[2018-09-29] MEDS: ALBUMIN HUMAN 12.5 GM/50 ML RTUINJ IV SCH ×3 (01:35→17:27)
[2018-09-29] MEDS: METRONIDAZOLE 500 MG/NS RTU 500 MG/100 ML RTUPB IV SCH ×3 (05:11→21:13)
[2018-09-29] MEDS: PROPOFOL 1,000 MG/100 ML INFUS..BTL IV PRN ×2 (05:12→16:02)
[2018-09-29] MEDS: LANSOPRAZOLE 30 MG TAB.RAP.DR NG SCH (05:12)
[2018-09-29 05:47] LABS: ANION GAP 14 (5-19); BLOOD UREA NITROGEN 55 mg/dL (7-20); CALCIUM 8.5 mg/dL (8.4-10.2); CARBON DIOXIDE 24 mmol/L (22-30); CHLORIDE 108 mmol/L (98-107); GLUCOSE 142 mg/dL (75-110); POTASSIUM 3.5 mmol/L (3.6-5.0); SODIUM 146.4 mmol/L (137-145); TRIGLYCERIDES 176 mg/dL (<150)
--- NOTE | 2018-09-29 06:36 | RADIOLOGY REPORT (SQ) ---
EXAM DESCRIPTION: X-ray single view chest. CLINICAL HISTORY: 87 years Female, pneumonia COMPARISON: Prior portable chest performed on 09/28/2018 and 09/27/2018 TECHNIQUE: Single portable view of the chest performed on 09/29/2018 at 6:08 AM FINDINGS: The lungs are well expanded. There is ongoing bilateral airspace disease greatest in the left inferior hemithorax. There is no evidence of a pneumothorax. The cardiac silhouette is normal in size and configuration. The mediastinal contours are normal. No acute osseous abnormality is identified. No focal soft tissue abnormalities are seen. Lines and tubes: The endotracheal tube, feeding tube and right subclavian central venous catheter are grossly stable in position. IMPRESSION: Overall, no significant change when compared to the prior studies. There is ongoing bilateral airspace disease greatest in the left inferior hemithorax.
[2018-09-29] MEDS: IPRATROPIUM/ALBUTEROL 0.5-2.5 MG/3 ML AMPUL NEB SCH ×2 (08:11→16:07)
[2018-09-29] MEDS ORDERED: NORMAL SALINE 250 ML with FUROSEMIDE 250 MG IV PRN ×2 (09:22)
[2018-09-29] MEDS: AMIODARONE HCL 200 MG TABLET NG SCH (11:01)
[2018-09-29] MEDS: LOPERAMIDE HCL ORAL SOLN 1 MG/5 ML UDC PO SCH ×3 (11:05→18:12)
--- NOTE | 2018-09-29 16:18 | PDOC PROGRESS REPORT ---
Subjective Subjective:: Patient was seen this morning. Currently she is intubated and sedated. Urine production remains low at 255mL yesterday. According to the nurse in charge of her care, albert, she is currently decreased on sedation and bp has been better. Reason For Visit: PNEUMONIA,ACUTE HYPERCAPNIC AND HYPOXEMIC Physical Exam Vital Signs: Temp Pulse Resp BP Pulse Ox 96.8 F L 99 22 H 111/64 92 09/29/18 12:00 09/29/18 12:00 09/29/18 15:03 09/29/18 15:03 09/29/18 15:03 Intake & Output 09/28/18 09/29/18 09/30/18 06:59 06:59 06:59 Intake Total 3356 1609 250 Output Total 445 285 135 Balance 2911 1324 115 Weight 92.7 kg 97.4 kg General appearance: PRESENT: no acute distress, well-developed, well-nourished, other - sedated Mouth exam: PRESENT: moist, neck supple Neck exam: PRESENT: full ROM, JVD Respiratory exam: PRESENT: crackles, decreased breath sounds, rhonchi. ABSENT: accessory muscle use, clear to auscultation lauren, wheezes Cardiovascular exam: PRESENT: +S1, +S2, systolic murmur GI/Abdominal exam: PRESENT: normal bowel sounds, soft. ABSENT: organomegaly, tenderness Extremities exam: PRESENT: +2 edema. ABSENT: pedal edema, tenderness, +1 edema Musculoskeletal exam: PRESENT: normal inspection. ABSENT: tenderness Neurological exam: PRESENT: other - sedated. ABSENT: alert, awake, oriented to person, oriented to place, oriented to time, oriented to situation Skin exam: PRESENT: intact, warm. ABSENT: dry Results Laboratory Results: 09/27/18 05:15 09/29/18 05:25 09/29/18 05:25 Sodium 146.4 H Potassium 3.5 L Chloride 108 H Carbon Dioxide 24 Anion Gap 14 BUN 55 H Creatinine 3.03 H Est GFR ( Amer) 18 L Est GFR (Non-Af Amer) 15 L Glucose 142 H Calcium 8.5 Magnesium 2.0 Triglycerides 176 H 09/22/18 09/22/18 09/23/18 19:21 19:21 01:22 Creatine Kinase 26 L < 20 L CK-MB (CK-2) 1.66 Troponin I 0.062 NT-Pro-B Natriuret Pep 09/23/18 09/23/18 09/26/18 01:22 05:30 04:30 Creatine Kinase CK-MB (CK-2) 1.54 1.15 Troponin I 0.077 0.075 NT-Pro-B Natriuret Pep [id number] H Impressions: KUB X-Ray 09/22/18 12:40 IMPRESSION: NO RADIOGRAPHIC EVIDENCE FOR ACUTE ABDOMINAL DISEASE. Abdomen Ultrasound 09/24/18 10:00 IMPRESSION: Findings consistent with biliary sludge. There is thickening of the gallbladder jordan and pericholecystic fluid. The possibility of cholecystitis should be considered. Perihepatic and perisplenic ascitic fluid is identified. The liver demonstrates a somewhat nodular contour. Other findings as noted above Chest X-Ray 09/29/18 07:00 IMPRESSION: Overall, no significant change when compared to the prior studies. There is ongoing bilateral airspace disease greatest in the left inferior hemithorax. Assessment & Plan - Diagnosis (1) Acute kidney injury Is this a current diagnosis for this admission?: Yes Plan: remains oliguric, continuing albumin 12.5g q8. Starting a furosemide drip at 20mg/h. Stopping normal saline and will reassess tomorrow (2) Acidosis Plan: off bicarb, currently stable (3) Acute hypercapnic respiratory failure Is this a current diagnosis for this admission?: Yes Plan: currently intubated and stable (4) Acute cholecystitis Is this a current diagnosis for this admission?: Yes Plan: per primary (5) Hypokalemia Plan: slightly low, will reassess tomorrow. (6) Pneumonia Qualifiers: Plan: on piptazo (7) Diarrhea Plan: per primary (8) Sepsis Qualifiers: Sepsis type: sepsis due to unspecified organism Qualified Code(s): A41.9 - Sepsis, unspecified organism Is this a current diagnosis for this admission?: Yes Plan: improving, white count is coming down and bp is stable off of fluids - Notes Notes: case was discussed with Dr. Perrin
--- NOTE | 2018-09-29 17:16 | PDOC PROGRESS REPORT ---
Subjective Progress Note for:: 09/29/18 Subjective:: Patient seen by the bedside, oliguric, now on Lasix infusion Reason For Visit: PNEUMONIA,ACUTE HYPERCAPNIC AND HYPOXEMIC Physical Exam Vital Signs: Temp Pulse Resp BP Pulse Ox 96.8 F L 99 22 H 111/64 92 09/29/18 12:00 09/29/18 12:00 09/29/18 15:03 09/29/18 15:03 09/29/18 15:03 Intake & Output 09/28/18 09/29/18 09/30/18 06:59 06:59 06:59 Intake Total 3356 1609 250 Output Total 445 285 260 Balance 2911 1324 -10 Weight 92.7 kg 97.4 kg Respiratory exam: PRESENT: rhonchi Cardiovascular exam: PRESENT: +S1, +S2 GI/Abdominal exam: PRESENT: soft Neurological exam: PRESENT: altered Results Laboratory Results: 09/27/18 05:15 09/29/18 05:25 09/29/18 05:25 Sodium 146.4 H Potassium 3.5 L Chloride 108 H Carbon Dioxide 24 Anion Gap 14 BUN 55 H Creatinine 3.03 H Est GFR ( Amer) 18 L Est GFR (Non-Af Amer) 15 L Glucose 142 H Calcium 8.5 Magnesium 2.0 Triglycerides 176 H 09/22/18 09/22/18 09/23/18 19:21 19:21 01:22 Creatine Kinase 26 L < 20 L CK-MB (CK-2) 1.66 Troponin I 0.062 NT-Pro-B Natriuret Pep 09/23/18 09/23/18 09/26/18 01:22 05:30 04:30 Creatine Kinase CK-MB (CK-2) 1.54 1.15 Troponin I 0.077 0.075 NT-Pro-B Natriuret Pep 70655 H Impressions: KUB X-Ray 09/22/18 12:40 IMPRESSION: NO RADIOGRAPHIC EVIDENCE FOR ACUTE ABDOMINAL DISEASE. Abdomen Ultrasound 09/24/18 10:00 IMPRESSION: Findings consistent with biliary sludge. There is thickening of the gallbladder jordan and pericholecystic fluid. The possibility of cholecystitis should be considered. Perihepatic and perisplenic ascitic fluid is identified. The liver demonstrates a somewhat nodular contour. Other findings as noted above Chest X-Ray 09/29/18 07:00 IMPRESSION: Overall, no significant change when compared to the prior studies. There is ongoing bilateral airspace disease greatest in the left inferior hemithorax. Assessment & Plan - Diagnosis (1) Acute hypercapnic respiratory failure Is this a current diagnosis for this admission?: Yes (2) Hypokalemia Is this a current diagnosis for this admission?: Yes (3) Acute kidney injury Is this a current diagnosis for this admission?: Yes (4) Pneumonia Qualifiers: Pneumonia type: due to unspecified organism Laterality: unspecified laterality Lung location: unspecified part of lung Qualified Code(s): J18.9 - Pneumonia, unspecified organism Is this a current diagnosis for this admission?: Yes (5) Acute respiratory acidosis Is this a current diagnosis for this admission?: Yes (6) Thrombocytopenia Is this a current diagnosis for this admission?: Yes (7) Sepsis Qualifiers: Sepsis type: sepsis due to unspecified organism Qualified Code(s): A41.9 - Sepsis, unspecified organism Is this a current diagnosis for this admission?: Yes (8) Liver cirrhosis Qualifiers: Hepatic cirrhosis type: other cirrhosis Qualified Code(s): K74.69 - Other cirrhosis of liver Is this a current diagnosis for this admission?: Yes (9) Septic shock Is this a current diagnosis for this admission?: Yes (10) Metabolic encephalopathy Is this a current diagnosis for this admission?: Yes (11) Atrial fibrillation Qualifiers: Atrial fibrillation type: paroxysmal Qualified Code(s): I48.0 - Paroxysmal atrial fibrillation Is this a current diagnosis for this admission?: Yes (12) Acute cholecystitis Is this a current diagnosis for this admission?: Yes - Plan Summary Plan Summary: Continue furosemide infusion
[2018-09-29] MEDS: NORMAL SALINE 250 ML with FUROSEMIDE 250 MG IV PRN ×2 (18:14)
[2018-09-30] MEDS: IPRATROPIUM/ALBUTEROL 0.5-2.5 MG/3 ML AMPUL NEB SCH ×4 (00:12→23:44)
[2018-09-30] MEDS: ALBUMIN HUMAN 12.5 GM/50 ML RTUINJ IV SCH ×3 (01:07→18:34)
[2018-09-30] MEDS: NORMAL SALINE 250 ML with FUROSEMIDE 250 MG IV PRN ×2 (01:08)
[2018-09-30] MEDS: PIPERACILLIN SODIUM/TAZOBACTAM 3.375 GM in NORMAL SALINE 100 ML IV SCH ×3 (01:08→18:00)
[2018-09-30] MEDS: PROPOFOL 1,000 MG/100 ML INFUS..BTL IV PRN ×2 (05:02→18:37)
[2018-09-30] MEDS: LANSOPRAZOLE 30 MG TAB.RAP.DR NG SCH (05:02)
[2018-09-30] MEDS: METRONIDAZOLE 500 MG/NS RTU 500 MG/100 ML RTUPB IV SCH ×3 (05:02→21:01)
[2018-09-30 05:19] LABS: ANION GAP 13 (5-19); BLOOD UREA NITROGEN 54 mg/dL (7-20); CALCIUM 8.6 mg/dL (8.4-10.2); CARBON DIOXIDE 26 mmol/L (22-30); CHLORIDE 109 mmol/L (98-107); GLUCOSE 137 mg/dL (75-110); SODIUM 147.8 mmol/L (137-145)
[2018-09-30] MEDS: POTASSIUM CHLORIDE 20 MEQ/50 ML RTU IV SCH ×3 (06:17→11:02)
--- NOTE | 2018-09-30 06:29 | RADIOLOGY REPORT (SQ) ---
EXAM DESCRIPTION: X-ray single view chest. CLINICAL HISTORY: 87 years Female, pneumonia COMPARISON: Portable chest performed on 09/29/2018 and 09/28/2018 TECHNIQUE: Single portable view of the chest performed on 09/30/2018 at 6:06 AM FINDINGS: The lungs are well expanded. There is persistent diffuse bilateral airspace disease worse in the left inferior hemithorax. There is no evidence of a pneumothorax. The cardiac silhouette is normal in size and configuration. The mediastinal contours are normal. No acute osseous abnormality is identified. No focal soft tissue abnormalities are seen. Lines and tubes: The endotracheal tube and feeding tube are grossly stable in position. The right subclavian central venous catheter is also stable in position. There may be kinking of the proximal right subclavian central venous catheter. IMPRESSION: 1. No significant interval change when compared to the prior studies. 2. Grossly stable life support lines and tubes. There may be kinking of the proximal right subclavian central venous catheter.
[2018-09-30] MEDS: LOPERAMIDE HCL ORAL SOLN 1 MG/5 ML UDC PO SCH ×3 (09:44→18:39)
[2018-09-30] MEDS: AMIODARONE HCL 200 MG TABLET NG SCH (09:44)
[2018-09-30] MEDS ORDERED: NORMAL SALINE 250 ML with FUROSEMIDE 250 MG IV PRN ×2 (14:45)
--- NOTE | 2018-09-30 15:31 | PDOC PROGRESS REPORT ---
Subjective Progress Note for:: 09/30/18 Subjective:: Patient was seen this morning. Currently she is intubated and sedated. Urine production improved to 860mL while on a furosemide drip of 20mg/h. According to the nurse in charge of her care, the family is 5 hours out and will try to make a decision on her tomorrow when they see her. Reason For Visit: PNEUMONIA,ACUTE HYPERCAPNIC AND HYPOXEMIC Physical Exam Vital Signs: Temp Pulse Resp BP Pulse Ox 96.4 F L 90 17 107/56 L 94 09/30/18 14:00 09/30/18 14:00 09/30/18 15:05 09/30/18 15:05 09/30/18 15:05 Intake & Output 09/29/18 09/30/18 10/01/18 06:59 06:59 06:59 Intake Total 1609 1368 428 Output Total 285 855 560 Balance 1324 513 -132 Weight 97.4 kg 98.6 kg General appearance: PRESENT: no acute distress, well-developed, well-nourished, other - sedated Mouth exam: PRESENT: moist, neck supple Neck exam: PRESENT: full ROM, JVD. ABSENT: tracheal deviation Respiratory exam: PRESENT: crackles, rhonchi. ABSENT: clear to auscultation lauren , wheezes Cardiovascular exam: PRESENT: +S1, +S2, systolic murmur GI/Abdominal exam: PRESENT: normal bowel sounds, soft. ABSENT: organomegaly, tenderness Extremities exam: PRESENT: pedal edema, +2 edema. ABSENT: tenderness Musculoskeletal exam: ABSENT: normal inspection, tenderness Neurological exam: PRESENT: alert, awake, oriented to person, oriented to place , oriented to time, oriented to situation, other - sedated Skin exam: PRESENT: dry, intact, warm Results Laboratory Results: 09/27/18 05:15 09/30/18 04:50 Sodium 147.8 H Potassium 3.0 L* Chloride 109 H Carbon Dioxide 26 Anion Gap 13 BUN 54 H Creatinine 3.10 H Est GFR ( Amer) 17 L Est GFR (Non-Af Amer) 14 L Glucose 137 H Calcium 8.6 Magnesium 2.1 09/22/18 09/22/18 09/23/18 19:21 19:21 01:22 Creatine Kinase 26 L < 20 L CK-MB (CK-2) 1.66 Troponin I 0.062 NT-Pro-B Natriuret Pep 09/23/18 09/23/18 09/26/18 01:22 05:30 04:30 Creatine Kinase CK-MB (CK-2) 1.54 1.15 Troponin I 0.077 0.075 NT-Pro-B Natriuret Pep 16754 H Impressions: KUB X-Ray 09/22/18 12:40 IMPRESSION: NO RADIOGRAPHIC EVIDENCE FOR ACUTE ABDOMINAL DISEASE. Abdomen Ultrasound 09/24/18 10:00 IMPRESSION: Findings consistent with biliary sludge. There is thickening of the gallbladder jordan and pericholecystic fluid. The possibility of cholecystitis should be considered. Perihepatic and perisplenic ascitic fluid is identified. The liver demonstrates a somewhat nodular contour. Other findings as noted above Chest X-Ray 09/30/18 07:00 IMPRESSION: 1. No significant interval change when compared to the prior studies. 2. Grossly stable life support lines and tubes. There may be kinking of the proximal right subclavian central venous catheter. Assessment & Plan - Diagnosis (1) Acute kidney injury Is this a current diagnosis for this admission?: Yes Plan: nonoliguric, slight improvement after furosemide drip was started. Will decrease to 15mg/h and stopping albumin (2) Acute hypercapnic respiratory failure Is this a current diagnosis for this admission?: Yes Plan: currently intubated and stable (3) Acute cholecystitis Is this a current diagnosis for this admission?: Yes Plan: per primary (4) Hypokalemia Plan: recently received 3 20mEQ k-riders, awaiting new potassium results (5) Pneumonia Qualifiers: Plan: on piptazo (6) Diarrhea Plan: per primary (7) Sepsis Qualifiers: Sepsis type: sepsis due to unspecified organism Qualified Code(s): A41.9 - Sepsis, unspecified organism Is this a current diagnosis for this admission?: Yes Plan: improving, white count is coming down and bp is stable off of fluids (8) Acidosis Plan: off bicarb, currently stable
--- NOTE | 2018-09-30 15:38 | PROGRESS NOTE E ---
Progress Note NAME: LORI MANZANARES : 1930 AGE: 87Y DATE: 09/29/2018 ROOM: 601 SUBJECTIVE: The patient is an 87-year-old -[place] female who came in with acute respiratory failure requiring evasive mechanical ventilation, pneumonia, severe sepsis, intraabdominal infection, severe metabolic acidosis, and acute renal failure. Now the patient has not had any fever for the last 24 hours. The patient tolerating the Ensure feeding. No vomiting. Her blood pressure has been stable. Still has watery stool, which seems to improve a little bit due to loperamide. Metabolic acidosis appears to be improving and acute renal failure appears to be improving as well. Not yet on hemodialysis. OBJECTIVE: GENERAL: The patient appeared sedated, afebrile, not in apparent respiratory distress. VITAL SIGNS: Temperature of 97.3, with a t-max of 97.9. The blood pressure is 122/65, not on vasopressors, heart rate of 93, respiratory rate of 22, and saturation is 93% on FiO2 of 65%, PEEP of 8, tidal volume 400, pressure support 10 above PEEP. Minute ventilation is about 8 and the peak airway pressure is 34. Spontaneous tidal volume is about 400. Urine output in the last 24 hours, 09/28/2018, was 445, so urine output has been about 400 mL over the last 3-4 days, but imbalance yesterday was 2911. The day before that, 09/27/2018, was 3892, and on 09/26 it was 4000 mL. EYES: No jaundice or pallor. EARS, NOSE, AND THROAT: No ear drainage. No nasal discharge. CHEST AND LUNGS: No wheezing. No rhonchi. No coarse crackles. CARDIOVASCULAR: S1, S2 distinct. Normal rate, irregular rhythm. ABDOMEN: Flabby. Positive bowel sounds. Soft, nondistended. EXTREMITIES: No joint swelling ankles and hands. LABORATORY DATA: CBC done 09/27/2018 showed a white count of 11.6, hemoglobin is 9.2, hematocrit is 29.1. The chemistries done today showed sodium of 146, potassium is 3.5, chloride is 108, CO2 is 24, BUN is 55, creatinine is 3.03, glucose 142, calcium is 8.5. IMAGING STUDIES: Chest x-ray: No pneumothorax noted and pulmonary infiltrate stable. ASSESSMENT: 1. ACUTE RESPIRATORY FAILURE REQUIRING INVASIVE MECHANICAL VENTILATION. Currently, the patient not ready to be extubated, no ready for spontaneous breathing trial. The patient's PEEP requirement still high, about 8, and FiO2 requirement still high at 65. The patient is switching a lot of fluids, causing the IV volume being infused and the urine output, marked imbalance over the last 3-4 days. 2. ACUTE RENAL FAILURE. Currently followed by Nephrology. Appeared to be worsening this morning. 3. METABOLIC ACIDOSIS, SEVERE. Appeared to be improving, currently normalizing of the sodium bicarbonate. 4. PNEUMONIA. Still has mild to moderate endotracheal tube secretions, tannish in color. 5. INTRAABDOMINAL INFECTION, ACUTE CHOLECYSTITIS. Currently on Zosyn and metolazone. White count has been stable and no fever spikes, and blood pressure has been stable. PLAN/RECOMMENDATIONS: 1. Continue to optimize ventilator support. 2. Continue Zosyn and IV Flagyl. 3. Will discontinue the IV gentamicin and observe the patient for the next few days. We may need to change the IV antibiotic therapy. 4. Dr. Marshall will cover tomorrow- , Thursday and Thursday. DICTATING PHYSICIAN: BENJAMIN POWELL MD,VIRA,MPH [id number] PHY#: [id number] ID: [id number] JOB#: [id number] ACCT: [id number] cc: > MTDD
[2018-09-30 15:41] LABS: VANCOMYCIN,TROUGH 8.4 ug/mL (5.0-20.0)
--- NOTE | 2018-09-30 20:30 | PDOC PROGRESS REPORT ---
Subjective Progress Note for:: 09/30/18 Subjective:: Patient remain on mechanical ventilation Reason For Visit: PNEUMONIA,ACUTE HYPERCAPNIC AND HYPOXEMIC Physical Exam Vital Signs: Temp Pulse Resp BP Pulse Ox 96.4 F L 98 16 111/63 93 09/30/18 19:21 09/30/18 18:00 09/30/18 18:35 09/30/18 18:35 09/30/18 18:35 Intake & Output 09/29/18 09/30/18 10/01/18 06:59 06:59 06:59 Intake Total 1609 1368 1078 Output Total 285 855 915 Balance 1324 513 163 Weight 97.4 kg 98.6 kg Eye exam: PRESENT: PERRLA Respiratory exam: PRESENT: decreased breath sounds Cardiovascular exam: PRESENT: +S1, +S2 GI/Abdominal exam: PRESENT: soft Results Laboratory Results: 09/27/18 05:15 09/30/18 14:45 09/30/18 09/30/18 04:50 14:45 Sodium 147.8 H Potassium 3.0 L* 3.5 L Chloride 109 H Carbon Dioxide 26 Anion Gap 13 BUN 54 H Creatinine 3.10 H Est GFR ( Amer) 17 L Est GFR (Non-Af Amer) 14 L Glucose 137 H Calcium 8.6 Magnesium 2.1 09/22/18 09/22/18 09/23/18 19:21 19:21 01:22 Creatine Kinase 26 L < 20 L CK-MB (CK-2) 1.66 Troponin I 0.062 NT-Pro-B Natriuret Pep 09/23/18 09/23/18 09/26/18 01:22 05:30 04:30 Creatine Kinase CK-MB (CK-2) 1.54 1.15 Troponin I 0.077 0.075 NT-Pro-B Natriuret Pep 37178 H Impressions: KUB X-Ray 09/22/18 12:40 IMPRESSION: NO RADIOGRAPHIC EVIDENCE FOR ACUTE ABDOMINAL DISEASE. Abdomen Ultrasound 09/24/18 10:00 IMPRESSION: Findings consistent with biliary sludge. There is thickening of the gallbladder jordan and pericholecystic fluid. The possibility of cholecystitis should be considered. Perihepatic and perisplenic ascitic fluid is identified. The liver demonstrates a somewhat nodular contour. Other findings as noted above Chest X-Ray 09/30/18 07:00 IMPRESSION: 1. No significant interval change when compared to the prior studies. 2. Grossly stable life support lines and tubes. There may be kinking of the proximal right subclavian central venous catheter. Assessment & Plan - Diagnosis (1) Acute hypercapnic respiratory failure Is this a current diagnosis for this admission?: Yes (2) Hypokalemia Is this a current diagnosis for this admission?: Yes (3) Acute kidney injury Is this a current diagnosis for this admission?: Yes (4) Pneumonia Qualifiers: Pneumonia type: due to unspecified organism Laterality: unspecified laterality Lung location: unspecified part of lung Qualified Code(s): J18.9 - Pneumonia, unspecified organism Is this a current diagnosis for this admission?: Yes (5) Acute respiratory acidosis Is this a current diagnosis for this admission?: Yes (6) Thrombocytopenia Is this a current diagnosis for this admission?: Yes (7) Sepsis Qualifiers: Sepsis type: sepsis due to unspecified organism Qualified Code(s): A41.9 - Sepsis, unspecified organism Is this a current diagnosis for this admission?: Yes (8) Liver cirrhosis Qualifiers: Hepatic cirrhosis type: other cirrhosis Qualified Code(s): K74.69 - Other cirrhosis of liver Is this a current diagnosis for this admission?: Yes (9) Septic shock Is this a current diagnosis for this admission?: Yes (10) Metabolic encephalopathy Is this a current diagnosis for this admission?: Yes (11) Atrial fibrillation Qualifiers: Atrial fibrillation type: paroxysmal Qualified Code(s): I48.0 - Paroxysmal atrial fibrillation Is this a current diagnosis for this admission?: Yes (12) Acute cholecystitis Is this a current diagnosis for this admission?: Yes
[2018-10-01] MEDS: PIPERACILLIN SODIUM/TAZOBACTAM 3.375 GM in NORMAL SALINE 100 ML IV SCH ×2 (02:08→09:18)
[2018-10-01] MEDS: ALBUMIN HUMAN 12.5 GM/50 ML RTUINJ IV SCH ×2 (02:08→09:18)
[2018-10-01] MEDS: PROPOFOL 1,000 MG/100 ML INFUS..BTL IV PRN ×2 (02:09→21:58)
[2018-10-01] MEDS ORDERED: METRONIDAZOLE 500 MG/NS RTU 500 MG/100 ML RTUPB IV ONE (05:22)
[2018-10-01] MEDS: LANSOPRAZOLE 30 MG TAB.RAP.DR NG SCH (05:27)
[2018-10-01] MEDS: METRONIDAZOLE 500 MG/NS RTU 500 MG/100 ML RTUPB IV SCH ×3 (05:27→21:18)
[2018-10-01 06:00] LABS: ANION GAP 17 (5-19); BLOOD UREA NITROGEN 53 mg/dL (7-20); CALCIUM 8.7 mg/dL (8.4-10.2); CARBON DIOXIDE 22 mmol/L (22-30); CHLORIDE 110 mmol/L (98-107); GLUCOSE 132 mg/dL (75-110); SODIUM 149.1 mmol/L (137-145)
[2018-10-01 06:05] LABS: POTASSIUM 2.9 mmol/L (3.6-5.0)
--- NOTE | 2018-10-01 06:31 | RADIOLOGY REPORT (SQ) ---
EXAM DESCRIPTION: X-ray single view chest. CLINICAL HISTORY: 87 years Female, pneumonia COMPARISON: Prior portable chest performed on 09/30/2018 and 09/29/2018 TECHNIQUE: Single portable view of the chest performed on 10/01/2018 at 5:29 AM FINDINGS: Overall, there has been no significant interval change when compared to the prior studies. There is diffuse bilateral airspace disease greatest in the left inferior hemithorax. There is no evidence of a pneumothorax. The cardiac silhouette is grossly stable and appears to be within normal limits. The mediastinal contours are normal. No acute osseous abnormality is identified. No focal soft tissue abnormalities are seen. Lines and tubes: The endotracheal tube, feeding tube and right subclavian central venous catheter are grossly stable in position. Again, there appears to be kinking of the proximal right subclavian central venous catheter. IMPRESSION: 1. No significant change when compared to the prior studies revealing diffuse bilateral airspace disease worse in the left inferior hemithorax. 2. Stable life support lines and tubes.
[2018-10-01] MEDS: POTASSIUM CHLORIDE 20 MEQ/50 ML RTU IV SCH ×3 (06:42→10:28)
[2018-10-01] MEDS: IPRATROPIUM/ALBUTEROL 0.5-2.5 MG/3 ML AMPUL NEB SCH ×2 (08:14→16:21)
[2018-10-01] MEDS: AMIODARONE HCL 200 MG TABLET NG SCH (09:18)
[2018-10-01] MEDS: LOPERAMIDE HCL ORAL SOLN 1 MG/5 ML UDC PO SCH ×3 (09:18→17:35)
--- NOTE | 2018-10-01 09:43 | PDOC PROGRESS REPORT ---
Subjective Progress Note for:: 10/01/18 Subjective:: intubated Reason For Visit: PNEUMONIA,ACUTE HYPERCAPNIC AND HYPOXEMIC Physical Exam Vital Signs: Temp Pulse Resp BP Pulse Ox 96.3 F L 86 22 H 118/58 L 94 10/01/18 05:13 10/01/18 08:14 10/01/18 08:14 10/01/18 05:34 10/01/18 08:14 Intake & Output 09/30/18 10/01/18 10/02/18 06:59 06:59 06:59 Intake Total 1368 1732 137 Output Total 855 1370 200 Balance 513 362 -63 Weight 98.6 kg 97.9 kg General appearance: PRESENT: no acute distress, disheveled, morbidly obese. ABSENT: cooperative Head exam: PRESENT: atraumatic, normocephalic Eye exam: PRESENT: conjunctiva pale. ABSENT: nystagmus, periorbital swelling, scleral icterus Mouth exam: PRESENT: dry mucosa, neck supple, tongue midline - grossly swollen protruding from mouth, other - ET tube Neck exam: ABSENT: carotid bruit, JVD, lymphadenopathy, thyromegaly, tracheal deviation, tracheostomy Respiratory exam: PRESENT: decreased breath sounds, prolonged expiratory phas, rales, rhonchi, unlabored. ABSENT: retraction, stridor Pulses: PRESENT: normal radial pulses GI/Abdominal exam: PRESENT: soft Gentrourinary exam: PRESENT: indwelling catheter Extremities exam: ABSENT: calf tenderness, clubbing, joint swelling, pedal edema Musculoskeletal exam: ABSENT: deformity, dislocation Neurological exam: ABSENT: awake Skin exam: PRESENT: dry, warm Results Laboratory Results: 09/27/18 05:15 10/01/18 05:40 09/30/18 10/01/18 14:45 05:40 Sodium 149.1 H Potassium 3.5 L 2.9 L* Chloride 110 H Carbon Dioxide 22 Anion Gap 17 BUN 53 H Creatinine 3.22 H Est GFR ( Amer) 17 L Est GFR (Non-Af Amer) 14 L Glucose 132 H Calcium 8.7 Magnesium 2.1 09/22/18 09/22/18 09/23/18 19:21 19:21 01:22 Creatine Kinase 26 L < 20 L CK-MB (CK-2) 1.66 Troponin I 0.062 NT-Pro-B Natriuret Pep 09/23/18 09/23/18 09/26/18 01:22 05:30 04:30 Creatine Kinase CK-MB (CK-2) 1.54 1.15 Troponin I 0.077 0.075 NT-Pro-B Natriuret Pep [id number] H Impressions: KUB X-Ray 09/22/18 12:40 IMPRESSION: NO RADIOGRAPHIC EVIDENCE FOR ACUTE ABDOMINAL DISEASE. Abdomen Ultrasound 09/24/18 10:00 IMPRESSION: Findings consistent with biliary sludge. There is thickening of the gallbladder jordan and pericholecystic fluid. The possibility of cholecystitis should be considered. Perihepatic and perisplenic ascitic fluid is identified. The liver demonstrates a somewhat nodular contour. Other findings as noted above Chest X-Ray 10/01/18 07:00 IMPRESSION: 1. No significant change when compared to the prior studies revealing diffuse bilateral airspace disease worse in the left inferior hemithorax. 2. Stable life support lines and tubes. Assessment & Plan - Diagnosis (1) HCV (hepatitis C virus) Is this a current diagnosis for this admission?: Yes Plan: Stable and chronic (2) Acute respiratory acidosis Is this a current diagnosis for this admission?: Yes Plan: Unchanged (3) Sepsis Qualifiers: Sepsis type: sepsis due to unspecified organism Qualified Code(s): A41.9 - Sepsis, unspecified organism Is this a current diagnosis for this admission?: No (4) Thrombocytopenia Is this a current diagnosis for this admission?: Yes Plan: Labs- All tests 24 hr 09/25/18 09/26/18 09/27/18 06:00 04:30 05:15 Plt Count 60 L 49 L 53 L 10/02/18 10/03/18 05:30 06:30 Plt Count 107 L 147 L (5) Chronic obstructive pulmonary disease Is this a current diagnosis for this admission?: Yes Plan: Generic Name Dose Route Start Last Admin Trade Name Freq PRN Reason Stop Dose Admin Influenza Virus Vaccine Quadrival 0.5 ml 09/23/18 08:30 Fluarix Adlt Quad 2017- Vac 0.5 Ml Syr IM 10/22/18 20:00 .DISCHARGE PRN THIS MED IS NOT "PRN" Albuterol/Ipratropium 3 ml 09/23/18 21:00 10/04/18 07:46 Duoneb 3 Ml Ampul NEB 10/23/18 20:59 3 ml RTQ8 KHADIJAH Famotidine 20 mg 10/01/18 10:00 10/04/18 10:00 Pepcid Inj/Pf 20 Mg/2 Ml Sdv IV 10/31/18 09:59 20 mg DAILY KHADIJAH (6) Angioedema Is this a current diagnosis for this admission?: Yes Plan: H2,steroids consider FFP - Time Total Critical Time (Minutes): 45
[2018-10-01] MEDS ORDERED: FAMOTIDINE INJ/PF 20 MG/2 ML SDV IV SCH (10:00)
[2018-10-01] MEDS: FAMOTIDINE INJ/PF 20 MG/2 ML SDV IV SCH (10:29)
[2018-10-01] MEDS: DEXAMETHASONE SOD PHOSPHATE INJ 4 MG/1 ML VIAL IV SCH ×3 (11:31→23:29)
[2018-10-01 12:21] LABS: FREE T3 1.54 pg/mL (2.77-5.27); FREE T4 (FREE THYROXINE) 1.32 ng/dL (0.78-2.19)
[2018-10-01 12:35] LABS: THYROID STIMULATING HORMONE 4.97 uIU/mL (0.47-4.68)
[2018-10-01] MEDS ORDERED: WATER IV PRN ×4 (13:00→14:52)
[2018-10-01] MEDS ORDERED: FUROSEMIDE IV PRN ×4 (13:00→14:52)
[2018-10-01] MEDS ORDERED: DEXTROSE 5% IV PRN ×4 (13:00→14:52)
--- NOTE | 2018-10-01 14:41 | PDOC PROGRESS REPORT ---
Subjective Progress Note for:: 10/01/18 Subjective:: Patient was seen this morning. Currently she is intubated and sedated. Urine production improved to 1360mL while on a furosemide drip of 15mg/h. According to the nurse in charge of her care, the family has chosen to continue her care. She is currently off of diprivan Reason For Visit: PNEUMONIA,ACUTE HYPERCAPNIC AND HYPOXEMIC Physical Exam Vital Signs: Temp Pulse Resp BP Pulse Ox 96.8 F L 86 17 123/59 L 95 10/01/18 10:00 10/01/18 08:14 10/01/18 11:05 10/01/18 11:05 10/01/18 11:34 Intake & Output 09/30/18 10/01/18 10/02/18 06:59 06:59 06:59 Intake Total 1368 1832 387 Output Total 855 1370 455 Balance 513 462 -68 Weight 98.6 kg 97.9 kg General appearance: PRESENT: no acute distress, well-developed, well-nourished, other - sedated Mouth exam: PRESENT: moist, neck supple Neck exam: PRESENT: full ROM. ABSENT: JVD Respiratory exam: PRESENT: crackles, rales. ABSENT: clear to auscultation lauren, rhonchi, wheezes Cardiovascular exam: PRESENT: +S1, +S2, systolic murmur GI/Abdominal exam: PRESENT: normal bowel sounds, soft. ABSENT: organomegaly, tenderness Extremities exam: PRESENT: +2 edema. ABSENT: pedal edema Musculoskeletal exam: ABSENT: normal inspection, tenderness Neurological exam: PRESENT: other - sedated. ABSENT: alert, awake, oriented to person, oriented to place, oriented to time Skin exam: PRESENT: dry, intact, warm Results Laboratory Results: 09/27/18 05:15 09/30/18 10/01/18 10/01/18 14:45 05:40 11:35 Sodium 149.1 H Potassium 3.5 L 2.9 L* Chloride 110 H Carbon Dioxide 22 Anion Gap 17 BUN 53 H Creatinine 3.22 H Est GFR ( Amer) 17 L Est GFR (Non-Af Amer) 14 L Glucose 132 H Calcium 8.7 Magnesium 2.1 TSH 4.97 H Free T4 1.32 Free T3 pg/mL 1.54 L 09/22/18 09/22/18 09/23/18 19:21 19:21 01:22 Creatine Kinase 26 L < 20 L CK-MB (CK-2) 1.66 Troponin I 0.062 NT-Pro-B Natriuret Pep 09/23/18 09/23/18 09/26/18 01:22 05:30 04:30 Creatine Kinase CK-MB (CK-2) 1.54 1.15 Troponin I 0.077 0.075 NT-Pro-B Natriuret Pep [id number] H Impressions: KUB X-Ray 09/22/18 12:40 IMPRESSION: NO RADIOGRAPHIC EVIDENCE FOR ACUTE ABDOMINAL DISEASE. Abdomen Ultrasound 09/24/18 10:00 IMPRESSION: Findings consistent with biliary sludge. There is thickening of the gallbladder jordan and pericholecystic fluid. The possibility of cholecystitis should be considered. Perihepatic and perisplenic ascitic fluid is identified. The liver demonstrates a somewhat nodular contour. Other findings as noted above Chest X-Ray 10/01/18 07:00 IMPRESSION: 1. No significant change when compared to the prior studies revealing diffuse bilateral airspace disease worse in the left inferior hemithorax. 2. Stable life support lines and tubes. Assessment & Plan - Diagnosis (1) Acute kidney injury Is this a current diagnosis for this admission?: Yes Plan: nonoliguric, continues to show good improvement in urine out put. Looks to be approaching the diuresis phase of kidney recovery. She will be losing a significant amount of potassium because of it. Decreasing lasix drip to 10mg an hour. (2) Acute hypercapnic respiratory failure Is this a current diagnosis for this admission?: Yes Plan: currently intubated and stable (3) Acute cholecystitis Is this a current diagnosis for this admission?: Yes Plan: per primary (4) Hypokalemia Plan: recently received 3 20mEQ k-riders, awaiting new potassium results. Patient is currently going through diuresis phase of kidney recovery, so consistent potassium will be needed. (5) Pneumonia Qualifiers: Plan: on piptazo (6) Diarrhea Plan: per primary (7) Sepsis Qualifiers: Sepsis type: sepsis due to unspecified organism Qualified Code(s): A41.9 - Sepsis, unspecified organism Is this a current diagnosis for this admission?: Yes Plan: improving, white count is coming down and bp is stable off of fluids (8) Acidosis Plan: off bicarb, currently stable (9) Hypernatremia Plan: switching furosemide drip solution to d5w to help reduce the sodium, will need to monitor the sugar levels.
[2018-10-01] MEDS: PIPERACILLIN SODIUM/TAZOBACTAM 2.25 GM in NORMAL SALINE 50 ML IV SCH ×2 (15:20→20:30)
--- NOTE | 2018-10-01 20:12 | PDOC PROGRESS REPORT ---
Subjective Progress Note for:: 10/01/18 Subjective:: I had a long discussion with patient's family about her condition, her condition is still precarious, on mechanical ventilation Reason For Visit: PNEUMONIA,ACUTE HYPERCAPNIC AND HYPOXEMIC Physical Exam Vital Signs: Temp Pulse Resp BP Pulse Ox 97.0 F 110 H 12 125/69 96 10/01/18 19:22 10/01/18 16:21 10/01/18 18:05 10/01/18 18:05 10/01/18 18:05 Intake & Output 09/30/18 10/01/18 10/02/18 06:59 06:59 06:59 Intake Total 1368 1832 627 Output Total 855 1370 890 Balance 513 462 -263 Weight 98.6 kg 97.9 kg Respiratory exam: PRESENT: decreased breath sounds Cardiovascular exam: PRESENT: +S1, +S2 GI/Abdominal exam: PRESENT: soft Results Laboratory Results: 09/27/18 05:15 10/01/18 14:23 10/01/18 10/01/18 10/01/18 05:40 11:35 14:23 Sodium 149.1 H Potassium 2.9 L* 4.0 D Chloride 110 H Carbon Dioxide 22 Anion Gap 17 BUN 53 H Creatinine 3.22 H Est GFR ( Amer) 17 L Est GFR (Non-Af Amer) 14 L Glucose 132 H Calcium 8.7 Magnesium 2.1 TSH 4.97 H Free T4 1.32 Free T3 pg/mL 1.54 L 09/22/18 09/22/18 09/23/18 19:21 19:21 01:22 Creatine Kinase 26 L < 20 L CK-MB (CK-2) 1.66 Troponin I 0.062 NT-Pro-B Natriuret Pep 09/23/18 09/23/18 09/26/18 01:22 05:30 04:30 Creatine Kinase CK-MB (CK-2) 1.54 1.15 Troponin I 0.077 0.075 NT-Pro-B Natriuret Pep [id number] H Impressions: KUB X-Ray 09/22/18 12:40 IMPRESSION: NO RADIOGRAPHIC EVIDENCE FOR ACUTE ABDOMINAL DISEASE. Abdomen Ultrasound 09/24/18 10:00 IMPRESSION: Findings consistent with biliary sludge. There is thickening of the gallbladder jordan and pericholecystic fluid. The possibility of cholecystitis should be considered. Perihepatic and perisplenic ascitic fluid is identified. The liver demonstrates a somewhat nodular contour. Other findings as noted above Chest X-Ray 10/01/18 07:00 IMPRESSION: 1. No significant change when compared to the prior studies revealing diffuse bilateral airspace disease worse in the left inferior hemithorax. 2. Stable life support lines and tubes. Assessment & Plan - Diagnosis (1) Acute hypercapnic respiratory failure Is this a current diagnosis for this admission?: Yes (2) Hypokalemia Is this a current diagnosis for this admission?: Yes (3) Acute kidney injury Is this a current diagnosis for this admission?: Yes (4) Pneumonia Qualifiers: Pneumonia type: due to unspecified organism Laterality: unspecified laterality Lung location: unspecified part of lung Qualified Code(s): J18.9 - Pneumonia, unspecified organism Is this a current diagnosis for this admission?: Yes (5) Acute respiratory acidosis Is this a current diagnosis for this admission?: Yes (6) Thrombocytopenia Is this a current diagnosis for this admission?: Yes (7) Sepsis Qualifiers: Sepsis type: sepsis due to unspecified organism Qualified Code(s): A41.9 - Sepsis, unspecified organism Is this a current diagnosis for this admission?: Yes (8) Liver cirrhosis Qualifiers: Hepatic cirrhosis type: other cirrhosis Qualified Code(s): K74.69 - Other cirrhosis of liver Is this a current diagnosis for this admission?: Yes (9) Septic shock Is this a current diagnosis for this admission?: Yes (10) Metabolic encephalopathy Is this a current diagnosis for this admission?: Yes (11) Atrial fibrillation Qualifiers: Atrial fibrillation type: paroxysmal Qualified Code(s): I48.0 - Paroxysmal atrial fibrillation Is this a current diagnosis for this admission?: Yes (12) Acute cholecystitis Is this a current diagnosis for this admission?: Yes - Plan Summary Plan Summary: Patient continue present treatment, antibiotic, Mechanical ventilation
[2018-10-02] MEDS: IPRATROPIUM/ALBUTEROL 0.5-2.5 MG/3 ML AMPUL NEB SCH ×3 (00:15→16:43)
[2018-10-02] MEDS: PIPERACILLIN SODIUM/TAZOBACTAM 2.25 GM in NORMAL SALINE 50 ML IV SCH ×4 (03:10→20:16)
[2018-10-02] MEDS: DEXAMETHASONE SOD PHOSPHATE INJ 4 MG/1 ML VIAL IV SCH ×3 (05:18→17:05)
[2018-10-02] MEDS: METRONIDAZOLE 500 MG/NS RTU 500 MG/100 ML RTUPB IV SCH ×3 (05:18→21:47)
[2018-10-02 06:18] LABS: ARTERIAL BLOOD BASE EXCESS -3.2 mmol/L; ARTERIAL BLOOD H2CO3 1.09 mmol/L (1.05-1.35); ARTERIAL BLOOD HCO3 21.4 mmol/L (20-24); ARTERIAL BLOOD O2 SATURATION 93.9 % (94-98); ARTERIAL BLOOD PCO2 36.3 mmHg (35-45); ARTERIAL BLOOD PH 7.39 (7.35-7.45); ARTERIAL BLOOD PO2 69.4 mmHg (80-100); ARTERIAL BLOOD TOTAL CO2 22.5 mmol/L (21-25)
[2018-10-02 06:21] LABS: ARTERIAL BLOOD FIO2 60%
[2018-10-02 06:32] LABS: ABSOLUTE LYMPHOCYTES (AUTO) 0.7 10^3/uL (0.5-4.7); ABSOLUTE MONOCYTES (AUTO) 0.2 10^3/uL (0.1-1.4); HEMATOCRIT 27.4 % (36.0-47.0); HEMOGLOBIN 8.7 g/dL (12.0-15.5); LYMPHOCYTES % (AUTO) 11.8 % (13-45); MEAN CORPUSCULAR HEMOGLOBIN 22.5 pg (27.0-33.4); MEAN CORPUSCULAR HGB CONC 31.8 g/dL (32.0-36.0); MEAN CORPUSCULAR VOLUME 71 fl (80-97); MONOCYTES % (AUTO) 3.6 % (3-13); PLATELET COUNT 107 10^3/uL (150-450); RED BLOOD COUNT 3.86 10^6/uL (3.72-5.28); RED CELL DISTRIBUTION WIDTH 20.7 % (11.5-14.0); SEGMENTED NEUTROPHILS % (AUTO) 84.6 % (42-78); TOTAL CELLS COUNTED % (AUTO) 100 %; WHITE BLOOD COUNT 5.9 10^3/uL (4.0-10.5)
[2018-10-02 06:35] LABS: ANION GAP 15 (5-19); BLOOD UREA NITROGEN 56 mg/dL (7-20); CALCIUM 8.7 mg/dL (8.4-10.2); CARBON DIOXIDE 22 mmol/L (22-30); CHLORIDE 112 mmol/L (98-107); GLUCOSE 170 mg/dL (75-110); POTASSIUM 3.1 mmol/L (3.6-5.0); TRIGLYCERIDES 119 mg/dL (<150)
--- NOTE | 2018-10-02 06:46 | RADIOLOGY REPORT (SQ) ---
EXAM DESCRIPTION: X-ray single view chest. CLINICAL HISTORY: 87 years Female, pneumonia COMPARISON: Prior portable chest x-rays performed on 10/01/2018 and 09/30/2018 TECHNIQUE: Single portable view of the chest performed on 10/02/2018 at 6:26 AM FINDINGS: The lungs are well expanded. Again, there is diffuse airspace disease throughout the right lung and left inferior hemithorax. There is stable consolidation in the left lung base. There is no evidence of a pneumothorax. The cardiac silhouette is normal in size and configuration. The mediastinal contours are normal. No acute osseous abnormality is identified. No focal soft tissue abnormalities are seen. Lines and tubes: The tip of the endotracheal tube terminates at the level of the clavicular heads. The feeding tube extends below the diaphragm. The right subclavian central venous catheter tip overlies the region of the superior vena cava. IMPRESSION: Overall, no significant change when compared to the prior studies. There is stable bilateral airspace disease worse in the left inferior hemithorax. The life support lines and tubes are grossly stable.
[2018-10-02] MEDS ORDERED: POTASSIUM CHLORIDE 20 MEQ/50 ML RTU IV SCH (09:30)
[2018-10-02] MEDS: FAMOTIDINE INJ/PF 20 MG/2 ML SDV IV SCH (09:40)
[2018-10-02] MEDS: LOPERAMIDE HCL ORAL SOLN 1 MG/5 ML UDC PO SCH ×3 (09:40→17:06)
[2018-10-02] MEDS: AMIODARONE HCL 200 MG TABLET NG SCH (09:40)
[2018-10-02] MEDS: POTASSIUM CHLORIDE 20 MEQ/50 ML RTU IV SCH ×4 (09:40→22:34)
--- NOTE | 2018-10-02 10:57 | PDOC PROGRESS REPORT ---
Subjective Progress Note for:: 10/02/18 Subjective:: Patient is currently underwent Patient's potassium is low Replace per protocol According to the nursing staff no other events happen Reason For Visit: PNEUMONIA,ACUTE HYPERCAPNIC AND HYPOXEMIC Physical Exam Vital Signs: Temp Pulse Resp BP Pulse Ox 97.2 F 98 17 120/60 93 10/02/18 10:00 10/02/18 10:00 10/02/18 10:00 10/02/18 10:00 10/02/18 10:00 Intake & Output 10/01/18 10/02/18 10/03/18 06:59 06:59 05:59 Intake Total 1832 1313 253 Output Total 1370 1325 165 Balance 462 -12 88 Weight 97.9 kg 98.2 kg Physical Exam: Currently on vent follow with the pulmonary General appearance: PRESENT: no acute distress Eye exam: PRESENT: PERRLA Mouth exam: PRESENT: neck supple Respiratory exam: PRESENT: decreased breath sounds Cardiovascular exam: PRESENT: +S1, +S2 GI/Abdominal exam: PRESENT: normal bowel sounds, soft Neurological exam: PRESENT: altered Skin exam: PRESENT: dry Results Laboratory Results: 10/02/18 05:30 10/02/18 05:30 10/01/18 10/01/18 10/02/18 11:35 14:23 05:30 WBC RBC Hgb Hct MCV MCH MCHC RDW Plt Count Seg Neutrophils % Lymphocytes % Monocytes % Eosinophils % Basophils % Absolute Neutrophils Absolute Lymphocytes Absolute Monocytes Absolute Eosinophils Absolute Basophils Carbonic Acid HCO3/H2CO3 Ratio ABG pH ABG pCO2 ABG pO2 ABG HCO3 ABG O2 Saturation ABG Base Excess FiO2 Sodium 149.0 H Potassium 4.0 D 3.1 L Chloride 112 H Carbon Dioxide 22 Anion Gap 15 BUN 56 H Creatinine 3.08 H Est GFR ( Amer) 17 L Est GFR (Non-Af Amer) 14 L Glucose 170 H Calcium 8.7 Magnesium 2.2 Triglycerides 119 TSH 4.97 H Free T4 1.32 Free T3 pg/mL 1.54 L 10/02/18 10/02/18 05:30 05:45 WBC 5.9 RBC 3.86 Hgb 8.7 L Hct 27.4 L MCV 71 L MCH 22.5 L MCHC 31.8 L RDW 20.7 H Plt Count 107 L Seg Neutrophils % 84.6 H Lymphocytes % 11.8 L Monocytes % 3.6 Eosinophils % 0.0 Basophils % 0.0 Absolute Neutrophils 5.0 Absolute Lymphocytes 0.7 Absolute Monocytes 0.2 Absolute Eosinophils 0.0 Absolute Basophils 0.0 Carbonic Acid 1.09 HCO3/H2CO3 Ratio 19:1 ABG pH 7.39 ABG pCO2 36.3 ABG pO2 69.4 L ABG HCO3 21.4 ABG O2 Saturation 93.9 L ABG Base Excess -3.2 FiO2 60% Sodium Potassium Chloride Carbon Dioxide Anion Gap BUN Creatinine Est GFR ( Amer) Est GFR (Non-Af Amer) Glucose Calcium Magnesium Triglycerides TSH Free T4 Free T3 pg/mL 09/22/18 09/22/18 09/23/18 19:21 19:21 01:22 Creatine Kinase 26 L < 20 L CK-MB (CK-2) 1.66 Troponin I 0.062 NT-Pro-B Natriuret Pep 09/23/18 09/23/18 09/26/18 01:22 05:30 04:30 Creatine Kinase CK-MB (CK-2) 1.54 1.15 Troponin I 0.077 0.075 NT-Pro-B Natriuret Pep 41040 H Impressions: KUB X-Ray 09/22/18 12:40 IMPRESSION: NO RADIOGRAPHIC EVIDENCE FOR ACUTE ABDOMINAL DISEASE. Abdomen Ultrasound 09/24/18 10:00 IMPRESSION: Findings consistent with biliary sludge. There is thickening of the gallbladder jordan and pericholecystic fluid. The possibility of cholecystitis should be considered. Perihepatic and perisplenic ascitic fluid is identified. The liver demonstrates a somewhat nodular contour. Other findings as noted above Chest X-Ray 10/02/18 07:00 IMPRESSION: Overall, no significant change when compared to the prior studies. There is stable bilateral airspace disease worse in the left inferior hemithorax. The life support lines and tubes are grossly stable. Assessment & Plan - Diagnosis (1) Acute hypercapnic respiratory failure Is this a current diagnosis for this admission?: Yes (2) Acute kidney injury Is this a current diagnosis for this admission?: Yes (3) Liver cirrhosis Qualifiers: Hepatic cirrhosis type: other cirrhosis Qualified Code(s): K74.69 - Other cirrhosis of liver Is this a current diagnosis for this admission?: Yes (4) Pneumonia Qualifiers: Is this a current diagnosis for this admission?: Yes (5) Sepsis Qualifiers: Sepsis type: sepsis due to unspecified organism Qualified Code(s): A41.9 - Sepsis, unspecified organism Is this a current diagnosis for this admission?: Yes (6) Chronic obstructive pulmonary disease Is this a current diagnosis for this admission?: Yes (7) Dementia Qualifiers: Dementia type: Alzheimer's disease Alzheimer's disease onset: late-onset Dementia behavioral disturbance: with behavioral disturbance Qualified Code(s) : G30.1 - Alzheimer's disease with late onset; F02.81 - Dementia in other diseases classified elsewhere with behavioral disturbance; F02.81 - Dementia in other diseases classified elsewhere with behavioral disturbance; F02.81 - Dementia in other diseases classified elsewhere with behavioral disturbance Is this a current diagnosis for this admission?: Yes - Time Time Spent with patient: 25-34 minutes Medications reviewed and adjusted accordingly: Yes Anticipated discharge: Other Within: Other - Inpatient Certification Based on my medical assessment, after consideration of the patient's comorbidities, presenting symptoms, or acuity I expect that the services needed warrant INPATIENT care.: Yes I certify that my determination is in accordance with my understanding of Medicare's requirements for reasonable and necessary INPATIENT services [42 CFR 412.3e].: Yes Medical Necessity: Significant Comorbidiites Make Outpatient Treatment Too Risky , Need for IV Antibiotics 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
[2018-10-02] MEDS: PROPOFOL 1,000 MG/100 ML INFUS..BTL IV PRN (16:46)
[2018-10-03] MEDS: IPRATROPIUM/ALBUTEROL 0.5-2.5 MG/3 ML AMPUL NEB SCH ×4 (00:16→23:39)
[2018-10-03] MEDS: DEXAMETHASONE SOD PHOSPHATE INJ 4 MG/1 ML VIAL IV SCH ×5 (00:33→23:06)
[2018-10-03] MEDS: PIPERACILLIN SODIUM/TAZOBACTAM 2.25 GM in NORMAL SALINE 50 ML IV SCH ×4 (02:10→20:34)
[2018-10-03] MEDS: METRONIDAZOLE 500 MG/NS RTU 500 MG/100 ML RTUPB IV SCH ×3 (06:31→21:12)
[2018-10-03 06:48] LABS: ARTERIAL BLOOD BASE EXCESS -3.2 mmol/L; ARTERIAL BLOOD FIO2 40%; ARTERIAL BLOOD H2CO3 1.11 mmol/L (1.05-1.35); ARTERIAL BLOOD HCO3 21.5 mmol/L (20-24); ARTERIAL BLOOD O2 SATURATION 90.9 % (94-98); ARTERIAL BLOOD PCO2 36.8 mmHg (35-45); ARTERIAL BLOOD PH 7.38 (7.35-7.45); ARTERIAL BLOOD PO2 60.1 mmHg (80-100); ARTERIAL BLOOD TOTAL CO2 22.6 mmol/L (21-25)
[2018-10-03 07:01] LABS: ABSOLUTE LYMPHOCYTES (AUTO) 1.1 10^3/uL (0.5-4.7); ABSOLUTE MONOCYTES (AUTO) 0.5 10^3/uL (0.1-1.4); BASOPHILS % (AUTO) 0.1 % (0-2); LYMPHOCYTES % (AUTO) 12.7 % (13-45); MEAN CORPUSCULAR HEMOGLOBIN 22.8 pg (27.0-33.4); MEAN CORPUSCULAR HGB CONC 32.3 g/dL (32.0-36.0); MEAN CORPUSCULAR VOLUME 71 fl (80-97); MONOCYTES % (AUTO) 5.7 % (3-13); PLATELET COUNT 147 10^3/uL (150-450); RED BLOOD COUNT 3.96 10^6/uL (3.72-5.28); RED CELL DISTRIBUTION WIDTH 20.6 % (11.5-14.0); SEGMENTED NEUTROPHILS % (AUTO) 81.5 % (42-78); TOTAL CELLS COUNTED % (AUTO) 100 %; WHITE BLOOD COUNT 8.6 10^3/uL (4.0-10.5)
[2018-10-03 07:08] LABS: ANION GAP 16 (5-19); BLOOD UREA NITROGEN 63 mg/dL (7-20); CALCIUM 9.2 mg/dL (8.4-10.2); CARBON DIOXIDE 21 mmol/L (22-30); CHLORIDE 113 mmol/L (98-107); GLUCOSE 209 mg/dL (75-110); SODIUM 149.8 mmol/L (137-145)
--- NOTE | 2018-10-03 08:21 | RADIOLOGY REPORT (SQ) ---
EXAM DESCRIPTION: CHEST SINGLE VIEW COMPLETED DATE/TIME: 10/03/2018 7:19 am REASON FOR STUDY: pneumonia COMPARISON: 10/02/2018. EXAM PARAMETERS: NUMBER OF VIEWS: One view. TECHNIQUE: Single frontal radiographic view of the chest acquired. RADIATION DOSE: NA LIMITATIONS: None. FINDINGS: LUNGS AND PLEURA: Diffuse airspace disease, most pronounced in the left lung base, unchang ed. MEDIASTINUM AND HILAR STRUCTURES: No masses. Contour normal. HEART AND VASCULAR STRUCTURES: Heart normal in size. Normal vasculature. BONES: No acute findings. HARDWARE: Stable endotracheal tube, nasogastric tube, and central line. OTHER: No other significant finding. IMPRESSION: NO CHANGE IN APPEARANCE OF THE CHEST. TECHNICAL DOCUMENTATION: JOB ID: [id number] [employer]- All Rights Reserved Reading location - IP/workstation name: [email or web address]
[2018-10-03] MEDS ORDERED: FUROSEMIDE IV PRN ×2 (09:04)
[2018-10-03] MEDS ORDERED: WATER IV PRN ×2 (09:04)
[2018-10-03] MEDS ORDERED: DEXTROSE 5% IV PRN ×2 (09:04)
[2018-10-03] MEDS: LOPERAMIDE HCL ORAL SOLN 1 MG/5 ML UDC PO SCH ×3 (09:15→17:22)
[2018-10-03] MEDS: AMIODARONE HCL 200 MG TABLET NG SCH (09:15)
[2018-10-03] MEDS: FAMOTIDINE INJ/PF 20 MG/2 ML SDV IV SCH (09:15)
[2018-10-03] MEDS: POTASSIUM CHLORIDE 20 MEQ/15 ML UDCUP NG SCH ×2 (09:15→21:13)
[2018-10-03] MEDS: POTASSIUM CHLORIDE 20 MEQ/50 ML RTU IV SCH ×3 (09:16→14:42)
--- NOTE | 2018-10-03 09:23 | PDOC PROGRESS REPORT ---
Subjective Progress Note for:: 10/03/18 Subjective:: Patient is currently underwent Patient's potassium is low Replace per protocol According to the nursing staff no other events happen Reason For Visit: PNEUMONIA,ACUTE HYPERCAPNIC AND HYPOXEMIC Physical Exam Vital Signs: Temp Pulse Resp BP Pulse Ox 96.6 F L 89 12 124/58 L 96 10/03/18 08:00 10/03/18 08:25 10/03/18 08:25 10/03/18 08:00 10/03/18 08:25 Intake & Output 10/02/18 10/03/18 10/04/18 07:59 06:59 06:59 Intake Total Output Total 30 Balance -30 Weight Physical Exam: Currently intubated General appearance: PRESENT: no acute distress Eye exam: PRESENT: PERRLA Mouth exam: PRESENT: neck supple Respiratory exam: PRESENT: clear to auscultation lauren Cardiovascular exam: PRESENT: +S1, +S2 GI/Abdominal exam: PRESENT: normal bowel sounds, soft Neurological exam: PRESENT: altered Skin exam: PRESENT: dry Results Laboratory Results: 10/03/18 06:30 10/03/18 06:30 10/02/18 10/03/18 10/03/18 18:06 06:30 06:30 WBC 8.6 RBC 3.96 Hgb 9.0 L Hct 28.0 L MCV 71 L MCH 22.8 L MCHC 32.3 RDW 20.6 H Plt Count 147 L Seg Neutrophils % 81.5 H Lymphocytes % 12.7 L Monocytes % 5.7 Eosinophils % 0.0 Basophils % 0.1 Absolute Neutrophils 7.0 Absolute Lymphocytes 1.1 Absolute Monocytes 0.5 Absolute Eosinophils 0.0 Absolute Basophils 0.0 Carbonic Acid HCO3/H2CO3 Ratio ABG pH ABG pCO2 ABG pO2 ABG HCO3 ABG O2 Saturation ABG Base Excess FiO2 Sodium 149.8 H Potassium 3.2 L 3.0 L* Chloride 113 H Carbon Dioxide 21 L Anion Gap 16 BUN 63 H Creatinine 3.57 H Est GFR ( Amer) 15 L Est GFR (Non-Af Amer) 12 L Glucose 209 H Calcium 9.2 Magnesium 2.3 10/03/18 10/03/18 06:30 06:30 WBC RBC Hgb Hct MCV MCH MCHC RDW Plt Count Seg Neutrophils % Lymphocytes % Monocytes % Eosinophils % Basophils % Absolute Neutrophils Absolute Lymphocytes Absolute Monocytes Absolute Eosinophils Absolute Basophils Carbonic Acid 1.11 HCO3/H2CO3 Ratio 19:1 ABG pH 7.38 ABG pCO2 36.8 ABG pO2 60.1 L ABG HCO3 21.5 ABG O2 Saturation 90.9 L ABG Base Excess -3.2 FiO2 40% Sodium Potassium 3.0 L* Chloride Carbon Dioxide Anion Gap BUN Creatinine Est GFR ( Amer) Est GFR (Non-Af Amer) Glucose Calcium Magnesium 09/22/18 09/22/18 09/23/18 19:21 19:21 01:22 Creatine Kinase 26 L < 20 L CK-MB (CK-2) 1.66 Troponin I 0.062 NT-Pro-B Natriuret Pep 09/23/18 09/23/18 09/26/18 01:22 05:30 04:30 Creatine Kinase CK-MB (CK-2) 1.54 1.15 Troponin I 0.077 0.075 NT-Pro-B Natriuret Pep 21273 H Impressions: KUB X-Ray 09/22/18 12:40 IMPRESSION: NO RADIOGRAPHIC EVIDENCE FOR ACUTE ABDOMINAL DISEASE. Abdomen Ultrasound 09/24/18 10:00 IMPRESSION: Findings consistent with biliary sludge. There is thickening of the gallbladder jordan and pericholecystic fluid. The possibility of cholecystitis should be considered. Perihepatic and perisplenic ascitic fluid is identified. The liver demonstrates a somewhat nodular contour. Other findings as noted above Chest X-Ray 10/03/18 07:00 IMPRESSION: NO CHANGE IN APPEARANCE OF THE CHEST. Assessment & Plan - Diagnosis (1) Acute hypercapnic respiratory failure Is this a current diagnosis for this admission?: Yes Plan: Currently follow with the pulmonary (2) Acute kidney injury Is this a current diagnosis for this admission?: Yes Plan: She did have ongoing potassium loss we will schedule potassium supplement (3) Liver cirrhosis Qualifiers: Hepatic cirrhosis type: other cirrhosis Qualified Code(s): K74.69 - Other cirrhosis of liver Is this a current diagnosis for this admission?: Yes (4) Pneumonia Qualifiers: Is this a current diagnosis for this admission?: Yes Plan: on IV antibiotic (5) Sepsis Qualifiers: Sepsis type: sepsis due to unspecified organism Qualified Code(s): A41.9 - Sepsis, unspecified organism Is this a current diagnosis for this admission?: Yes (6) Chronic obstructive pulmonary disease Is this a current diagnosis for this admission?: Yes (7) Dementia Qualifiers: Dementia type: Alzheimer's disease Alzheimer's disease onset: late-onset Dementia behavioral disturbance: with behavioral disturbance Qualified Code(s) : G30.1 - Alzheimer's disease with late onset; F02.81 - Dementia in other diseases classified elsewhere with behavioral disturbance; F02.81 - Dementia in other diseases classified elsewhere with behavioral disturbance; F02.81 - Dementia in other diseases classified elsewhere with behavioral disturbance Is this a current diagnosis for this admission?: Yes - Time Time Spent with patient: 15-24 minutes Medications reviewed and adjusted accordingly: Yes Anticipated discharge: SNF Within: Other - Inpatient Certification Based on my medical assessment, after consideration of the patient's comorbidities, presenting symptoms, or acuity I expect that the services needed warrant INPATIENT care.: Yes I certify that my determination is in accordance with my understanding of Medicare's requirements for reasonable and necessary INPATIENT services [42 CFR 412.3e].: Yes Medical Necessity: Need Close Monitoring Due to Risk of Patient Decompensation, Need for IV Antibiotics 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
[2018-10-03] MEDS: PROPOFOL 1,000 MG/100 ML INFUS..BTL IV PRN ×2 (14:42→22:10)
--- NOTE | 2018-10-03 19:06 | PROGRESS NOTE E ---
Progress Note NAME: LORI MANZANARES : 1930 AGE: 87Y DATE: 10/03/2018 ROOM: 601 SUBJECTIVE: Patient is an 87-year-old -[place] female who came in acute respiratory failure, requiring invasive mechanical ventilation; acute renal failure with severe metabolic acidosis; pneumonia; pulmonary edema; and severe sepsis; intraabdominal infection, most likely cholecystitis. Patient has had scanty endotracheal tube secretions over the last 24 hours. She has been afebrile for the last 24 to 48 hours. Blood pressure has been stable. Patient tolerating the NG tube feeding. Has a very small amount of gastric residual. Has some watery stools still. Patient failed spontaneous breathing trial. Patient was placed on SIMV rate of 2, pressure support of 10, PEEP of 5, and FiO2 of 30%. During the spontaneous breathing trial, her oxygen saturation went down to 86% and heart rate went up to 110-112 per minute. OBJECTIVE: GENERAL: Patient appeared awake during the anesthesia, but nonverbal. Appeared to be slightly agitated. VITAL SIGNS: Afebrile. Not in apparent respiratory distress, with a temperature of 97.2, with a T-max of 97.3. Heart rate of 103, blood pressure is 132/75, respiratory rate of 22, saturation is 94% on 40% FiO2. Back on SIMV rate of 22, tidal volume 400, pressure support of 10, PEEP of 5, and FiO2 of 40%. Minute ventilation of 6 to 7, peak airway pressure of 25. EYES: No jaundice or pallor. EARS, NOSE AND THROAT: No ear drainage. No nasal discharge. CHEST AND LUNGS: No wheezing, no rhonchi, no coarse crackles. CARDIOVASCULAR: S1, S2 distant. Normal rate, regular rhythm. ABDOMEN: Flabby. Positive bowel sounds. Soft, nondistended, nontender. EXTREMITIES: No joint swelling or cellulitis. Intake yesterday was 1413, output is 1325, with a positive balance of 88. LABORATORY DATA: CBC done today showed white count of 8.6, hemoglobin is 9, hematocrit is 28, platelet count is 147,000, normal, from 87,000 yesterday and 55,000 the day before. ABG done today showed pH of 7.38, pCO2 is 36.8, PEEP of 16, ABG bicarb 21, ABG oxygen saturation is 90.29%. Chemistry done today at 6:30 a.m. showed sodium is 149, potassium is 3, chloride is 113, CO2 is 21, BUN 63, creatinine is 3.57. Glucose was 209. Calcium is 9.2, ammonia is 2.3. Chest x-ray done today showed endotracheal tube in place. No pneumothorax. No new infiltrates. ASSESSMENT: 1. ACUTE RESPIRATORY FAILURE REQUIRING INVASIVE MECHANICAL VENTILATION. Patient is not ready to be extubated yet. Patient failed spontaneous breathing trial this morning. 2. PNEUMONIA. Appeared to be improving. Scanty endotracheal tube secretions. No fever and no leukocytosis. 3. ACUTE RENAL FAILURE, REQUIRING HEMODIALYSIS. Family refused hemodialysis. 4. METABOLIC ACIDOSIS. Appears to be improving. 5. SEVERE THROMBOCYTOPENIA. Currently improving. Today's platelets appear normal. 6. ALTERED MENTAL STATUS DUE TO DEMENTIA. 7. INTRAABDOMINAL INFECTION. Most likely acute cholecystitis on ultrasound. Appeared to be improving. White count is normal. Leukocytosis is improving. PLAN/RECOMMENDATIONS: 1. Continue IV antibiotics for now. 2. Will do daily spontaneous breathing trial. 3. Patient may require tracheostomy tube placement in the next few days, if patient continues to fail spontaneous breathing trials. 4. Will continue invasive mechanical ventilator support and pressure support. DICTATING PHYSICIAN: BENJAMIN POWELL MD,VIRA,MPH [id number] PHY#: [id number] ID: [id number] JOB#: [id number] ACCT: [id number] cc: > MTDD
[2018-10-04] MEDS: PIPERACILLIN SODIUM/TAZOBACTAM 2.25 GM in NORMAL SALINE 50 ML IV SCH ×4 (02:12→20:22)
[2018-10-04] MEDS: PROPOFOL 1,000 MG/100 ML INFUS..BTL IV PRN ×5 (02:18→23:34)
[2018-10-04] MEDS: METRONIDAZOLE 500 MG/NS RTU 500 MG/100 ML RTUPB IV SCH ×3 (06:14→21:08)
[2018-10-04] MEDS: DEXAMETHASONE SOD PHOSPHATE INJ 4 MG/1 ML VIAL IV SCH ×4 (06:14→23:33)
--- NOTE | 2018-10-04 06:29 | RADIOLOGY REPORT (SQ) ---
EXAM DESCRIPTION: X-ray single view chest. CLINICAL HISTORY: 87 years Female, pneumonia COMPARISON: Portable chest x-ray performed on 10/03/2018 and 10/02/2018 TECHNIQUE: Single portable view of the chest performed on 10/04/2018 at 6:08 AM FINDINGS: The lungs are well expanded. There has been interval development of consolidation in the right inferior hemithorax when compared to the prior studies which likely reflects a combination of pleural fluid, atelectasis and possibly inflammatory changes. There is grossly stable to slightly increasing volume loss in the left lung base. There is no evidence of a pneumothorax. The cardiac silhouette is normal in size and configuration. There are atherosclerotic calcifications. The mediastinal contours are normal. No acute osseous abnormality is identified. No focal soft tissue abnormalities are seen. Lines and tubes: The right subclavian central venous catheter, endotracheal tube and feeding tube are grossly stable. IMPRESSION: 1. Interval development of consolidation in the right inferior hemithorax when compared to the prior studies consistent with a combination of pleural fluid, atelectasis and possibly pneumonia. 2. Grossly stable to slightly worse volume loss in the left lung base. 3. Stable life support lines and tubes.
[2018-10-04 06:36] LABS: HEMATOCRIT 27.7 % (36.0-47.0); HEMOGLOBIN 9.1 g/dL (12.0-15.5); MEAN CORPUSCULAR HEMOGLOBIN 23.2 pg (27.0-33.4); MEAN CORPUSCULAR VOLUME 70 fl (80-97); PLATELET COUNT 146 10^3/uL (150-450); RED BLOOD COUNT 3.94 10^6/uL (3.72-5.28); WHITE BLOOD COUNT 6.4 10^3/uL (4.0-10.5)
[2018-10-04 06:42] LABS: ANION GAP 18 (5-19); BLOOD UREA NITROGEN 70 mg/dL (7-20); CALCIUM 9.1 mg/dL (8.4-10.2); CARBON DIOXIDE 17 mmol/L (22-30); CHLORIDE 115 mmol/L (98-107); GLUCOSE 216 mg/dL (75-110); POTASSIUM 4.2 mmol/L (3.6-5.0); SODIUM 149.7 mmol/L (137-145)
[2018-10-04 07:44] LABS: ABSOLUTE LYMPHOCYTES# (MANUAL) 0.9 10^3/uL (0.5-4.7); ABSOLUTE MONOCYTES # (MANUAL) 0.1 10^3/uL (0.1-1.4); ABSOLUTE NEUTROPHILS# (MANUAL) 5.4 10^3/uL (1.7-8.2); BASOPHILS % (MANUAL) 0 % (0-2); EOSINOPHILS % (MANUAL) 0 % (0-6); LYMPHOCYTES % (MANUAL) 14 % (13-45); METAMYELOCYTES % (MANUAL) 2 % (0); MONOCYTES % (MANUAL) 1 % (3-13); NUCLEATED RED BLOOD CELLS 3 /100 WBC (0); SEGMENTED NEUTROPHILS % (MAN) 83 % (42-78); TOTAL CELLS COUNTED 100
[2018-10-04 07:46] LABS: ANISOCYTOSIS 3+; HYPOCHROMASIA 3+; PLATELET COMMENT DECREASED; TARGET CELLS 2+
[2018-10-04] MEDS: IPRATROPIUM/ALBUTEROL 0.5-2.5 MG/3 ML AMPUL NEB SCH ×2 (07:46→16:02)
[2018-10-04] MEDS: FAMOTIDINE INJ/PF 20 MG/2 ML SDV IV SCH (10:00)
[2018-10-04] MEDS: AMIODARONE HCL 200 MG TABLET NG SCH (10:00)
[2018-10-04] MEDS: POTASSIUM CHLORIDE 20 MEQ/15 ML UDCUP NG SCH ×2 (10:01→21:08)
[2018-10-04] MEDS: LOPERAMIDE HCL ORAL SOLN 1 MG/5 ML UDC PO SCH ×3 (10:02→17:42)
--- NOTE | 2018-10-04 13:24 | PDOC PROGRESS REPORT ---
Subjective Progress Note for:: 10/02/18 Subjective:: intubated Reason For Visit: PNEUMONIA,ACUTE HYPERCAPNIC AND HYPOXEMIC Physical Exam Vital Signs: Temp Pulse Resp BP Pulse Ox 97.6 F 90 20 121/70 93 10/04/18 12:00 10/04/18 12:00 10/04/18 12:00 10/04/18 12:00 10/04/18 12:16 Intake & Output 10/03/18 10/04/18 10/05/18 06:59 06:59 06:59 Intake Total 733 250 Output Total 277 60 Balance 456 190 Weight 100.4 kg General appearance: PRESENT: no acute distress, disheveled, obese. ABSENT: cooperative Head exam: PRESENT: atraumatic, normocephalic Eye exam: PRESENT: conjunctiva pale. ABSENT: nystagmus, periorbital swelling, scleral icterus Mouth exam: PRESENT: dry mucosa, neck supple, tongue midline, other - ET tube in place Teeth exam: PRESENT: poor dentation Neck exam: ABSENT: carotid bruit, JVD, lymphadenopathy, thyromegaly, tracheal deviation, tracheostomy Respiratory exam: PRESENT: decreased breath sounds, prolonged expiratory phas, rales, rhonchi, symmetrical, unlabored. ABSENT: retraction, stridor, tachypnea Cardiovascular exam: PRESENT: RRR, +S1, +S2 Pulses: PRESENT: normal radial pulses GI/Abdominal exam: PRESENT: soft Gentrourinary exam: PRESENT: indwelling catheter Extremities exam: ABSENT: calf tenderness, clubbing, joint swelling Musculoskeletal exam: ABSENT: ambulatory, deformity, dislocation Neurological exam: ABSENT: awake Skin exam: PRESENT: dry, warm Results Laboratory Results: 10/04/18 06:06 10/04/18 06:06 10/03/18 10/03/18 10/04/18 06:30 18:54 06:06 WBC RBC Hgb Hct MCV MCH MCHC RDW Plt Count Seg Neutrophils % Lymphocytes % Monocytes % Eosinophils % Basophils % Absolute Neutrophils Absolute Lymphocytes Absolute Monocytes Absolute Eosinophils Absolute Basophils Sodium 149.7 H Potassium 3.0 L* 3.9 4.2 Chloride 115 H Carbon Dioxide 17 L Anion Gap 18 BUN 70 H Creatinine 3.84 H Est GFR ( Amer) 13 L Est GFR (Non-Af Amer) 11 L Glucose 216 H Calcium 9.1 Magnesium 2.3 10/04/18 06:06 WBC 6.4 RBC 3.94 Hgb 9.1 L Hct 27.7 L MCV 70 L MCH 23.2 L MCHC 33.0 RDW 21.0 H Plt Count 146 L Seg Neutrophils % Not Reportable Lymphocytes % Not Reportable Monocytes % Not Reportable Eosinophils % Not Reportable Basophils % Not Reportable Absolute Neutrophils Not Reportable Absolute Lymphocytes Not Reportable Absolute Monocytes Not Reportable Absolute Eosinophils Not Reportable Absolute Basophils Not Reportable Sodium Potassium Chloride Carbon Dioxide Anion Gap BUN Creatinine Est GFR ( Amer) Est GFR (Non-Af Amer) Glucose Calcium Magnesium 09/22/18 09/22/18 09/23/18 19:21 19:21 01:22 Creatine Kinase 26 L < 20 L CK-MB (CK-2) 1.66 Troponin I 0.062 NT-Pro-B Natriuret Pep 09/23/18 09/23/18 09/26/18 01:22 05:30 04:30 Creatine Kinase CK-MB (CK-2) 1.54 1.15 Troponin I 0.077 0.075 NT-Pro-B Natriuret Pep [id number] H Impressions: KUB X-Ray 09/22/18 12:40 IMPRESSION: NO RADIOGRAPHIC EVIDENCE FOR ACUTE ABDOMINAL DISEASE. Abdomen Ultrasound 09/24/18 10:00 IMPRESSION: Findings consistent with biliary sludge. There is thickening of the gallbladder jordan and pericholecystic fluid. The possibility of cholecystitis should be considered. Perihepatic and perisplenic ascitic fluid is identified. The liver demonstrates a somewhat nodular contour. Other findings as noted above Chest X-Ray 10/04/18 07:00 IMPRESSION: 1. Interval development of consolidation in the right inferior hemithorax when compared to the prior studies consistent with a combination of pleural fluid, atelectasis and possibly pneumonia. 2. Grossly stable to slightly worse volume loss in the left lung base. 3. Stable life support lines and tubes. Assessment & Plan - Diagnosis (1) HCV (hepatitis C virus) Is this a current diagnosis for this admission?: Yes Plan: Stable and chronic (2) Acute respiratory acidosis Is this a current diagnosis for this admission?: Yes Plan: Unchanged (3) Sepsis Qualifiers: Sepsis type: sepsis due to unspecified organism Qualified Code(s): A41.9 - Sepsis, unspecified organism Is this a current diagnosis for this admission?: No (4) Thrombocytopenia Is this a current diagnosis for this admission?: Yes (5) Chronic obstructive pulmonary disease Is this a current diagnosis for this admission?: Yes (6) Angioedema Is this a current diagnosis for this admission?: Yes Plan: H2,steroids consider FFP - Time Total Critical Time (Minutes): 45
[2018-10-04] MEDS: ALBUMIN HUMAN 12.5 GM/50 ML RTUINJ IV SCH (18:27)
[2018-10-04] MEDS ORDERED: SODIUM BICARBONATE IV PRN ×2 (19:02)
[2018-10-04] MEDS ORDERED: WATER FOR INJECTION STERILE IV PRN ×2 (19:02)
--- NOTE | 2018-10-04 19:04 | PDOC PROGRESS REPORT ---
Subjective Progress Note for:: 10/04/18 Subjective:: Patient was seen this afternoon. Currently she is intubated and sedated. Urine production has decreased to 277mL while on a furosemide drip of 2mg/h. According to the nurse in charge of her care, the family continues to want to proceed with everything. Reason For Visit: PNEUMONIA,ACUTE HYPERCAPNIC AND HYPOXEMIC Physical Exam Vital Signs: Temp Pulse Resp BP Pulse Ox 97.5 F 82 0 L 116/69 93 10/04/18 17:46 10/04/18 16:02 10/04/18 18:00 10/04/18 17:07 10/04/18 18:00 Intake & Output 10/03/18 10/04/18 10/05/18 06:59 06:59 06:59 Intake Total 733 706 Output Total 277 110 Balance 456 596 Weight 100.4 kg General appearance: PRESENT: no acute distress, well-developed, well-nourished, other - sedated Mouth exam: PRESENT: moist, neck supple Neck exam: PRESENT: JVD. ABSENT: tracheal deviation Respiratory exam: PRESENT: crackles, rales. ABSENT: accessory muscle use, clear to auscultation lauren, rhonchi, wheezes Cardiovascular exam: PRESENT: +S1, +S2, systolic murmur GI/Abdominal exam: PRESENT: normal bowel sounds, soft. ABSENT: organomegaly, tenderness Extremities exam: PRESENT: pedal edema, +2 edema. ABSENT: tenderness Musculoskeletal exam: ABSENT: normal inspection, tenderness Neurological exam: PRESENT: other - sedated. ABSENT: alert, awake, oriented to person, oriented to place, oriented to time, oriented to situation Skin exam: PRESENT: dry, skin tears Results Laboratory Results: 10/04/18 06:06 10/04/18 06:06 10/03/18 10/03/18 10/04/18 06:30 18:54 06:06 WBC RBC Hgb Hct MCV MCH MCHC RDW Plt Count Seg Neutrophils % Lymphocytes % Monocytes % Eosinophils % Basophils % Absolute Neutrophils Absolute Lymphocytes Absolute Monocytes Absolute Eosinophils Absolute Basophils Sodium 149.7 H Potassium 3.0 L* 3.9 4.2 Chloride 115 H Carbon Dioxide 17 L Anion Gap 18 BUN 70 H Creatinine 3.84 H Est GFR ( Amer) 13 L Est GFR (Non-Af Amer) 11 L Glucose 216 H Calcium 9.1 Magnesium 2.3 11/05/18 06:06 WBC 6.4 RBC 3.94 Hgb 9.1 L Hct 27.7 L MCV 70 L MCH 23.2 L MCHC 33.0 RDW 21.0 H Plt Count 146 L Seg Neutrophils % Not Reportable Lymphocytes % Not Reportable Monocytes % Not Reportable Eosinophils % Not Reportable Basophils % Not Reportable Absolute Neutrophils Not Reportable Absolute Lymphocytes Not Reportable Absolute Monocytes Not Reportable Absolute Eosinophils Not Reportable Absolute Basophils Not Reportable Sodium Potassium Chloride Carbon Dioxide Anion Gap BUN Creatinine Est GFR ( Amer) Est GFR (Non-Af Amer) Glucose Calcium Magnesium 09/22/18 09/22/18 09/23/18 19:21 19:21 01:22 Creatine Kinase 26 L < 20 L CK-MB (CK-2) 1.66 Troponin I 0.062 NT-Pro-B Natriuret Pep 09/23/18 09/23/18 09/26/18 01:22 05:30 04:30 Creatine Kinase CK-MB (CK-2) 1.54 1.15 Troponin I 0.077 0.075 NT-Pro-B Natriuret Pep 38699 H Impressions: KUB X-Ray 09/22/18 12:40 IMPRESSION: NO RADIOGRAPHIC EVIDENCE FOR ACUTE ABDOMINAL DISEASE. Abdomen Ultrasound 09/24/18 10:00 IMPRESSION: Findings consistent with biliary sludge. There is thickening of the gallbladder jordan and pericholecystic fluid. The possibility of cholecystitis should be considered. Perihepatic and perisplenic ascitic fluid is identified. The liver demonstrates a somewhat nodular contour. Other findings as noted above Chest X-Ray 10/04/18 07:00 IMPRESSION: 1. Interval development of consolidation in the right inferior hemithorax when compared to the prior studies consistent with a combination of pleural fluid, atelectasis and possibly pneumonia. 2. Grossly stable to slightly worse volume loss in the left lung base. 3. Stable life support lines and tubes. Assessment & Plan - Diagnosis (1) Acute kidney injury Is this a current diagnosis for this admission?: Yes Plan: oliguric, will look to add back albumin 12.5g q8 and restart the furosemide drip at 20mg/h. (2) Acute hypercapnic respiratory failure Is this a current diagnosis for this admission?: Yes Plan: currently intubated and stable (3) Acute cholecystitis Is this a current diagnosis for this admission?: Yes Plan: per primary (4) Hypokalemia Plan: currently stable (5) Pneumonia Qualifiers: Is this a current diagnosis for this admission?: Yes Plan: on piptazo (6) Diarrhea Plan: per primary (7) Sepsis Qualifiers: Sepsis type: sepsis due to unspecified organism Qualified Code(s): A41.9 - Sepsis, unspecified organism Is this a current diagnosis for this admission?: No Plan: improved, currently no white count (8) Acidosis Plan: will look to restart the bicarb drip (9) Hypernatremia Plan: switching furosemide drip solution to d5w to help reduce the sodium, will need to monitor the sugar levels.
[2018-10-04] MEDS: WATER IV PRN ×2 (19:21)
[2018-10-04] MEDS: FUROSEMIDE IV PRN ×2 (19:21)
[2018-10-04] MEDS: DEXTROSE 5% IV PRN ×2 (19:21)
--- NOTE | 2018-10-04 20:41 | PDOC PROGRESS REPORT ---
Subjective Progress Note for:: 10/04/18 Subjective:: Patient still on mechanical ventilation Reason For Visit: PNEUMONIA,ACUTE HYPERCAPNIC AND HYPOXEMIC Physical Exam Vital Signs: Temp Pulse Resp BP Pulse Ox 97.5 F 82 0 L 116/69 92 10/04/18 19:26 10/04/18 16:02 10/04/18 18:00 10/04/18 17:07 10/04/18 20:06 Intake & Output 10/03/18 10/04/18 10/05/18 06:59 06:59 06:59 Intake Total 733 706 Output Total 277 140 Balance 456 566 Weight 100.4 kg General appearance: PRESENT: no acute distress Eye exam: PRESENT: PERRLA Respiratory exam: PRESENT: rhonchi Cardiovascular exam: PRESENT: +S1, +S2 Results Laboratory Results: 10/04/18 06:06 10/04/18 06:06 10/03/18 10/04/18 10/04/18 06:30 06:06 06:06 WBC 6.4 RBC 3.94 Hgb 9.1 L Hct 27.7 L MCV 70 L MCH 23.2 L MCHC 33.0 RDW 21.0 H Plt Count 146 L Seg Neutrophils % Not Reportable Lymphocytes % Not Reportable Monocytes % Not Reportable Eosinophils % Not Reportable Basophils % Not Reportable Absolute Neutrophils Not Reportable Absolute Lymphocytes Not Reportable Absolute Monocytes Not Reportable Absolute Eosinophils Not Reportable Absolute Basophils Not Reportable Sodium 149.7 H Potassium 3.0 L* 4.2 Chloride 115 H Carbon Dioxide 17 L Anion Gap 18 BUN 70 H Creatinine 3.84 H Est GFR ( Amer) 13 L Est GFR (Non-Af Amer) 11 L Glucose 216 H Calcium 9.1 Magnesium 2.3 09/22/18 09/22/18 09/23/18 19:21 19:21 01:22 Creatine Kinase 26 L < 20 L CK-MB (CK-2) 1.66 Troponin I 0.062 NT-Pro-B Natriuret Pep 09/23/18 09/23/18 09/26/18 01:22 05:30 04:30 Creatine Kinase CK-MB (CK-2) 1.54 1.15 Troponin I 0.077 0.075 NT-Pro-B Natriuret Pep 37139 H Impressions: KUB X-Ray 09/22/18 12:40 IMPRESSION: NO RADIOGRAPHIC EVIDENCE FOR ACUTE ABDOMINAL DISEASE. Abdomen Ultrasound 09/24/18 10:00 IMPRESSION: Findings consistent with biliary sludge. There is thickening of the gallbladder jordan and pericholecystic fluid. The possibility of cholecystitis should be considered. Perihepatic and perisplenic ascitic fluid is identified. The liver demonstrates a somewhat nodular contour. Other findings as noted above Chest X-Ray 10/04/18 07:00 IMPRESSION: 1. Interval development of consolidation in the right inferior hemithorax when compared to the prior studies consistent with a combination of pleural fluid, atelectasis and possibly pneumonia. 2. Grossly stable to slightly worse volume loss in the left lung base. 3. Stable life support lines and tubes. Assessment & Plan - Diagnosis (1) Acute hypercapnic respiratory failure Is this a current diagnosis for this admission?: Yes (2) Hypokalemia Is this a current diagnosis for this admission?: Yes (3) Acute kidney injury Is this a current diagnosis for this admission?: Yes (4) Pneumonia Qualifiers: Pneumonia type: due to unspecified organism Laterality: unspecified laterality Lung location: unspecified part of lung Qualified Code(s): J18.9 - Pneumonia, unspecified organism Is this a current diagnosis for this admission?: Yes (5) Acute respiratory acidosis Is this a current diagnosis for this admission?: Yes (6) Thrombocytopenia Is this a current diagnosis for this admission?: Yes (7) Sepsis Qualifiers: Sepsis type: sepsis due to unspecified organism Qualified Code(s): A41.9 - Sepsis, unspecified organism Is this a current diagnosis for this admission?: No (8) Liver cirrhosis Qualifiers: Hepatic cirrhosis type: other cirrhosis Qualified Code(s): K74.69 - Other cirrhosis of liver Is this a current diagnosis for this admission?: Yes (9) Septic shock Is this a current diagnosis for this admission?: Yes (10) Metabolic encephalopathy Is this a current diagnosis for this admission?: Yes (11) Atrial fibrillation Qualifiers: Atrial fibrillation type: paroxysmal Qualified Code(s): I48.0 - Paroxysmal atrial fibrillation Is this a current diagnosis for this admission?: Yes (12) Acute cholecystitis Is this a current diagnosis for this admission?: Yes
[2018-10-05] MEDS: IPRATROPIUM/ALBUTEROL 0.5-2.5 MG/3 ML AMPUL NEB SCH ×3 (00:11→16:12)
--- NOTE | 2018-10-05 00:42 | RADIOLOGY REPORT (SQ) ---
EXAM DESCRIPTION: US CHEST COMPLETED DATE/TME: 10/04/2018 17:11 CLINICAL HISTORY: 87 years, Female, Quantify pleural effusion, bilateral; p infection COMPARISON: None. TECHNIQUE: LIMITATIONS: None. FINDINGS: There are bilateral pleural effusions, right side larger than left. IMPRESSION: Bilateral pleural effusions, right side larger than left. 2011 [employer] [employer]- All Rights Reserved
[2018-10-05] MEDS: PIPERACILLIN SODIUM/TAZOBACTAM 2.25 GM in NORMAL SALINE 50 ML IV SCH ×4 (02:10→21:19)
[2018-10-05] MEDS: ALBUMIN HUMAN 12.5 GM/50 ML RTUINJ IV SCH ×3 (02:10→17:35)
[2018-10-05] MEDS: PROPOFOL 1,000 MG/100 ML INFUS..BTL IV PRN ×2 (04:18→11:48)
[2018-10-05] MEDS: METRONIDAZOLE 500 MG/NS RTU 500 MG/100 ML RTUPB IV SCH ×3 (05:49→21:20)
[2018-10-05] MEDS: DEXAMETHASONE SOD PHOSPHATE INJ 4 MG/1 ML VIAL IV SCH ×4 (05:50→23:06)
[2018-10-05 05:54] LABS: ABSOLUTE LYMPHOCYTES (AUTO) 0.6 10^3/uL (0.5-4.7); ABSOLUTE MONOCYTES (AUTO) 0.2 10^3/uL (0.1-1.4); ABSOLUTE NEUT (AUTO) 4.3 10^3/uL (1.7-8.2); BASOPHILS % (AUTO) 0.1 % (0-2); HEMATOCRIT 27.5 % (36.0-47.0); HEMOGLOBIN 9.1 g/dL (12.0-15.5); LYMPHOCYTES % (AUTO) 11.1 % (13-45); MEAN CORPUSCULAR HEMOGLOBIN 23.5 pg (27.0-33.4); MEAN CORPUSCULAR HGB CONC 33.1 g/dL (32.0-36.0); MEAN CORPUSCULAR VOLUME 71 fl (80-97); MONOCYTES % (AUTO) 3.8 % (3-13); PLATELET COUNT 135 10^3/uL (150-450); RED BLOOD COUNT 3.87 10^6/uL (3.72-5.28); RED CELL DISTRIBUTION WIDTH 21.1 % (11.5-14.0); TOTAL CELLS COUNTED % (AUTO) 100 %; WHITE BLOOD COUNT 5.1 10^3/uL (4.0-10.5)
[2018-10-05 05:55] LABS: ARTERIAL BLOOD BASE EXCESS -6.7 mmol/L; ARTERIAL BLOOD H2CO3 1.04 mmol/L (1.05-1.35); ARTERIAL BLOOD HCO3 18.3 mmol/L (20-24); ARTERIAL BLOOD O2 SATURATION 90.4 % (94-98); ARTERIAL BLOOD PCO2 34.4 mmHg (35-45); ARTERIAL BLOOD PH 7.34 (7.35-7.45); ARTERIAL BLOOD TOTAL CO2 19.3 mmol/L (21-25)
[2018-10-05 06:08] LABS: ARTERIAL BLOOD FIO2 45%
[2018-10-05 06:21] LABS: ANION GAP 19 (5-19); BLOOD UREA NITROGEN 75 mg/dL (7-20); CARBON DIOXIDE 16 mmol/L (22-30); CHLORIDE 114 mmol/L (98-107); GLUCOSE 242 mg/dL (75-110); POTASSIUM 4.5 mmol/L (3.6-5.0); SODIUM 149.2 mmol/L (137-145); TRIGLYCERIDES 497 mg/dL (<150)
--- NOTE | 2018-10-05 06:28 | RADIOLOGY REPORT (SQ) ---
EXAM DESCRIPTION: XR CHEST 1 VIEW COMPLETED DATE/TME: 10/05/2018 07:00 CLINICAL HISTORY: 87 years Female, pneumonia COMPARISON: One day prior. NUMBER OF VIEWS/TECHNIQUE: 1/AP FINDINGS: Moderate bilateral lower opacities-fusion, moderate left perihilar opacity, moderate interstitial markings, normal cardiac silhouette size, adequate appearing endotracheal tube, enteric tube partially obscured distally, right subclavian central line tip at the SVC. No pneumothorax. Stable bony thorax. IMPRESSION: No significant change.
[2018-10-05] MEDS: AMIODARONE HCL 200 MG TABLET NG SCH (09:33)
[2018-10-05] MEDS: POTASSIUM CHLORIDE 20 MEQ/15 ML UDCUP NG SCH ×2 (09:34→21:20)
[2018-10-05] MEDS: LOPERAMIDE HCL ORAL SOLN 1 MG/5 ML UDC PO SCH ×3 (09:34→17:34)
[2018-10-05] MEDS: FAMOTIDINE INJ/PF 20 MG/2 ML SDV IV SCH (09:35)
[2018-10-05] MEDS: FUROSEMIDE IV PRN ×4 (09:46→21:20)
[2018-10-05] MEDS: WATER IV PRN ×4 (09:46→21:20)
[2018-10-05] MEDS: DEXTROSE 5% IV PRN ×4 (09:46→21:20)
[2018-10-05 10:27] LABS: ARTERIAL BLOOD BASE EXCESS -9.1 mmol/L; ARTERIAL BLOOD FIO2 45%; ARTERIAL BLOOD H2CO3 1.17 mmol/L (1.05-1.35); ARTERIAL BLOOD HCO3 17.2 mmol/L (20-24); ARTERIAL BLOOD O2 SATURATION 91.1 % (94-98); ARTERIAL BLOOD PCO2 38.8 mmHg (35-45); ARTERIAL BLOOD PH 7.26 (7.35-7.45); ARTERIAL BLOOD TOTAL CO2 18.4 mmol/L (21-25)
[2018-10-05] MEDS ORDERED: WATER FOR INJECTION STERILE IV PRN ×2 (15:15)
[2018-10-05] MEDS ORDERED: SODIUM BICARBONATE IV PRN ×2 (15:15)
[2018-10-05] MEDS: WATER FOR INJECTION STERILE IV PRN ×2 (17:35)
[2018-10-05] MEDS: SODIUM BICARBONATE IV PRN ×2 (17:35)
--- NOTE | 2018-10-05 19:44 | PDOC PROGRESS REPORT ---
Subjective Progress Note for:: 10/05/18 Subjective:: Patient intubated on mechanical ventilation, she is oliguric, POA does not want hemodialysis Reason For Visit: PNEUMONIA,ACUTE HYPERCAPNIC AND HYPOXEMIC Physical Exam Vital Signs: Temp Pulse Resp BP Pulse Ox 97.7 F 98 22 H 121/75 95 10/05/18 19:22 10/05/18 18:00 10/05/18 19:07 10/05/18 19:07 10/05/18 19:07 Intake & Output 10/04/18 10/05/18 10/06/18 06:59 06:59 06:59 Intake Total 733 1490 620 Output Total 277 260 80 Balance 456 1230 540 Weight 100.4 kg 101.2 kg Eye exam: PRESENT: PERRLA Respiratory exam: PRESENT: decreased breath sounds Cardiovascular exam: PRESENT: +S1, +S2 GI/Abdominal exam: PRESENT: soft Results Laboratory Results: 10/05/18 05:40 10/05/18 05:40 10/05/18 10/05/18 10/05/18 05:40 05:40 05:40 WBC 5.1 RBC 3.87 Hgb 9.1 L Hct 27.5 L MCV 71 L MCH 23.5 L MCHC 33.1 RDW 21.1 H Plt Count 135 L Seg Neutrophils % 85.0 H Lymphocytes % 11.1 L Monocytes % 3.8 Eosinophils % 0.0 Basophils % 0.1 Absolute Neutrophils 4.3 Absolute Lymphocytes 0.6 Absolute Monocytes 0.2 Absolute Eosinophils 0.0 Absolute Basophils 0.0 Carbonic Acid 1.04 L HCO3/H2CO3 Ratio 17:1 ABG pH 7.34 L ABG pCO2 34.4 L ABG pO2 61.0 L ABG HCO3 18.3 L ABG O2 Saturation 90.4 L ABG Base Excess -6.7 FiO2 45% Sodium 149.2 H Potassium 4.5 Chloride 114 H Carbon Dioxide 16 L Anion Gap 19 BUN 75 H Creatinine 4.24 H Est GFR ( Amer) 12 L Est GFR (Non-Af Amer) 10 L Glucose 242 H Calcium 9.0 Magnesium 2.3 Albumin 3.0 L Triglycerides 497 H 10/05/18 10:06 WBC RBC Hgb Hct MCV MCH MCHC RDW Plt Count Seg Neutrophils % Lymphocytes % Monocytes % Eosinophils % Basophils % Absolute Neutrophils Absolute Lymphocytes Absolute Monocytes Absolute Eosinophils Absolute Basophils Carbonic Acid 1.17 HCO3/H2CO3 Ratio 14:1 ABG pH 7.26 L ABG pCO2 38.8 ABG pO2 68.0 L ABG HCO3 17.2 L ABG O2 Saturation 91.1 L ABG Base Excess -9.1 FiO2 45% Sodium Potassium Chloride Carbon Dioxide Anion Gap BUN Creatinine Est GFR ( Amer) Est GFR (Non-Af Amer) Glucose Calcium Magnesium Albumin Triglycerides 09/22/18 09/22/18 09/23/18 19:21 19:21 01:22 Creatine Kinase 26 L < 20 L CK-MB (CK-2) 1.66 Troponin I 0.062 NT-Pro-B Natriuret Pep 09/23/18 09/23/18 09/26/18 01:22 05:30 04:30 Creatine Kinase CK-MB (CK-2) 1.54 1.15 Troponin I 0.077 0.075 NT-Pro-B Natriuret Pep [id number] H Impressions: KUB X-Ray 09/22/18 12:40 IMPRESSION: NO RADIOGRAPHIC EVIDENCE FOR ACUTE ABDOMINAL DISEASE. Abdomen Ultrasound 09/24/18 10:00 IMPRESSION: Findings consistent with biliary sludge. There is thickening of the gallbladder jordan and pericholecystic fluid. The possibility of cholecystitis should be considered. Perihepatic and perisplenic ascitic fluid is identified. The liver demonstrates a somewhat nodular contour. Other findings as noted above Chest Ultrasound 10/04/18 17:11 IMPRESSION: Bilateral pleural effusions, right side larger than left. 2010 [employer]- All Rights Reserved Chest X-Ray 10/05/18 07:00 IMPRESSION: No significant change. Assessment & Plan - Diagnosis (1) Acute hypercapnic respiratory failure Is this a current diagnosis for this admission?: Yes (2) Hypokalemia Is this a current diagnosis for this admission?: Yes (3) Acute kidney injury Is this a current diagnosis for this admission?: Yes (4) Pneumonia Qualifiers: Pneumonia type: due to unspecified organism Laterality: unspecified laterality Lung location: unspecified part of lung Qualified Code(s): J18.9 - Pneumonia, unspecified organism Is this a current diagnosis for this admission?: Yes (5) Acute respiratory acidosis Is this a current diagnosis for this admission?: Yes (6) Thrombocytopenia Is this a current diagnosis for this admission?: Yes (7) Sepsis Qualifiers: Sepsis type: sepsis due to unspecified organism Qualified Code(s): A41.9 - Sepsis, unspecified organism Is this a current diagnosis for this admission?: No (8) Liver cirrhosis Qualifiers: Hepatic cirrhosis type: other cirrhosis Qualified Code(s): K74.69 - Other cirrhosis of liver Is this a current diagnosis for this admission?: Yes (9) Septic shock Is this a current diagnosis for this admission?: Yes (10) Metabolic encephalopathy Is this a current diagnosis for this admission?: Yes (11) Atrial fibrillation Qualifiers: Atrial fibrillation type: paroxysmal Qualified Code(s): I48.0 - Paroxysmal atrial fibrillation Is this a current diagnosis for this admission?: Yes (12) Acute cholecystitis Is this a current diagnosis for this admission?: Yes
--- NOTE | 2018-10-05 23:11 | PDOC PROGRESS REPORT ---
Subjective Progress Note for:: 10/05/18 Subjective:: Patient was seen this afternoon. Currently she is intubated and sedated. Urine production has decreased to 260mL while on a furosemide drip of 20mg/h. According to the nurse in charge of her care, urine out put has decreased to 70mL in 6 hours. She also no longer tolerates tube feeds. She is requiring a heating apparatus to keep her temperature up, which still remains around 96 F. Reason For Visit: PNEUMONIA,ACUTE HYPERCAPNIC AND HYPOXEMIC Physical Exam Vital Signs: Temp Pulse Resp BP Pulse Ox 95.9 F L 84 22 H 114/72 95 10/05/18 14:00 10/05/18 14:00 10/05/18 14:00 10/05/18 14:00 10/05/18 14:00 Intake & Output 10/04/18 10/05/18 10/06/18 06:59 06:59 06:59 Intake Total 733 1390 460 Output Total 277 260 30 Balance 456 1130 430 Weight 100.4 kg 101.2 kg General appearance: PRESENT: no acute distress, other - -sedated Mouth exam: PRESENT: moist. ABSENT: neck supple Neck exam: PRESENT: JVD. ABSENT: tracheal deviation Respiratory exam: PRESENT: crackles, rales. ABSENT: accessory muscle use, clear to auscultation lauren, wheezes Cardiovascular exam: PRESENT: +S1, +S2, systolic murmur GI/Abdominal exam: PRESENT: normal bowel sounds, soft. ABSENT: organomegaly, tenderness Extremities exam: PRESENT: pedal edema, +2 edema. ABSENT: tenderness Musculoskeletal exam: ABSENT: normal inspection, tenderness Neurological exam: PRESENT: other - sedated. ABSENT: alert, awake Skin exam: PRESENT: dry, skin tears, warm. ABSENT: intact Results Laboratory Results: 10/05/18 05:40 10/05/18 05:40 10/05/18 10/05/18 10/05/18 05:40 05:40 05:40 WBC 5.1 RBC 3.87 Hgb 9.1 L Hct 27.5 L MCV 71 L MCH 23.5 L MCHC 33.1 RDW 21.1 H Plt Count 135 L Seg Neutrophils % 85.0 H Lymphocytes % 11.1 L Monocytes % 3.8 Eosinophils % 0.0 Basophils % 0.1 Absolute Neutrophils 4.3 Absolute Lymphocytes 0.6 Absolute Monocytes 0.2 Absolute Eosinophils 0.0 Absolute Basophils 0.0 Carbonic Acid 1.04 L HCO3/H2CO3 Ratio 17:1 ABG pH 7.34 L ABG pCO2 34.4 L ABG pO2 61.0 L ABG HCO3 18.3 L ABG O2 Saturation 90.4 L ABG Base Excess -6.7 FiO2 45% Sodium 149.2 H Potassium 4.5 Chloride 114 H Carbon Dioxide 16 L Anion Gap 19 BUN 75 H Creatinine 4.24 H Est GFR ( Amer) 12 L Est GFR (Non-Af Amer) 10 L Glucose 242 H Calcium 9.0 Magnesium 2.3 Albumin 3.0 L Triglycerides 497 H 10/05/18 10:06 WBC RBC Hgb Hct MCV MCH MCHC RDW Plt Count Seg Neutrophils % Lymphocytes % Monocytes % Eosinophils % Basophils % Absolute Neutrophils Absolute Lymphocytes Absolute Monocytes Absolute Eosinophils Absolute Basophils Carbonic Acid 1.17 HCO3/H2CO3 Ratio 14:1 ABG pH 7.26 L ABG pCO2 38.8 ABG pO2 68.0 L ABG HCO3 17.2 L ABG O2 Saturation 91.1 L ABG Base Excess -9.1 FiO2 45% Sodium Potassium Chloride Carbon Dioxide Anion Gap BUN Creatinine Est GFR ( Amer) Est GFR (Non-Af Amer) Glucose Calcium Magnesium Albumin Triglycerides 09/22/18 09/22/18 09/23/18 19:21 19:21 01:22 Creatine Kinase 26 L < 20 L CK-MB (CK-2) 1.66 Troponin I 0.062 NT-Pro-B Natriuret Pep 09/23/18 09/23/18 09/26/18 01:22 05:30 04:30 Creatine Kinase CK-MB (CK-2) 1.54 1.15 Troponin I 0.077 0.075 NT-Pro-B Natriuret Pep [id number] H Impressions: KUB X-Ray 09/22/18 12:40 IMPRESSION: NO RADIOGRAPHIC EVIDENCE FOR ACUTE ABDOMINAL DISEASE. Abdomen Ultrasound 09/24/18 10:00 IMPRESSION: Findings consistent with biliary sludge. There is thickening of the gallbladder jordan and pericholecystic fluid. The possibility of cholecystitis should be considered. Perihepatic and perisplenic ascitic fluid is identified. The liver demonstrates a somewhat nodular contour. Other findings as noted above Chest Ultrasound 10/04/18 17:11 IMPRESSION: Bilateral pleural effusions, right side larger than left. 2010 [employer]- All Rights Reserved Chest X-Ray 10/05/18 07:00 IMPRESSION: No significant change. Assessment & Plan - Diagnosis (1) Acute kidney injury Is this a current diagnosis for this admission?: Yes Plan: oliguric, at this point the patient is in need of dialysis. will discuss the medical power of commercial attorney. continuing furosemide drip and albumin. (2) Acute hypercapnic respiratory failure Is this a current diagnosis for this admission?: Yes Plan: currently intubated and not weaning well (4) Pneumonia Qualifiers: Is this a current diagnosis for this admission?: Yes Plan: on piptazo (5) Diarrhea Plan: just about stopped (6) Sepsis Qualifiers: Sepsis type: sepsis due to unspecified organism Qualified Code(s): A41.9 - Sepsis, unspecified organism Is this a current diagnosis for this admission?: No Plan: improved, currently no white count (7) Acidosis Plan: Increasing bicarb so she is receiving 5mEQ per an hour (8) Hypernatremia Plan: Furosemide and bicarb are in sodium free solutions.
[2018-10-06] MEDS: IPRATROPIUM/ALBUTEROL 0.5-2.5 MG/3 ML AMPUL NEB SCH ×3 (00:50→15:52)
[2018-10-06] MEDS: PROPOFOL 1,000 MG/100 ML INFUS..BTL IV PRN ×3 (01:57→22:23)
[2018-10-06] MEDS: ALBUMIN HUMAN 12.5 GM/50 ML RTUINJ IV SCH ×3 (01:57→18:03)
[2018-10-06] MEDS: PIPERACILLIN SODIUM/TAZOBACTAM 2.25 GM in NORMAL SALINE 50 ML IV SCH ×3 (02:01→15:12)
[2018-10-06 05:34] LABS: BLOOD UREA NITROGEN 81 mg/dL (7-20); CALCIUM 9.1 mg/dL (8.4-10.2); GLUCOSE 265 mg/dL (75-110); POTASSIUM 4.8 mmol/L (3.6-5.0)
[2018-10-06 05:39] LABS: CARBON DIOXIDE 16 mmol/L (22-30); CHLORIDE 113 mmol/L (98-107)
[2018-10-06 05:43] LABS: ANION GAP 21 (5-19)
[2018-10-06] MEDS: METRONIDAZOLE 500 MG/NS RTU 500 MG/100 ML RTUPB IV SCH ×2 (05:51→13:31)
[2018-10-06] MEDS: DEXAMETHASONE SOD PHOSPHATE INJ 4 MG/1 ML VIAL IV SCH ×2 (05:51→13:32)
--- NOTE | 2018-10-06 06:12 | RADIOLOGY REPORT (SQ) ---
CLINICAL HISTORY: pneumonia COMPARISON: October 05, 2018. 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 There are bibasilar consolidations. There is probable pulmonary edema. There are bilateral pleural effusions. There is no pneumothorax. There are no acute osseous findings. Right central line, endotracheal tube and nasogastric tube are unchanged. IMPRESSION: No change.
[2018-10-06 10:09] LABS: ARTERIAL BLOOD H2CO3 1.08 mmol/L (1.05-1.35); ARTERIAL BLOOD O2 SATURATION 84.9 % (94-98); ARTERIAL BLOOD PCO2 35.8 mmHg (35-45); ARTERIAL BLOOD PH 7.27 (7.35-7.45); ARTERIAL BLOOD PO2 55.3 mmHg (80-100); ARTERIAL BLOOD TOTAL CO2 17.1 mmol/L (21-25)
[2018-10-06 10:11] LABS: ARTERIAL BLOOD FIO2 45%
[2018-10-06] MEDS: FAMOTIDINE INJ/PF 20 MG/2 ML SDV IV SCH (10:20)
[2018-10-06] MEDS: POTASSIUM CHLORIDE 20 MEQ/15 ML UDCUP NG SCH (10:20)
[2018-10-06] MEDS: AMIODARONE HCL 200 MG TABLET NG SCH (10:20)
--- NOTE | 2018-10-06 10:55 | PROGRESS NOTE E ---
Progress Note NAME: LORI MANZANARES : 1930 AGE: 87Y DATE: 10/04/2018 ROOM: 601 SUBJECTIVE: The patient is an 87-year-old -[place]ian female who came in with acute respiratory failure requiring invasive mechanical ventilation, severe dementia, severe sepsis, acute cholecystitis, pneumonia, pulmonary edema, acute renal failure, and severe metabolic acidosis. The patient tolerated NG tube feeding, has no gastric residual. No fever spike in the last 2-3 days. Scanty to mild endotracheal tube secretions. The patient failed spontaneous breathing trial today. The patient became tachycardic to 130-140 breaths per minute and oxygen saturation went down to 88-89 on FiO2 of 30%, pressure support of 10, PEEP of 5, with an SIMV rate of 2 beats per minute. The patient was doing low tidal volumes 200-220 mL spontaneous breathing. OBJECTIVE: GENERAL: The patient appeared sedated, afebrile,, not in acute respiratory distress. VITAL SIGNS: Afebrile, with a temperature of 97.7, with a T-max of 97.7. Her blood pressure is 109/70. Heart rate is 96. Respiratory rate is 20. Saturation is 92% on 40% FiO2. FiO2 titrated to keep saturation 91-94%, tidal volume 400, pressure support of 10, PEEP of 5, and ventilator rate of 20 breaths per minute. EYES: No jaundice or pallor. EARS, NOSE AND THROAT: No ear drainage. No nasal discharge. CHEST AND LUNGS: No wheezing. No rhonchi. No coarse crackles. CARDIOVASCULAR: S1, S2 distinct. Normal rate, regular rhythm. ABDOMEN: Flabby. Positive bowel sounds. Soft, nondistended, nontender. EXTREMITIES: No joint swelling or cellulitis. I and O on 10/04/2018 at 6:59 p.m.: The intake is 733, the output is 277, balance is 456. On 10/03/2018 at 7:00 p.m. the intake was 1619 and the output was 572, with a positive balance of 1047. LABORATORY DATA: CBC done today showed a white count of 6.4, hemoglobin is 9.1, hematocrit is 27.7, platelet count is 146. The ABG done yesterday showed a pH of 7.39, pCO2 of 36.8, pO2 of 16, and the bicarb of 21.5. Chemistry done today showed sodium is 149, potassium is 4.2, bicarbonate is 115, carbon dioxide is 115. Anion gap is 17. BUN is 70, creatinine is 3.84. Glucose is 215 and calcium is 9.1. IMAGING STUDIES: Chest x-ray done today showed the endotracheal tube in place. Some small amount of pleural effusion left lung and more on the right lung. No pneumothorax noted. ASSESSMENT: 1. ACUTE RESPIRATORY FAILURE REQUIRING INVASIVE MECHANICAL VENTILATION. Not ready to be extubated yet. The patient failed spontaneous breathing trial. 2. PNEUMONIA. Seems to be improving. 3. NO LEUKOCYTOSIS. Continue antibiotic treatment. 4. BILATERAL PLEURAL EFFUSION, right greater than left; Pulmary edema - due to acute on chronic renal failure; worsening urine output. Family refused hemodialysis. 5. ACUTE CHOLECYSTITIS. The patient is stable, improving on IV Zosyn and IV Flagyl x about 10 days. 6. SEVERE DEMENTIA. 7. CHRONIC KIDNEY DISEASE. The patient may require hemodialysis. 8. METABOLIC ACIDOSIS. PLAN/RECOMMENDATIONS: 1. Will continue IV antibiotics for now. 2. We will do a CBC, chemistry, chest x-ray tomorrow, with a chest ultrasound tomorrow and a liver ultrasound. 3. We will continue spontaneous breathing trial every morning in the next 2-3 days and observe the patient. If patient fails spontaneous breathing trial by Thursday, plan to refer patient for surgery for possible trach tube placement. DICTATING PHYSICIAN: BENJAMIN POWELL MD,VIRA,MPH [id number] PHY#: [id number] ID: [id number] JOB#: [id number] ACCT: [id number] cc: > [facility]
--- NOTE | 2018-10-06 11:13 | PROGRESS NOTE E ---
Progress Note NAME: LORI MANZANARES : 1930 AGE: 87Y DATE: 10/05/2018 ROOM: 601 SUBJECTIVE: The patient is an 87-year-old -[place] female who came in with acute respiratory failure requiring invasive mechanical ventilation, pneumonia, pulmonary edema, acute renal failure, acute cholecystitis, metabolic acidosis. The patient had a spontaneous breathing trial today. The patient's blood pressure remained the same. Heart rate was unremarkable, and then the respiration was unremarkable during the spontaneous breathing trial. She seemed to tolerate well, but the ABG done showed pH dropping to 7.26 from 7.34 this morning. The pCO2 was 38.8 and pO2 is 68.1 and bicarb is 17.2. The patient has increased gastric residual today to about 200 mL, and initial feeding was held. There is no diarrhea. No vomiting. Continued endotracheal tube secretions. OBJECTIVE: GENERAL: The patient appeared sedated, afebrile, not in apparent respiratory distress. VITAL SIGNS: Temperature is 95.9, with a T-max of 97.9. Heart rate is 84. Blood pressure is 114/72. Respiratory rate is 22. Saturation is 95% on 40% FiO2, SIMV rate of 22. Tidal volume is 400, pressure support of 10, with a PEEP of 6. Peak airway pressure is 24-25; ventilation is 7 to 8. ASSESSMENT: 1. ACUTE RESPIRATORY FAILURE REQUIRING INVASIVE MECHANICAL VENTILATION. Currently not ready to be extubated yet. The patient has failed spontaneous breathing trial this morning. 2. CHRONIC KIDNEY DISEASE REQUIRING HEMODIALYSIS. The family refused hemodialysis. 3. METABOLIC ACIDOSIS WITH AN ANION GAP ABOUT 19. 4. PNEUMONIA. 5. PULMONARY EDEMA. 6. PLEURAL EFFUSION RIGHT SIDE, MILD TO MODERATE ON CHEST ULTRASOUND. PLAN/RECOMMENDATIONS: 1. Will continue antibiotics. 2. Will continue invasive ventilator support. 3. Will repeat the spontaneous breathing trial tomorrow. If patient still fails tomorrow, will consider considering surgery for tracheostomy tube placement. DICTATING PHYSICIAN: BENJAMIN POWELL MD,VIRA,MPH [id number] PHY#: [id number] ID: [id number] JOB#: [id number] ACCT: [id number] cc: > [facility]
[2018-10-06] MEDS: LOPERAMIDE HCL ORAL SOLN 1 MG/5 ML UDC PO SCH ×3 (11:24→18:04)
--- NOTE | 2018-10-06 14:02 | PDOC PROGRESS REPORT ---
Subjective Progress Note for:: 10/06/18 Subjective:: I am seeing the patient today from the nephrology team. Patient remains to be intubated and has failed voiding trial again today. She is almost oligo-anuric and is made only about 100 mL of urine today is thus far. She is also not tolerating her tube feedings. She is obviously not responding to any intervention at this point and continues to deteriorate clinically. I talked to Dr. Crawford today and discuss patient's condition. He told me that he has a family meeting last Thursday and they clearly indicated that if they do not want any dialysis in this patient. It seems like they do not want any aggressive measures but at the same time does not want to withdraw treatment that were already currently doing at this point. Reason For Visit: PNEUMONIA,ACUTE HYPERCAPNIC AND HYPOXEMIC Physical Exam Vital Signs: Temp Pulse Resp BP Pulse Ox 97.3 F 101 H 20 123/88 H 95 10/06/18 11:29 10/06/18 08:25 10/06/18 11:08 10/06/18 11:08 10/06/18 12:50 Intake & Output 10/05/18 10/06/18 10/07/18 06:59 06:59 06:59 Intake Total 1490 1818 555 Output Total 260 240 100 Balance 1230 1578 455 Weight 101.2 kg 103.1 kg Exam: General appearance: PRESENT: Patient remains to be intubated and sedated and even off sedation only opens the eyes but does not follow commands or has any other response. Head exam: PRESENT: atraumatic, normocephalic; there is facial swelling Eye exam: PRESENT: Eyes are mostly closed Neck exam: ABSENT: JVD Respiratory exam: PRESENT: Normal breath sounds. ABSENT: crackles, rales, rhonchi, unlabored, wheezes Cardiovascular exam: PRESENT: Regular rate rhythm -+S1, +S2. ABSENT: diastolic murmur, systolic murmur GI/Abdominal exam: PRESENT: normal bowel sounds, soft. ABSENT: guarding, mass, tenderness Extremities exam: She has anasarca with grade 3 generalized edema Neurological exam: PRESENT: Sedated and no response. Skin exam: PRESENT: dry, warm, skin is tight due to edema Cardiovascular exam: PRESENT: +S1, +S2, systolic murmur GI/Abdominal exam: PRESENT: normal bowel sounds, soft. ABSENT: organomegaly, tenderness Results Laboratory Results: 10/05/18 05:40 10/06/18 05:00 10/06/18 10/06/18 05:00 09:58 Carbonic Acid 1.08 HCO3/H2CO3 Ratio 14:1 ABG pH 7.27 L ABG pCO2 35.8 ABG pO2 55.3 L ABG HCO3 16.0 L ABG O2 Saturation 84.9 L ABG Base Excess -10.0 FiO2 45% Sodium 150.0 H Potassium 4.8 Chloride 113 H Carbon Dioxide 16 L Anion Gap 21 H BUN 81 H Creatinine 4.40 H Est GFR ( Amer) 12 L Est GFR (Non-Af Amer) 10 L Glucose 265 H Calcium 9.1 Magnesium 2.4 H 09/22/18 09/22/18 09/23/18 19:21 19:21 01:22 Creatine Kinase 26 L < 20 L CK-MB (CK-2) 1.66 Troponin I 0.062 NT-Pro-B Natriuret Pep 09/23/18 09/23/18 09/26/18 01:22 05:30 04:30 Creatine Kinase CK-MB (CK-2) 1.54 1.15 Troponin I 0.077 0.075 NT-Pro-B Natriuret Pep 42338 H Impressions: KUB X-Ray 09/22/18 12:40 IMPRESSION: NO RADIOGRAPHIC EVIDENCE FOR ACUTE ABDOMINAL DISEASE. Abdomen Ultrasound 09/24/18 10:00 IMPRESSION: Findings consistent with biliary sludge. There is thickening of the gallbladder jordan and pericholecystic fluid. The possibility of cholecystitis should be considered. Perihepatic and perisplenic ascitic fluid is identified. The liver demonstrates a somewhat nodular contour. Other findings as noted above Chest Ultrasound 10/04/18 17:11 IMPRESSION: Bilateral pleural effusions, right side larger than left. 2010 [employer]- All Rights Reserved Chest X-Ray 10/06/18 07:00 IMPRESSION: No change. Assessment & Plan - Diagnosis (1) Acute kidney injury Is this a current diagnosis for this admission?: Yes Plan: Due to ATN. Patient is currently oligo-anuric and continuously has worsening kidney function. This is associated with anasarca, metabolic acidosis, hypomagnesemia, and worsening pulmonary edema. [place] treatment for this condition is to initiate renal replacement therapy however aside from the fact that the patient is not a good candidate for it the family also indicated that they do not want any form of dialysis treatment in this patient. At this point I do not think we can offer any other therapeutic intervention. As the kidney function continued to get worse we can only expect the patient's clinical decline which will lead to her demise. Discussed this with Dr. Crawford , Dr. Blake and the patient's current nurse today. Discontinue Lasix as this is ineffective. (2) Acute tubular necrosis Is this a current diagnosis for this admission?: Yes (3) Pulmonary edema Qualifiers: Chronicity: acute Qualified Code(s): J81.0 - Acute pulmonary edema Is this a current diagnosis for this admission?: Yes Plan: Worsening secondary to fluid overload secondary to AK I. (4) Metabolic acidosis Is this a current diagnosis for this admission?: Yes Plan: This is secondary to AK I. May continue sodium bicarbonate drip for now but this is only a temporizing measure and may not be effective. The only treatment that could be effective in this case is a renal replacement therapy which again the patient is not a candidate off in the family declined to do anyways. (5) Bilateral pleural effusion Is this a current diagnosis for this admission?: Yes (6) Hypoalbuminemia due to protein-calorie malnutrition Is this a current diagnosis for this admission?: Yes Plan: Currently on albumin infusion. Again this is a temporizing measure but will probably not change the current course. If the patient's clinical condition continues to worsen tomorrow I would recommend to use this to discontinue this. (7) Hypernatremia Is this a current diagnosis for this admission?: Yes Plan: Partly due to Lasix. Discontinue Lasix. (8) Acute respiratory failure with hypoxemia Is this a current diagnosis for this admission?: Yes Plan: Since the patient's family declines dialysis treatment I do not think it makes sense anymore to place a tracheostomy in this patient because this will not change the course of the patient's condition. (9) Pneumonia Qualifiers: Is this a current diagnosis for this admission?: Yes (11) Hypermagnesemia Is this a current diagnosis for this admission?: Yes - Notes Notes: Patient's prognosis is very poor and grim. Recommend comfort measures only. - Time Time with patient: Greater than 35 minutes
--- NOTE | 2018-10-06 16:11 | PDOC PROGRESS REPORT ---
Subjective Progress Note for:: 10/06/18 Subjective:: Patient's condition is very poor, she is oliguric almost anuric, family does not want comfort care measures, she is not weanable she is unlikely to do well, she is a DNR status. The amiodarone will be discontinued, family does not want any dialysis, no CRRT Reason For Visit: PNEUMONIA,ACUTE HYPERCAPNIC AND HYPOXEMIC Physical Exam Vital Signs: Temp Pulse Resp BP Pulse Ox 97.3 F 72 20 123/77 96 10/06/18 15:55 10/06/18 15:52 10/06/18 15:52 10/06/18 15:09 10/06/18 15:52 Intake & Output 10/05/18 10/06/18 10/07/18 06:59 06:59 06:59 Intake Total 1490 1818 555 Output Total 260 240 155 Balance 1230 1578 400 Weight 101.2 kg 103.1 kg Respiratory exam: PRESENT: rales Cardiovascular exam: PRESENT: +S1, +S2 GI/Abdominal exam: PRESENT: soft Neurological exam: PRESENT: altered Results Laboratory Results: 10/05/18 05:40 10/06/18 05:00 10/06/18 10/06/18 05:00 09:58 Carbonic Acid 1.08 HCO3/H2CO3 Ratio 14:1 ABG pH 7.27 L ABG pCO2 35.8 ABG pO2 55.3 L ABG HCO3 16.0 L ABG O2 Saturation 84.9 L ABG Base Excess -10.0 FiO2 45% Sodium 150.0 H Potassium 4.8 Chloride 113 H Carbon Dioxide 16 L Anion Gap 21 H BUN 81 H Creatinine 4.40 H Est GFR ( Amer) 12 L Est GFR (Non-Af Amer) 10 L Glucose 265 H Calcium 9.1 Magnesium 2.4 H 09/22/18 09/22/18 09/23/18 19:21 19:21 01:22 Creatine Kinase 26 L < 20 L CK-MB (CK-2) 1.66 Troponin I 0.062 NT-Pro-B Natriuret Pep 09/23/18 09/23/18 09/26/18 01:22 05:30 04:30 Creatine Kinase CK-MB (CK-2) 1.54 1.15 Troponin I 0.077 0.075 NT-Pro-B Natriuret Pep [id number] H Impressions: KUB X-Ray 09/22/18 12:40 IMPRESSION: NO RADIOGRAPHIC EVIDENCE FOR ACUTE ABDOMINAL DISEASE. Abdomen Ultrasound 09/24/18 10:00 IMPRESSION: Findings consistent with biliary sludge. There is thickening of the gallbladder jordan and pericholecystic fluid. The possibility of cholecystitis should be considered. Perihepatic and perisplenic ascitic fluid is identified. The liver demonstrates a somewhat nodular contour. Other findings as noted above Chest Ultrasound 10/04/18 17:11 IMPRESSION: Bilateral pleural effusions, right side larger than left. 2010 [employer]- All Rights Reserved Chest X-Ray 10/06/18 07:00 IMPRESSION: No change. Assessment & Plan - Diagnosis (1) Acute hypercapnic respiratory failure Is this a current diagnosis for this admission?: Yes (2) Hypokalemia Is this a current diagnosis for this admission?: Yes (3) Acute kidney injury Is this a current diagnosis for this admission?: Yes (4) Pneumonia Qualifiers: Pneumonia type: due to unspecified organism Laterality: unspecified laterality Lung location: unspecified part of lung Qualified Code(s): J18.9 - Pneumonia, unspecified organism Is this a current diagnosis for this admission?: Yes (5) Acute respiratory acidosis Is this a current diagnosis for this admission?: Yes (6) Thrombocytopenia Is this a current diagnosis for this admission?: Yes (7) Sepsis Qualifiers: Sepsis type: sepsis due to unspecified organism Qualified Code(s): A41.9 - Sepsis, unspecified organism Is this a current diagnosis for this admission?: No (8) Liver cirrhosis Qualifiers: Hepatic cirrhosis type: other cirrhosis Qualified Code(s): K74.69 - Other cirrhosis of liver Is this a current diagnosis for this admission?: Yes (9) Septic shock Is this a current diagnosis for this admission?: Yes (10) Metabolic encephalopathy Is this a current diagnosis for this admission?: Yes (11) Atrial fibrillation Qualifiers: Atrial fibrillation type: paroxysmal Qualified Code(s): I48.0 - Paroxysmal atrial fibrillation Is this a current diagnosis for this admission?: Yes (12) Acute cholecystitis Is this a current diagnosis for this admission?: Yes - Plan Summary Plan Summary: Patient's condition is poor, DC amiodarone, antibiotic
[2018-10-07] MEDS: IPRATROPIUM/ALBUTEROL 0.5-2.5 MG/3 ML AMPUL NEB SCH ×4 (00:17→23:53)
[2018-10-07] MEDS: ALBUMIN HUMAN 12.5 GM/50 ML RTUINJ IV SCH ×3 (02:00→17:25)
[2018-10-07] MEDS: PROPOFOL 1,000 MG/100 ML INFUS..BTL IV PRN ×3 (05:04→20:17)
[2018-10-07 05:47] LABS: BLOOD UREA NITROGEN 93 mg/dL (7-20); CALCIUM 9.1 mg/dL (8.4-10.2); CARBON DIOXIDE 16 mmol/L (22-30); CHLORIDE 112 mmol/L (98-107); GLUCOSE 291 mg/dL (75-110); POTASSIUM 4.7 mmol/L (3.6-5.0)
[2018-10-07 05:53] LABS: SODIUM 148.1 mmol/L (137-145)
[2018-10-07 05:56] LABS: ANION GAP 20 (5-19)
--- NOTE | 2018-10-07 06:06 | RADIOLOGY REPORT (SQ) ---
CLINICAL HISTORY: pneumonia COMPARISON: October 06, 2018. 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 There is moderate bilateral airspace disease, greater on the right. There are bilateral pleural effusions. There is no pneumothorax. There are no acute osseous findings. NG tube tip is in the stomach. Right subclavian central line tip is in the mid SVC. IMPRESSION: No significant change.
[2018-10-07] MEDS: FAMOTIDINE INJ/PF 20 MG/2 ML SDV IV SCH (09:48)
[2018-10-07] MEDS: LOPERAMIDE HCL ORAL SOLN 1 MG/5 ML UDC PO SCH ×3 (09:49→17:26)
--- NOTE | 2018-10-07 14:52 | PROGRESS NOTE E ---
Progress Note NAME: LORI MANZANARES : 1930 AGE: 87Y DATE: 10/06/2018 ROOM: 601 SUBJECTIVE: Patient is an 87-year-old, female who came in with acute respiratory failure requiring invasive mechanical ventilation. Treated for pneumonia, pulmonary edema, severe metabolic acidosis, acute renal failure, severe sepsis, acute cholecystitis. The patient has had no fever over the last 24 hours. No vomiting noted. Tolerated NG tube feeding. No adverse events. Performed spontaneous breathing trial today. After 1 hour, ABG was performed. Patient presented with severe metabolic acidosis. Nephrology service stated that the patient is not a candidate for hemodialysis and family refused patient to start hemodialysis, being 87 years old, bedridden, presenting with severe dementia. OBJECTIVE: GENERAL: Patient appeared afebrile, slightly sedated, and not in apparent respiratory distress. VITAL SIGNS: Temperature is 97.3 with a T-max of 97.7, blood pressure of 133/88, respiratory rate 20, heart rate 96, saturation 97% on FiO2 of 40%, SIMV rate of 20, tidal volume of 400, pressure support 10 above PEEP, PEEP of 6; minute ventilation is 7 to 8 and a peak airway pressure is 24 to 36. Scanty endotracheal tube secretions. EYES: No jaundice or pallor. EARS, NOSE AND THROAT: No ear drainage noted. No nasal discharge. HEAD AND NECK: No scalp swelling. Neck supple. CHEST AND LUNGS: No wheezing. No rhonchi. No coarse crackles. CARDIOVASCULAR: S1, S2 distinct. Normal rate, regular rhythm. ABDOMEN: Flabby. Positive bowel sounds. Soft, nondistended, nontender. EXTREMITIES: No joint swelling. No cellulitis. LABORATORY DATA: A CBC done today showed white count of 5.1; hemoglobin is 9.1; hematocrit is 27.5; and platelet count is 135. Chemistry done today showed sodium is 150, potassium is 4.8, chloride 113, CO2 is 16, BUN is 81, creatinine is 4.4, glucose is 265, calcium is 9.1. ABG done today after 1 hour of a spontaneous breathing trial showed pH of 7.27, pCO2 of 55.8, pO2 is 55.3, and ABG bicarb is 16 and ABG O2 saturation is 84.9%. A chest x-ray showed pulmonary edema bilateral more on the right than on the left, increasing pleural effusion more on the right than on the left. Endotracheal tube is in place. No pneumothorax noted. ASSESSMENT: 1. ACUTE RESPIRATORY FAILURE REQUIRING INVASIVE MECHANICAL VENTILATION. The patient failed the spontaneous breathing trial today. The patient would require a tracheostomy tube placement. However, her family had a family meeting today and refused and conveyed the message that they did not want any tracheostomy tube placed. They also conveyed the message that they do not want any dialyses done. 2. PULMONARY EDEMA WITH PLEURAL EFFUSION, BILATERAL, RIGHT MORE THAN THE LEFT, MOST LIKE DUE TO FLUID RETENTION/FLUID OVERLOAD DUE TO ACUTE ON CHRONIC RENAL FAILURE. 3. ACUTE ON CHRONIC RENAL FAILURE REQUIRING HEMODIALYSIS. The patient's family refused hemodialysis. 4. METABOLIC ACIDOSIS, SEVERE. 5. ACUTE CHOLECYSTITIS APPEARS TO BE IMPROVING. Was on Flagyl for about 8 to 9 days. We will stop IV Flagyl today. The patient has been on Zosyn for about 2 weeks. May consider stopping it either today or tomorrow. 6. THROMBOCYTOPENIA APPEARS TO BE STABLE AND IMPROVING. PLAN AND RECOMMENDATIONS: 1. We will continue to optimize ventilator support and hemodynamic support. 2. Recommend family meeting to discuss end of life care. Family member who has the patient's power of collections attorney and who flew from [facility] or [place] last week, refused stronly against hemodialysis or trach tube or PEG tube placement. refused hemodialysis initiation and tracheostomy tube placement. DICTATING PHYSICIAN: BENJAMIN POWELL MD,VIRA,MPH [id number] PHY#: [id number] ID: [id number] JOB#: [id number] ACCT: [id number] cc: > [facility]
[2018-10-07] MEDS: SODIUM BICARBONATE IV PRN ×2 (17:03)
[2018-10-07] MEDS: WATER FOR INJECTION STERILE IV PRN ×2 (17:03)
--- NOTE | 2018-10-07 19:53 | PDOC PROGRESS REPORT ---
Subjective Progress Note for:: 10/07/18 Subjective:: Patient's clinical condition remains unchanged. She is still intubated and sedated with oliguria. Reason For Visit: PNEUMONIA,ACUTE HYPERCAPNIC AND HYPOXEMIC Physical Exam Vital Signs: Temp Pulse Resp BP Pulse Ox 97.5 F 103 H 15 115/80 95 10/07/18 17:34 10/07/18 16:01 10/07/18 18:00 10/07/18 17:09 10/07/18 18:00 Intake & Output 10/06/18 10/07/18 10/08/18 06:59 06:59 06:59 Intake Total 1818 1044 1391 Output Total 240 355 230 Balance 1116 590 2056 Weight 103.1 kg 104.3 kg Exam: General appearance: PRESENT: Patient is intubated on mechanical ventilation Head exam: PRESENT: atraumatic, normocephalic Eye exam: PRESENT: Eyes are closed, facial swelling Neck exam: ABSENT: JVD Respiratory exam: PRESENT: Normal breath sounds. ABSENT: crackles, rales, rhonchi, unlabored, wheezes Cardiovascular exam: PRESENT: Regular rate rhythm -+S1, +S2. ABSENT: diastolic murmur, systolic murmur GI/Abdominal exam: PRESENT: normal bowel sounds, soft. ABSENT: guarding, mass, tenderness Extremities exam: Positive anasarca Neurological exam: PRESENT: Sedated. Skin exam: PRESENT: dry, warm, Cardiovascular exam: PRESENT: +S1, +S2, systolic murmur GI/Abdominal exam: PRESENT: normal bowel sounds, soft. ABSENT: organomegaly, tenderness Results Laboratory Results: 10/05/18 05:40 10/07/18 05:00 10/07/18 05:00 Sodium 148.1 H Potassium 4.7 Chloride 112 H Carbon Dioxide 16 L Anion Gap 20 H BUN 93 H Creatinine 4.35 H Est GFR ( Amer) 12 L Est GFR (Non-Af Amer) 10 L Glucose 291 H Calcium 9.1 Magnesium 2.4 H 09/22/18 09/22/18 09/23/18 19:21 19:21 01:22 Creatine Kinase 26 L < 20 L CK-MB (CK-2) 1.66 Troponin I 0.062 NT-Pro-B Natriuret Pep 09/23/18 09/23/18 09/26/18 01:22 05:30 04:30 Creatine Kinase CK-MB (CK-2) 1.54 1.15 Troponin I 0.077 0.075 NT-Pro-B Natriuret Pep 19035 H Impressions: KUB X-Ray 09/22/18 12:40 IMPRESSION: NO RADIOGRAPHIC EVIDENCE FOR ACUTE ABDOMINAL DISEASE. Abdomen Ultrasound 09/24/18 10:00 IMPRESSION: Findings consistent with biliary sludge. There is thickening of the gallbladder jordan and pericholecystic fluid. The possibility of cholecystitis should be considered. Perihepatic and perisplenic ascitic fluid is identified. The liver demonstrates a somewhat nodular contour. Other findings as noted above Chest Ultrasound 10/04/18 17:11 IMPRESSION: Bilateral pleural effusions, right side larger than left. 2010 [employer]- All Rights Reserved Chest X-Ray 10/07/18 07:00 IMPRESSION: No significant change. Assessment & Plan - Diagnosis (1) Acute kidney injury Is this a current diagnosis for this admission?: Yes Plan: Due to ATN. Patient is currently oligo-anuric and continuously has worsening kidney function. This is associated with anasarca, metabolic acidosis, hypermagnesemia, and worsening pulmonary edema. [place] treatment for this condition is to initiate renal replacement therapy however aside from the fact that the patient is not a good candidate for it the family also indicated that they do not want any form of dialysis treatment in this patient. At this point I do not think we can offer any other therapeutic intervention. As the kidney function continues to get worse we can only expect the patient's clinical decline which will lead to her demise. Discussed this with Dr. Crawford , and Dr. Blake . All the drips including Lasix, sodium bicarbonate and albumin were discontinued which I completely agree because this are an effective treatment. (2) Acute tubular necrosis Is this a current diagnosis for this admission?: Yes (3) Pulmonary edema Qualifiers: Chronicity: acute Qualified Code(s): J81.0 - Acute pulmonary edema Is this a current diagnosis for this admission?: Yes Plan: Worsening secondary to fluid overload secondary to AK I. (4) Metabolic acidosis Is this a current diagnosis for this admission?: Yes Plan: This is secondary to AK I. Agree with discontinuation of sodium bicarbonate. (5) Bilateral pleural effusion Is this a current diagnosis for this admission?: Yes (6) Hypoalbuminemia due to protein-calorie malnutrition Is this a current diagnosis for this admission?: Yes Plan: Agree with discontinuation of IV albumin infusion. (7) Hypernatremia Is this a current diagnosis for this admission?: Yes Plan: Partly due to Lasix. Discontinue Lasix. (8) Acute respiratory failure with hypoxemia Is this a current diagnosis for this admission?: Yes Plan: Since the patient's family declines dialysis treatment I do not think it makes sense anymore to place a tracheostomy in this patient because this will not change the course of the patient's condition. Unfortunately the family also refuses to withdraw ventilatory support at this time. Patient remains to be unamenable. (9) Pneumonia Qualifiers: Is this a current diagnosis for this admission?: Yes (10) Anemia Is this a current diagnosis for this admission?: Yes (11) Hypermagnesemia Is this a current diagnosis for this admission?: Yes - Notes Notes: No further treatment option can be recommended from nephrology standpoint at this time. I will sign off. - Time Time with patient: 15-25 minutes
--- NOTE | 2018-10-07 21:19 | PDOC PROGRESS REPORT ---
Subjective Progress Note for:: 10/07/18 Subjective:: Patient's condition is very poor, she is essentially oliguric/anuric, she is not expected to do well Reason For Visit: PNEUMONIA,ACUTE HYPERCAPNIC AND HYPOXEMIC Physical Exam Vital Signs: Temp Pulse Resp BP Pulse Ox 96.9 F L 103 H 15 115/80 95 10/07/18 20:00 10/07/18 16:01 10/07/18 18:00 10/07/18 17:09 10/07/18 19:54 Intake & Output 10/06/18 10/07/18 10/08/18 06:59 06:59 06:59 Intake Total 1818 1044 1424 Output Total 240 355 275 Balance 5184 615 4638 Weight 103.1 kg 104.3 kg Eye exam: PRESENT: PERRLA Respiratory exam: PRESENT: rhonchi Cardiovascular exam: PRESENT: +S1, +S2 GI/Abdominal exam: PRESENT: soft Results Laboratory Results: 10/05/18 05:40 10/07/18 05:00 10/07/18 05:00 Sodium 148.1 H Potassium 4.7 Chloride 112 H Carbon Dioxide 16 L Anion Gap 20 H BUN 93 H Creatinine 4.35 H Est GFR ( Amer) 12 L Est GFR (Non-Af Amer) 10 L Glucose 291 H Calcium 9.1 Magnesium 2.4 H 09/22/18 09/22/18 09/23/18 19:21 19:21 01:22 Creatine Kinase 26 L < 20 L CK-MB (CK-2) 1.66 Troponin I 0.062 NT-Pro-B Natriuret Pep 09/23/18 09/23/18 09/26/18 01:22 05:30 04:30 Creatine Kinase CK-MB (CK-2) 1.54 1.15 Troponin I 0.077 0.075 NT-Pro-B Natriuret Pep 49373 H Impressions: KUB X-Ray 09/22/18 12:40 IMPRESSION: NO RADIOGRAPHIC EVIDENCE FOR ACUTE ABDOMINAL DISEASE. Abdomen Ultrasound 09/24/18 10:00 IMPRESSION: Findings consistent with biliary sludge. There is thickening of the gallbladder jordan and pericholecystic fluid. The possibility of cholecystitis should be considered. Perihepatic and perisplenic ascitic fluid is identified. The liver demonstrates a somewhat nodular contour. Other findings as noted above Chest Ultrasound 10/04/18 17:11 IMPRESSION: Bilateral pleural effusions, right side larger than left. 2010 [employer]- All Rights Reserved Chest X-Ray 10/07/18 07:00 IMPRESSION: No significant change. Assessment & Plan - Diagnosis (1) Acute hypercapnic respiratory failure Is this a current diagnosis for this admission?: Yes (2) Hypokalemia Is this a current diagnosis for this admission?: Yes (3) Acute kidney injury Is this a current diagnosis for this admission?: Yes (4) Pneumonia Qualifiers: Pneumonia type: due to unspecified organism Laterality: unspecified laterality Lung location: unspecified part of lung Qualified Code(s): J18.9 - Pneumonia, unspecified organism Is this a current diagnosis for this admission?: Yes (5) Acute respiratory acidosis Is this a current diagnosis for this admission?: Yes (6) Thrombocytopenia Is this a current diagnosis for this admission?: Yes (7) Sepsis Qualifiers: Sepsis type: sepsis due to unspecified organism Qualified Code(s): A41.9 - Sepsis, unspecified organism Is this a current diagnosis for this admission?: No (8) Liver cirrhosis Qualifiers: Hepatic cirrhosis type: other cirrhosis Qualified Code(s): K74.69 - Other cirrhosis of liver Is this a current diagnosis for this admission?: Yes (9) Septic shock Is this a current diagnosis for this admission?: Yes (10) Metabolic encephalopathy Is this a current diagnosis for this admission?: Yes (11) Atrial fibrillation Qualifiers: Atrial fibrillation type: paroxysmal Qualified Code(s): I48.0 - Paroxysmal atrial fibrillation Is this a current diagnosis for this admission?: Yes (12) Acute cholecystitis Is this a current diagnosis for this admission?: Yes - Plan Summary Plan Summary: Condition is very poor
[2018-10-08] MEDS: PROPOFOL 1,000 MG/100 ML INFUS..BTL IV PRN ×3 (05:52→20:22)
[2018-10-08 06:15] LABS: BLOOD UREA NITROGEN 98 mg/dL (7-20); CALCIUM 8.6 mg/dL (8.4-10.2); GLUCOSE 238 mg/dL (75-110); POTASSIUM 4.8 mmol/L (3.6-5.0); TRIGLYCERIDES 507 mg/dL (<150)
--- NOTE | 2018-10-08 06:24 | RADIOLOGY REPORT (SQ) ---
CLINICAL HISTORY: pneumonia COMPARISON: None. TECHNIQUE: XR CHEST 1 VIEW 10/08/2018 7:00 AM INTERNAL AUDIT MANAGER FINDINGS: Cardiac silhouette is normal in size. There is bibasilar airspace disease. There is a large right and a moderate to large left pleural effusion. There is no pneumothorax. There are no acute osseous findings. Endotracheal tube, nasogastric tube and right subclavian central line are unchanged. IMPRESSION: No significant change.
[2018-10-08 06:28] LABS: CARBON DIOXIDE 16 mmol/L (22-30); CHLORIDE 112 mmol/L (98-107); SODIUM 148.6 mmol/L (137-145)
[2018-10-08 06:33] LABS: ANION GAP 21 (5-19)
[2018-10-08] MEDS: IPRATROPIUM/ALBUTEROL 0.5-2.5 MG/3 ML AMPUL NEB SCH ×3 (08:16→23:27)
[2018-10-08] MEDS: LOPERAMIDE HCL ORAL SOLN 1 MG/5 ML UDC PO SCH ×3 (09:34→17:51)
[2018-10-08] MEDS: FAMOTIDINE INJ/PF 20 MG/2 ML SDV IV SCH (09:44)
--- NOTE | 2018-10-08 19:11 | PROGRESS NOTE E ---
Progress Note NAME: LORI MANZANARES : 1930 AGE: 87Y DATE: 10/08/2018 ROOM: 601 SUBJECTIVE: The patient is an 87-year-old -Citizen Of [place] female who came in with acute respiratory failure requiring invasive mechanical ventilation. Treated for pneumonia, pulmonary edema, acute on chronic renal failure, severe metabolic acidosis, and acute cholecystitis. The patient has no fever for the last few days and had scanty endotracheal tube secretions. The patient's family with power of litigation attorney associate refused hemodialysis. Nephrology service signed off from the patient's care. The patient has been anuric for the last 2-3 days. BUN has been mounting up to 98. The patient's family also refused endotracheal extubation and comfort measures. Family finally agreed for holding the OG tube feedings. The patient had increased gastric residual during the G-tube feeding. No vomiting. OBJECTIVE: GENERAL: On physical exam the patient appeared slightly sedated, afebrile, not in apparent respiratory distress. VITAL SIGNS: Temperature 98.6 with a T-max of 98.6, blood pressure is 123/71, heart rate of 118, respiratory rate is 16, saturation is 96% on 40% FiO2, pressure support 10 above PEEP, PEEP of 5, tidal volume is 400, minute ventilation is 7.2, peak airway pressure is 25. EYES: No jaundice or pallor. EARS, NOSE, AND THROAT: No ear drainage noted. No nasal discharge. Endotracheal tube is in place. CHEST AND LUNGS: No wheezing, no rhonchi, no coarse crackles. CARDIOVASCULAR: S1, S2 distinct. Normal rate and regular rhythm. ABDOMEN: Flabby, positive bowel sounds, soft, nondistended, nontender. EXTREMITIES: Bipedal edema and swelling of both hands and forearm. LABORATORY DATA: CBC done 10/05/2018 shows a white count of 5.1, hemoglobin 9.1, hematocrit is 27.5, platelet count is 135. Chemistry today 10/08/2018 shows sodium is 148, potassium is 4.8, chloride 112, bicarb is 16, anion gap is 21, BUN is 98, creatinine is 4.3, glucose is *------*, and calcium is 8.6, magnesium is 2.4. Triglycerides is 579. IMAGING STUDIES: Chest x-ray today showed endotracheal tube is in place. Has pleural effusion on the left side and pleural effusion on the right side. Pulmonary infiltrates diffusely in the right. Chest x-ray was reported as no change. ASSESSMENT: 1. ACUTE RESPIRATORY FAILURE REQUIRING INVASIVE MECHANICAL VENTILATION. The patient not ready to be extubated. The patient's family refused tracheostomy tube placement and the patient currently is on DNR status. Family conveyed their intention to keep the patient the same and no aggressive surgical interventions, but refused to endotracheally extubate the patient and keep the patient on comfort measures. 2. PNEUMONIA. Appears to be improving. 3. PULMONARY AND PLEURAL EFFUSION BILATERAL. Most likely due to acute renal failure and fluid overload/congestion. The patient is anuric for the last 2-3 days. 4. ACUTE ON CHRONIC RENAL FAILURE WITH SEVERE METABOLIC ACIDOSIS REQUIRING HEMODIALYSIS. Family refused hemodialysis. PLAN: 1. We will continue to ventilate the patient. 2. Still recommend family meeting to discuss end-of-life issues and extubation of the patient and comfort measures. Currently the family refused to have another family meeting. DICTATING PHYSICIAN: BENJAMIN POWELL MD,VIRA,MPH [id number] PHY#: [id number] ID: [id number] JOB#: [id number] ACCT: [id number] cc: > MARYELLEND
--- NOTE | 2018-10-08 20:09 | PDOC PROGRESS REPORT ---
Subjective Progress Note for:: 10/08/18 Subjective:: Patient's condition is very poor, she is essentially oliguric/anuric, she is not expected to do well Reason For Visit: PNEUMONIA,ACUTE HYPERCAPNIC AND HYPOXEMIC Physical Exam Vital Signs: Temp Pulse Resp BP Pulse Ox 97.5 F 115 H 22 H 113/64 93 10/08/18 18:00 10/08/18 08:16 10/08/18 18:00 10/08/18 17:10 10/08/18 18:00 Intake & Output 10/07/18 10/08/18 10/09/18 06:59 06:59 06:59 Intake Total 1044 1482 371 Output Total 355 387 350 Balance 689 1095 21 Weight 104.3 kg 103.1 kg Eye exam: PRESENT: PERRLA Respiratory exam: PRESENT: clear to auscultation lauren Cardiovascular exam: PRESENT: +S1, +S2 GI/Abdominal exam: PRESENT: soft Neurological exam: PRESENT: alert Results Laboratory Results: 10/05/18 05:40 10/08/18 05:45 10/08/18 05:45 Sodium 148.6 H Potassium 4.8 Chloride 112 H Carbon Dioxide 16 L Anion Gap 21 H BUN 98 H Creatinine 4.30 H Est GFR ( Amer) 12 L Est GFR (Non-Af Amer) 10 L Glucose 238 H Calcium 8.6 Magnesium 2.4 H Triglycerides 507 H 09/22/18 09/22/18 09/23/18 19:21 19:21 01:22 Creatine Kinase 26 L < 20 L CK-MB (CK-2) 1.66 Troponin I 0.062 NT-Pro-B Natriuret Pep 09/23/18 09/23/18 09/26/18 01:22 05:30 04:30 Creatine Kinase CK-MB (CK-2) 1.54 1.15 Troponin I 0.077 0.075 NT-Pro-B Natriuret Pep 49450 H Impressions: KUB X-Ray 09/22/18 12:40 IMPRESSION: NO RADIOGRAPHIC EVIDENCE FOR ACUTE ABDOMINAL DISEASE. Abdomen Ultrasound 09/24/18 10:00 IMPRESSION: Findings consistent with biliary sludge. There is thickening of the gallbladder jordan and pericholecystic fluid. The possibility of cholecystitis should be considered. Perihepatic and perisplenic ascitic fluid is identified. The liver demonstrates a somewhat nodular contour. Other findings as noted above Chest Ultrasound 10/04/18 17:11 IMPRESSION: Bilateral pleural effusions, right side larger than left. 2010 [employer]- All Rights Reserved Chest X-Ray 10/08/18 07:00 IMPRESSION: No significant change. Assessment & Plan - Diagnosis (1) Acute hypercapnic respiratory failure Is this a current diagnosis for this admission?: Yes (2) Hypokalemia Is this a current diagnosis for this admission?: Yes (3) Acute kidney injury Is this a current diagnosis for this admission?: Yes (4) Pneumonia Qualifiers: Pneumonia type: due to unspecified organism Laterality: unspecified laterality Lung location: unspecified part of lung Qualified Code(s): J18.9 - Pneumonia, unspecified organism Is this a current diagnosis for this admission?: Yes (5) Acute respiratory acidosis Is this a current diagnosis for this admission?: Yes (6) Thrombocytopenia Is this a current diagnosis for this admission?: Yes (7) Sepsis Qualifiers: Sepsis type: sepsis due to unspecified organism Qualified Code(s): A41.9 - Sepsis, unspecified organism Is this a current diagnosis for this admission?: No (8) Liver cirrhosis Qualifiers: Hepatic cirrhosis type: other cirrhosis Qualified Code(s): K74.69 - Other cirrhosis of liver Is this a current diagnosis for this admission?: Yes (9) Septic shock Is this a current diagnosis for this admission?: Yes (10) Metabolic encephalopathy Is this a current diagnosis for this admission?: Yes (11) Atrial fibrillation Qualifiers: Atrial fibrillation type: paroxysmal Qualified Code(s): I48.0 - Paroxysmal atrial fibrillation Is this a current diagnosis for this admission?: Yes (12) Acute cholecystitis Is this a current diagnosis for this admission?: Yes
[2018-10-09 05:26] LABS: BLOOD UREA NITROGEN 103 mg/dL (7-20); CALCIUM 8.3 mg/dL (8.4-10.2); GLUCOSE 187 mg/dL (75-110); POTASSIUM 4.3 mmol/L (3.6-5.0)
[2018-10-09 05:31] LABS: CARBON DIOXIDE 16 mmol/L (22-30); CHLORIDE 113 mmol/L (98-107); SODIUM 149.2 mmol/L (137-145)
[2018-10-09 05:38] LABS: ANION GAP 20 (5-19)
--- NOTE | 2018-10-09 06:29 | RADIOLOGY REPORT (SQ) ---
EXAM DESCRIPTION: XR CHEST 1 VIEW COMPLETED DATE/TME: 10/09/2018 07:00 CLINICAL HISTORY: 87 years Female, pneumonia COMPARISON: One day prior. NUMBER OF VIEWS/TECHNIQUE: 1/AP FINDINGS: Large opacity-effusion of the right lower hemithorax, moderate opacity-effusion of the left lower hemithorax, moderate extensive mixed interstitial and airspace opacity, right more than left. Atherosclerosis. Adequate appearing endotracheal tube. Likely adequate appearing enteric tube partially obscured. Adequate appearing right subclavian central line. No pneumothorax. Stable bony thorax. IMPRESSION: No significant change.
[2018-10-09] MEDS: IPRATROPIUM/ALBUTEROL 0.5-2.5 MG/3 ML AMPUL NEB SCH ×2 (07:52→16:15)
[2018-10-09] MEDS: LOPERAMIDE HCL ORAL SOLN 1 MG/5 ML UDC PO SCH ×3 (09:05→17:04)
[2018-10-09] MEDS: FAMOTIDINE INJ/PF 20 MG/2 ML SDV IV SCH (09:05)
--- NOTE | 2018-10-09 10:08 | PDOC PROGRESS REPORT ---
Subjective Progress Note for:: 10/09/18 Subjective:: Patient main on ventilator support. Remain severely oliguric. Remain sedated on IV Propofol. Nursing staff reported expressed discomfort and pain. Reason For Visit: PNEUMONIA,ACUTE HYPERCAPNIC AND HYPOXEMIC Physical Exam Vital Signs: Temp Pulse Resp BP Pulse Ox 96.2 F L 86 20 132/84 H 97 10/09/18 08:00 10/09/18 07:59 10/09/18 07:59 10/09/18 07:10 10/09/18 07:59 Intake & Output 10/08/18 10/09/18 10/10/18 06:59 06:59 06:59 Intake Total 1482 393 75 Output Total 387 470 60 Balance 1095 -77 15 Weight 103.1 kg 99.6 kg Physical Exam: ET and NG tubes in situ. Head exam: PRESENT: atraumatic, normocephalic Eye exam: PRESENT: conjunctiva pink, PERRLA. ABSENT: scleral icterus Ear exam: PRESENT: normal external ear exam Respiratory exam: PRESENT: clear to auscultation lauren, decreased breath sounds - at both lung bases Cardiovascular exam: PRESENT: RRR, +S1, +S2. ABSENT: diastolic murmur, systolic murmur Vascular exam: ABSENT: pallor GI/Abdominal exam: PRESENT: normal bowel sounds Extremities exam: PRESENT: pedal edema - anasarca level Neurological exam: PRESENT: altered - on IV Propofol infusion Skin exam: PRESENT: dry, warm Results Laboratory Results: 10/05/18 05:40 10/09/18 04:58 10/09/18 04:58 Sodium 149.2 H Potassium 4.3 Chloride 113 H Carbon Dioxide 16 L Anion Gap 20 H BUN 103 H Creatinine 5.23 H Est GFR ( Amer) 9 L Est GFR (Non-Af Amer) 8 L Glucose 187 H Calcium 8.3 L Magnesium 2.4 H 09/22/18 09/22/18 09/23/18 19:21 19:21 01:22 Creatine Kinase 26 L < 20 L CK-MB (CK-2) 1.66 Troponin I 0.062 NT-Pro-B Natriuret Pep 09/23/18 09/23/18 09/26/18 01:22 05:30 04:30 Creatine Kinase CK-MB (CK-2) 1.54 1.15 Troponin I 0.077 0.075 NT-Pro-B Natriuret Pep 64666 H Impressions: KUB X-Ray 09/22/18 12:40 IMPRESSION: NO RADIOGRAPHIC EVIDENCE FOR ACUTE ABDOMINAL DISEASE. Abdomen Ultrasound 09/24/18 10:00 IMPRESSION: Findings consistent with biliary sludge. There is thickening of the gallbladder jordan and pericholecystic fluid. The possibility of cholecystitis should be considered. Perihepatic and perisplenic ascitic fluid is identified. The liver demonstrates a somewhat nodular contour. Other findings as noted above Chest Ultrasound 10/04/18 17:11 IMPRESSION: Bilateral pleural effusions, right side larger than left. 2010 [employer]- All Rights Reserved Chest X-Ray 10/09/18 07:00 IMPRESSION: No significant change. Assessment & Plan - Diagnosis (1) Acute hypercapnic respiratory failure Is this a current diagnosis for this admission?: Yes Plan: Very poor prognosis in view of her morbidities, advanced age and multi-organ failure. Continue supportive care as per family request. (2) Acute kidney injury Is this a current diagnosis for this admission?: Yes Plan: Patient is not deemed candidate for dialysis supplemental therapy. (3) Dementia Qualifiers: Dementia type: Alzheimer's disease Is this a current diagnosis for this admission?: Yes Plan: In view of her current status and medical futility she should be made comfort care. I will discuss with her grand daughter who has been selected as the family spoke person regarding further care plan. - Time Time Spent with patient: 25-34 minutes Medications reviewed and adjusted accordingly: Yes Anticipated discharge: Other Within: Other - Inpatient Certification Based on my medical assessment, after consideration of the patient's comorbidities, presenting symptoms, or acuity I expect that the services needed warrant INPATIENT care.: Yes I certify that my determination is in accordance with my understanding of Medicare's requirements for reasonable and necessary INPATIENT services [42 CFR 412.3e].: Yes Medical Necessity: Need Close Monitoring Due to Risk of Patient Decompensation, Need For Continuous Telemetry Monitoring, Need for Nebulizer Therapy and Monitoring of Response, Risk of Complication if Not Cared For in Hospital Post Hospital Care: D/C Plan Consultant Documentation - Plan Summary Plan Summary: Patient overall prognosis is poor. She may benefit from comfort care at this time. I will discuss recommendation with grand daughter.
[2018-10-09] MEDS: PROPOFOL 1,000 MG/100 ML INFUS..BTL IV PRN ×3 (14:12→20:30)
[2018-10-10] MEDS: IPRATROPIUM/ALBUTEROL 0.5-2.5 MG/3 ML AMPUL NEB SCH ×3 (00:28→15:52)
[2018-10-10 04:54] LABS: ANION GAP 18 (5-19); BLOOD UREA NITROGEN 105 mg/dL (7-20); CALCIUM 8.4 mg/dL (8.4-10.2); CARBON DIOXIDE 18 mmol/L (22-30); CHLORIDE 114 mmol/L (98-107); GLUCOSE 145 mg/dL (75-110); POTASSIUM 4.2 mmol/L (3.6-5.0); SODIUM 150.4 mmol/L (137-145)
[2018-10-10] MEDS: PROPOFOL 1,000 MG/100 ML INFUS..BTL IV PRN ×3 (06:00→20:34)
--- NOTE | 2018-10-10 07:27 | RADIOLOGY REPORT (SQ) ---
EXAM DESCRIPTION: XR CHEST 1 VIEW COMPLETED DATE/TME: 10/10/2018 07:00 CLINICAL HISTORY: 87 years Female, pneumonia COMPARISON: One day prior. NUMBER OF VIEWS/TECHNIQUE: 1/AP FINDINGS: Moderate extensive interstitial markings, right more than left, moderate opacity-effusion of bilateral lower hemithoraces, atherosclerosis. Adequate appearing endotracheal tube. Likely adequate appearing enteric tube partially obscured. Adequate appearing right subclavian central line. Normal cardiac silhouette size. No pneumothorax. Stable bony thorax. IMPRESSION: No significant change.
[2018-10-10] MEDS: LOPERAMIDE HCL ORAL SOLN 1 MG/5 ML UDC PO SCH ×3 (11:59→17:37)
[2018-10-10] MEDS: FAMOTIDINE INJ/PF 20 MG/2 ML SDV IV SCH (11:59)
[2018-10-10] MEDS ORDERED: MORPHINE SULFATE 10 MG/ML INJ IV PRN (14:45)
--- NOTE | 2018-10-10 14:45 | PDOC PROGRESS REPORT ---
Subjective Progress Note for:: 10/10/18 Subjective:: Patient main on ventilator support and sedated on IV Propofol. Family agreed to discuss comfort care level tomorrow. Nursing staff reported worsening expressed discomfort and pain. There is responsive hypotension with attempt at increasing Propofol for agitation. Reason For Visit: PNEUMONIA,ACUTE HYPERCAPNIC AND HYPOXEMIC Physical Exam Vital Signs: Temp Pulse Resp BP Pulse Ox 96.1 F L 115 H 20 112/72 96 10/10/18 14:00 10/10/18 14:00 10/10/18 14:10 10/10/18 14:10 10/10/18 14:10 Intake & Output 10/09/18 10/10/18 10/11/18 06:59 06:59 06:59 Intake Total 393 172 54 Output Total 470 770 220 Balance -77 -598 -166 Weight 99.6 kg 103.7 kg Physical Exam: ET and NG tubes in situ. Head exam: PRESENT: atraumatic, normocephalic Eye exam: PRESENT: conjunctiva pink, PERRLA. ABSENT: scleral icterus Ear exam: PRESENT: normal external ear exam Respiratory exam: PRESENT: clear to auscultation lauren, decreased breath sounds - at both lung bases Cardiovascular exam: PRESENT: RRR, +S1, +S2. ABSENT: diastolic murmur, systolic murmur Vascular exam: ABSENT: pallor GI/Abdominal exam: PRESENT: normal bowel sounds Extremities exam: PRESENT: pedal edema - anasarca level Neurological exam: PRESENT: altered - on IV Propofol infusion Skin exam: PRESENT: dry, warm Results Laboratory Results: 10/05/18 05:40 10/10/18 04:00 10/10/18 04:00 Sodium 150.4 H Potassium 4.2 Chloride 114 H Carbon Dioxide 18 L Anion Gap 18 BUN 105 H Creatinine 5.18 H Est GFR ( Amer) 10 L Est GFR (Non-Af Amer) 8 L Glucose 145 H Calcium 8.4 Magnesium 2.4 H 09/22/18 09/22/18 09/23/18 19:21 19:21 01:22 Creatine Kinase 26 L < 20 L CK-MB (CK-2) 1.66 Troponin I 0.062 NT-Pro-B Natriuret Pep 09/23/18 09/23/18 09/26/18 01:22 05:30 04:30 Creatine Kinase CK-MB (CK-2) 1.54 1.15 Troponin I 0.077 0.075 NT-Pro-B Natriuret Pep 34478 H Impressions: KUB X-Ray 09/22/18 12:40 IMPRESSION: NO RADIOGRAPHIC EVIDENCE FOR ACUTE ABDOMINAL DISEASE. Abdomen Ultrasound 09/24/18 10:00 IMPRESSION: Findings consistent with biliary sludge. There is thickening of the gallbladder jordan and pericholecystic fluid. The possibility of cholecystitis should be considered. Perihepatic and perisplenic ascitic fluid is identified. The liver demonstrates a somewhat nodular contour. Other findings as noted above Chest Ultrasound 10/04/18 17:11 IMPRESSION: Bilateral pleural effusions, right side larger than left. 2010 [employer]- All Rights Reserved Chest X-Ray 10/10/18 07:00 IMPRESSION: No significant change. Assessment & Plan - Diagnosis (1) Acute hypercapnic respiratory failure Is this a current diagnosis for this admission?: Yes (2) Acute kidney injury Is this a current diagnosis for this admission?: Yes (3) Dementia Qualifiers: Dementia type: Alzheimer's disease Is this a current diagnosis for this admission?: Yes - Time Time Spent with patient: 25-34 minutes Anticipated discharge: Other Within: Other - Inpatient Certification Based on my medical assessment, after consideration of the patient's comorbidities, presenting symptoms, or acuity I expect that the services needed warrant INPATIENT care.: Yes I certify that my determination is in accordance with my understanding of Medicare's requirements for reasonable and necessary INPATIENT services [42 CFR 412.3e].: Yes Medical Necessity: Need Close Monitoring Due to Risk of Patient Decompensation, Need for Pain Control, Risk of Complication if Not Cared For in Hospital Post Hospital Care: Other - Plan Summary Plan Summary: Overall poor prognosis. Start on IV Morphine 1 mg q4 hours prn for pain and discomfort management.
[2018-10-11] MEDS: IPRATROPIUM/ALBUTEROL 0.5-2.5 MG/3 ML AMPUL NEB SCH ×3 (00:13→16:09)
[2018-10-11] MEDS: PROPOFOL 1,000 MG/100 ML INFUS..BTL IV PRN ×2 (04:53→16:42)
--- NOTE | 2018-10-11 06:24 | RADIOLOGY REPORT (SQ) ---
EXAM DESCRIPTION: XR CHEST 1 VIEW COMPLETED DATE/TME: 10/11/2018 07:00 CLINICAL HISTORY: 87 years Female, pneumonia COMPARISON: One day prior. NUMBER OF VIEWS/TECHNIQUE: 1/AP FINDINGS: Moderate opacity-effusion of bilateral lower hemithoraces, moderate interstitial markings. Atherosclerosis. Adequate appearing endotracheal tube. Likely adequate appearing enteric tube partially obscured. Adequate appearing right subclavian central line. Mildly enlarged cardiac silhouette. No pneumothorax. Stable bony thorax. IMPRESSION: No significant change.
[2018-10-11 06:29] LABS: ANION GAP 19 (5-19); BLOOD UREA NITROGEN 104 mg/dL (7-20); CALCIUM 7.9 mg/dL (8.4-10.2); CARBON DIOXIDE 16 mmol/L (22-30); CHLORIDE 116 mmol/L (98-107); GLUCOSE 99 mg/dL (75-110); POTASSIUM 4.2 mmol/L (3.6-5.0); SODIUM 150.8 mmol/L (137-145); TRIGLYCERIDES 243 mg/dL (<150)
[2018-10-11 06:44] LABS: ARTERIAL BLOOD BASE EXCESS -7.1 mmol/L; ARTERIAL BLOOD H2CO3 1.02 mmol/L (1.05-1.35); ARTERIAL BLOOD HCO3 17.9 mmol/L (20-24); ARTERIAL BLOOD O2 SATURATION 82.4 % (94-98); ARTERIAL BLOOD PCO2 33.9 mmHg (35-45); ARTERIAL BLOOD PH 7.34 (7.35-7.45); ARTERIAL BLOOD PO2 48.5 mmHg (80-100)
[2018-10-11 06:46] LABS: ARTERIAL BLOOD FIO2 45%
[2018-10-11] MEDS: LOPERAMIDE HCL ORAL SOLN 1 MG/5 ML UDC PO SCH ×3 (09:55→18:40)
[2018-10-11] MEDS: FAMOTIDINE INJ/PF 20 MG/2 ML SDV IV SCH (10:10)
--- NOTE | 2018-10-11 21:03 | PDOC PROGRESS REPORT ---
Subjective Progress Note for:: 10/11/18 Subjective:: Patient was made comfort care after consultation with family Reason For Visit: PNEUMONIA,ACUTE HYPERCAPNIC AND HYPOXEMIC Physical Exam Vital Signs: Temp Pulse Resp BP Pulse Ox 98.6 F 111 H 29 H 117/74 66 L 10/11/18 05:18 10/11/18 19:54 10/11/18 19:37 10/11/18 19:37 10/11/18 19:37 Intake & Output 10/10/18 10/11/18 10/12/18 06:59 06:59 06:59 Intake Total 172 212 116 Output Total 770 610 400 Balance -598 -398 -284 Weight 103.7 kg 97.3 kg Results Laboratory Results: 10/05/18 05:40 10/11/18 05:47 10/11/18 10/11/18 05:47 06:12 Carbonic Acid 1.02 L HCO3/H2CO3 Ratio 17:1 ABG pH 7.34 L ABG pCO2 33.9 L ABG pO2 48.5 L ABG HCO3 17.9 L ABG O2 Saturation 82.4 L ABG Base Excess -7.1 FiO2 45% Sodium 150.8 H Potassium 4.2 Chloride 116 H Carbon Dioxide 16 L Anion Gap 19 BUN 104 H Creatinine 5.56 H Est GFR ( Amer) 9 L Est GFR (Non-Af Amer) 7 L Glucose 99 Calcium 7.9 L Magnesium 2.4 H Triglycerides 243 H 09/22/18 09/22/18 09/23/18 19:21 19:21 01:22 Creatine Kinase 26 L < 20 L CK-MB (CK-2) 1.66 Troponin I 0.062 NT-Pro-B Natriuret Pep 09/23/18 09/23/18 09/26/18 01:22 05:30 04:30 Creatine Kinase CK-MB (CK-2) 1.54 1.15 Troponin I 0.077 0.075 NT-Pro-B Natriuret Pep 16956 H Impressions: KUB X-Ray 09/22/18 12:40 IMPRESSION: NO RADIOGRAPHIC EVIDENCE FOR ACUTE ABDOMINAL DISEASE. Abdomen Ultrasound 09/24/18 10:00 IMPRESSION: Findings consistent with biliary sludge. There is thickening of the gallbladder jordan and pericholecystic fluid. The possibility of cholecystitis should be considered. Perihepatic and perisplenic ascitic fluid is identified. The liver demonstrates a somewhat nodular contour. Other findings as noted above Chest Ultrasound 10/04/18 17:11 IMPRESSION: Bilateral pleural effusions, right side larger than left. 2010 [employer]- All Rights Reserved Chest X-Ray 10/11/18 07:00 IMPRESSION: No significant change. Assessment & Plan - Diagnosis (1) Acute hypercapnic respiratory failure Is this a current diagnosis for this admission?: Yes (2) Hypokalemia Is this a current diagnosis for this admission?: Yes (3) Acute kidney injury Is this a current diagnosis for this admission?: Yes (4) Pneumonia Qualifiers: Pneumonia type: due to unspecified organism Laterality: unspecified laterality Lung location: unspecified part of lung Qualified Code(s): J18.9 - Pneumonia, unspecified organism Is this a current diagnosis for this admission?: Yes (5) Acute respiratory acidosis Is this a current diagnosis for this admission?: Yes (6) Thrombocytopenia Is this a current diagnosis for this admission?: Yes (7) Sepsis Qualifiers: Sepsis type: sepsis due to unspecified organism Qualified Code(s): A41.9 - Sepsis, unspecified organism Is this a current diagnosis for this admission?: No (8) Liver cirrhosis Qualifiers: Hepatic cirrhosis type: other cirrhosis Qualified Code(s): K74.69 - Other cirrhosis of liver Is this a current diagnosis for this admission?: Yes (9) Septic shock Is this a current diagnosis for this admission?: Yes (10) Metabolic encephalopathy Is this a current diagnosis for this admission?: Yes (11) Atrial fibrillation Qualifiers: Atrial fibrillation type: paroxysmal Qualified Code(s): I48.0 - Paroxysmal atrial fibrillation Is this a current diagnosis for this admission?: Yes (12) Acute cholecystitis Is this a current diagnosis for this admission?: Yes
[2018-10-11] MEDS: MORPHINE SULFATE 10 MG/ML INJ IV PRN (21:39)
--- NOTE | 2018-10-11 23:36 | PROGRESS NOTE E ---
Progress Note NAME: LORI LAMAS : 1930 AGE: 87Y DATE: 10/11/2018 ROOM: 601 SUBJECTIVE: The patient is a 57-year-old -Cym[place] female who came in acute respiratory failure requiring invasive mechanical ventilation, pneumonia bilateral, chronic kidney disease, acute on chronic renal failure requiring hemodialysis, severe metabolic acidosis, pulmonary edema, pleural effusion right side, acute cholecystitis. The patient has been afebrile with temperature 98.6 with a T-max of 98.8. The patient on 10/10/2018 at 7 a.m. intake is 172 and urine output is 270, negative fluid balance 598. At 7 p.m. today 10/11; intake is 212 and urine output is 310 with a negative 298 balance. There was no vomiting. The patient has not been fed for 2 days because of gastric ileus and increased gastric residual. The patient has some watery stool. Has scanty endotracheal tube secretions. The patient is not ready to be extubated yet. Discussed with family tonight at 6 p.m. with the [employer] nurse, Alex, and the social science teacher/ patient advocacy, Ms. Dougherty. With Ms. Dougherty present and patient's family member Kelin Carlin, the patient's power of real estate associate attorney, and the patient's brothers Taqueria Lamas and Cesar Lamas. Discussed about the patient's condition and her very poor prognosis. Discussed about the patient's inability to be extubated, the patient may require a tracheostomy and continued life support versus placing the patient on comfort measures. The family; Taqueria Lamas, Cesar Lamas, and the granddaughter Kelin Carlin all agreed to put the patient on comfort measures. OBJECTIVE: GENERAL: The patient appeared slightly sedated. VITAL SIGNS: Temperature of 99 degrees Fahrenheit, blood pressure is 110/66, respiratory of 18, saturation is 96% on FiO2 of 40%, SIMV rate of 18, tidal volume of 400, pressure support of 10 above PEEP, and PEEP of 5. CHEST AND LUNGS: No wheezing, no rhonchi, no coarse crackles. CARDIOVASCULAR: S1, S2 distinct. Normal rate and regular rhythm. ABDOMEN: Flabby, positive bowel sounds, soft, nondistended. EXTREMITIES: Swelling on both hands and ankles. LABORATORY DATA: ABG done today showed pH of 7.34, pCO2 is 33.9, pO2 is 48.5, ABG bicarb 17.9, saturation is 82% on 45% FiO2. Chemistry done today showed sodium is 150, potassium is 4.2, chloride is 116, CO2 is 16, BUN is 104, creatinine is 5.56, glucose is 99, magnesium is 2.4, and calcium is 7.9. IMAGING STUDIES: Chest x-ray done today showed bilateral pleural effusion, endotracheal tube is in place. The pleural effusion is moderate in amount. No pneumothorax. ASSESSMENT: 1. ACUTE ON CHRONIC RESPIRATORY FAILURE REQUIRING INVASIVE MECHANICAL VENTILATION. THE PATIENT NOT READY TO BE EXTUBATED. FAMILY AGREED TO PUT THE PATIENT ON COMFORT MEASURES AND EXTUBATE THE PATIENT TONIGHT. 2. PULMONARY EDEMA AND BILATERAL PLEURAL EFFUSION, MOST LIKELY DUE TO ACUTE ON CHRONIC RENAL FAILURE REQUIRING HEMODIALYSIS. 3. SEVERE METABOLIC ACIDOSIS. 4. PNEUMONIA, BILATERAL. 5. SEVERE DEMENTIA. PLAN/RECOMMENDATION: 1. We will extubate the patient, place the patient on comfort measures. 2. We will consult hospice care tomorrow morning if still possible. 3. We will discontinue patient's IV fluid. 4. We will discontinue the ventilatory support. 5. We will discontinue the daily chest x-ray, chemistry, and ABG. 6. We will discontinue the flu shot. 7. We will continue the Pepcid and nebulizer treatment, Imodium and the morphine 2 mg IV every 2 hours as needed. 8. We will discontinued the propofol. Discussed patient's plan and patient's condition and family's wishes with the primary care doctor, esha Vergara. DICTATING PHYSICIAN: BENJAMIN POWELL MD,VIRA,MPH [id number] PHY#: [id number] ID: [id number] JOB#: [id number] ACCT: [id number] cc: > MTDD
[2018-10-12] MEDS: IPRATROPIUM/ALBUTEROL 0.5-2.5 MG/3 ML AMPUL NEB SCH (00:16)
[2018-10-12] MEDS: MORPHINE SULFATE 10 MG/ML INJ IV PRN ×2 (00:31→02:32)
[2018-10-12 02:04] VITALS: BP 76/40
--- NOTE | 2018-10-12 08:23 | Death Summary ---
Summary Date : 10/12/18 Time of :: 03:50 - Final Diagnosis (1) Acute hypercapnic respiratory failure Is this a current diagnosis for this admission?: Yes (2) Hypokalemia Is this a current diagnosis for this admission?: Yes (3) Acute kidney injury Is this a current diagnosis for this admission?: Yes (4) Pneumonia Is this a current diagnosis for this admission?: Yes (5) Acute respiratory acidosis Is this a current diagnosis for this admission?: Yes (6) Thrombocytopenia Is this a current diagnosis for this admission?: Yes (7) Sepsis Is this a current diagnosis for this admission?: No (8) Liver cirrhosis Is this a current diagnosis for this admission?: Yes (9) Septic shock Is this a current diagnosis for this admission?: Yes (10) Metabolic encephalopathy Is this a current diagnosis for this admission?: Yes (11) Atrial fibrillation Is this a current diagnosis for this admission?: Yes (12) Acute cholecystitis Is this a current diagnosis for this admission?: Yes Hospital Course:: Patient 87-year-old female, she has a history of chronic obstructive lung disease, dementia, hypertension, hepatitis C liver cirrhosis, she was transferred from assisted living facility to the emergency room for evaluation of altered mental status. She supposedly was having diarrhea for a very prolonged period of time, there was no vomiting, the initial blood work that was done in the emergency room demonstrated hypokalemia, the potassium was 2.1 serum creatinine was 2.93 the venous pH was 7.1, the chest x-ray suggests pneumonia. History taking on admission was a challenge she was stuporous subsequent ABG that was done demonstrated on FiO2 of 1.5 L, pH 7.1 PCO2 54.4 PO2 69.4 bicarbonate 20.7 because of the hypercapnic respiratory failure she was intubated, the respiration was supported with medical ventilation and she was transferred to intensive care unit for management hospital course was prolonged in the intensive care unit, she was treated with IV antibiotic for pneumonia she had respiratory failure due to pneumonia she was seen by pulmonary Dr. Blake for the management of the ventilator. She has sepsis with involvement of multiple organ system including kidney, encephalopathy, pneumonia , liver failure. She has severe thrombocytopenia most likely related to the hepatitis C liver cirrhosis. Initially on admission patient was nonoliguric, she developed ATN with oliguric kidney failure she was seen by nephrology, continues renal replacement therapy was recommended, because of the underlying dementia and liver failure it was felt that she is not a candidate for CRRT. After consultation with family she was made DNR status, she continued to require supportive care with antibiotic, mechanical ventilation without much improvement in her clinical condition after consultation with family it was felt that the best approach would be comfort care measure. She was made comfort care she within 24 hours of comfort care. She also had ultrasound of the abdomen that showed acute cholecystitis . She also had atrial fibrillation most likely related to the sepsis, this was treated initially with amiodarone
--- NOTE | 2018-10-12 11:18 | PROGRESS NOTE E ---
Progress Note NAME: LORI MANZANARES : 1930 AGE: 87Y DATE: 10/07/2018 ROOM: 401 SUBJECTIVE: The patient is an 87-year-old -[place] female who came in with acute respiratory failure requiring invasive mechanical ventilation. Treated for pneumonia, acute cholecystitis, pulmonary edema, acute on chronic renal failure requiring hemodialysis, severe metabolic acidosis. The patient has no fever over the last 24-48 hours. The patient is not a candidate for hemodialysis and family refused postop hemodialysis. Currently still intubated. Family refused nephrostomy tube placement. The patient's kidney function is worsening. The patient remained anuric for the last 3 days. No urine output for the last 3 days. There is no vomiting. The patient has increased gastric residual. NG tube feeding was withheld. OBJECTIVE: GENERAL: The patient appeared slightly sedated, afebrile, not in apparent respiratory distress. VITAL SIGNS: Afebrile, not in apparent respiratory distress with a temperature of 97.4 with a T-max of 97.4, heart rate is 103, blood pressure 114/56, respiratory rate 20, saturation 96% on 45% FiO2, SIMV rate of 20, tidal volume of 400, pressure support of 10 above PEEP, and PEEP of 5. Minute ventilation is 7 to 8, and peak airway pressure is 26. EYES: No jaundice or pallor. EARS, NOSE, AND THROAT: No ear drainage. No nasal discharge. CHEST AND LUNGS: No wheezing, no rhonchi, no coarse crackles. CARDIOVASCULAR: S1, S2 distinct. Normal rate, regular rhythm. ABDOMEN: Flabby. Hypoactive bowel sounds. Soft, but slightly distended. EXTREMITIES: Swelling noted on right hand. No cellulitis and no joint swelling. LABORATORY: Chemistry was done this morning with a pH of 7.27, PCO2 is 35.8, and bicarb 16. Chemistry done today showed sodium is 148, potassium 4.7, carbon dioxide 16, anion gap is 20, BUN is 93, creatinine is 4.35, glucose 291. ASSESSMENT: 1. ACUTE RESPIRATORY FAILURE REQUIRING INVASIVE MECHANICAL VENTILATION, NOT READY TO BE EXTUBATED. Patient required tracheostomy tube, if family wants to pursue the life support; however, family refused any other surgical intervention and refused tracheostomy. 2. ACUTE ON CHRONIC RENAL FAILURE, APPEARS TO BE WORSENING, BUN INCREASING TO 93 TODAY, AND PATIENT REMAINS ANURIC. Family refused hemodialysis and patient is not a candidate for hemodialysis per Nephrology service. 3. WORSENING METABOLIC ACIDOSIS. PLAN/RECOMMENDATIONS: 1. Will maintain the patient on the ventilator. Family refused comfort measures and refused extubation of the patient. 2. Did recommend family meeting to discuss end-of-life care and possibly withdrawal of life support. DICTATING PHYSICIAN: BENJAMIN POWELL MD,VIRA,MPH [id number] PHY#: [id number] ID: [id number] JOB#: [id number] ACCT: [id number] cc: > MTDD
--- NOTE | 2018-10-12 11:19 | PROGRESS NOTE E ---
Progress Note NAME: LORI MANZANARES : 1930 AGE: 87Y DATE: 10/09/2018 ROOM: 401 SUBJECTIVE: The patient is an 87-year-old female who came in with acute respiratory failure requiring invasive mechanical ventilation. The patient went to [id number] kidney failure with severe metabolic acidosis, definitely requires hemodialysis. The patient not a good candidate for hemodialysis and family refused hemodialysis. Has increased gastric residual. No diarrhea. Noted scanty endotracheal tube secretions. Has no fever over the last 48 hours. Spoke to the patient's granddaughter- Brittany, who has the power of filter cloth maker for healthcare for the patient, over the phone. Claimed that she also talked to the patient's primary care, Dr. Crawford, and to , a few days ago last week, and also this morning. Agreed to have a family meeting on Thursday next week at 6:00 p.m. She claimed that she cannot make any decisions yet and she wants every family member or patient's brother to get involved as well. The patient's BUN has been increasing to 103 mg/dL and her creatinine has been going up also to 5.23 mg/dL. Serum bicarb has been steady at 16 mcmol/L. The patient's urine output has been decreasing, currently with urine output of 470 mL at 7:00 a.m. this morning. OBJECTIVE: The patient currently appears sedated, afebrile, not in apparent respiratory distress. The O2 saturation is 95% on an FiO2 of 45%, tidal volume 400, pressure support of 10, PEEP of 5, peak airway pressure of 25, the minute ventilation 7-8. ASSESSMENT: 1. ACUTE RESPIRATORY FAILURE REQUIRING INVASIVE MECHANICAL VENTILATION. Apparently not a candidate for extubation. The patient needs a tracheostomy if consent can be obtained considering the patient's renal failure is getting worse and concerning the severe metabolic acidosis. 2. [id number] RENAL FAILURE. Appears to be getting worse. The patient is oliguric. Nephrology service stated that the patient is not a good candidate for chronic hemodialysis. The family refused dialysis. 3. SEVERE METABOLIC ACIDOSIS. 4. SEVERE DEMENTIA. 5. PLEURAL EFFUSION BILATERAL, RIGHT MORE THAN LEFT, WITH CONSOLIDATION ATELECTASIS. 6. PNEUMONIA. Seems to be improving. Received about 2 weeks of IV Zosyn and 1 week of vancomycin. 7. ACUTE CHOLECYSTITIS. This appears to be improving. White count is normal. PLAN AND RECOMMENDATIONS: 1. Discussed patient's condition with the patient's family, who was the power of filter cloth maker- Brittany Carlin. 2. She agreed to have a family meeting on Thursday at around 6:00 p.m. We will consult social work coordinator to make this family conference meeting happen so we can discuss in detail the condition of the patient with the family and make a decision what to do next. 3. We will continue to optimize the invasive mechanical ventilation. We will provide light sedation to make the patient comfortable. DICTATING PHYSICIAN: BENJAMIN POWELL MD,VIRA,MPH [id number] PHY#: [id number] ID: [id number] JOB#: [id number] ACCT: [id number] cc: > MTDD
== END 2018-10-12 05:00 | disposition expired | DRG 870 ==
LOC: ER 12:02 → EH 15:29 → UNDOADMIN 15:29 → ICU 19:02 → 4N 10-12 03:30
PROVIDERS: ADMIT Internal Medicine; ATTEND Internal Medicine
PROC: 0BH17EZ Insertion of Endotracheal Airway into Trachea, Via Natural or Artificial Opening (ICD-10-PCS; principal; 2018-09-22)
PROC: 5A1955Z Respiratory Ventilation, Greater than 96 Consecutive Hours (ICD-10-PCS; 2018-09-22)
PROC: 02HV33Z Insertion of Infusion Device into Superior Vena Cava, Percutaneous Approach (ICD-10-PCS; 2018-09-22)
DX: A41.9 Sepsis, unspecified organism (principal); R65.21 Severe sepsis with septic shock; J96.02 Acute respiratory failure with hypercapnia; J18.9 Pneumonia, unspecified organism; G93.41 Metabolic encephalopathy; N17.0 Acute kidney failure with tubular necrosis; E87.2 Acidosis; K81.0 Acute cholecystitis; E87.6 Hypokalemia; D69.6 Thrombocytopenia, unspecified; I48.91 Unspecified atrial fibrillation; K74.60 Unspecified cirrhosis of liver; J44.9 Chronic obstructive pulmonary disease, unspecified; R19.7 Diarrhea, unspecified; I25.10 Atherosclerotic heart disease of native coronary artery without angina pectoris; F03.90 Unspecified dementia, unspecified severity, without behavioral disturbance, psychotic disturbance, mood disturbance, and anxiety; I10 Essential (primary) hypertension; B19.20 Unspecified viral hepatitis C without hepatic coma; F31.9 Bipolar disorder, unspecified; M19.90 Unspecified osteoarthritis, unspecified site; Z88.8 Allergy status to other drugs, medicaments and biological substances; Z90.710 Acquired absence of both cervix and uterus; F17.200 Nicotine dependence, unspecified, uncomplicated
CPT/HCPCS: 31500; 36415; 36600; 51702; 71045; 74018; 76604; 76700; 80048; 80053; 80074; 80170; 80202; 80307; 81001; 82040; 82272; 82550; 82553; 82803; 83036; 83605; 83690; 83735; 83880; 84100; 84132; 84439; 84443; 84478; 84481; 84484; 85025; 86701; 87040; 87045; 87070; 87077; 87086; 87205; 87493; 87521; 93005; 93010; 94002; 94003; 94640; 96365; 99285; C1751; J0330; J0692; J0696; J1100; J1580; J1940; J1956; J2060; J2270; J2543; J2704; J3370; J3480; J3490; J7030; J7050; J7060; J7620; P9047; S0028